=== PATIENT | female | born 1950 | race Hispanic/Latino ===

== ENCOUNTER 2017-02-12 18:33 | Inpatient (IN) | payer MEDICAID, OTHER ==
[2017-02-12] MEDS ORDERED: Sodium Chloride 0.9% 1,000 ML IV STA ×2 (19:14→20:36)
--- NOTE | 2017-02-12 19:22 | ED PDOC ---
Arrival/HPI - General Chief Complaint: Altered Mental Status Time Seen by Provider: 02/12/17 18:55 Historian: Patient - History of Present Illness Narrative History of Present Illness (Text): 02/12/17 19:23 A 66 year old female, whose past medical history includes CAD (with stents) and type 1 diabetes, brought in by EMS complaining of dizziness. Patient's son reports neighbor called ambulance. Patient reports she felt wobbly and almost as if she were to pass out. Patient denies any headache, vision changes, chest pain, shortness of breath, abdominal pain, nausea, vomiting, dysuria, fever or any other complaints at this time. PMD: Dr. Mackey Symptom Onset: Sudden Symptom Course: Unchanged Activities at Onset: Rest Context: Home Past Medical History - Provider Review Nursing Documentation Reviewed: Yes - Infectious Disease Hx of Infectious Diseases: None - Tetanus Immunization Tetanus Immunization: Unknown - Reproductive Menopause: Yes - Cardiac Hx Cardiac Disorders: Yes Hx Hypertension: Yes Hx Pacemaker: No - Pulmonary Hx Respiratory Disorders: No - Neurological Hx Neurological Disorder: No Hx Paralysis: No - HEENT Hx HEENT Disorder: No - Renal Hx Renal Disorder: No - Endocrine/Metabolic Hx Endocrine Disorders: Yes Hx Diabetes Mellitus Type 1: Yes - Hematological/Oncological Hx Blood Disorders: No Hx Blood Transfusions: No Hx Blood Transfusion Reaction: No - Integumentary Hx Dermatological Disorder: No - Musculoskeletal/Rheumatological Hx Musculoskeletal Disorders: No - Gastrointestinal Hx Gastrointestinal Disorders: No - Genitourinary/Gynecological Hx Genitourinary Disorders: No - Psychiatric Hx Psychophysiologic Disorder: No Hx Emotional Abuse: No Hx Physical Abuse: No Hx Substance Use: No - Past Surgical History Past Surgical History: Unable to Obtain - Surgical History Hx Cardiac Catheterization: Yes Hx Section: Yes Hx Coronary Stent: Yes - Anesthesia Hx Anesthesia: Yes Hx Anesthesia Reactions: No Hx Malignant Hyperthermia: No - Suicidal Assessment Feels Threatened In Home Enviroment: No Family/Social History - Physician Review Nursing Documentation Reviewed: Yes Family/Social History: No Known Family HX Smoking Status: Current Some Days Smoker Hx Alcohol Use: Yes (occassional glass of wine) Frequency of alcohol use: Socially Hx Substance Use: No Hx Substance Use Treatment: No Allergies/Home Meds Allergies/Adverse Reactions: Allergies No Known Allergies Allergy (Verified 02/12/17 18:41) Home Medications: Home Meds Medication Instructions Recorded Confirmed Atorvastatin [Lipitor] 80 mg PO DAILY 05/04/16 06/24/17 Clopidogrel [Plavix] 75 mg PO DAILY 12/24/15 02/12/17 Enalapril Maleate [Vasotec] 20 mg PO BID 12/24/15 02/12/17 Hydrochlorothiazide [HCTZ] 12.5 mg PO DAILY 12/24/15 02/12/17 Metoprolol Tartrate [Lopressor] 25 mg PO BID 12/24/15 02/12/17 Insulin Lispro [humALOG] 0 units SC DAILY 02/12/17 02/12/17 Review of Systems - Physician Review All systems were reviewed & negative as marked: Yes - Review of Systems Constitutional: absent: Fevers Eyes: absent: Vision Changes Respiratory: absent: SOB Cardiovascular: absent: Chest Pain Gastrointestinal: absent: Abdominal Pain, Nausea, Vomiting Genitourinary Female: absent: Dysuria Neurological: Dizziness. absent: Headache Physical Exam Vital Signs Reviewed: Yes Vital Signs Temp Pulse Resp BP Pulse Ox 02/12/17 20:42 70 20 142/39 L 100 02/12/17 18:53 97.7 F 70 18 105/44 L 99 Temperature: Afebrile Blood Pressure: Hypotensive Pulse: Regular Respiratory Rate: Normal Appearance: Positive for: Well-Appearing, Non-Toxic, Comfortable Pain Distress: None Mental Status: Positive for: Alert and Oriented X 3 Finger Stick Blood Glucose: 500 - Systems Exam Head: Present: Atraumatic, Normocephalic Pupils: Present: PERRL Extroacular Muscles: Present: EOMI Conjunctiva: Present: Normal Mouth: Present: Moist Mucous Membranes Neck: Present: Normal Range of Motion Respiratory/Chest: Present: Clear to Auscultation, Good Air Exchange. No: Respiratory Distress, Accessory Muscle Use Cardiovascular: Present: Regular Rate and Rhythm, Normal S1, S2. No: Murmurs Abdomen: Present: Normal Bowel Sounds. No: Tenderness, Distention, Peritoneal Signs Back: Present: Normal Inspection Upper Extremity: Present: Normal Inspection. No: Cyanosis, Edema Lower Extremity: Present: Normal Inspection. No: Edema Neurological: Present: GCS=15, CN II-XII Intact, Speech Normal Skin: Present: Warm, Dry, Normal Color. No: Rashes Psychiatric: Present: Alert, Oriented x 3, Normal Insight, Normal Concentration Medical Decision Making ED Course and Treatment: 02/12/17 19:20 Impression: A 66 year old female with dizziness. Differential Diagnosis included but are not limited to: near syncope vs. electrolyte abnormality Plan: -- EKG -- CT brain -- chest xray -- labs -- Urinalysis -- IV fluids -- Reassess and disposition Prior Visits: Notes and results from previous visits were reviewed. Patient was last seen in the emergency department on 08/10/16 for evaluation of AMS. Progress Notes: EKG: Ordered, reviewed, and independently interpreted the EKG. Rate : 75 BPM Rhythm : NSR Interpretation : 1st deg AV block with PVC, HI interval 264, QRS 110, T wave appear peaked, no other ST/T changes compared with EKG from 08/10/16 02/12/17 22:13 Patient with noted history with unremarkable vitals and other than being a poor historian, she is awak, alert, and oriented x 3. Her chemistry is showing labs consistent with marked DKA with HC03 of 5 and AG of 38 with VBG at pH of 7.00. BUN/Cr is revealing prerenal azotemia and potassium is very high at 8.2. EKG with peaked T waves. Patient given calcium, HC03 and insulin and will be placed on insulin drip for the DKA. The case was discussed with Dr. Mccauley, who accepted the patient to the ICU. 02/12/17 21:33 Patient's lactic acid is 6.0 - code sepsis called; patient hydrated appropriately per sepsis protocol and will start on iv antibiotics. - Critical Care Critical Care Minutes: 45 minutes - Lab Interpretations Lab Results: 02/12/17 18:50 02/12/17 18:50 Lab Results 02/12/17 18:50: PT 10.7, INR 0.99, APTT 25.8 02/12/17 18:50: Sodium 117 L*, Potassium 8.2 H* D, Chloride 78 L D, Carbon Dioxide 5 L D, Anion Gap 42 H, BUN 71 H, Creatinine 2.8 H, Est GFR ( Amer ) 21, Est GFR (Non-Af Amer) 17, Random Glucose 1507 H* D, Calcium 8.7, Magnesium 2.9 H, Total Bilirubin 0.6, AST 103 H, ALT 50, Alkaline Phosphatase 149 H, Lactate Dehydrogenase 593, Total Creatine Kinase 90, Troponin I 0.02 D, Total Protein 6.3, Albumin 4.2, Globulin 2.1, Albumin/Globulin Ratio 2.0 H, Lipase 134 02/12/17 18:50: WBC 10.8, RBC 3.85, Hgb 11.4 L, Hct 38.8, MCV 100.8, MCH 29.6, MCHC 29.4 L, RDW 13.8, Plt Count 326, MPV 11.0, Gran % 83.1 H, Lymph % (Auto) 7.5 L, Beckham % (Auto) 8.8 H, Eos % (Auto) 0.0 L, Baso % (Auto) 0.6, Gran # 8.98 H , Lymph # 0.8 L, Beckham # 1.0 H, Eos # 0.0, Baso # 0.07 I have reviewed the lab results: Yes - RAD Interpretation Radiology Orders: 02/12/17 19:11 CHEST PORTABLE [RAD] Stat 02/12/17 19:14 Brain [HEAD W/O CONTRAST] [CT] Stat - EKG Interpretation Interpreted by ED Physician: Yes Type: 12 lead EKG - Medication Orders Current Medication Orders: Acetaminophen (Tylenol 325mg Tab) 650 mg PO Q6H PRN PRN Reason: Pain, moderate (4-7) Heparin Sodium (Porcine) (Heparin) 5,000 units SC Q12 MOSES PRN Reason: Protocol Sodium Chloride (Sodium Chloride 0.9%) 1,000 mls @ 150 mls/hr IV .Q6H40M MOSES Insulin Human Regular 100 (units/ Sodium Chloride) 100 mls @ 7 mls/hr IV .[id number] PRN; Protocol; 7 UNITS/HR PRN Reason: TITRATE PER MD ORDER Vancomycin HCl 1 gm/ Sodium (Chloride) 250 mls @ 133.333 mls/hr IV STAT STA PRN Reason: Protocol Stop: 02/13/17 00:01 Piperacillin Sod/Tazobactam Sod (Zosyn 2.25 Gm In 0.9% 100 Ml) 2.25 gm in 100 mls @ 100 mls/hr IVPB STAT STA PRN Reason: Protocol Stop: 02/12/17 23:10 Metoclopramide HCl (Reglan) 5 mg IVP Q6H PRN PRN Reason: Nausea/Vomiting Last Admin: 02/12/17 21:59 Dose: 5 mg Pantoprazole Sodium (Protonix Inj) 40 mg IVP DAILY MOSES Discontinued Medications Calcium Gluconate (Calcium Gluconate Iv) 1,000 mg IVP ONCE ONE Stop: 02/12/17 20:45 Last Admin: 02/12/17 21:07 Dose: 1,000 mg Sodium Chloride (Sodium Chloride 0.9%) 1,000 mls @ 999 mls/hr IV .Q1H1M STA Stop: 02/12/17 20:14 Last Admin: 02/12/17 19:34 Dose: 999 mls/hr Insulin Human Regular 100 (units/ Sodium Chloride) 100 mls @ 6 mls/hr IV .[id number] PRN; Protocol; 6 UNITS/HR PRN Reason: TITRATE PER MD ORDER Last Admin: 02/12/17 21:40 Dose: 6 units/hr, 6 mls/hr Sodium Chloride (Sodium Chloride 0.9%) 1,000 mls @ 999 mls/hr IV .Q1H1M STA Stop: 02/12/17 21:36 Last Admin: 02/12/17 21:05 Dose: 999 mls/hr Insulin Human Regular (Humulin R) 6 units IVP ONCE STA Stop: 02/12/17 20:29 Last Admin: 02/12/17 21:06 Dose: 6 units Ondansetron HCl (Zofran Inj) 4 mg IVP STAT STA Stop: 02/12/17 19:27 Last Admin: 02/12/17 19:35 Dose: 4 mg Sodium Bicarbonate (Sodium Bicarbonate (8.4%) 50 Meq Syringe) 100 meq IVP ONCE STA Stop: 02/12/17 21:15 Last Admin: 02/12/17 21:32 Dose: 100 meq - Scribe Statement The provider has reviewed the documentation as recorded by the Malka Ortiz Provider Scribe Attestation: All medical record entries made by the Malka were at my direction and personally dictated by me. I have reviewed the chart and agree that the record accurately reflects my personal performance of the history, physical exam, medical decision making, and the department course for this patient. I have also personally directed, reviewed, and agree with the discharge instructions and disposition. Disposition/Present on Arrival - Present on Arrival Any Indicators Present on Arrival: Yes History of DVT/PE: No History of Uncontrolled Diabetes: Yes Urinary Catheter: No History of Decub. Ulcer: No History Surgical Site Infection Following: None - Disposition Have Diagnosis and Disposition been Completed?: Yes Diagnosis: Diabetic ketoacidosis, Prerenal azotemia, Hyperkalemia Disposition: HOSPITALIZED Disposition Time: 20:33 Patient Plan: Observation Condition: GUARDED
[2017-02-12 19:36] LABS: BASO # 0.07 K/mm3 (0.0-2.0); BASO % 0.6 % (0.0-3.0); GRAN # 8.98 (1.4-6.5); GRAN % 83.1 % (50.0-68.0); HEMATOCRIT 38.8 % (36.0-48.0); LYMPH # 0.8 (1.2-3.4); LYMPH % 7.5 % (22.0-35.0); MEAN CELL VOLUME 100.8 fL (80.0-105.0); MEAN CORPUSCULAR HEMOGLOBIN 29.6 pg (25.0-35.0); MEAN CORPUSCULAR HGB CONC 29.4 g/dl (31.0-37.0); MONO % 8.8 % (1.0-6.0); PLATELET COUNT 326 10^3/uL (120.0-450.0); RED CELL DISTRIBUTION WIDTH 13.8 % (11.5-14.5); WHITE BLOOD COUNT 10.8 10^3/ul (4.5-11.0)
[2017-02-12 19:39] LABS: ADD MANUAL DIFF? NO
[2017-02-12 19:44] LABS: BILIRUBIN,TOTAL 0.6 mg/dL (0.2-1.3); CALCIUM 8.7 mg/dL (8.4-10.5); INR 0.99 (0.93-1.08); MAGNESIUM 2.9 mg/dL (1.7-2.2); PARTIAL THROMBOPLASTIN TIME 25.8 Seconds (23.7-30.8); TOTAL PROTEIN 6.3 g/dL (5.8-8.3)
[2017-02-12 19:55] LABS: TROPONIN I 0.02 ng/mL
[2017-02-12] MEDS ORDERED: Insulin Regular 1 UNITS/0.01 ML ML IVP STA (20:28)
[2017-02-12 20:42] LABS: POTASSIUM 8.2 mmol/L (3.6-5.0)
[2017-02-12 21:05] LABS: VENOUS BLOOD GAS BASE EXCESS -22.6 mmol/L (0.0-2.0)
[2017-02-12] MEDS ORDERED: Sodium Bicarbonate (8.4%) 50 Meq Syringe IVP STA (21:14)
[2017-02-12] MEDS ORDERED: Insulin Regular 100 UNITS in Sodium Chloride 0.9% 99 ML IV PRN (21:16)
--- NOTE | 2017-02-12 21:20 | CP.PCM.HP ---
History of Present Illness - History of Present Illness History of Present Illness: The patient is a 66 year old woman with a history of CAD (s/p PCI's), DL and IDDM who presents with pre-syncope. Of note, due to the patient's intermittent confusion, detail of history are limited and were obtained from the ED notes. She denies CP, SOB, head trauma, F/C, dysuria or cough. In the ED, a code sepsis was called after her lactate was found to be elevated at 6.0. Also in the ED, her blood glucose was found to be greater than 1000 with evidence of severe DKA. As a result, she will be admitted to ICU for further monitoring and management. Present on Admission - Present on Admission Any Indicators Present on Admission: No Review of Systems - Review of Systems All systems: reviewed and no additional remarkable complaints except - Constitutional Constitutional: As Per HPI - EENT Eyes: As Per HPI Ears: As Per HPI - Cardiovascular Cardiovascular: As Per HPI - Respiratory Respiratory: As Per HPI - Gastrointestinal Gastrointestinal: As Per HPI - Musculoskeletal Musculoskeletal: As Per HPI - Integumentary Integumentary: As Per HPI - Neurological Neurological: As Per HPI Past Patient History - Infectious Disease Hx of Infectious Diseases: None - Tetanus Immunizations Tetanus Immunization: Unknown - Past Social History Smoking Status: Current Some Days Smoker - CARDIAC Hx Cardiac Disorders: Yes Hx Hypertension: Yes Hx Pacemaker: No - PULMONARY Hx Respiratory Disorders: No - NEUROLOGICAL Hx Neurological Disorder: No Hx Paralysis: No - HEENT Hx HEENT Problems: No - RENAL Hx Chronic Kidney Disease: No - ENDOCRINE/METABOLIC Hx Endocrine Disorders: Yes Hx Diabetes Mellitus Type 1: Yes - HEMATOLOGICAL/ONCOLOGICAL Hx Blood Disorders: No Hx Blood Transfusions: No Hx Blood Transfusion Reaction: No - INTEGUMENTARY Hx Dermatological Problems: No - MUSCULOSKELETAL/RHEUMATOLOGICAL Hx Musculoskeletal Disorders: No - GASTROINTESTINAL Hx Gastrointestinal Disorders: No - GENITOURINARY/GYNECOLOGICAL Hx Genitourinary Disorders: No - PSYCHIATRIC Hx Psychophysiologic Disorder: No Hx Emotional Abuse: No Hx Physical Abuse: No Hx Substance Use: No - SURGICAL HISTORY Hx Cardiac Catheterization: Yes Hx Section: Yes Hx Coronary Stent: Yes - ANESTHESIA Hx Anesthesia: Yes Hx Anesthesia Reactions: No Hx Malignant Hyperthermia: No Meds Allergies/Adverse Reactions: Allergies Allergy/AdvReac Type Severity Reaction Status Date / Time No Known Allergies Allergy Verified 02/12/17 18:41 Physical Exam - Constitutional Additional comments: A&Ox3; However, intermittently confused and asking to "go home" - Head Exam Head Exam: ATRAUMATIC, NORMAL INSPECTION, NORMOCEPHALIC - Eye Exam Eye Exam: EOMI, Normal appearance, PERRL - ENT Exam ENT Exam: Mucous Membranes Dry - Neck Exam Neck exam: Positive for: Full Rom, Normal Inspection - Respiratory Exam Respiratory Exam: Clear to Auscultation Bilateral, NORMAL BREATHING PATTERN - Cardiovascular Exam Cardiovascular Exam: REGULAR RHYTHM - GI/Abdominal Exam GI & Abdominal Exam: Normal Bowel Sounds, Soft. absent: Tenderness - Rectal Exam Rectal Exam: Deferred - Extremities Exam Extremities exam: Positive for: normal inspection - Neurological Exam Additional comments: Grossly normal neuro exam Results - Vital Signs Recent Vital Signs: Last Vital Signs Temp 97.7 F 02/12/17 18:53 Pulse 70 02/12/17 20:42 Resp 20 02/12/17 20:42 BP 142/39 L 02/12/17 20:42 Pulse Ox 100 02/12/17 20:42 - Labs Result Diagrams: 02/13/17 03:15 02/13/17 03:15 Labs: Laboratory Results - last 24 hr 02/12/17 20:45 pO2 105 H VBG pH 7.00 L* VBG pCO2 31.0 L VBG HCO3 7.6 L VBG Total CO2 8.6 L VBG O2 Sat (Calc) 98.6 H VBG Base Excess -22.6 L VBG Potassium 9.4 H* Sodium 120.0 L* Chloride 71.0 L Glucose > 750 H* Lactate 6.0 H* FiO2 21.0 Venous Blood Potassium 9.4 H* - Imaging and Cardiology CT scan - head Status: Report reviewed by me Assessment & Plan - Assessment and Plan (Free Text) Plan: A/P: The patient is a 66 year old woman with a history of CAD (s/p PCI's), DL and IDDM who is being admitted for SIRS, severe DKA, hyperkalemia and BENNIE. 1. Type 1 DKA (with intermittent confusion): -Insulin drip -aggressive IVF's -no additional potassium needed in IVF's as pt already hyperkalemic -check serial BMP's, VBG, mag and phos -NPO -neuro checks Q4hrs -check HgA1c 2. Altered Mentation (intermittent): -likely due to combination of DKA and SIRS -empiric IV antibiotics and Insulin drip -neuro checks Q4hrs -fall precautions -CT-head negative for acute disease 3. SIRS: -elevated lactic acid and leukocyotsis but afebrile -no obvious source of infection -will empirically start IV Vanco/Zosyn -check procalcitonin -check UA 4. Hyperkalemia: -IV calcium gluconate given in ED -Insulin drip should be adequate treatment for now 5. BENNIE: -last documented serum Cr was normal -nephrology consult placed -urine lytes ordered -renally dose all meds DVT PPx: SC Heparin and SCD's GI PPx: Protonix
[2017-02-12] MEDS: Insulin Regular 100 UNITS in Sodium Chloride 0.9% 99 ML IV PRN ×2 (21:40→23:07)
[2017-02-12 21:41] LABS: URINE BILIRUBIN NEGATIVE (NEGATIVE); URINE BLOOD NEGATIVE (NEGATIVE); URINE GLUCOSE (UA) NEGATIVE (NEGATIVE); URINE KETONE 15 mg/dL (NEGATIVE); URINE LEUKOCYTE ESTERASE NEGATIVE Leu/uL (NEGATIVE); URINE PROTEIN TRACE mg/dL (<30 mg/dL); URINE UROBILINOGEN 0.2 E.U./dL (<1 E.U./dL)
[2017-02-12 21:46] LABS: URINE APPEARANCE CLEAR (CLEAR); URINE COLOR YELLOW (YELLOW)
[2017-02-12 21:51] LABS: URINE RBC 0 - 2 /hpf (0-2)
[2017-02-12 21:52] LABS: URINE AMORPHOUS SEDIMENT FEW; URINE BACTERIA MOD (NEG)
[2017-02-12] MEDS ORDERED: Piperacillin/Tazobact 2.25gm 2.25 GM/100 ML BAG IVPB STA (22:11)
[2017-02-12] MEDS ORDERED: Vancomycin 1gm in NS 250ml 1 GM/250 ML BAG IVPB STA (22:17)
[2017-02-12] MEDS ORDERED: Sod Polystyrene Sulf 15 gm/60 ml Oral Susp PO ONE (22:52)
[2017-02-12] MEDS: Sodium Chloride 0.9% 1,000 ML IV SCH (22:58)
--- NOTE | 2017-02-12 23:06 | CT ---
EXAM: CT Head Without Intravenous Contrast CLINICAL HISTORY: 66 years old, female; Signs and symptoms; Syncope and collapse; Additional info: Unsteady, near syncope TECHNIQUE: Axial computed tomography images of the head/brain without intravenous contrast. This CT exam was performed using one or more of the following dose reduction techniques: automated exposure control, adjustment of the mA and/or kV according to patient size, and/or use of iterative reconstruction technique. EXAM DATE/TIME: 02/12/2017 7:14 PM COMPARISON: No relevant prior studies available. FINDINGS: BRAIN: Small foci of air are seen in the brain, just above the skull base. These are most likely intravenous in location, located in the cavernous sinuses, and related to a recent intravenous injection or peripheral IV placement. This finding is unlikely of clinical significance. Areas of low density in the periventricular white matter bilaterally, most likely representing mild chronic small vessel ischemic changes. Diffuse, age-related cortical atrophy and ventriculomegaly. No significant acute abnormality identified. No acute hemorrhage seen within the brain. No acute extra-axial fluid collections visualized. No evidence of significant mass effect within the brain. VENTRICLES: No evidence of significant hydrocephalus. BONES/JOINTS: See above. SOFT TISSUES: No acute abnormality of the visualized soft tissues is seen. VASCULATURE: Atherosclerotic calcification. SINUSES: Visualized paranasal sinuses appear clear. MASTOID AIR CELLS: Mastoid air cells appear clear. IMPRESSION: - No acute findings seen within the brain. - See above for remaining findings.
[2017-02-12 23:50] LABS: VENOUS BLOOD GAS BASE EXCESS -17.1 mmol/L (0.0-2.0)
[2017-02-13] LABS: CALCIUM 8.4 mg/dL (8.4-10.5); MAGNESIUM 2.7 mg/dL (1.7-2.2); PHOSPHOROUS 8.5 mg/dL (2.5-4.5)
[2017-02-13] MEDS ORDERED: Sodium Bicarbonate (8.4%) 50 Meq Syringe IVP ONE (00:01)
[2017-02-13 00:14] LABS: POTASSIUM 5.6 mmol/L (3.6-5.0)
[2017-02-13] MEDS: Insulin Regular 100 UNITS in Sodium Chloride 0.9% 99 ML IV PRN ×3 (01:48→10:20)
[2017-02-13 02:39] VITALS: BMI 16.7
[2017-02-13 03:40] LABS: CALCIUM 8.2 mg/dL (8.4-10.5); MAGNESIUM 2.5 mg/dL (1.7-2.2); PHOSPHOROUS 3.5 mg/dL (2.5-4.5); POTASSIUM 4.3 mmol/L (3.6-5.0)
[2017-02-13 03:47] LABS: MEAN CELL VOLUME 84.8 fL (80.0-105.0); MEAN CORPUSCULAR HEMOGLOBIN 29.4 pg (25.0-35.0); MEAN CORPUSCULAR HGB CONC 34.6 g/dl (31.0-37.0); MEAN PLATELET VOLUME 9.9 fl (7.0-11.0); PLATELET COUNT 257 10^3/uL (120.0-450.0); RED CELL DISTRIBUTION WIDTH 12.9 % (11.5-14.5); WHITE BLOOD COUNT 13.2 10^3/ul (4.5-11.0)
[2017-02-13 03:48] LABS: ADD MANUAL DIFF? YES
[2017-02-13] MEDS ORDERED: Sodium Chloride 0.9% 1,000 ML IV STA ×2 (07:07→08:42)
[2017-02-13 07:12] LABS: VENOUS BLOOD PH 7.41 (7.32-7.43)
[2017-02-13 07:15] LABS: NEUTROPHIL 87 % (50.0-70.0)
[2017-02-13] MEDS: Sodium Chloride 0.9% 1,000 ML IV SCH (07:15)
[2017-02-13 07:16] LABS: BAND 2 % (0-2); EOSINOPHIL 1 % (0.0-3.0)
[2017-02-13 07:33] LABS: CALCIUM 8.2 mg/dL (8.4-10.5); MAGNESIUM 2.3 mg/dL (1.7-2.2); PHOSPHOROUS 2.5 mg/dL (2.5-4.5); POTASSIUM 3.6 mmol/L (3.6-5.0)
--- NOTE | 2017-02-13 08:10 | RAD ---
HISTORY: dizzy COMPARISON: 08/10/2016 FINDINGS: LUNGS: No active pulmonary disease. PLEURA: No significant pleural effusion identified, no pneumothorax apparent. CARDIOVASCULAR: Normal. OSSEOUS STRUCTURES: No significant abnormalities. VISUALIZED UPPER ABDOMEN: Normal. OTHER FINDINGS: None. IMPRESSION: No active disease.
--- NOTE | 2017-02-13 09:46 | PN ---
DATE: 02/13/2017 SUBJECTIVE: The patient is resting in bed, very comfortable this morning. Continues to require insu fercho drip as well as IV fluids and electrolytes are being watched closely. The patient is hemodynamic ally stable. No complaints of pain. No fever, chills, nausea, vomiting. No abdominal pain. No bladimir rrhea. PHYSICAL EXAMINATION: VITAL SIGNS: Her temperature is 98.8, her pulse is 96, respirations are 19, and BP is 143/62, O2 sat uration is 96% on room air. HEAD: Atraumatic, normocephalic. EYES: Reactive to light. EARS, NOSE AND THROAT: Seemed to be within normal limits. NECK: Supple. No JVD, no thyroid enlargement, no lymph nodes. HEART: Has regular rate and rhythm, normal S1, S2. LUNGS: Reveal good breath sounds bilaterally. ABDOMEN: Soft, decreased bowel sounds. GENITALIA AND RECTAL: Deferred. MUSCULOSKELETAL: No joint deformities. EXTREMITIES: Reveal no significant lower extremity edema. NEUROLOGIC: She seems to be grossly intact at this time. LABORATORIES: Reveal a white count of 13.2, her hemoglobin is 9.7, hematocrit 28.0 and platelets of 257,000. The patient's venous blood gas reveals a pH of 7.41, pCO2 of 48 and pO2 of 60. Sodium is 1 41, potassium 3.6, chloride 102, CO2 of 27 with a BUN of 56, creatinine of 1.8 and glucose is 462. The patient's chest x-ray reveals no active disease. CT of the head reveals no acute findings seen w ithin the brain. IMPRESSION: This patient has diabetic ketoacidosis with severe metabolic acidosis and presented with altered mental status. She has acute renal failure and has a history of coronary artery disease wit h stents and anemia. PLAN: We will continue with the insulin drip and check her electrolytes closely and correct as needteresa d. The patient will continue with IV fluids and she is on heparin subQ as well as Protonix and Erica n. We will follow closely and treat aggressively along with the other consultants and the primary ca re doctor. Ronaldo Rae MD cc: [id number] TT: 02/13/2017 09:45:39 Confirmation # [id number] Dictation # [id number]
[2017-02-13 11:08] LABS: VENOUS BLOOD GAS BASE EXCESS 2.6 mmol/L (0.0-2.0); VENOUS BLOOD PH 7.36 (7.32-7.43)
[2017-02-13] MEDS: Dextrose 5%/0.45% NS 1,000 ML IV SCH ×2 (11:21→18:10)
[2017-02-13 11:28] LABS: CALCIUM 7.7 mg/dL (8.4-10.5); MAGNESIUM 2.1 mg/dL (1.7-2.2); PHOSPHOROUS 1.8 mg/dL (2.5-4.5); POTASSIUM 3.4 mmol/L (3.6-5.0)
[2017-02-13] MEDS ORDERED: Potassium Chloride 20 mEq ER Tab PO STA ×2 (11:32)
[2017-02-13] MEDS ORDERED: Insulin Regular 100 UNITS in Sodium Chloride 0.9% 99 ML IV PRN (11:51)
[2017-02-13] MEDS ORDERED: Albuterol-Ipratrop 3 mg / 0.5 (3 ml) UD IH PRN (11:57)
--- NOTE | 2017-02-13 12:15 | CP.PCM.PN ---
<Billy Mckeon - Last Filed: 02/13/17 12:15> Subjective - Date & Time of Evaluation Date of Evaluation: 02/13/17 Time of Evaluation: 08:00 - Subjective Subjective: Pt was seen and examined at bedside. Pt is somnolent however orientated. She is answering some questions at this time. No acute or adverse events overnight as per nursing staff. Pt remains on insulin drip. Objective - Vital Signs/Intake and Output Vital Signs (last 24 hours): Temp Pulse Resp BP Pulse Ox 98.8 F 80 21 140/51 L 98 02/13/17 08:00 02/13/17 10:10 02/13/17 10:10 02/13/17 10:00 02/13/17 10:10 Intake and Output: 02/13/17 02/13/17 06:59 18:59 Intake Total 2400 120 Output Total 625 Balance 1775 120 - Medications Medications: Current Medications Acetaminophen (Tylenol 325mg Tab) 650 mg PO Q6H PRN PRN Reason: Pain, moderate (4-7) Albuterol/Ipratropium (Duoneb 3 Mg/0.5 Mg (3 Ml) Ud) 3 ml IH Q2H PRN PRN Reason: Shortness of Breath Arformoterol Tartrate (Brovana) 15 mcg IH [id number] [facility] Budesonide (Pulmicort Respules) 0.5 mg IH [id number] [facility] Heparin Sodium (Porcine) (Heparin) 5,000 units SC Q12 [facility] PRN Reason: Protocol Last Admin: 02/13/17 09:54 Dose: 5,000 units Dextrose/Sodium Chloride (Dextrose 5%/0.45% Ns 1000 Ml) 1,000 mls @ 150 mls/hr IV .Q6H40M [facility] Last Admin: 02/13/17 11:21 Dose: 150 mls/hr Potassium Chloride (Potassium Chloride 20 Meq/100 Ml) 20 meq in 100 mls @ 50 mls/hr IVPB ONCE ONE Stop: 02/13/17 13:33 Last Admin: 02/13/17 11:55 Dose: 50 mls/hr Insulin Human Regular 100 (units/ Sodium Chloride) 100 mls @ 15 mls/hr IV .Q6H40M PRN; Protocol; 15 UNITS/HR PRN Reason: TITRATE PER MD ORDER Metoclopramide HCl (Reglan) 5 mg IVP Q6H PRN PRN Reason: Nausea/Vomiting Last Admin: 02/12/17 21:59 Dose: 5 mg Nicotine (Nicoderm Cq) 1 patch TD DAILY [facility] Last Admin: 02/13/17 11:24 Dose: 1 patch Pantoprazole Sodium (Protonix Inj) 40 mg IVP DAILY [facility] Last Admin: 02/13/17 09:54 Dose: 40 mg Potassium Phos/Sodium Phos (Neutra-Phos) 1 pkt PO BID [facility] - Labs Labs: 02/13/17 03:15 02/13/17 11:00 PT 10.7 Seconds (9.9-11.8) 02/12/17 18:50 INR 0.99 (0.93-1.08) 02/12/17 18:50 APTT 25.8 Seconds (23.7-30.8) 02/12/17 18:50 - Constitutional Appears: No Acute Distress - Head Exam Head Exam: ATRAUMATIC, NORMAL INSPECTION, NORMOCEPHALIC - Eye Exam Eye Exam: EOMI, Normal appearance, PERRL Pupil Exam: NORMAL ACCOMODATION, PERRL - ENT Exam ENT Exam: Mucous Membranes Moist, Normal Exam - Neck Exam Neck Exam: Full ROM, Normal Inspection. absent: Lymphadenopathy - Respiratory Exam Respiratory Exam: Clear to Ausculation Bilateral, NORMAL BREATHING PATTERN - Cardiovascular Exam Cardiovascular Exam: REGULAR RHYTHM, +S1, +S2. absent: Murmur - GI/Abdominal Exam GI & Abdominal Exam: Soft, Normal Bowel Sounds. absent: Tenderness - Extremities Exam Extremities Exam: Full ROM, Normal Capillary Refill, Normal Inspection. absent : Joint Swelling, Pedal Edema - Neurological Exam Neurological Exam: Alert, Awake, CN II-XII Intact, Normal Gait, Oriented x3 - Psychiatric Exam Psychiatric exam: Normal Affect, Normal Mood - Skin Skin Exam: Dry, Intact, Normal Color, Warm Assessment and Plan - Assessment and Plan (Free Text) Assessment: 66 F admitted to ICU for for severe DKA, AMS, and BENNIE. 1. Type 1 DKA (with intermittent confusion): -Insulin drip, aggressive IVF's, will switch once AG closes -check serial BMP's, VBG, mag and phos -restart Diabetic diet -neuro checks Q4hrs -check HgA1c 2. Altered Mentation (intermittent): -likely due to combination of DKA and SIRS, improving -empiric IV antibiotics and Insulin drip -neuro checks Q4hrs -fall precautions -CT-head negative for acute disease 3. SIRS: -elevated lactic acid and leukocyotsis but afebrile -no clear etiology of infection -will empirically start IV Vanco/Zosyn -check procalcitonin -check UA 4. Hyperkalemia: -resolved 5. BENNIE: -last documented serum Cr was normal -nephrology consult placed, renal US -urine lytes ordered -renally dose all meds DVT GI PPx: SC Heparin and SCD's Protonix Seen Reviewed and discussed with Dr. Parnell <Benito Parnell - Last Filed: 02/13/17 14:08> Objective - Vital Signs/Intake and Output Vital Signs (last 24 hours): Temp Pulse Resp BP Pulse Ox 98.8 F 84 24 135/49 L 99 02/13/17 08:00 02/13/17 13:00 02/13/17 13:00 02/13/17 13:00 02/13/17 13:00 Intake and Output: 02/13/17 02/13/17 06:59 18:59 Intake Total 2400 120 Output Total 625 Balance 1775 120 - Medications Medications: Current Medications Acetaminophen (Tylenol 325mg Tab) 650 mg PO Q6H PRN PRN Reason: Pain, moderate (4-7) Albuterol/Ipratropium (Duoneb 3 Mg/0.5 Mg (3 Ml) Ud) 3 ml IH Q2H PRN PRN Reason: Shortness of Breath Arformoterol Tartrate (Brovana) 15 mcg IH [id number] [facility] Budesonide (Pulmicort Respules) 0.5 mg IH [id number] [facility] Heparin Sodium (Porcine) (Heparin) 5,000 units SC Q12 [facility] PRN Reason: Protocol Last Admin: 02/13/17 09:54 Dose: 5,000 units Dextrose/Sodium Chloride (Dextrose 5%/0.45% Ns 1000 Ml) 1,000 mls @ 150 mls/hr IV .Q6H40M [facility] Last Admin: 02/13/17 11:21 Dose: 150 mls/hr Insulin Human Regular 100 (units/ Sodium Chloride) 100 mls @ 15 mls/hr IV .Q6H40M PRN; Protocol; 15 UNITS/HR PRN Reason: TITRATE PER MD ORDER Metoclopramide HCl (Reglan) 5 mg IVP Q6H PRN PRN Reason: Nausea/Vomiting Last Admin: 02/12/17 21:59 Dose: 5 mg Nicotine (Nicoderm Cq) 1 patch TD DAILY [facility] Last Admin: 02/13/17 11:24 Dose: 1 patch Pantoprazole Sodium (Protonix Inj) 40 mg IVP DAILY [facility] Last Admin: 02/13/17 09:54 Dose: 40 mg Potassium Phos/Sodium Phos (Neutra-Phos) 1 pkt PO BID [facility] - Labs Labs: 02/13/17 03:15 02/13/17 11:00 PT 10.7 Seconds (9.9-11.8) 02/12/17 18:50 INR 0.99 (0.93-1.08) 02/12/17 18:50 APTT 25.8 Seconds (23.7-30.8) 02/12/17 18:50 Attending/Attestation - Attestation I have personally seen and examined this patient.: Yes I have fully participated in the care of the patient.: Yes I have reviewed all pertinent clinical information, including history, physical exam and plan: Yes Notes (Text): 02/13/17 13:49 attending note; Patient seen and examined with resident in CCU. Patient is alert, awake. Answers a few [id number]. Mental status is improving. Patient is a 66-year-old female admitted with DKA and confusion. Improving slowly. CT head is negative. Continue IV insulin drip. Supplement potassium, phosphorus. Lactic acidosis; monitor closely. currently patient is afebrile and nontoxic. Got 1 dose of vancomycin and Zosyn. cultures pending. Chest x-rays negative. Acute renal failure; secondary to prerenal/DKA. Continue IV fluids. Creatinine is improving. history of coronary artery /stent placement; continue beta marie, Plavix. anemia; monitor hemoglobin closely. upon discharge the patient will follow up with PMD Dr. Dixon.
--- NOTE | 2017-02-13 15:43 | CON ---
DATE: 02/13/2017 ENDOCRINOLOGY CONSULTATION LOCATION: CCU 129, room 7. HISTORY OF PRESENT ILLNESS: This is a 66-year-old female with known history of type 2 insulin-requir ing diabetes, presenting here with altered mental status and marked hyperglycemic accelerations, and evaluated to be in diabetic ketoacidosis and dehydration, and is now being referred for diabetic eval uation and management. PAST MEDICAL HISTORY: The history is actually limited because the patient is confused and disoriente d at this time. As per the record, she has type 2 insulin-requiring diabetes on a combination of Hum alog and Lantus, given as noted, but the exact dosing is not known at this time, history of hypertens stone cardiovascular disease and dyslipidemia, history of coronary artery disease with previous coronar y stent placement. FAMILY HISTORY: Positive for diabetes and hypertension. SOCIAL HISTORY: The patient has supportive family and is a current active smoker. REVIEW OF SYSTEMS: Has been noted to have increasing generalized body weakness with hypersomnolence and lethargy and supervening agitation and confusion and disorientation on the day of admission. Als o admits to dizziness and lightheadedness, worse on the day of admission. No chest pains or palpitat ions or PNDs. Her oral intake has been variable and suboptimal with nausea, dyspepsia, with episodic vomiting, as noted. Also, has marked polyuria, nocturia, and polydipsia as noted. PHYSICAL EXAMINATION: GENERAL: Asthenic female in no apparent distress. VITAL SIGNS: Blood pressure of 140/80, pulse of 100 beats per minute, regular, temperature 98, respi rations 20. Height is 5 feet 2 inches, weight is 91 pounds. HEENT: Head normocephalic. Eyes anicteric with pink conjunctivae. Fundoscopy not possible at this time. Ears, nose, and throat otherwise normal. NECK: Supple. Thyroid gland is normal size. No carotid bruits. No cervical adenopathy. CARDIOPULMONARY: Some adynamic precordium. S1, S2 are rapid and regular. LUNGS: Show scattered rhonchi. ABDOMEN: Flat, soft, with positive bowel sounds. EXTREMITIES: No peripheral edema. Pulses are +2 bilaterally. LABORATORIES: Showed WBC is 13.2, hemoglobin of 9.7, hematocrit of 28, MCV 84, platelets 257. The c hemistries showed the lactic acid is 5.3. Chemistries: BUN of 65, sodium 128, potassium 5.6, chlori de 89, CO2 is , glucose is 1193, creatinine is 2.4. Glucose values have been over 500 mg/dL. T he latest CO2 now is 27. ASSESSMENT: This is a 66-year-old female with uncontrolled and decompensated type 2 insulin-requirin g diabetes, presenting here with diabetic ketoacidosis and dehydration with spurious hyponatremia and marked azotemia, as noted thereof. There is also the possibility of an intercurrent bacteremia and sepsis with markedly elevated lactate level with an underlying systemic infectious response syndrome. PLAN OF MANAGEMENT: I concur with the intensive insulin therapy with an ongoing insulin drip infusio n as given and ordered. More importantly, she needs vigorous IV hydration and with normal saline run shasha at 150 mL per hour to replenish her lost fluids and electrolytes from the increased osmotic diur esis thereof. Will obtain serial chemistries and supplement accordingly as needed. We will also con tinue the insulin drip infusion until the CO2 is at least above 20, and we will switch her over to a more physiologic basal and bolus insulin regimen as indicated. A hemoglobin A1c will be done to conf irm her prior glycemic control and baseline thyroid function studies will be ordered. Serial inorganic chemistry professor sharifa will be obtained and will supplement accordingly as needed. We will follow. Jessica Torres MD cc: [phone] TT: 02/13/2017 15:42:59 Confirmation # [id number] Dictation # [id number] nico
[2017-02-13 15:54] LABS: VENOUS BLOOD GAS BASE EXCESS 1.9 mmol/L (0.0-2.0); VENOUS BLOOD PH 7.36 (7.32-7.43)
[2017-02-13 16:00] LABS: CALCIUM 7.8 mg/dL (8.4-10.5); PHOSPHOROUS 1.6 mg/dL (2.5-4.5); POTASSIUM 3.5 mmol/L (3.6-5.0)
--- NOTE | 2017-02-13 16:07 | CON ---
DATE: 02/13/2017 ADDENDUM LABORATORY WORK: Shows a white blood cell count of 13.2 with a hemoglobin of 9.7, platelet count of 257,000. Chemistries show sodium of 144, potassium of 3.4, chloride 109 with a CO2 of 29, BUN is ezio n to 46 with a creatinine of 1.5. On admission, patient's BUN was 71 with a creatinine of 2.8. Her CO2 on admission was 5, it is now 24. Potassium level was 8.2 on admission. The last 2 were 3.6 and 3.4. Calcium 7.7, phosphorus 1.8 with a magnesium level of 2.1. TSH level was mildly elevated at 4 .76. Urine showed trace protein, 0-2 red blood cells, 1-3 white blood cells, moderate bacteria. MICROBIOLOGY: All cultures are pending. ASSESSMENT: 1. Acute renal failure superimposed on possible chronic kidney disease stage I/II. This is all in t he setting of volume depletion, nausea, vomiting, diabetic ketoacidosis. This will likely all resolv ed. The patient should return to baseline levels. Her metabolic acidosis has cleared. Her diabetic ketoacidosis has resolved. Right now, her hyperkalemia has resolved and she is borderline hypokalem ic. Potassium supplements can be started as necessary. Her phosphorus level is low and patient may receive phosphorus supplements. Will start patient on Neutra-Phos. 2. Diabetic ketoacidosis of uncertain etiology. Possible sepsis. The patient's lactic acid level w as 5.3 on admission. She is presently not receiving any antibiotic therapy. In the Emergency Room, she did receive 1 gram of vancomycin. 3. History of arteriosclerotic heart disease, status post percutaneous transluminal coronary angiopl asty and stents. The patient has no evidence for any acute coronary insufficiency. Her CPK levels a re normal. Troponin levels are low. 4. History of hyperlipidemia. The patient will likely continue on statin therapy and diet therapy. 5. History of anemia. This is in part secondary to significant volume repletion over the last 24 ho urs. 6. Status post hyperkalemia, secondary to diabetic ketoacidosis. 7. Status post severe metabolic acidosis, secondary to diabetic ketoacidosis. 8. History of cigarette smoking. PLAN: 1. Continue to follow cultures and resume antibiotics as necessary. 2. Will obtain a baseline renal ultrasound, but I do believe that patient probably has 2 normal size kidneys. 3. Once the patient gets baseline creatinine levels of 1.1-1.2, which will likely be by tomorrow, I will do a 24-hour urine collection for creatinine clearance and protein. 4. Encouraged patient to stop smoking and stop drinking. 5. Encouraged patient to seek the consultation and advice of an rope tier in the outpatient se tting. 6. Continue to monitor patient in the CCU likely through tomorrow morning. 7. Greater than 35 minutes spent in the care of this patient, discussing her case with patient and h er daughter. Thank you for letting me partake and share in the care of your patient. Todd Liriano MD cc: [phone] TT: 02/13/2017 16:06:58 Confirmation # [id number] Dictation # [id number] en
[2017-02-13] MEDS: Potassium & Sodium Phosphate PO SCH (17:08)
[2017-02-13] MEDS: cefTRIAXone 1 gm 1 GM/100 ML BAG IVPB SCH (18:09)
[2017-02-13 19:27] LABS: CALCIUM 7.3 mg/dL (8.4-10.5); MAGNESIUM 1.9 mg/dL (1.7-2.2); POTASSIUM 3.5 mmol/L (3.6-5.0)
[2017-02-13 19:31] LABS: PHOSPHOROUS 1.4 mg/dL (2.5-4.5)
[2017-02-13] MEDS: Arformoterol 15 mcg/2 ml Inh Sol IH SCH (19:55)
[2017-02-13] MEDS: Budesonide 0.5 mg/2 ml Inhal Susp UD IH SCH (19:55)
[2017-02-13 20:52] LABS: VENOUS BLOOD GAS BASE EXCESS 2.7 mmol/L (0.0-2.0); VENOUS BLOOD PH 7.38 (7.32-7.43)
[2017-02-13] MEDS: Insulin Lispro (humaLOG) LOW Coverage SC SCH (22:15)
[2017-02-13] MEDS: Insulin Detemir 100 units/ml Vial (Levemir) SC SCH (22:23)
[2017-02-14 00:15] LABS: VENOUS BLOOD GAS BASE EXCESS 2.1 mmol/L (0.0-2.0)
--- NOTE | 2017-02-14 01:18 | CARD ---
APPROVED REPORT EKG Measurement Heart [id number] <Conclusion> Sinus rhythm with 1st degree AV block with occasional premature ventricular complexes Incomplete right bundle branch block Left posterior fascicular block Cannot rule out Aquiles-lateral infarct, age undetermined Abnormal ECG
[2017-02-14] MEDS: Dextrose 5%/0.45% NS 1,000 ML IV SCH ×2 (01:38→09:00)
[2017-02-14 07:17] LABS: HEMATOCRIT 30.7 % (36.0-48.0); MEAN CELL VOLUME 83.9 fL (80.0-105.0); MEAN CORPUSCULAR HEMOGLOBIN 29.5 pg (25.0-35.0); MEAN CORPUSCULAR HGB CONC 35.2 g/dl (31.0-37.0); MEAN PLATELET VOLUME 9.7 fl (7.0-11.0); RED CELL DISTRIBUTION WIDTH 13.3 % (11.5-14.5); WHITE BLOOD COUNT 18.9 10^3/ul (4.5-11.0)
[2017-02-14 07:36] LABS: ALB/GLOB RATIO 1.1 (1.1-1.8); BILIRUBIN,TOTAL 0.4 mg/dL (0.2-1.3); CALCIUM 7.3 mg/dL (8.4-10.5); MAGNESIUM 1.9 mg/dL (1.7-2.2); PHOSPHOROUS 1.5 mg/dL (2.5-4.5); TOTAL PROTEIN 4.5 g/dL (5.8-8.3)
[2017-02-14 07:38] LABS: IRON 93 ug/dL (45-180)
[2017-02-14] MEDS: Arformoterol 15 mcg/2 ml Inh Sol IH SCH ×2 (07:40→20:19)
[2017-02-14] MEDS: Budesonide 0.5 mg/2 ml Inhal Susp UD IH SCH ×2 (07:40→20:19)
--- NOTE | 2017-02-14 07:51 | CP.PCM.PN ---
<SarbjitChyna - Last Filed: 02/14/17 10:07> Subjective - Date & Time of Evaluation Date of Evaluation: 02/14/17 Time of Evaluation: 07:47 - Subjective Subjective: ICU Progress Note Patient seen and examined at bedside. There were no acute overnight events. Patient reports having some nausea and epigastric pain, but denies vomiting, diarrhea, CP, SOB, fever or chills. She does have a dry cough. Objective - Vital Signs/Intake and Output Vital Signs (last 24 hours): Temp Pulse Resp BP Pulse Ox 98.7 F 64 20 132/58 L 95 02/14/17 04:00 02/14/17 06:30 02/14/17 06:30 02/14/17 06:00 02/14/17 06:30 Intake and Output: 02/14/17 02/14/17 06:59 18:59 Intake Total 1806.5 Balance 1806.5 - Medications Medications: Current Medications Acetaminophen (Tylenol 325mg Tab) 650 mg PO Q6H PRN PRN Reason: Pain, moderate (4-7) Albuterol/Ipratropium (Duoneb 3 Mg/0.5 Mg (3 Ml) Ud) 3 ml IH Q2H PRN PRN Reason: Shortness of Breath Arformoterol Tartrate (Brovana) 15 mcg IH [id number] [facility] Last Admin: 02/14/17 07:40 Dose: 15 mcg Aspirin (Ecotrin) 81 mg PO DAILY [facility] Atorvastatin Calcium (Lipitor) 80 mg PO DAILY [facility] Last Admin: 02/13/17 14:59 Dose: 80 mg Budesonide (Pulmicort Respules) 0.5 mg IH [id number] [facility] Last Admin: 02/14/17 07:40 Dose: 0.5 mg Clopidogrel Bisulfate (Plavix) 75 mg PO DAILY [facility] Last Admin: 02/13/17 14:59 Dose: 75 mg Heparin Sodium (Porcine) (Heparin) 5,000 units SC Q12 [facility] PRN Reason: Protocol Last Admin: 02/13/17 22:24 Dose: 5,000 units Dextrose/Sodium Chloride (Dextrose 5%/0.45% Ns 1000 Ml) 1,000 mls @ 150 mls/hr IV .Q6H40M [facility] Last Admin: 02/14/17 01:38 Dose: 150 mls/hr Ceftriaxone Sodium (Rocephin 1 Gram Ivpb) 1 gm in 100 mls @ 100 mls/hr IVPB DAILY [facility] PRN Reason: Protocol Last Admin: 02/13/17 18:09 Dose: 100 mls/hr Insulin Detemir (Levemir) 12 unit SC HS [facility] Last Admin: 02/13/17 22:23 Dose: 12 unit Insulin Human Lispro (Humalog Low) 0 units SC ACHS [facility] PRN Reason: Protocol Last Admin: 02/13/17 22:15 Dose: Not Given Insulin Human Lispro (Humalog) 6 units SC AC [facility] Metoclopramide HCl (Reglan) 5 mg IVP Q6H PRN PRN Reason: Nausea/Vomiting Last Admin: 02/12/17 21:59 Dose: 5 mg Metoprolol Tartrate (Lopressor) 25 mg PO BID [facility] Last Admin: 02/13/17 17:08 Dose: 25 mg Nicotine (Nicoderm Cq) 1 patch TD DAILY [facility] Last Admin: 02/13/17 11:24 Dose: 1 patch Pantoprazole Sodium (Protonix Ec Tab) 40 mg PO ACB [facility] Potassium Phos/Sodium Phos (Neutra-Phos) 1 pkt PO BID [facility] Last Admin: 02/13/17 17:08 Dose: 1 pkt - Labs Labs: 02/14/17 06:05 02/14/17 06:05 PT 10.7 Seconds (9.9-11.8) 02/12/17 18:50 INR 0.99 (0.93-1.08) 02/12/17 18:50 APTT 25.8 Seconds (23.7-30.8) 02/12/17 18:50 - Constitutional Appears: No Acute Distress - Head Exam Head Exam: ATRAUMATIC, NORMAL INSPECTION, NORMOCEPHALIC - Eye Exam Eye Exam: Normal appearance, PERRL Pupil Exam: NORMAL ACCOMODATION, PERRL - ENT Exam ENT Exam: Mucous Membranes Moist - Neck Exam Neck Exam: Normal Inspection - Respiratory Exam Respiratory Exam: Clear to Ausculation Bilateral, NORMAL BREATHING PATTERN. absent: Rales, Rhonchi, Wheezes - Cardiovascular Exam Cardiovascular Exam: REGULAR RHYTHM, +S1, +S2. absent: Gallop, Rubs, Murmur - GI/Abdominal Exam GI & Abdominal Exam: Soft, Tenderness, Normal Bowel Sounds. absent: Rigid, Mass , Rebound - Extremities Exam Extremities Exam: Normal Inspection. absent: Calf Tenderness, Pedal Edema - Neurological Exam Neurological Exam: Awake, CN II-XII Intact, Oriented x3 - Skin Skin Exam: Dry, Intact, Normal Color, Warm Assessment and Plan - Assessment and Plan (Free Text) Assessment: This is a 66Y F with PMH CAD, HTN, HLD and DM type I admitted for DKA, BENNIE and leukocytosis. Plan: Neuro: A&O x 3 Maintain normothermia CV: HD stable at this time Maintain MAP >65 Continue Plavix and Lopressor Pulm: Tobacco user- on Nicotine patch Brovana, Pulmicort, Duoneb prn Maintain SpO2>90% GI: Pt tolerating diet- but still poor intake Reglan prn nausea Neprho: BENNIE resolved with IV hydration Continue to monitor electrolytes and will replace as needed Nephro consulted- recs appreciated. Heme: Mild anemia, TIBC Low, Iron and TIBC normal. Ferritin pending Hgb stable- no overt signs of bleeding ID: Afebrile, leukocytosis On Rocephin PCT 3.18 Endo: Anion gap closed off insulin drip Now on Insulin SC D5/0.45 NS- will DC once eating more Endo consulted- recs appreciated GI ppx: PTX DVT ppx: SCDs Dispo: Patient stable at this time. Will be transferred. Case seen, discussed and reviewed with attending. Concha Schaffer PGY1 <Jose Juan Carranza - Last Filed: 02/14/17 20:41> Objective - Vital Signs/Intake and Output Vital Signs (last 24 hours): Temp Pulse Resp BP Pulse Ox 98.8 F 72 20 133/52 L 97 02/14/17 16:00 02/14/17 17:03 02/14/17 16:00 02/14/17 17:03 02/14/17 16:00 Intake and Output: 02/14/17 02/15/17 18:59 06:59 Intake Total 240 Output Total 150 Balance 90 - Medications Medications: Current Medications Acetaminophen (Tylenol 325mg Tab) 650 mg PO Q6H PRN PRN Reason: Pain, moderate (4-7) Albuterol/Ipratropium (Duoneb 3 Mg/0.5 Mg (3 Ml) Ud) 3 ml IH Q2H PRN PRN Reason: Shortness of Breath Arformoterol Tartrate (Brovana) 15 mcg IH [id number] [facility] Last Admin: 02/14/17 20:19 Dose: 15 mcg Aspirin (Ecotrin) 81 mg PO DAILY [facility] Last Admin: 02/14/17 09:18 Dose: 81 mg Atorvastatin Calcium (Lipitor) 80 mg PO DAILY [facility] Last Admin: 02/14/17 09:19 Dose: 80 mg Azithromycin (Zithromax) 500 mg PO DAILY [facility] PRN Reason: Protocol Last Admin: 02/14/17 12:49 Dose: 500 mg Budesonide (Pulmicort Respules) 0.5 mg IH [id number] [facility] Last Admin: 02/14/17 20:19 Dose: 0.5 mg Clopidogrel Bisulfate (Plavix) 75 mg PO DAILY [facility] Last Admin: 02/14/17 09:19 Dose: 75 mg Heparin Sodium (Porcine) (Heparin) 5,000 units SC Q12 [facility] PRN Reason: Protocol Last Admin: 02/14/17 09:23 Dose: 5,000 units Ceftriaxone Sodium (Rocephin 1 Gram Ivpb) 1 gm in 100 mls @ 100 mls/hr IVPB DAILY [facility] PRN Reason: Protocol Last Admin: 02/14/17 09:22 Dose: 100 mls/hr Sodium Phosphate 10 mmole/ (Dextrose/Sodium Chloride) 1,003.3333 mls @ 150 mls/ hr IV .Q6H42M [facility] Last Admin: 02/14/17 17:31 Dose: 150 mls/hr Insulin Detemir (Levemir) 12 unit SC HS [facility] Last Admin: 02/13/17 22:23 Dose: 12 unit Insulin Human Lispro (Humalog Low) 0 units SC ACHS [facility] PRN Reason: Protocol Last Admin: 02/14/17 17:01 Dose: 3 units Insulin Human Lispro (Humalog) 6 units SC AC [facility] Last Admin: 02/14/17 17:02 Dose: 6 units Metoclopramide HCl (Reglan) 5 mg IVP Q6H PRN PRN Reason: Nausea/Vomiting Last Admin: 02/12/17 21:59 Dose: 5 mg Metoprolol Tartrate (Lopressor) 25 mg PO BID [facility] Last Admin: 02/14/17 17:03 Dose: 25 mg Nicotine (Nicoderm Cq) 1 patch TD DAILY [facility] Last Admin: 02/14/17 09:19 Dose: 1 patch Pantoprazole Sodium (Protonix Ec Tab) 40 mg PO ACB [facility] Last Admin: 02/14/17 08:20 Dose: 40 mg Potassium Phos/Sodium Phos (Neutra-Phos) 1 pkt PO BID [facility] Last Admin: 02/14/17 17:03 Dose: 1 pkt - Labs Labs: 02/14/17 06:05 02/14/17 06:05 PT 10.7 Seconds (9.9-11.8) 02/12/17 18:50 INR 0.99 (0.93-1.08) 02/12/17 18:50 APTT 25.8 Seconds (23.7-30.8) 02/12/17 18:50 Attending/Attestation - Attestation I have personally seen and examined this patient.: Yes I have fully participated in the care of the patient.: Yes I have reviewed all pertinent clinical information, including history, physical exam and plan: Yes Notes (Text): 02/14/17 20:39 66 yo with DM1 type, came with DKA. IVF and insulin drip started. AG closed. insulin drip stopped and s/c longer formulation of insulin was given. patient tolerates oral nutrition well. Ok to downgrade to [facility] ccm time 40 min
[2017-02-14] MEDS: Insulin Lispro 1 UNITS/0.01 ML SC SCH ×3 (08:20→17:02)
[2017-02-14] MEDS: Pantoprazole 40 mg EC Tab PO SCH (08:20)
[2017-02-14] MEDS: Insulin Lispro (humaLOG) LOW Coverage SC SCH ×4 (08:21→21:35)
--- NOTE | 2017-02-14 08:21 | CON ---
DATE: 02/13/2017 The patient admitted for Dr. Lima. REFERRING PHYSICIAN: Dr. Lima REASON FOR CONSULTATION: Evaluation of a patient unknown to me, who presents with acute renal failur e in the setting of dehydration and severe diabetic ketoacidosis. HISTORY OF PRESENT ILLNESS: The patient is a 66-year-old white female with a history of juvenile ons et IDDM, no history of diabetic nephropathy according to patient, no retinopathy and no neuropathy. The patient states that she developed nausea and vomiting, became very dehydrated over the 24-48 hour period prior to coming into the hospital. According to her daughter, she has had an altered mental status. She was confused. The patient was brought into the hospital and found to be in severe DKA w ith a CO2 level of 5, a pH of 7.00 and a glucose level greater than 1000. The patient was hyperkalem ic. She was treated appropriately for her diabetic ketoacidosis, which has cleared. The patient, on admission, had a BUN of 71 with a creatinine of 2.8. Today, her BUN is 56 with a creatinine of 1.8. Of note, her baseline BUN is in the 20-30 range with a creatinine of 1.1. Review of her labs show only trace protein. The patient states she is in transition between doctors. She does not see an en docrine specialist. PAST MEDICAL HISTORY: Significant for that of atherosclerotic heart disease, status post PTCA and st ent, history of IDDM of greater than 50 years' duration, history of hyperlipidemia, history of anemia . The patient is an avid cigarette smoker, smoking greater than 1 pack per day of cigarettes. MEDICATIONS AT HOME: Include that of metoprolol, insulin, hydrochlorothiazide, Vasotec, Plavix, and Lipitor. ALLERGIES: No known allergies to medications. MEDICATIONS PRESENTLY IN HOSPITAL: Include that of D5 half normal saline, subQ heparin, insulin, ashwin otine patch, Protonix, Reglan, and Tylenol p.r.n. SOCIAL HISTORY: Positive history of cigarette smoking. Positive history of alcohol use. FAMILY HISTORY: Positive for diabetes with complications from diabetes. REVIEW OF SYSTEMS: GENERAL: The patient states appetite and weight have been stable up until the recent episode. ENT: Denies any hearing or visual problems. PULMONARY: No shortness of breath. No documented history of COPD or asthma. CARDIAC: History of ASHD, status post PTCA and stent as noted above. GASTROINTESTINAL: History of nausea and vomiting. No abdominal pain, no diarrhea, no constipation. GENITOURINARY: No history of chronic kidney disease known to patient. No history of proteinuria. GYNECOLOGIC: Postmenopausal. ENDOCRINE: History of diabetes mellitus of many years' duration. MUSCULOSKELETAL: No complaints. NEUROLOGIC: No history of CVA, TIA, seizures or syncope. Altered mental status as noted above. HEMATOLOGIC AND ONCOLOGIC: History of anemia as noted above. PSYCHIATRIC: History is negative. PHYSICAL EXAMINATION: GENERAL: The patient is currently seen in CCU bed 7. She is sitting up in a chair. Her daughter is at bedside. She appears to be answering questions, but according to her daughter, she is not comple tely back to her baseline. VITAL SIGNS: Blood pressure is 140/51 with a temperature of 98.8, respiratory rate is 21 with a puls e of 80. HEENT: Normocephalic, atraumatic. Conjunctivae are pale. Sclerae are nonicteric. Pupils equal, re active to light and accommodation. Extraocular muscles are intact. Posterior pharynx is normal. NECK: Supple, no neck vein distention, no thyromegaly, no lymphadenopathy, no bruits. CHEST: Scattered rhonchi bilaterally. No rales, no wheezing. CARDIOVASCULAR: Shows a regular rate and rhythm with a soft systolic murmur left lower sternal borde r. No S3, no S4, no rub. ABDOMEN: Soft. Bowel sounds are normal. No rebound, no guarding, no masses. BACK: No CVAT, no spinal tenderness. EXTREMITIES: Show no cyanosis, clubbing or edema. Distal lower extremity pulses are 1-2+ bilaterall y. NEUROLOGIC: Shows her to be alert and oriented. There are no gross focal, motor or sensory deficits noted. LABORATORY DATA AND IMAGING: Admitting chest x-ray showed no acute pulmonary disease. Admitting hea d CT scan showed no acute findings. Labs: CBC: White blood cell count 10.8 on admission, 13.2 toda y. Hemoglobin down from 11.4 to 9.7 with hydration. Todd Liriano MD cc: [id number] TT: 02/13/2017 16:01:02 Confirmation # [id number] Dictation # [id number] en 02/14/2017 07:19:40
[2017-02-14] MEDS: Potassium & Sodium Phosphate PO SCH ×2 (09:19→17:03)
[2017-02-14] MEDS: cefTRIAXone 1 gm 1 GM/100 ML BAG IVPB SCH (09:22)
[2017-02-14] MEDS ORDERED: SODIUM PHOSPHATE IV SCH (10:57)
[2017-02-14] MEDS ORDERED: DEXTROSE IV SCH (10:57)
[2017-02-14] MEDS ORDERED: [UNRECOGNIZED DRUG - OTHER] IV SCH (10:57)
[2017-02-14] MEDS ORDERED: Magnesium Sulfate 1 GM in Dextrose 5% In Water 100 ML IV ONE (11:46)
--- NOTE | 2017-02-14 11:57 | CP.PCM.PN ---
<Tucker Oconnor - Last Filed: 02/14/17 11:54> Subjective - Date & Time of Evaluation Date of Evaluation: 02/14/17 Time of Evaluation: 11:54 - Subjective Subjective: Patient seen and examined. She is oriented x3 however daughter, who is at bedside, states patient is not at her baseline mental status noting continued confusion. Patient is on basal bolus insulin, continued on IVF. Tolerating diabetic diet. Objective - Vital Signs/Intake and Output Vital Signs (last 24 hours): Temp Pulse Resp BP Pulse Ox 98.2 F 75 74 H 130/44 L 81 L 02/14/17 08:00 02/14/17 10:37 02/14/17 10:05 02/14/17 10:37 02/14/17 10:50 Intake and Output: 02/14/17 02/14/17 06:59 18:59 Intake Total 1806.5 Balance 1806.5 - Medications Medications: Current Medications Acetaminophen (Tylenol 325mg Tab) 650 mg PO Q6H PRN PRN Reason: Pain, moderate (4-7) Albuterol/Ipratropium (Duoneb 3 Mg/0.5 Mg (3 Ml) Ud) 3 ml IH Q2H PRN PRN Reason: Shortness of Breath Arformoterol Tartrate (Brovana) 15 mcg IH [id number] [facility] Last Admin: 02/14/17 07:40 Dose: 15 mcg Aspirin (Ecotrin) 81 mg PO DAILY [facility] Last Admin: 02/14/17 09:18 Dose: 81 mg Atorvastatin Calcium (Lipitor) 80 mg PO DAILY [facility] Last Admin: 02/14/17 09:19 Dose: 80 mg Azithromycin (Zithromax) 500 mg PO DAILY [facility] PRN Reason: Protocol Budesonide (Pulmicort Respules) 0.5 mg IH [id number] [facility] Last Admin: 02/14/17 07:40 Dose: 0.5 mg Clopidogrel Bisulfate (Plavix) 75 mg PO DAILY [facility] Last Admin: 02/14/17 09:19 Dose: 75 mg Heparin Sodium (Porcine) (Heparin) 5,000 units SC Q12 [facility] PRN Reason: Protocol Last Admin: 02/14/17 09:23 Dose: 5,000 units Ceftriaxone Sodium (Rocephin 1 Gram Ivpb) 1 gm in 100 mls @ 100 mls/hr IVPB DAILY [facility] PRN Reason: Protocol Last Admin: 02/14/17 09:22 Dose: 100 mls/hr Sodium Phosphate 10 mmole/ (Dextrose/Sodium Chloride) 1,003.3333 mls @ 150 mls/ hr IV .Q6H42M [facility] Magnesium Sulfate 1 gm/ Sodium (Chloride) 102 mls @ 102 mls/hr IV ONCE ONE Stop: 02/14/17 11:56 Insulin Detemir (Levemir) 12 unit SC HS [facility] Last Admin: 02/13/17 22:23 Dose: 12 unit Insulin Human Lispro (Humalog Low) 0 units SC ACHS [facility] PRN Reason: Protocol Last Admin: 02/14/17 08:21 Dose: Not Given Insulin Human Lispro (Humalog) 6 units SC AC [facility] Last Admin: 02/14/17 08:20 Dose: 6 units Metoclopramide HCl (Reglan) 5 mg IVP Q6H PRN PRN Reason: Nausea/Vomiting Last Admin: 02/12/17 21:59 Dose: 5 mg Metoprolol Tartrate (Lopressor) 25 mg PO BID [facility] Last Admin: 02/14/17 10:37 Dose: 25 mg Nicotine (Nicoderm Cq) 1 patch TD DAILY [facility] Last Admin: 02/14/17 09:19 Dose: 1 patch Pantoprazole Sodium (Protonix Ec Tab) 40 mg PO ACB [facility] Last Admin: 02/14/17 08:20 Dose: 40 mg Potassium Phos/Sodium Phos (Neutra-Phos) 1 pkt PO BID [facility] Last Admin: 02/14/17 09:19 Dose: 1 pkt - Labs Labs: 02/14/17 06:05 02/14/17 06:05 PT 10.7 Seconds (9.9-11.8) 02/12/17 18:50 INR 0.99 (0.93-1.08) 02/12/17 18:50 APTT 25.8 Seconds (23.7-30.8) 02/12/17 18:50 - Constitutional Appears: Non-toxic, No Acute Distress - Head Exam Head Exam: ATRAUMATIC, NORMOCEPHALIC - Eye Exam Eye Exam: EOMI, PERRL - ENT Exam ENT Exam: Mucous Membranes Moist - Neck Exam Neck Exam: Full ROM, Normal Inspection - Respiratory Exam Respiratory Exam: Clear to Ausculation Bilateral. absent: Rales, Rhonchi, Wheezes - Cardiovascular Exam Cardiovascular Exam: REGULAR RHYTHM, +S1, +S2 - GI/Abdominal Exam GI & Abdominal Exam: Soft, Normal Bowel Sounds. absent: Tenderness - Extremities Exam Extremities Exam: Full ROM, Normal Inspection. absent: Pedal Edema - Neurological Exam Neurological Exam: Alert, Awake, Oriented x3 - Psychiatric Exam Psychiatric exam: Normal Affect, Normal Mood - Skin Skin Exam: Dry, Warm Assessment and Plan - Assessment and Plan (Free Text) Assessment: 66 F admitted to ICU for for severe DKA, AMS, and BENNIE. 1. Type 1 DKA (with intermittent confusion): -transferred from ICU - now on basal/bolus insulin - anion gap closed -tolerating Diabetic diet -neuro checks Q4hrs -A1C c >12 -diabetic nurse education 2. Altered Mentation (intermittent): -likely due to combination of DKA and SIRS, improving -neurology consulted -neuro checks Q4hrs -fall precautions -CT-head negative for acute disease 3. SIRS: -elevated lactic acid and leukocyotsis but afebrile -no clear etiology of infection -continue Rocehin -check procalcitonin -check UA 4. Hyperkalemia: -resolved 5. BENNIE: -nephrology consult placed, renal US -urine lytes ordered -renally dose all meds DVT GI PPx: SC Heparin and SCD's Protonix Seen Reviewed and discussed with Dr. Parnell <Benito Parnell - Last Filed: 02/14/17 15:27> Objective - Vital Signs/Intake and Output Vital Signs (last 24 hours): Temp Pulse Resp BP Pulse Ox 98.2 F 75 74 H 130/44 L 81 L 02/14/17 08:00 02/14/17 10:37 02/14/17 10:05 02/14/17 10:37 02/14/17 10:50 Intake and Output: 02/14/17 02/14/17 06:59 18:59 Intake Total 1806.5 240 Output Total 150 Balance 1806.5 90 - Medications Medications: Current Medications Acetaminophen (Tylenol 325mg Tab) 650 mg PO Q6H PRN PRN Reason: Pain, moderate (4-7) Albuterol/Ipratropium (Duoneb 3 Mg/0.5 Mg (3 Ml) Ud) 3 ml IH Q2H PRN PRN Reason: Shortness of Breath Arformoterol Tartrate (Brovana) 15 mcg IH [id number] [facility] Last Admin: 02/14/17 07:40 Dose: 15 mcg Aspirin (Ecotrin) 81 mg PO DAILY [facility] Last Admin: 02/14/17 09:18 Dose: 81 mg Atorvastatin Calcium (Lipitor) 80 mg PO DAILY [facility] Last Admin: 02/14/17 09:19 Dose: 80 mg Azithromycin (Zithromax) 500 mg PO DAILY [facility] PRN Reason: Protocol Last Admin: 02/14/17 12:49 Dose: 500 mg Budesonide (Pulmicort Respules) 0.5 mg IH [id number] [facility] Last Admin: 02/14/17 07:40 Dose: 0.5 mg Clopidogrel Bisulfate (Plavix) 75 mg PO DAILY [facility] Last Admin: 02/14/17 09:19 Dose: 75 mg Heparin Sodium (Porcine) (Heparin) 5,000 units SC Q12 [facility] PRN Reason: Protocol Last Admin: 02/14/17 09:23 Dose: 5,000 units Ceftriaxone Sodium (Rocephin 1 Gram Ivpb) 1 gm in 100 mls @ 100 mls/hr IVPB DAILY [facility] PRN Reason: Protocol Last Admin: 02/14/17 09:22 Dose: 100 mls/hr Sodium Phosphate 10 mmole/ (Dextrose/Sodium Chloride) 1,003.3333 mls @ 150 mls/ hr IV .Q6H42M [facility] Insulin Detemir (Levemir) 12 unit SC HS [facility] Last Admin: 02/13/17 22:23 Dose: 12 unit Insulin Human Lispro (Humalog Low) 0 units SC ACHS [facility] PRN Reason: Protocol Last Admin: 02/14/17 12:49 Dose: Not Given Insulin Human Lispro (Humalog) 6 units SC AC [facility] Last Admin: 02/14/17 12:50 Dose: Not Given Metoclopramide HCl (Reglan) 5 mg IVP Q6H PRN PRN Reason: Nausea/Vomiting Last Admin: 02/12/17 21:59 Dose: 5 mg Metoprolol Tartrate (Lopressor) 25 mg PO BID [facility] Last Admin: 02/14/17 10:37 Dose: 25 mg Nicotine (Nicoderm Cq) 1 patch TD DAILY [facility] Last Admin: 02/14/17 09:19 Dose: 1 patch Pantoprazole Sodium (Protonix Ec Tab) 40 mg PO ACB [facility] Last Admin: 02/14/17 08:20 Dose: 40 mg Potassium Phos/Sodium Phos (Neutra-Phos) 1 pkt PO BID [facility] Last Admin: 02/14/17 09:19 Dose: 1 pkt - Labs Labs: 02/14/17 06:05 02/14/17 06:05 PT 10.7 Seconds (9.9-11.8) 02/12/17 18:50 INR 0.99 (0.93-1.08) 02/12/17 18:50 APTT 25.8 Seconds (23.7-30.8) 02/12/17 18:50 Attending/Attestation - Attestation I have personally seen and examined this patient.: Yes I have fully participated in the care of the patient.: Yes I have reviewed all pertinent clinical information, including history, physical exam and plan: Yes Notes (Text): 02/14/17 15:24 Attending note; Patient seen and examined with resident in CCU. Patient is alert, awake and oriented x3. had episodes of confusion last night Patient is a 66-year-old female admitted with DKA and confusion. Improving slowly. CT head is negative. currently off insulin drip. Anion gap closed. Continue Levemir. Endocrinology evaluation appreciated. Lactic acidosis; resolving. currently patient is afebrile and nontoxic.continue Rocephin and Zithromax. Chest x-rays negative. active smoking; Started on NicoDerm patch. Smoking cessation is strongly advised. Acute renal failure; resolved. secondary to prerenal/DKA. Continue IV fluids. Creatinine is improving. history of coronary artery /stent placement; continue beta marie, Plavix. anemia; monitor hemoglobin closely. upon discharge the patient will follow up with PMD Dr. Dixon.
--- NOTE | 2017-02-14 12:07 | CON ---
DATE: 02/14/2017 HISTORY OF PRESENTING ILLNESS: A 66-year-old lady previously unknown to me, admitted on 02/12. The patient presented with presyncope. She was also found to be altered. She had history of intermittent confusion. In the Emergency Room, a code sepsis was called because her lactate was found to 6. Her glucose was found to be greater than 1000. She was found to be profoundly acidotic. Initial VBG showed a pH of 7.1. Her sodium was 128, potassium of 5.6, CO2 of 9, BUN of 65, and creatinine of 2.4 at the time of admission. The patient admitted to the ICU, aggressively hydrated, treated with IV insulin. She also received IV calcium gluconate, IV bicarbonate, and empiric antibiotics. Currently, she is seen in the ICU. She is awake. She is alert. She is sitting in a chair. She denies any pain. She denies any shortness of breath. She denies any nausea, vomiting. She denies any urinary complaints. PAST MEDICAL AND SURGICAL HISTORY: NIDDM, DKA, CAD, PCI. FAMILY HISTORY: NIDDM. SOCIAL HISTORY: Active smoking. No active alcohol use. REVIEW OF SYSTEMS: All systems are reviewed and mentioned in history of presenting illness - the rest unremarkable. PHYSICAL EXAMINATION: GENERAL: Elderly lady sitting in bed. VITAL SIGNS: Blood pressure 130/44, heart rate 75, respiratory rate 20, temperature 98.7. HEENT: Normocephalic, atraumatic, positive pallor. NECK: Supple. No JVD. LUNGS: Bilateral equal air entry, bilateral rhonchi, distant breath sounds. CARDIAC: S1, S2, regular rate and rhythm. No murmur, no rub. ABDOMEN: Soft, nondistended, nontender. Bowel sounds present. EXTREMITIES: No lower extremity edema. INTAKE AND OUTPUT: 6207/500. LABORATORY DATA: Sodium 137, potassium 4.0, chloride 107, CO2 of 27, BUN 32, creatinine 1.2, glucose 129, calcium 7.3, phosphorus 1.5, magnesium 1.9, albumin 2.4. Corrected calcium is 8.4. WBC 18.9, hemoglobin 10.7, hematocrit 30.7, platelets 198. Urinalysis: Yellow , clear, pH 6.0, specific gravity 1.015, protein trace, ketones 15. Urine culture: No growth. Blood culture: No growth. Renal ultrasound pending. CURRENT MEDICATIONS: Brovana, D5 half normal saline at 150, DuoNeb, Ecotrin, heparin, insulin, Levemir, Lopressor, Neutra-Phos, Plavix, Protonix, Pulmicort, Reglan, Rocephin, Tylenol. ASSESSMENT AND PLAN: A 66-year-old lady with history of [id number] diabetes mellitus, hypertension, hyperlipidemia, coronary artery disease, percutaneous coronary intervention, admitted with diabetic ketoacidosis, severe acidosis, acute kidney injury, leukocytosis, multiple electrolyte abnormalities. Now currently with: 1. Resolving acute kidney injury. Creatinine has improved from 2.8-1.2. 2. Resolving anion gap metabolic acidosis. 3. Hypocalcemia. 4. Hypophosphatemia. 5. Anemia. 6. Worsening leukocytosis. 7. Bandemia. 8. Hypertension. 9. History of coronary artery disease. PLAN: 1. Replace potassium. 2. Replace phosphorus. 3. Replace magnesium. 4. Repeat cultures. 5. Continue empiric antibiotics. 6. Monitor fingersticks and continue insulin. 7. Counseling regarding smoking cessation. Case discussed with the ICU team. Case discussed with the patient at bedside. Case discussed with the ICU nurses. More than 35 minutes were spent in the care of this patient. Eli Lozada MD cc: [phone] TT: 02/14/2017 12:07:00 Confirmation # [id number] Dictation # [id number] jn PAT
--- NOTE | 2017-02-14 14:00 | CP.PCM.PCO ---
Physician Communication Note - Physician Communication Note Physician Communication Note: AMS sec to mild Toxic metabolic enceph. C/w mx for DKA
--- NOTE | 2017-02-14 15:19 | US ---
PROCEDURE: Ultrasound of the Kidneys HISTORY: ARF, IDDM COMPARISON: None available. TECHNIQUE: Sonogram of the kidneys. FINDINGS: RIGHT KIDNEY: Measures: 8.4 x 3.0 x 4.4 cm. 1.2 x 1.4 x 1.3 cm probable renal cyst. No obstructing calculus or hydronephrosis identified. LEFT KIDNEY: Measures: 7.9 x 4.0 x 5.2 cm. No obstructing calculus or hydronephrosis identified. OTHER FINDINGS: Incidental note is made of echogenic hepatic parenchyma. Small right perihepatic ascites. IMPRESSION: 1.4 cm probable right renal cyst. Incidental note is made of echogenic renal parenchyma. Echogenic liver may be seen in setting of hepatic parenchymal disease or fatty infiltration. Small right perihepatic ascites.
[2017-02-14] MEDS: SODIUM PHOSPHATE IV SCH (17:31)
[2017-02-14] MEDS: [UNRECOGNIZED DRUG - OTHER] IV SCH (17:31)
[2017-02-14] MEDS: DEXTROSE IV SCH (17:31)
--- NOTE | 2017-02-14 18:51 | CON ---
DATE: 02/14/2017 HISTORY OF PRESENT ILLNESS: This is a 66-year-old female with past medical history of diabetes and t he patient had marked hyperglycemia and called to evaluate for change in mental status. The patient was confused and disoriented at that time. PAST MEDICAL HISTORY: Diabetes. SOCIAL HISTORY: Lives with 2 sons. FAMILY HISTORY: Positive for diabetes and hypertension. REVIEW OF SYSTEMS: On 10-point review of systems, the patient was confused, disoriented. PHYSICAL EXAMINATION: VITAL SIGNS: Blood pressure 140/80. NECK: Supple. NEUROLOGIC: Awake, oriented to self and place, not time. Cranial nerves II-XII were tested. Pupils equal and reactive to light. EOM intact. Visual pollard full. No facial asymmetry. Tongue midline . MOTOR: Spontaneous movement of the extremities noted. Deep tendon reflexes 1+. Both plantars are downgoing. SENSORY: Appears intact. CEREBELLAR AND GAIT: Deferred. IMPRESSION: A 66-year-old white female with uncontrolled diabetes. The patient admitted with diabet ic ketoacidosis. Toxic metabolic encephalopathy workup is in progress. We will follow up. Stew Sagastume MD cc: [id number] TT: 02/14/2017 18:50:26 Confirmation # [id number] Dictation # [id number]
[2017-02-14] MEDS: Insulin Detemir 100 units/ml Vial (Levemir) SC SCH (21:41)
[2017-02-15] MEDS: [UNRECOGNIZED DRUG - OTHER] IV SCH (02:52)
[2017-02-15] MEDS: DEXTROSE IV SCH (02:52)
[2017-02-15] MEDS: SODIUM PHOSPHATE IV SCH (02:52)
[2017-02-15] MEDS: Arformoterol 15 mcg/2 ml Inh Sol IH SCH ×2 (07:49→19:34)
[2017-02-15] MEDS: Budesonide 0.5 mg/2 ml Inhal Susp UD IH SCH ×2 (07:50→19:34)
[2017-02-15 07:53] LABS: HEMATOCRIT 28.4 % (36.0-48.0); MEAN CELL VOLUME 83.8 fL (80.0-105.0); MEAN CORPUSCULAR HEMOGLOBIN 28.6 pg (25.0-35.0); MEAN CORPUSCULAR HGB CONC 34.2 g/dl (31.0-37.0); MEAN PLATELET VOLUME 9.9 fl (7.0-11.0); RED CELL DISTRIBUTION WIDTH 13.6 % (11.5-14.5); WHITE BLOOD COUNT 6.8 10^3/ul (4.5-11.0)
[2017-02-15 08:02] LABS: ALKALINE PHOSPHATASE 98 U/L (38-133); ALT/SGPT 273 U/L (7-56); BILIRUBIN,TOTAL 0.3 mg/dL (0.2-1.3); BLOOD UREA NITROGEN 18 mg/dL (7-21); CARBON DIOXIDE 22 mmol/L (21-33); CHLORIDE 105 mmol/L (95-110); GFR AFRICAN-AMERICAN > 60; GLUCOSE,RANDOM 216 mg/dL (70-110); POTASSIUM 3.6 mmol/L (3.6-5.0); SODIUM 131 mmol/L (132-148); TOTAL PROTEIN 4.2 g/dL (5.8-8.3)
[2017-02-15 08:12] LABS: AST/SGOT 873 U/L (15-39)
[2017-02-15 08:13] LABS: CALCIUM 6.7 mg/dL (8.4-10.5)
[2017-02-15] MEDS: Insulin Lispro (humaLOG) LOW Coverage SC SCH ×4 (08:26→21:12)
[2017-02-15] MEDS: Pantoprazole 40 mg EC Tab PO SCH (08:27)
[2017-02-15] MEDS: Insulin Lispro 1 UNITS/0.01 ML SC SCH ×3 (08:27→16:49)
[2017-02-15] MEDS: Potassium & Sodium Phosphate PO SCH ×2 (09:09→17:00)
[2017-02-15] MEDS: cefTRIAXone 1 gm 1 GM/100 ML BAG IVPB SCH (09:10)
[2017-02-15 12:12] LABS: BILIRUBIN,DIRECT 0.2 mg/dL (0.0-0.4)
--- NOTE | 2017-02-15 13:22 | CP.PCM.CON ---
<Vandana Gray - Last Filed: 02/15/17 14:32> History of Present Illness - History of Present Illness History of Present Illness: Gastroenterology Fellow/PGY4 Consult Note 66 year old female with history of poorly controlled T1DM, Hypertension, Hyperlipidemia, and NSTEMI confirming triple vessel CAD status post four CHYNA 2013-08/2014 on medical management presenting with intractable vomiting. Active treatment of resolving DKA and GI consultation for elevated LFTs. Patient notes discontinuation of long acting insulin outpatient due to insurance not covering the medication in November leading to ongoing hyperglycemia with previous longstanding hypoglycemia complication with insulin regimen. She notes compliance to insulin regimen and developing innumerable vomiting on Tuesday. She denies abdominal pain, chest pain, shortness of breath, lightheadedness, dizziness, diarrhea, constipation, hematemesis, melena, hematochezia, pruritis, jaundice, scleral icterus, acid reflux, heartburn, indigestion, bloating, or unintentional weight loss. Admits to drinking a bottle of wine every weekend since 19 years old. No prior EGD or colonoscopy. Family- denies colon cancer or stomach cancer Social- 47 pack year history, bottle of wine every weekend x 47 years, denies illicit drug use Surgery- , PCI- 4 CHYNA- 07/2014-08/2014 Review of Systems - Review of Systems Review of Systems: A 12-point review of systems negative except for as above Past Patient History - Infectious Disease Hx of Infectious Diseases: None - Tetanus Immunizations Tetanus Immunization: Unknown - Past Social History Smoking Status: Current Some Days Smoker - CARDIAC Hx Cardiac Disorders: Yes Hx Hypertension: Yes - PULMONARY Hx Respiratory Disorders: No - NEUROLOGICAL Hx Neurological Disorder: No Hx Paralysis: No - HEENT Hx HEENT Problems: No - RENAL Hx Chronic Kidney Disease: No - ENDOCRINE/METABOLIC Hx Diabetes Mellitus Type 1: Yes - HEMATOLOGICAL/ONCOLOGICAL Hx Blood Disorders: No Hx Blood Transfusions: No Hx Blood Transfusion Reaction: No - INTEGUMENTARY Hx Dermatological Problems: No - MUSCULOSKELETAL/RHEUMATOLOGICAL Hx Musculoskeletal Disorders: No - GASTROINTESTINAL Hx Gastrointestinal Disorders: No - GENITOURINARY/GYNECOLOGICAL Hx Genitourinary Disorders: No - PSYCHIATRIC Hx Psychophysiologic Disorder: No Hx Emotional Abuse: No Hx Physical Abuse: No Hx Substance Use: No - SURGICAL HISTORY Hx Cardiac Catheterization: Yes Hx Section: Yes Hx Coronary Stent: Yes - ANESTHESIA Hx Anesthesia: Yes Hx Anesthesia Reactions: No Hx Malignant Hyperthermia: No Meds Home Medications: Home Medication List Medication Instructions Recorded Confirmed Type Azithromycin [Zithromax] 250 mg PO DAILY #4 tab 02/15/17 Rx Allergies/Adverse Reactions: Allergies Allergy/AdvReac Type Severity Reaction Status Date / Time No Known Allergies Allergy Verified 02/12/17 18:41 - Medications Medications: Current Medications Acetaminophen (Tylenol 325mg Tab) 650 mg PO Q6H PRN PRN Reason: Pain, moderate (4-7) Albuterol/Ipratropium (Duoneb 3 Mg/0.5 Mg (3 Ml) Ud) 3 ml IH Q2H PRN PRN Reason: Shortness of Breath Arformoterol Tartrate (Brovana) 15 mcg IH [id number] [facility] Last Admin: 02/15/17 07:49 Dose: 15 mcg Aspirin (Ecotrin) 81 mg PO DAILY [facility] Last Admin: 02/15/17 09:09 Dose: 81 mg Azithromycin (Zithromax) 500 mg PO DAILY [facility] PRN Reason: Protocol Last Admin: 02/15/17 09:09 Dose: 500 mg Budesonide (Pulmicort Respules) 0.5 mg IH [id number] [facility] Last Admin: 02/15/17 07:50 Dose: 0.5 mg Calcium Carbonate (Oscal) 500 mg PO TID [facility] Last Admin: 02/15/17 09:10 Dose: 500 mg Clopidogrel Bisulfate (Plavix) 75 mg PO DAILY [facility] Last Admin: 02/15/17 09:09 Dose: 75 mg Heparin Sodium (Porcine) (Heparin) 5,000 units SC Q12 [facility] PRN Reason: Protocol Last Admin: 02/15/17 09:09 Dose: 5,000 units Ceftriaxone Sodium (Rocephin 1 Gram Ivpb) 1 gm in 100 mls @ 100 mls/hr IVPB DAILY [facility] PRN Reason: Protocol Last Admin: 02/15/17 09:10 Dose: 100 mls/hr Insulin Detemir (Levemir) 12 unit SC HS [facility] Last Admin: 02/14/17 21:41 Dose: 12 unit Insulin Human Lispro (Humalog Low) 0 units SC ACHS [facility] PRN Reason: Protocol Last Admin: 02/15/17 11:04 Dose: Not Given Insulin Human Lispro (Humalog) 6 units SC AC [facility] Last Admin: 02/15/17 11:25 Dose: Not Given Metoclopramide HCl (Reglan) 5 mg IVP Q6H PRN PRN Reason: Nausea/Vomiting Last Admin: 02/12/17 21:59 Dose: 5 mg Metoprolol Tartrate (Lopressor) 25 mg PO BID [facility] Last Admin: 02/15/17 09:14 Dose: 25 mg Nicotine (Nicoderm Cq) 1 patch TD DAILY [facility] Last Admin: 02/15/17 09:10 Dose: 1 patch Pantoprazole Sodium (Protonix Ec Tab) 40 mg PO ACB [facility] Last Admin: 02/15/17 08:27 Dose: 40 mg Potassium Phos/Sodium Phos (Neutra-Phos) 1 pkt PO BID [facility] Last Admin: 02/15/17 09:09 Dose: 1 pkt Physical Exam - Constitutional Appears: Non-toxic, No Acute Distress - Head Exam Head Exam: ATRAUMATIC, NORMOCEPHALIC - Eye Exam Eye Exam: EOMI, PERRL Pupil Exam: PERRL. absent: Miosis, Mydriatic - ENT Exam ENT Exam: Mucous Membranes Moist, Normal Oropharynx - Neck Exam Neck exam: Positive for: Full Rom, Normal Inspection - Respiratory Exam Respiratory Exam: Clear to Auscultation Bilateral. absent: Rales, Rhonchi, Wheezes - Cardiovascular Exam Cardiovascular Exam: RRR, +S1, +S2. absent: Gallop, Rubs - GI/Abdominal Exam GI & Abdominal Exam: Normal Bowel Sounds, Soft. absent: Distended, Firm, Guarding, Organomegaly, Rebound, Rigid, Tenderness - Extremities Exam Extremities exam: Positive for: normal inspection. Negative for: pedal edema - Neurological Exam Neurological exam: Alert, Oriented x3 - Psychiatric Exam Psychiatric exam: Normal Affect, Normal Mood - Skin Skin Exam: Dry, Intact, Normal Color, Warm Results - Vital Signs Recent Vital Signs: Last Vital Signs Temp 98.1 F 02/15/17 08:33 Pulse 75 02/15/17 09:14 Resp 18 02/15/17 08:33 BP 179/86 H 02/15/17 09:14 Pulse Ox 98 02/15/17 08:33 - Labs Result Diagrams: 02/15/17 05:00 02/15/17 07:00 Labs: Laboratory Results - last 24 hr 02/14/17 02/14/17 02/14/17 06:05 10:00 16:16 WBC RBC Hgb Hct MCV MCH MCHC RDW Plt Count MPV Sodium Potassium Chloride Carbon Dioxide Anion Gap BUN Creatinine Est GFR ( Amer) Est GFR (Non-Af Amer) POC Glucose (mg/dL) 265 H Random Glucose Calcium Ferritin 102.0 Total Bilirubin Direct Bilirubin AST ALT Alkaline Phosphatase Total Protein Albumin Globulin Albumin/Globulin Ratio LDL Cholesterol Direct 80 25-OH Vitamin D Total 17.7 L 02/14/17 02/15/17 02/15/17 21:09 05:00 07:00 WBC 6.8 D RBC 3.39 L Hgb 9.7 L Hct 28.4 L MCV 83.8 MCH 28.6 MCHC 34.2 RDW 13.6 Plt Count 155 MPV 9.9 Sodium 131 L Potassium 3.6 Chloride 105 Carbon Dioxide 22 Anion Gap 8 L BUN 18 Creatinine 1.0 Est GFR ( Amer) > 60 Est GFR (Non-Af Amer) 56 POC Glucose (mg/dL) 206 H Random Glucose 216 H Calcium 6.7 L* Ferritin Total Bilirubin 0.3 Direct Bilirubin 0.2 AST 873 H ALT 273 H Alkaline Phosphatase 98 Total Protein 4.2 L Albumin 2.1 L Globulin 2.1 Albumin/Globulin Ratio 1.0 L LDL Cholesterol Direct 25-OH Vitamin D Total 02/15/17 02/15/17 08:08 11:03 WBC RBC Hgb Hct MCV MCH MCHC RDW Plt Count MPV Sodium Potassium Chloride Carbon Dioxide Anion Gap BUN Creatinine Est GFR ( Amer) Est GFR (Non-Af Amer) POC Glucose (mg/dL) 260 H 144 H Random Glucose Calcium Ferritin Total Bilirubin Direct Bilirubin AST ALT Alkaline Phosphatase Total Protein Albumin Globulin Albumin/Globulin Ratio LDL Cholesterol Direct 25-OH Vitamin D Total Assessment & Plan - Assessment and Plan (Free Text) Assessment: 66 year old female with history of poorly controlled T1DM, Hypertension, Hyperlipidemia, and NSTEMI confirming triple vessel CAD status post four CHYNA 2013-08/2014 on medical management presenting with intractable vomiting. Active treatment of resolving DKA and GI consultation for elevated transminases. No prior EGD or colonoscopy. Plan: >DDx: transient ischemic hepatopathy in setting of known CAD with underlying chronic liver disease -chronic alcohol use, rule out autoimmune >chronic elevated LFTs since 2013 2:1 >chronic alcohol use >sudden increase in LFTs 02/15 >transient hypotension 02/14 SBP 90s >pending Hepatitis panel and Ultrasound >ordered Duplex U/S >autoimmune workup, urine drug screen >consider ECHO to re-evaluate CAD -ECHO 2013- EF57%, mild MR/TR -03/2015 normal stress test >recommend elective EGD (intermittent chronic difficulty swallowing pills) >recommend elective colonoscopy for CRC screening <Jerome Noyola - Last Filed: 02/15/17 15:01> Meds - Medications Medications: Current Medications Acetaminophen (Tylenol 325mg Tab) 650 mg PO Q6H PRN PRN Reason: Pain, moderate (4-7) Albuterol/Ipratropium (Duoneb 3 Mg/0.5 Mg (3 Ml) Ud) 3 ml IH Q2H PRN PRN Reason: Shortness of Breath Arformoterol Tartrate (Brovana) 15 mcg IH [id number] [facility] Last Admin: 02/15/17 07:49 Dose: 15 mcg Aspirin (Ecotrin) 81 mg PO DAILY [facility] Last Admin: 02/15/17 09:09 Dose: 81 mg Azithromycin (Zithromax) 500 mg PO DAILY [facility] PRN Reason: Protocol Last Admin: 02/15/17 09:09 Dose: 500 mg Budesonide (Pulmicort Respules) 0.5 mg IH [id number] [facility] Last Admin: 02/15/17 07:50 Dose: 0.5 mg Calcium Carbonate (Oscal) 500 mg PO TID [facility] Last Admin: 02/15/17 14:07 Dose: 500 mg Clopidogrel Bisulfate (Plavix) 75 mg PO DAILY [facility] Last Admin: 02/15/17 09:09 Dose: 75 mg Heparin Sodium (Porcine) (Heparin) 5,000 units SC Q12 [facility] PRN Reason: Protocol Last Admin: 02/15/17 09:09 Dose: 5,000 units Ceftriaxone Sodium (Rocephin 1 Gram Ivpb) 1 gm in 100 mls @ 100 mls/hr IVPB DAILY [facility] PRN Reason: Protocol Last Admin: 02/15/17 09:10 Dose: 100 mls/hr Insulin Detemir (Levemir) 12 unit SC HS [facility] Last Admin: 02/14/17 21:41 Dose: 12 unit Insulin Human Lispro (Humalog Low) 0 units SC ACHS [facility] PRN Reason: Protocol Last Admin: 02/15/17 11:04 Dose: Not Given Insulin Human Lispro (Humalog) 6 units SC AC [facility] Last Admin: 02/15/17 11:25 Dose: Not Given Metoclopramide HCl (Reglan) 5 mg IVP Q6H PRN PRN Reason: Nausea/Vomiting Last Admin: 02/12/17 21:59 Dose: 5 mg Metoprolol Tartrate (Lopressor) 25 mg PO BID [facility] Last Admin: 02/15/17 09:14 Dose: 25 mg Nicotine (Nicoderm Cq) 1 patch TD DAILY [facility] Last Admin: 02/15/17 09:10 Dose: 1 patch Pantoprazole Sodium (Protonix Ec Tab) 40 mg PO ACB [facility] Last Admin: 02/15/17 08:27 Dose: 40 mg Potassium Phos/Sodium Phos (Neutra-Phos) 1 pkt PO BID [facility] Last Admin: 02/15/17 09:09 Dose: 1 pkt Results - Vital Signs Recent Vital Signs: Last Vital Signs Temp 98.1 F 02/15/17 08:33 Pulse 75 02/15/17 09:14 Resp 18 02/15/17 08:33 BP 179/86 H 02/15/17 09:14 Pulse Ox 98 02/15/17 08:33 - Labs Result Diagrams: 02/15/17 05:00 02/15/17 07:00 Labs: Laboratory Results - last 24 hr 02/14/17 02/14/17 02/14/17 06:05 10:00 16:16 WBC RBC Hgb Hct MCV MCH MCHC RDW Plt Count MPV Sodium Potassium Chloride Carbon Dioxide Anion Gap BUN Creatinine Est GFR ( Amer) Est GFR (Non-Af Amer) POC Glucose (mg/dL) 265 H Random Glucose Calcium Ferritin 102.0 Total Bilirubin Direct Bilirubin AST ALT Alkaline Phosphatase Total Protein Albumin Globulin Albumin/Globulin Ratio LDL Cholesterol Direct 80 25-OH Vitamin D Total 17.7 L Alcohol, Quantitative 02/14/17 02/15/17 02/15/17 21:09 05:00 07:00 WBC 6.8 D RBC 3.39 L Hgb 9.7 L Hct 28.4 L MCV 83.8 MCH 28.6 MCHC 34.2 RDW 13.6 Plt Count 155 MPV 9.9 Sodium 131 L Potassium 3.6 Chloride 105 Carbon Dioxide 22 Anion Gap 8 L BUN 18 Creatinine 1.0 Est GFR ( Amer) > 60 Est GFR (Non-Af Amer) 56 POC Glucose (mg/dL) 206 H Random Glucose 216 H Calcium 6.7 L* Ferritin Total Bilirubin 0.3 Direct Bilirubin 0.2 AST 873 H ALT 273 H Alkaline Phosphatase 98 Total Protein 4.2 L Albumin 2.1 L Globulin 2.1 Albumin/Globulin Ratio 1.0 L LDL Cholesterol Direct 25-OH Vitamin D Total Alcohol, Quantitative 02/15/17 02/15/17 02/15/17 08:08 11:03 14:00 WBC RBC Hgb Hct MCV MCH MCHC RDW Plt Count MPV Sodium Potassium Chloride Carbon Dioxide Anion Gap BUN Creatinine Est GFR ( Amer) Est GFR (Non-Af Amer) POC Glucose (mg/dL) 260 H 144 H Random Glucose Calcium Ferritin Total Bilirubin Direct Bilirubin AST ALT Alkaline Phosphatase Total Protein Albumin Globulin Albumin/Globulin Ratio LDL Cholesterol Direct 25-OH Vitamin D Total Alcohol, Quantitative < 10 Attending/Attestation - Attestation I have personally seen and examined this patient.: Yes I have fully participated in the care of the patient.: Yes I have reviewed all pertinent clinical information: Yes Notes (Text): 02/15/17 14:58 66 year old female with h/o DM, HTN, HLD, and CAD s/p multiple CHYNA admitted with DKA, also with elevated LFTs. 1. Elevated LFTs Plan: -suspect transient hypotension (02/14 4 am) in the setting of chronic alcoholic liver disease may have precipitated increase -recommend US abdomen with doppler to assess liver parenchyma and vessels -recommend echo to assess for CHF considering extensie h/o ischemic cardiovascular disease -check serologies for AIH/PBC/Viral hepatitis as above
--- NOTE | 2017-02-15 13:52 | CP.PCM.PN ---
<Tucker Oconnor - Last Filed: 02/15/17 13:43> Subjective - Date & Time of Evaluation Date of Evaluation: 02/15/17 Time of Evaluation: 13:43 - Subjective Subjective: Patient seen and examined. No acute events overnight. Mental status is improved. Patient is not confused. She is fully oriented. Tolerating diabetic diet. She has no complaints at this time including chest pain, abdominal pain, shortness of breath, n/v/d. Importance of strict management of patient's diabetes was impressed upon the patient. Objective - Vital Signs/Intake and Output Vital Signs (last 24 hours): Temp Pulse Resp BP Pulse Ox 98.1 F 75 18 179/86 H 98 02/15/17 08:33 02/15/17 09:14 02/15/17 08:33 02/15/17 09:14 02/15/17 08:33 Intake and Output: 02/15/17 02/15/17 06:59 18:59 Intake Total 2700 Balance 2700 - Medications Medications: Current Medications Acetaminophen (Tylenol 325mg Tab) 650 mg PO Q6H PRN PRN Reason: Pain, moderate (4-7) Albuterol/Ipratropium (Duoneb 3 Mg/0.5 Mg (3 Ml) Ud) 3 ml IH Q2H PRN PRN Reason: Shortness of Breath Arformoterol Tartrate (Brovana) 15 mcg IH [id number] [facility] Last Admin: 02/15/17 07:49 Dose: 15 mcg Aspirin (Ecotrin) 81 mg PO DAILY [facility] Last Admin: 02/15/17 09:09 Dose: 81 mg Azithromycin (Zithromax) 500 mg PO DAILY [facility] PRN Reason: Protocol Last Admin: 02/15/17 09:09 Dose: 500 mg Budesonide (Pulmicort Respules) 0.5 mg IH [id number] [facility] Last Admin: 02/15/17 07:50 Dose: 0.5 mg Calcium Carbonate (Oscal) 500 mg PO TID [facility] Last Admin: 02/15/17 09:10 Dose: 500 mg Clopidogrel Bisulfate (Plavix) 75 mg PO DAILY [facility] Last Admin: 02/15/17 09:09 Dose: 75 mg Heparin Sodium (Porcine) (Heparin) 5,000 units SC Q12 [facility] PRN Reason: Protocol Last Admin: 02/15/17 09:09 Dose: 5,000 units Ceftriaxone Sodium (Rocephin 1 Gram Ivpb) 1 gm in 100 mls @ 100 mls/hr IVPB DAILY [facility] PRN Reason: Protocol Last Admin: 02/15/17 09:10 Dose: 100 mls/hr Insulin Detemir (Levemir) 12 unit SC HS [facility] Last Admin: 02/14/17 21:41 Dose: 12 unit Insulin Human Lispro (Humalog Low) 0 units SC ACHS [facility] PRN Reason: Protocol Last Admin: 02/15/17 11:04 Dose: Not Given Insulin Human Lispro (Humalog) 6 units SC AC [facility] Last Admin: 02/15/17 11:25 Dose: Not Given Metoclopramide HCl (Reglan) 5 mg IVP Q6H PRN PRN Reason: Nausea/Vomiting Last Admin: 02/12/17 21:59 Dose: 5 mg Metoprolol Tartrate (Lopressor) 25 mg PO BID [facility] Last Admin: 02/15/17 09:14 Dose: 25 mg Nicotine (Nicoderm Cq) 1 patch TD DAILY [facility] Last Admin: 02/15/17 09:10 Dose: 1 patch Pantoprazole Sodium (Protonix Ec Tab) 40 mg PO ACB [facility] Last Admin: 02/15/17 08:27 Dose: 40 mg Potassium Phos/Sodium Phos (Neutra-Phos) 1 pkt PO BID [facility] Last Admin: 02/15/17 09:09 Dose: 1 pkt - Labs Labs: 02/15/17 05:00 02/15/17 07:00 PT 10.7 Seconds (9.9-11.8) 02/12/17 18:50 INR 0.99 (0.93-1.08) 02/12/17 18:50 APTT 25.8 Seconds (23.7-30.8) 02/12/17 18:50 - Constitutional Appears: Non-toxic, No Acute Distress - Head Exam Head Exam: ATRAUMATIC, NORMOCEPHALIC - Eye Exam Eye Exam: EOMI, PERRL - ENT Exam ENT Exam: Mucous Membranes Moist - Neck Exam Neck Exam: Full ROM, Normal Inspection - Respiratory Exam Respiratory Exam: Clear to Ausculation Bilateral, NORMAL BREATHING PATTERN. absent: Rales, Rhonchi, Wheezes - Cardiovascular Exam Cardiovascular Exam: REGULAR RHYTHM, +S1, +S2 - GI/Abdominal Exam GI & Abdominal Exam: Soft, Normal Bowel Sounds. absent: Tenderness - Extremities Exam Extremities Exam: absent: Calf Tenderness, Pedal Edema - Neurological Exam Neurological Exam: Alert, Awake, Oriented x3 - Psychiatric Exam Psychiatric exam: Normal Affect, Normal Mood - Skin Skin Exam: Dry, Warm Assessment and Plan - Assessment and Plan (Free Text) Assessment: 66 F admitted to ICU for for severe DKA, AMS, and BENNIE. DKA is resolve. Mental status is now at baseline. Renal function is improving. Patient now with acute increase in transaminases. GI is consulted. The patient will remain in the hospital pending GI evaluation. Hepatotoxic medications are held. Type 1 DKA (with intermittent confusion): -transferred from ICU - now on basal/bolus insulin - regarding home insulin regimen. this was discussed with the [facility] pharmacy who will provide the patient with insulin prior to discharge. - anion gap closed -tolerating Diabetic diet -neuro checks Q4hrs -A1C c >12 -diabetic nurse education Transaminitis - hepatoxotoxic meds held - GI consulted - abdominal US ordered Altered Mentation - resolved -likely due to combination of DKA and SIRS, -neurology consulted - state AMS 2/2 metabolic encephalopathy -neuro checks Q4hrs -fall precautions -CT-head negative for acute disease SIRS: - resolved -elevated lactic acid and leukocyotsis but afebrile -no clear etiology of infection BENNIE: -nephrology consult placed, renal US -renally dose all meds PPX - protonix 40mg PO daily - scds <Benito Parnell - Last Filed: 02/15/17 13:58> Objective - Vital Signs/Intake and Output Vital Signs (last 24 hours): Temp Pulse Resp BP Pulse Ox 98.1 F 75 18 179/86 H 98 02/15/17 08:33 02/15/17 09:14 02/15/17 08:33 02/15/17 09:14 02/15/17 08:33 Intake and Output: 02/15/17 02/15/17 06:59 18:59 Intake Total 2700 Balance 2700 - Medications Medications: Current Medications Acetaminophen (Tylenol 325mg Tab) 650 mg PO Q6H PRN PRN Reason: Pain, moderate (4-7) Albuterol/Ipratropium (Duoneb 3 Mg/0.5 Mg (3 Ml) Ud) 3 ml IH Q2H PRN PRN Reason: Shortness of Breath Arformoterol Tartrate (Brovana) 15 mcg IH [id number] [facility] Last Admin: 02/15/17 07:49 Dose: 15 mcg Aspirin (Ecotrin) 81 mg PO DAILY [facility] Last Admin: 02/15/17 09:09 Dose: 81 mg Azithromycin (Zithromax) 500 mg PO DAILY [facility] PRN Reason: Protocol Last Admin: 02/15/17 09:09 Dose: 500 mg Budesonide (Pulmicort Respules) 0.5 mg IH [id number] [facility] Last Admin: 02/15/17 07:50 Dose: 0.5 mg Calcium Carbonate (Oscal) 500 mg PO TID [facility] Last Admin: 02/15/17 09:10 Dose: 500 mg Clopidogrel Bisulfate (Plavix) 75 mg PO DAILY [facility] Last Admin: 02/15/17 09:09 Dose: 75 mg Heparin Sodium (Porcine) (Heparin) 5,000 units SC Q12 [facility] PRN Reason: Protocol Last Admin: 02/15/17 09:09 Dose: 5,000 units Ceftriaxone Sodium (Rocephin 1 Gram Ivpb) 1 gm in 100 mls @ 100 mls/hr IVPB DAILY [facility] PRN Reason: Protocol Last Admin: 02/15/17 09:10 Dose: 100 mls/hr Insulin Detemir (Levemir) 12 unit SC HS [facility] Last Admin: 02/14/17 21:41 Dose: 12 unit Insulin Human Lispro (Humalog Low) 0 units SC ACHS [facility] PRN Reason: Protocol Last Admin: 02/15/17 11:04 Dose: Not Given Insulin Human Lispro (Humalog) 6 units SC AC [facility] Last Admin: 02/15/17 11:25 Dose: Not Given Metoclopramide HCl (Reglan) 5 mg IVP Q6H PRN PRN Reason: Nausea/Vomiting Last Admin: 02/12/17 21:59 Dose: 5 mg Metoprolol Tartrate (Lopressor) 25 mg PO BID [facility] Last Admin: 02/15/17 09:14 Dose: 25 mg Nicotine (Nicoderm Cq) 1 patch TD DAILY [facility] Last Admin: 02/15/17 09:10 Dose: 1 patch Pantoprazole Sodium (Protonix Ec Tab) 40 mg PO ACB [facility] Last Admin: 02/15/17 08:27 Dose: 40 mg Potassium Phos/Sodium Phos (Neutra-Phos) 1 pkt PO BID [facility] Last Admin: 02/15/17 09:09 Dose: 1 pkt - Labs Labs: 02/15/17 05:00 02/15/17 07:00 PT 10.7 Seconds (9.9-11.8) 02/12/17 18:50 INR 0.99 (0.93-1.08) 02/12/17 18:50 APTT 25.8 Seconds (23.7-30.8) 02/12/17 18:50 Attending/Attestation - Attestation I have personally seen and examined this patient.: Yes I have fully participated in the care of the patient.: Yes I have reviewed all pertinent clinical information, including history, physical exam and plan: Yes Notes (Text): 02/15/17 13:54 Attending note; Patient seen and examined with resident. Patient is alert, awake and oriented x3. patient's daughter by the bedside. Patient is a 66-year-old female admitted with DKA and confusion. CT head is negative. currently off insulin drip. Anion gap closed. Continue Levemir. Endocrinology evaluation appreciated. case discussed with pharmacy for the approval of insulin. Lactic acidosis;resolved. currently patient is afebrile and nontoxic.treated with Iv Rocephin and Zithromax. Chest x-rays negative. active smoking; Started on NicoDerm patch. Smoking cessation is strongly advised. Acute renal failure; resolved. secondary to prerenal/DKA. Continue IV fluids. history of coronary artery /stent placement; continue beta marie, Plavix. monitor for hypotension. anemia; monitor hemoglobin closely. acute elevation in LFTs; possibly secondary to ischemia/hypoperfusion. GI evaluation requested. history of alcohol abuse in the past. abdominal ultrasound/hepatitis profile ordered. upon discharge the patient will follow up with PMD at [facility]. the diagnosis and follow-up plan discussed with patient's daughter in detail. 02/15/17 13:57
[2017-02-15 14:29] LABS: ALCOHOL SERUM < 10 mg/dL (0-10)
[2017-02-15] MEDS: Enoxaparin 30 mg Syringe SC SCH (15:39)
--- NOTE | 2017-02-15 15:43 | US ---
HISTORY: elevated lft COMPARISON: Renal ultrasound from 02/14/2017 TECHNIQUE: Sonographic evaluation of the abdomen. FINDINGS: LIVER: Measures 15.8 cm. There is diffuse increased echogenicity of the liver parenchyma. No mass. No intrahepatic bile duct dilatation. GALLBLADDER: Unremarkable. No gallstones. COMMON BILE DUCT: Measures 4.2 mm. No stones. No dilatation. PANCREAS: Unremarkable as visualized. No mass. No ductal dilatation. RIGHT KIDNEY: Measures 7.9cm. Mild diffuse increased echogenicity. No calculus, mass, or hydronephrosis. There is a 1.5 cm simple cyst in the interpolar region laterally. LEFT KIDNEY: Measures 7.9cm. Mild diffuse increased echogenicity. No calculus, mass, or hydronephrosis. SPLEEN: Normal in size and contour. No mass. AORTA: No aneurysmal dilatation. IVC: Unremarkable. OTHER FINDINGS: There are moderate bilateral pleural effusions and small perihepatic ascites. IMPRESSION: Diffuse increased echogenicity in the liver may reflect hepatic steatosis however parenchymal infectious/ inflammatory etiologies cannot be entirely excluded. Clinical and laboratory correlation is advised. Moderate bilateral pleural effusions and small perihepatic ascites. Bilateral small kidneys and medical renal disease.
[2017-02-15 17:21] VITALS: RESP 20
[2017-02-15] MEDS ORDERED: Dextrose 5%/0.45% NS 1,000 ML IV SCH (17:30)
[2017-02-15] MEDS: Dextrose 5%/0.45% NS 1,000 ML IV SCH (18:19)
--- NOTE | 2017-02-15 18:41 | CP.PCM.PN ---
Subjective - Date & Time of Evaluation Date of Evaluation: 02/15/17 Time of Evaluation: 18:00 - Subjective Subjective: EEG REPORT: CONDITION OF THIS RECORDING: DROWSY DIAGNOSIS: AMS MEDICATIONS:l REVIEWED BY NURSE'S RECONCILIATION INTERPRETATION: THIS IS A 16 CHANNEL INTERNATIONAL RECORDING. THE BACKEND OF THIS TRACING WAS COMPOSED OF 6-7 CYCLES PER SECOND. THERE WAS SMALL AMOUNT OF BETA ACTIVITY OF 16-20 CPS IN THE RECORDING AND INCREASE AMOUNT OF THETA ACTIVITY OF 5-7 CPS SEEN IN THIS TRACING. DROWSINESS WAS CHARACTERIZED BY MIXED BETA AND THETA ACTIVITIES. SLEEP WAS CHARACTERIZED BY VERTEX TRANSIENT WAVE, SLEEP SPINDLES, AND B/L SLOWING. PHOTIC STIMULATION SHOWED NO CHANGE IN THE TRACING. NO PAROXYSMAL ACTIVITY NOTED IN THIS RECORDING. EMG ARTIFICAT WAS SEEN. CONCLUSION: THIS IS AN ABNORMAL EEG SHOWING MILD B/L SLOWING THROUGHOUT THE RECORDING CONSISTENT WITH MILD B/L CEREBRAL DYSFUNCTION. NO SEIZURE ACTIVITY. Eryn VELÁSQUEZ MD Objective - Vital Signs/Intake and Output Vital Signs (last 24 hours): Temp Pulse Resp BP Pulse Ox 99.1 F 78 20 140/70 97 02/15/17 16:00 02/15/17 17:00 02/15/17 16:00 02/15/17 17:00 02/15/17 16:00 Intake and Output: 02/15/17 02/15/17 06:59 18:59 Intake Total 2700 480 Balance 2700 480 - Medications Medications: Current Medications Acetaminophen (Tylenol 325mg Tab) 650 mg PO Q6H PRN PRN Reason: Pain, moderate (4-7) Albuterol/Ipratropium (Duoneb 3 Mg/0.5 Mg (3 Ml) Ud) 3 ml IH Q2H PRN PRN Reason: Shortness of Breath Arformoterol Tartrate (Brovana) 15 mcg IH [id number] [facility] Last Admin: 02/15/17 07:49 Dose: 15 mcg Aspirin (Ecotrin) 81 mg PO DAILY [facility] Last Admin: 02/15/17 09:09 Dose: 81 mg Azithromycin (Zithromax) 500 mg PO DAILY [facility] PRN Reason: Protocol Last Admin: 02/15/17 09:09 Dose: 500 mg Budesonide (Pulmicort Respules) 0.5 mg IH [id number] [facility] Last Admin: 02/15/17 07:50 Dose: 0.5 mg Calcium Carbonate (Oscal) 500 mg PO TID [facility] Last Admin: 02/15/17 17:00 Dose: 500 mg Clopidogrel Bisulfate (Plavix) 75 mg PO DAILY [facility] Last Admin: 02/15/17 09:09 Dose: 75 mg Enoxaparin Sodium (Lovenox) 30 mg SC DAILY [facility] PRN Reason: Protocol Last Admin: 02/15/17 15:39 Dose: Not Given Ceftriaxone Sodium (Rocephin 1 Gram Ivpb) 1 gm in 100 mls @ 100 mls/hr IVPB DAILY [facility] PRN Reason: Protocol Last Admin: 02/15/17 09:10 Dose: 100 mls/hr Calcium Gluconate 1,000 mg/ (Dextrose) 110 mls @ 110 mls/hr IVPB ONCE ONE Stop: 02/16/17 10:59 Dextrose/Sodium Chloride (Dextrose 5%/0.45% Ns 1000 Ml) 1,000 mls @ 75 mls/hr IV .[id number] [facility] Last Admin: 02/15/17 18:19 Dose: 75 mls/hr Insulin Detemir (Levemir) 12 unit SC HS [facility] Last Admin: 02/14/17 21:41 Dose: 12 unit Insulin Human Lispro (Humalog Low) 0 units SC ACHS [facility] PRN Reason: Protocol Last Admin: 02/15/17 16:50 Dose: Not Given Insulin Human Lispro (Humalog) 6 units SC AC [facility] Last Admin: 02/15/17 16:49 Dose: Not Given Metoclopramide HCl (Reglan) 5 mg IVP Q6H PRN PRN Reason: Nausea/Vomiting Last Admin: 02/12/17 21:59 Dose: 5 mg Metoprolol Tartrate (Lopressor) 25 mg PO BID [facility] Last Admin: 02/15/17 17:00 Dose: 25 mg Nicotine (Nicoderm Cq) 1 patch TD DAILY [facility] Last Admin: 02/15/17 09:10 Dose: 1 patch Pantoprazole Sodium (Protonix Ec Tab) 40 mg PO ACB [facility] Last Admin: 02/15/17 08:27 Dose: 40 mg Potassium Phos/Sodium Phos (Neutra-Phos) 1 pkt PO BID [facility] Last Admin: 02/15/17 17:00 Dose: 1 pkt - Labs Labs: 02/15/17 05:00 02/15/17 07:00 PT 10.7 Seconds (9.9-11.8) 02/12/17 18:50 INR 0.99 (0.93-1.08) 02/12/17 18:50 APTT 25.8 Seconds (23.7-30.8) 02/12/17 18:50
[2017-02-15 21:05] LABS: IMMUNOGLOBULIN G 484.5 mg/dL (700.0-1600.0)
[2017-02-15 21:06] LABS: IMMUNOGLOBULIN M 96.4 mg/dL (40.0-230.0)
[2017-02-15] MEDS: Insulin Detemir 100 units/ml Vial (Levemir) SC SCH (21:25)
--- NOTE | 2017-02-16 07:04 | CP.PCM.PN ---
<Vandana Gray - Last Filed: 02/16/17 07:42> Subjective - Date & Time of Evaluation Date of Evaluation: 02/16/17 Time of Evaluation: 07:00 - Subjective Subjective: Gastroenterology Fellow/PGY4 Progress Note Patient denies abdominal pain. States she is hungry. Bowel movement yesterday. A 12-point review of systems negative except for as above. Objective - Vital Signs/Intake and Output Vital Signs (last 24 hours): Temp Pulse Resp BP Pulse Ox 99.1 F 78 20 140/70 97 02/15/17 16:00 02/15/17 17:00 02/15/17 16:00 02/15/17 17:00 02/15/17 16:00 Intake and Output: 02/16/17 02/16/17 06:59 18:59 Intake Total 1435 Balance 1435 - Medications Medications: Current Medications Acetaminophen (Tylenol 325mg Tab) 650 mg PO Q6H PRN PRN Reason: Pain, moderate (4-7) Albuterol/Ipratropium (Duoneb 3 Mg/0.5 Mg (3 Ml) Ud) 3 ml IH Q2H PRN PRN Reason: Shortness of Breath Arformoterol Tartrate (Brovana) 15 mcg IH [id number] [facility] Last Admin: 02/15/17 19:34 Dose: 15 mcg Aspirin (Ecotrin) 81 mg PO DAILY [facility] Last Admin: 02/15/17 09:09 Dose: 81 mg Azithromycin (Zithromax) 500 mg PO DAILY [facility] PRN Reason: Protocol Last Admin: 02/15/17 09:09 Dose: 500 mg Budesonide (Pulmicort Respules) 0.5 mg IH [id number] [facility] Last Admin: 02/15/17 19:34 Dose: 0.5 mg Calcium Carbonate (Oscal) 500 mg PO TID [facility] Last Admin: 02/15/17 17:00 Dose: 500 mg Clopidogrel Bisulfate (Plavix) 75 mg PO DAILY [facility] Last Admin: 02/15/17 09:09 Dose: 75 mg Enoxaparin Sodium (Lovenox) 30 mg SC DAILY [facility] PRN Reason: Protocol Last Admin: 02/15/17 15:39 Dose: Not Given Ceftriaxone Sodium (Rocephin 1 Gram Ivpb) 1 gm in 100 mls @ 100 mls/hr IVPB DAILY [facility] PRN Reason: Protocol Last Admin: 02/15/17 09:10 Dose: 100 mls/hr Calcium Gluconate 1,000 mg/ (Dextrose) 110 mls @ 110 mls/hr IVPB ONCE ONE Stop: 02/16/17 10:59 Dextrose/Sodium Chloride (Dextrose 5%/0.45% Ns 1000 Ml) 1,000 mls @ 75 mls/hr IV .[id number] [facility] Last Admin: 02/15/17 18:19 Dose: 75 mls/hr Insulin Detemir (Levemir) 12 unit SC HS [facility] Last Admin: 02/15/17 21:25 Dose: 12 unit Insulin Human Lispro (Humalog Low) 0 units SC ACHS [facility] PRN Reason: Protocol Last Admin: 02/15/17 21:12 Dose: Not Given Insulin Human Lispro (Humalog) 6 units SC AC [facility] Last Admin: 02/15/17 16:49 Dose: Not Given Metoclopramide HCl (Reglan) 5 mg IVP Q6H PRN PRN Reason: Nausea/Vomiting Last Admin: 02/12/17 21:59 Dose: 5 mg Metoprolol Tartrate (Lopressor) 25 mg PO BID [facility] Last Admin: 02/15/17 17:00 Dose: 25 mg Nicotine (Nicoderm Cq) 1 patch TD DAILY [facility] Last Admin: 02/15/17 09:10 Dose: 1 patch Pantoprazole Sodium (Protonix Ec Tab) 40 mg PO ACB [facility] Last Admin: 02/15/17 08:27 Dose: 40 mg Potassium Phos/Sodium Phos (Neutra-Phos) 1 pkt PO BID [facility] Last Admin: 02/15/17 17:00 Dose: 1 pkt - Labs Labs: 02/15/17 05:00 02/15/17 07:00 PT 10.7 Seconds (9.9-11.8) 02/12/17 18:50 INR 0.99 (0.93-1.08) 02/12/17 18:50 APTT 25.8 Seconds (23.7-30.8) 02/12/17 18:50 - Constitutional Appears: Non-toxic, No Acute Distress - Head Exam Head Exam: ATRAUMATIC, NORMOCEPHALIC - Eye Exam Eye Exam: EOMI, PERRL Pupil Exam: PERRL. absent: Miosis, Mydriatic - ENT Exam ENT Exam: Mucous Membranes Moist, Normal Oropharynx - Neck Exam Neck Exam: Full ROM, Normal Inspection - Respiratory Exam Respiratory Exam: Clear to Ausculation Bilateral. absent: Rales, Rhonchi, Wheezes - Cardiovascular Exam Cardiovascular Exam: RRR, +S1, +S2. absent: Gallop, Rubs - GI/Abdominal Exam GI & Abdominal Exam: Soft, Normal Bowel Sounds. absent: Distended, Firm, Guarding, Rigid, Tenderness, Organomegaly, Rebound - Extremities Exam Extremities Exam: Full ROM. absent: Pedal Edema - Neurological Exam Neurological Exam: Alert, Awake - Psychiatric Exam Psychiatric exam: Normal Affect, Normal Mood - Skin Skin Exam: Dry, Intact, Normal Color, Warm Assessment and Plan - Assessment and Plan (Free Text) Assessment: 66 year old female with history of poorly controlled T1DM, Hypertension, Hyperlipidemia, and NSTEMI confirming triple vessel CAD status post four CHYNA 2013-08/2014 on medical management presenting with intractable vomiting. Active treatment of resolving DKA and GI consultation for elevated transminases likely secondary to transient ischemic hepatopathy with history of CAD and underlying chronic alcohol use and chronic elevated LFTs. No prior EGD or colonoscopy. Plan: >Hepatitis panel negative >Ultrasound- hepatic steatosis >pending Duplex U/S >pending autoimmune workup, urine drug screen >pending ECHO >recommend elective colonoscopy for CRC screening <Jerome Noyola - Last Filed: 02/16/17 07:46> Objective - Vital Signs/Intake and Output Vital Signs (last 24 hours): Temp Pulse Resp BP Pulse Ox 99.1 F 78 20 140/70 97 02/15/17 16:00 02/15/17 17:00 02/15/17 16:00 02/15/17 17:00 02/15/17 16:00 Intake and Output: 02/16/17 02/16/17 06:59 18:59 Intake Total 1435 0 Balance 1435 0 - Medications Medications: Current Medications Acetaminophen (Tylenol 325mg Tab) 650 mg PO Q6H PRN PRN Reason: Pain, moderate (4-7) Albuterol/Ipratropium (Duoneb 3 Mg/0.5 Mg (3 Ml) Ud) 3 ml IH Q2H PRN PRN Reason: Shortness of Breath Arformoterol Tartrate (Brovana) 15 mcg IH [id number] [facility] Last Admin: 02/16/17 07:41 Dose: 15 mcg Aspirin (Ecotrin) 81 mg PO DAILY [facility] Last Admin: 02/15/17 09:09 Dose: 81 mg Azithromycin (Zithromax) 500 mg PO DAILY [facility] PRN Reason: Protocol Last Admin: 02/15/17 09:09 Dose: 500 mg Budesonide (Pulmicort Respules) 0.5 mg IH [id number] [facility] Last Admin: 02/16/17 07:42 Dose: 0.5 mg Calcium Carbonate (Oscal) 500 mg PO TID [facility] Last Admin: 02/15/17 17:00 Dose: 500 mg Clopidogrel Bisulfate (Plavix) 75 mg PO DAILY [facility] Last Admin: 02/15/17 09:09 Dose: 75 mg Enoxaparin Sodium (Lovenox) 30 mg SC DAILY [facility] PRN Reason: Protocol Last Admin: 02/15/17 15:39 Dose: Not Given Ceftriaxone Sodium (Rocephin 1 Gram Ivpb) 1 gm in 100 mls @ 100 mls/hr IVPB DAILY [facility] PRN Reason: Protocol Last Admin: 02/15/17 09:10 Dose: 100 mls/hr Calcium Gluconate 1,000 mg/ (Dextrose) 110 mls @ 110 mls/hr IVPB ONCE ONE Stop: 02/16/17 10:59 Dextrose/Sodium Chloride (Dextrose 5%/0.45% Ns 1000 Ml) 1,000 mls @ 75 mls/hr IV .[id number] [facility] Last Admin: 02/15/17 18:19 Dose: 75 mls/hr Insulin Detemir (Levemir) 12 unit SC HS [facility] Last Admin: 02/15/17 21:25 Dose: 12 unit Insulin Human Lispro (Humalog Low) 0 units SC ACHS [facility] PRN Reason: Protocol Last Admin: 02/15/17 21:12 Dose: Not Given Insulin Human Lispro (Humalog) 6 units SC AC [facility] Last Admin: 02/15/17 16:49 Dose: Not Given Metoclopramide HCl (Reglan) 5 mg IVP Q6H PRN PRN Reason: Nausea/Vomiting Last Admin: 02/12/17 21:59 Dose: 5 mg Metoprolol Tartrate (Lopressor) 25 mg PO BID [facility] Last Admin: 02/15/17 17:00 Dose: 25 mg Nicotine (Nicoderm Cq) 1 patch TD DAILY [facility] Last Admin: 02/15/17 09:10 Dose: 1 patch Pantoprazole Sodium (Protonix Ec Tab) 40 mg PO ACB [facility] Last Admin: 02/15/17 08:27 Dose: 40 mg Potassium Phos/Sodium Phos (Neutra-Phos) 1 pkt PO BID [facility] Last Admin: 02/15/17 17:00 Dose: 1 pkt - Labs Labs: 02/15/17 05:00 02/15/17 07:00 PT 10.7 Seconds (9.9-11.8) 02/12/17 18:50 INR 0.99 (0.93-1.08) 02/12/17 18:50 APTT 25.8 Seconds (23.7-30.8) 02/12/17 18:50 Attending/Attestation - Attestation I have personally seen and examined this patient.: Yes I have fully participated in the care of the patient.: Yes I have reviewed all pertinent clinical information, including history, physical exam and plan: Yes Notes (Text): 02/16/17 07:44 66 year old female with h/o DM, HTN, HLD, and CAD s/p multiple CHYNA admitted with DKA, also with elevated LFTs. 1. Elevated LFTs Plan: -suspect transient hypotension (02/14 4 am) in the setting of chronic alcoholic liver disease may have precipitated increase in lfts -US abdomen reviewed, showing steatosis, likely from etoh -await US dopplers and echo -await autoimmune serologies -viral hepatitis serologies negative -ok to discharge later today if lfts are downtrending and workup is unrevealing
[2017-02-16] MEDS: Arformoterol 15 mcg/2 ml Inh Sol IH SCH ×2 (07:41→20:12)
[2017-02-16] MEDS: Budesonide 0.5 mg/2 ml Inhal Susp UD IH SCH ×2 (07:42→20:12)
[2017-02-16 07:45] LABS: HEMATOCRIT 32.3 % (36.0-48.0); MEAN CELL VOLUME 84.6 fL (80.0-105.0); MEAN CORPUSCULAR HEMOGLOBIN 28.8 pg (25.0-35.0); MEAN CORPUSCULAR HGB CONC 34.1 g/dl (31.0-37.0); MEAN PLATELET VOLUME 10.1 fl (7.0-11.0); RED CELL DISTRIBUTION WIDTH 13.6 % (11.5-14.5); WHITE BLOOD COUNT 7.6 10^3/ul (4.5-11.0)
[2017-02-16 07:53] LABS: ALB/GLOB RATIO 1.1 (1.1-1.8); ALKALINE PHOSPHATASE 172 U/L (38-133); ALT/SGPT 538 U/L (7-56); BILIRUBIN,TOTAL 0.4 mg/dL (0.2-1.3); BLOOD UREA NITROGEN 14 mg/dL (7-21); CALCIUM 7.8 mg/dL (8.4-10.5); CARBON DIOXIDE 26 mmol/L (21-33); CHLORIDE 103 mmol/L (98-107); GFR AFRICAN-AMERICAN > 60; GLUCOSE,RANDOM 93 mg/dL (70-110); POTASSIUM 3.9 mmol/L (3.6-5.0); SODIUM 134 mmol/L (132-148); TOTAL PROTEIN 5.1 g/dL (5.8-8.3)
[2017-02-16 08:04] LABS: AST/SGOT 1480 U/L (15-39)
[2017-02-16] MEDS: Insulin Lispro 1 UNITS/0.01 ML SC SCH ×3 (08:18→16:23)
[2017-02-16] MEDS: Insulin Lispro (humaLOG) LOW Coverage SC SCH ×4 (08:18→21:43)
[2017-02-16] MEDS: Pantoprazole 40 mg EC Tab PO SCH (10:18)
[2017-02-16] MEDS: Potassium & Sodium Phosphate PO SCH ×2 (10:19→18:08)
[2017-02-16] MEDS: Enoxaparin 30 mg Syringe SC SCH (10:19)
[2017-02-16] MEDS: Dextrose 5%/0.45% NS 1,000 ML IV SCH (10:21)
--- NOTE | 2017-02-16 10:57 | US ---
PROCEDURE: Portal vein duplex ultrasound. CLINICAL HISTORY: Abnormal liver function tests Deteriorating liver function. Evaluate for portal vein thrombosis. PHYSICIAN(S): Vamsi Escoto M.D. FINDINGS: The extrahepatic portal vein is patent with hepatopetal flow. No sonographic evidence for thrombus or obstruction is seen. The 3 hepatic veins are visualized centrally and patent. The hepatic artery is patent. There is a trace amount of ascites around the spleen. Spleen is normal in size. IMPRESSION: 1. Patent portal vein with hepatopetal flow.
--- NOTE | 2017-02-16 16:22 | CP.PCM.PN ---
<Tucker Oconnor - Last Filed: 02/16/17 16:11> Subjective - Date & Time of Evaluation Date of Evaluation: 02/16/17 Time of Evaluation: 10:40 - Subjective Subjective: Patient seen and examined. No acute events overnight. Patient has no complaints at this time. She is tolerating diabetic diet. Patient denies abdominal pain, n/ v/d, chest pain or shortness of breath Objective - Vital Signs/Intake and Output Vital Signs (last 24 hours): Temp Pulse Resp BP Pulse Ox 99.6 F 84 20 149/77 97 02/16/17 09:18 02/16/17 10:18 02/16/17 09:18 02/16/17 10:18 02/16/17 09:18 Intake and Output: 02/16/17 02/16/17 06:59 18:59 Intake Total 1435 240 Balance 1435 240 - Medications Medications: Current Medications Acetaminophen (Tylenol 325mg Tab) 650 mg PO Q6H PRN PRN Reason: Pain, moderate (4-7) Albuterol/Ipratropium (Duoneb 3 Mg/0.5 Mg (3 Ml) Ud) 3 ml IH Q2H PRN PRN Reason: Shortness of Breath Arformoterol Tartrate (Brovana) 15 mcg IH [id number] [facility] Last Admin: 02/16/17 07:41 Dose: 15 mcg Aspirin (Ecotrin) 81 mg PO DAILY [facility] Last Admin: 02/16/17 10:18 Dose: 81 mg Azithromycin (Zithromax) 500 mg PO DAILY [facility] PRN Reason: Protocol Last Admin: 02/16/17 10:18 Dose: 500 mg Budesonide (Pulmicort Respules) 0.5 mg IH [id number] [facility] Last Admin: 02/16/17 07:42 Dose: 0.5 mg Calcium Carbonate (Oscal) 500 mg PO TID [facility] Last Admin: 02/15/17 17:00 Dose: 500 mg Clopidogrel Bisulfate (Plavix) 75 mg PO DAILY [facility] Last Admin: 02/16/17 10:21 Dose: 75 mg Enoxaparin Sodium (Lovenox) 30 mg SC DAILY [facility] PRN Reason: Protocol Last Admin: 02/16/17 10:19 Dose: 30 mg Ceftriaxone Sodium (Rocephin 1 Gram Ivpb) 1 gm in 100 mls @ 100 mls/hr IVPB DAILY [facility] PRN Reason: Protocol Last Admin: 02/15/17 09:10 Dose: 100 mls/hr Dextrose/Sodium Chloride (Dextrose 5%/0.45% Ns 1000 Ml) 1,000 mls @ 75 mls/hr IV .[id number] [facility] Last Admin: 02/16/17 10:21 Dose: 75 mls/hr Insulin Detemir (Levemir) 12 unit SC HS [facility] Last Admin: 02/15/17 21:25 Dose: 12 unit Insulin Human Lispro (Humalog Low) 0 units SC ACHS [facility] PRN Reason: Protocol Last Admin: 02/16/17 11:45 Dose: Not Given Insulin Human Lispro (Humalog) 6 units SC AC [facility] Last Admin: 02/16/17 12:41 Dose: 6 units Metoclopramide HCl (Reglan) 5 mg IVP Q6H PRN PRN Reason: Nausea/Vomiting Last Admin: 02/12/17 21:59 Dose: 5 mg Metoprolol Tartrate (Lopressor) 25 mg PO BID [facility] Last Admin: 02/16/17 10:18 Dose: 25 mg Nicotine (Nicoderm Cq) 1 patch TD DAILY [facility] Last Admin: 02/16/17 10:18 Dose: 1 patch Pantoprazole Sodium (Protonix Ec Tab) 40 mg PO ACB [facility] Last Admin: 02/16/17 10:18 Dose: 40 mg Potassium Phos/Sodium Phos (Neutra-Phos) 1 pkt PO BID [facility] Last Admin: 02/16/17 10:19 Dose: 1 pkt - Labs Labs: 02/16/17 06:55 02/16/17 06:50 PT 10.7 Seconds (9.9-11.8) 02/12/17 18:50 INR 0.99 (0.93-1.08) 02/12/17 18:50 APTT 25.8 Seconds (23.7-30.8) 02/12/17 18:50 - Constitutional Appears: Non-toxic, No Acute Distress - Head Exam Head Exam: ATRAUMATIC, NORMOCEPHALIC - Eye Exam Eye Exam: EOMI, PERRL - ENT Exam ENT Exam: Mucous Membranes Moist - Neck Exam Neck Exam: Full ROM, Normal Inspection - Respiratory Exam Respiratory Exam: Clear to Ausculation Bilateral. absent: Rales, Rhonchi, Wheezes - Cardiovascular Exam Cardiovascular Exam: REGULAR RHYTHM, +S1, +S2 - GI/Abdominal Exam GI & Abdominal Exam: Soft, Normal Bowel Sounds. absent: Tenderness - Extremities Exam Extremities Exam: Calf Tenderness, Full ROM. absent: Pedal Edema - Back Exam Back Exam: NORMAL INSPECTION - Neurological Exam Neurological Exam: Alert, Awake, Oriented x3 - Psychiatric Exam Psychiatric exam: Normal Affect, Normal Mood - Skin Skin Exam: Dry, Warm Assessment and Plan - Assessment and Plan (Free Text) Assessment: 66 F admitted to ICU for for severe DKA, AMS, and BENNIE. DKA is resolve. Mental status is now at baseline. Renal function is improving. Patient now with acute increase in liver enzymes likely 2/2 transient episode of hypotension. GI is following. Transaminitis 2/2 transient hypotension - enzymes continue to trend up - hepatoxotoxic meds held - hepatitis panel is negative - auto-immune w/u pending - GI is following DKA - now on basal/bolus insulin - regarding home insulin regimen. [place] [facility] the patient with insulin prior to discharge. - anion gap closed -tolerating Diabetic diet -neuro checks Q4hrs -A1C c >12 -diabetic nurse education Altered Mentation - resolved -likely due to combination of DKA and SIRS, -neurology consulted - state AMS 2/2 metabolic encephalopathy. EEG shows cerebral slowing. -CT-head negative for acute disease SIRS: - resolved -no clear etiology of infection - antibiotics held due to elevated liver enzymes BENNIE: -nephrology consult placed, renal US -renally dose all meds PPX - protonix 40mg PO daily - scds <Sanjana Lima - Last Filed: 02/16/17 17:15> Objective - Vital Signs/Intake and Output Vital Signs (last 24 hours): Temp Pulse Resp BP Pulse Ox 99.6 F 84 20 149/77 97 02/16/17 09:18 02/16/17 10:18 02/16/17 09:18 02/16/17 10:18 02/16/17 09:18 Intake and Output: 02/16/17 02/16/17 06:59 18:59 Intake Total 1435 240 Balance 1435 240 - Medications Medications: Current Medications Acetaminophen (Tylenol 325mg Tab) 650 mg PO Q6H PRN PRN Reason: Pain, moderate (4-7) Albuterol/Ipratropium (Duoneb 3 Mg/0.5 Mg (3 Ml) Ud) 3 ml IH Q2H PRN PRN Reason: Shortness of Breath Arformoterol Tartrate (Brovana) 15 mcg IH [id number] [facility] Last Admin: 02/16/17 07:41 Dose: 15 mcg Aspirin (Ecotrin) 81 mg PO DAILY [facility] Last Admin: 02/16/17 10:18 Dose: 81 mg Azithromycin (Zithromax) 500 mg PO DAILY [facility] PRN Reason: Protocol Last Admin: 02/16/17 10:18 Dose: 500 mg Budesonide (Pulmicort Respules) 0.5 mg IH [id number] [facility] Last Admin: 02/16/17 07:42 Dose: 0.5 mg Calcium Carbonate (Oscal) 500 mg PO TID [facility] Last Admin: 02/15/17 17:00 Dose: 500 mg Clopidogrel Bisulfate (Plavix) 75 mg PO DAILY [facility] Last Admin: 02/16/17 10:21 Dose: 75 mg Enoxaparin Sodium (Lovenox) 30 mg SC DAILY [facility] PRN Reason: Protocol Last Admin: 02/16/17 10:19 Dose: 30 mg Ceftriaxone Sodium (Rocephin 1 Gram Ivpb) 1 gm in 100 mls @ 100 mls/hr IVPB DAILY [facility] PRN Reason: Protocol Last Admin: 02/15/17 09:10 Dose: 100 mls/hr Dextrose/Sodium Chloride (Dextrose 5%/0.45% Ns 1000 Ml) 1,000 mls @ 75 mls/hr IV .[id number] [facility] Last Admin: 02/16/17 10:21 Dose: 75 mls/hr Insulin Detemir (Levemir) 12 unit SC HS [facility] Last Admin: 02/15/17 21:25 Dose: 12 unit Insulin Human Lispro (Humalog Low) 0 units SC ACHS [facility] PRN Reason: Protocol Last Admin: 02/16/17 16:23 Dose: Not Given Insulin Human Lispro (Humalog) 6 units SC AC [facility] Last Admin: 02/16/17 16:23 Dose: Not Given Metoclopramide HCl (Reglan) 5 mg IVP Q6H PRN PRN Reason: Nausea/Vomiting Last Admin: 02/12/17 21:59 Dose: 5 mg Metoprolol Tartrate (Lopressor) 25 mg PO BID [facility] Last Admin: 02/16/17 10:18 Dose: 25 mg Nicotine (Nicoderm Cq) 1 patch TD DAILY [facility] Last Admin: 02/16/17 10:18 Dose: 1 patch Pantoprazole Sodium (Protonix Ec Tab) 40 mg PO ACB [facility] Last Admin: 02/16/17 10:18 Dose: 40 mg Potassium Phos/Sodium Phos (Neutra-Phos) 1 pkt PO BID [facility] Last Admin: 02/16/17 10:19 Dose: 1 pkt - Labs Labs: 02/16/17 06:55 02/16/17 06:50 PT 10.7 Seconds (9.9-11.8) 02/12/17 18:50 INR 0.99 (0.93-1.08) 02/12/17 18:50 APTT 25.8 Seconds (23.7-30.8) 02/12/17 18:50 Attending/Attestation - Attestation I have personally seen and examined this patient.: Yes I have fully participated in the care of the patient.: Yes I have reviewed all pertinent clinical information, including history, physical exam and plan: Yes Notes (Text): 02/16/17 17:08 66 year old female who was admitted with DKA and lethargy both which have resolved. She is on levemir and humalog. Her fingersticks this afternoon are actually low at 26-52-64. Will hold levemir and humalog for now. Will monitor her fingersticks and adjust her regimen accordingly. Endocrinology is following the patient as well. He does have acute elevation of LFTs, possibly seconadry to hypoperfusion per GI. Abdominal ultrasound was reviewed. Abdominal doppler ultrasound and echocardiogram were ordered for today. Will continue to monitor and avoid hepatotoxic agents. BENNIE has resolved after IVF. Continue with home medications for CAD. Sanjana Lima MD Hospitalist.
--- NOTE | 2017-02-16 23:10 | CP.PCM.CON ---
Past Patient History - Infectious Disease Hx of Infectious Diseases: None - Tetanus Immunizations Tetanus Immunization: Unknown - Past Social History Smoking Status: Current Some Days Smoker - CARDIAC Hx Cardiac Disorders: Yes Hx Hypertension: Yes - PULMONARY Hx Respiratory Disorders: No - NEUROLOGICAL Hx Neurological Disorder: No Hx Paralysis: No - HEENT Hx HEENT Problems: No - RENAL Hx Chronic Kidney Disease: No - ENDOCRINE/METABOLIC Hx Diabetes Mellitus Type 1: Yes - HEMATOLOGICAL/ONCOLOGICAL Hx Blood Disorders: No Hx Blood Transfusions: No Hx Blood Transfusion Reaction: No - INTEGUMENTARY Hx Dermatological Problems: No - MUSCULOSKELETAL/RHEUMATOLOGICAL Hx Musculoskeletal Disorders: No - GASTROINTESTINAL Hx Gastrointestinal Disorders: No - GENITOURINARY/GYNECOLOGICAL Hx Genitourinary Disorders: No - PSYCHIATRIC Hx Psychophysiologic Disorder: No Hx Emotional Abuse: No Hx Physical Abuse: No Hx Substance Use: No - SURGICAL HISTORY Hx Cardiac Catheterization: Yes Hx Section: Yes Hx Coronary Stent: Yes - ANESTHESIA Hx Anesthesia: Yes Hx Anesthesia Reactions: No Hx Malignant Hyperthermia: No Meds Home Medications: Home Medication List Medication Instructions Recorded Confirmed Type Azithromycin [Zithromax] 250 mg PO DAILY #4 tab 02/15/17 Rx Allergies/Adverse Reactions: Allergies Allergy/AdvReac Type Severity Reaction Status Date / Time No Known Allergies Allergy Verified 02/12/17 18:41 - Medications Medications: Current Medications Acetaminophen (Tylenol 325mg Tab) 650 mg PO Q6H PRN PRN Reason: Pain, moderate (4-7) Albuterol/Ipratropium (Duoneb 3 Mg/0.5 Mg (3 Ml) Ud) 3 ml IH Q2H PRN PRN Reason: Shortness of Breath Arformoterol Tartrate (Brovana) 15 mcg IH [id number] [facility] Last Admin: 02/16/17 20:12 Dose: 15 mcg Aspirin (Ecotrin) 81 mg PO DAILY [facility] Last Admin: 02/16/17 10:18 Dose: 81 mg Azithromycin (Zithromax) 500 mg PO DAILY [facility] PRN Reason: Protocol Last Admin: 02/16/17 10:18 Dose: 500 mg Budesonide (Pulmicort Respules) 0.5 mg IH [id number] [facility] Last Admin: 02/16/17 20:12 Dose: 0.5 mg Calcium Carbonate (Oscal) 500 mg PO TID [facility] Last Admin: 02/15/17 17:00 Dose: 500 mg Clopidogrel Bisulfate (Plavix) 75 mg PO DAILY [facility] Last Admin: 02/16/17 10:21 Dose: 75 mg Enoxaparin Sodium (Lovenox) 30 mg SC DAILY [facility] PRN Reason: Protocol Last Admin: 02/16/17 10:19 Dose: 30 mg Ceftriaxone Sodium (Rocephin 1 Gram Ivpb) 1 gm in 100 mls @ 100 mls/hr IVPB DAILY [facility] PRN Reason: Protocol Last Admin: 02/15/17 09:10 Dose: 100 mls/hr Dextrose/Sodium Chloride (Dextrose 5%/0.45% Ns 1000 Ml) 1,000 mls @ 75 mls/hr IV .[id number] [facility] Last Admin: 02/16/17 10:21 Dose: 75 mls/hr Insulin Detemir (Levemir) 12 unit SC HS [facility] Last Admin: 02/15/17 21:25 Dose: 12 unit Insulin Human Lispro (Humalog Low) 0 units SC ACHS [facility] PRN Reason: Protocol Last Admin: 02/16/17 21:43 Dose: Not Given Insulin Human Lispro (Humalog) 6 units SC AC [facility] Last Admin: 02/16/17 16:23 Dose: Not Given Metoclopramide HCl (Reglan) 5 mg IVP Q6H PRN PRN Reason: Nausea/Vomiting Last Admin: 02/12/17 21:59 Dose: 5 mg Metoprolol Tartrate (Lopressor) 25 mg PO BID [facility] Last Admin: 02/16/17 18:06 Dose: 25 mg Nicotine (Nicoderm Cq) 1 patch TD DAILY [facility] Last Admin: 02/16/17 10:18 Dose: 1 patch Pantoprazole Sodium (Protonix Ec Tab) 40 mg PO ACB [facility] Last Admin: 02/16/17 10:18 Dose: 40 mg Potassium Phos/Sodium Phos (Neutra-Phos) 1 pkt PO BID [facility] Last Admin: 02/16/17 18:08 Dose: 1 pkt Results - Vital Signs Recent Vital Signs: Last Vital Signs Temp 99.3 F 02/16/17 16:00 Pulse 79 02/16/17 16:00 Resp 20 02/16/17 16:00 BP 157/63 H 02/16/17 18:06 Pulse Ox 97 02/16/17 16:00 - Labs Result Diagrams: 02/16/17 06:55 02/16/17 06:50 Labs: Laboratory Results - last 24 hr 02/16/17 02/16/17 02/16/17 06:50 06:55 07:17 WBC 7.6 RBC 3.82 Hgb 11.0 L Hct 32.3 L MCV 84.6 MCH 28.8 MCHC 34.1 RDW 13.6 Plt Count 180 MPV 10.1 Sodium 134 Potassium 3.9 Chloride 103 Carbon Dioxide 26 Anion Gap 9 L BUN 14 Creatinine 1.1 Est GFR ( Amer) > 60 Est GFR (Non-Af Amer) 50 POC Glucose (mg/dL) 106 Random Glucose 93 Calcium 7.8 L Total Bilirubin 0.4 AST 1480 H ALT 538 H Alkaline Phosphatase 172 H Total Protein 5.1 L Albumin 2.7 L Globulin 2.5 Albumin/Globulin Ratio 1.1 Urine Opiates Screen Urine Methadone Screen Ur Barbiturates Screen Ur Phencyclidine Scrn Ur Amphetamines Screen U Benzodiazepines Scrn U Oth Cocaine Metabols U Cannabinoids Screen 02/16/17 02/16/17 02/16/17 11:12 13:50 15:28 WBC RBC Hgb Hct MCV MCH MCHC RDW Plt Count MPV Sodium Potassium Chloride Carbon Dioxide Anion Gap BUN Creatinine Est GFR ( Amer) Est GFR (Non-Af Amer) POC Glucose (mg/dL) 94 26 L* Random Glucose Calcium Total Bilirubin AST ALT Alkaline Phosphatase Total Protein Albumin Globulin Albumin/Globulin Ratio Urine Opiates Screen Negative Urine Methadone Screen Negative Ur Barbiturates Screen Negative Ur Phencyclidine Scrn Negative Ur Amphetamines Screen Negative U Benzodiazepines Scrn Negative U Oth Cocaine Metabols Negative U Cannabinoids Screen Negative 02/16/17 02/16/17 02/16/17 16:11 16:53 17:35 WBC RBC Hgb Hct MCV MCH MCHC RDW Plt Count MPV Sodium Potassium Chloride Carbon Dioxide Anion Gap BUN Creatinine Est GFR ( Amer) Est GFR (Non-Af Amer) POC Glucose (mg/dL) 52 L 64 L 106 Random Glucose Calcium Total Bilirubin AST ALT Alkaline Phosphatase Total Protein Albumin Globulin Albumin/Globulin Ratio Urine Opiates Screen Urine Methadone Screen Ur Barbiturates Screen Ur Phencyclidine Scrn Ur Amphetamines Screen U Benzodiazepines Scrn U Oth Cocaine Metabols U Cannabinoids Screen 02/16/17 21:42 WBC RBC Hgb Hct MCV MCH MCHC RDW Plt Count MPV Sodium Potassium Chloride Carbon Dioxide Anion Gap BUN Creatinine Est GFR ( Amer) Est GFR (Non-Af Amer) POC Glucose (mg/dL) 275 H Random Glucose Calcium Total Bilirubin AST ALT Alkaline Phosphatase Total Protein Albumin Globulin Albumin/Globulin Ratio Urine Opiates Screen Urine Methadone Screen Ur Barbiturates Screen Ur Phencyclidine Scrn Ur Amphetamines Screen U Benzodiazepines Scrn U Oth Cocaine Metabols U Cannabinoids Screen
--- NOTE | 2017-02-16 23:17 | CP.PCM.PN ---
Subjective - Date & Time of Evaluation Date of Evaluation: 02/16/17 Time of Evaluation: 10:00 - Subjective Subjective: This is a 66 y/o female with recent uncontrolled Type 2, Insulin - Requiring, Diabetes, presenting here with marked hyperglycemic accelerations and hyperosmolar hyperglycemic state, and dehydration, and now being followed closely for diabetic management. Objective - Vital Signs/Intake and Output Vital Signs (last 24 hours): Temp Pulse Resp BP Pulse Ox 99.3 F 79 20 157/63 H 97 02/16/17 16:00 02/16/17 16:00 02/16/17 16:00 02/16/17 18:06 02/16/17 16:00 Intake and Output: 02/16/17 02/17/17 18:59 06:59 Intake Total 240 480 Balance 240 480 - Medications Medications: Current Medications Acetaminophen (Tylenol 325mg Tab) 650 mg PO Q6H PRN PRN Reason: Pain, moderate (4-7) Albuterol/Ipratropium (Duoneb 3 Mg/0.5 Mg (3 Ml) Ud) 3 ml IH Q2H PRN PRN Reason: Shortness of Breath Arformoterol Tartrate (Brovana) 15 mcg IH [id number] [facility] Last Admin: 02/16/17 20:12 Dose: 15 mcg Aspirin (Ecotrin) 81 mg PO DAILY [facility] Last Admin: 02/16/17 10:18 Dose: 81 mg Azithromycin (Zithromax) 500 mg PO DAILY [facility] PRN Reason: Protocol Last Admin: 02/16/17 10:18 Dose: 500 mg Budesonide (Pulmicort Respules) 0.5 mg IH [id number] [facility] Last Admin: 02/16/17 20:12 Dose: 0.5 mg Calcium Carbonate (Oscal) 500 mg PO TID [facility] Last Admin: 02/15/17 17:00 Dose: 500 mg Clopidogrel Bisulfate (Plavix) 75 mg PO DAILY [facility] Last Admin: 02/16/17 10:21 Dose: 75 mg Enoxaparin Sodium (Lovenox) 30 mg SC DAILY [facility] PRN Reason: Protocol Last Admin: 02/16/17 10:19 Dose: 30 mg Ceftriaxone Sodium (Rocephin 1 Gram Ivpb) 1 gm in 100 mls @ 100 mls/hr IVPB DAILY [facility] PRN Reason: Protocol Last Admin: 02/15/17 09:10 Dose: 100 mls/hr Dextrose/Sodium Chloride (Dextrose 5%/0.45% Ns 1000 Ml) 1,000 mls @ 75 mls/hr IV .[id number] [facility] Last Admin: 02/16/17 10:21 Dose: 75 mls/hr Insulin Detemir (Levemir) 12 unit SC HS [facility] Last Admin: 02/15/17 21:25 Dose: 12 unit Insulin Human Lispro (Humalog Low) 0 units SC ACHS [facility] PRN Reason: Protocol Last Admin: 02/16/17 21:43 Dose: Not Given Insulin Human Lispro (Humalog) 6 units SC AC [facility] Last Admin: 02/16/17 16:23 Dose: Not Given Metoclopramide HCl (Reglan) 5 mg IVP Q6H PRN PRN Reason: Nausea/Vomiting Last Admin: 02/12/17 21:59 Dose: 5 mg Metoprolol Tartrate (Lopressor) 25 mg PO BID [facility] Last Admin: 02/16/17 18:06 Dose: 25 mg Nicotine (Nicoderm Cq) 1 patch TD DAILY [facility] Last Admin: 02/16/17 10:18 Dose: 1 patch Pantoprazole Sodium (Protonix Ec Tab) 40 mg PO ACB [facility] Last Admin: 02/16/17 10:18 Dose: 40 mg Potassium Phos/Sodium Phos (Neutra-Phos) 1 pkt PO BID [facility] Last Admin: 02/16/17 18:08 Dose: 1 pkt - Labs Labs: 02/16/17 06:55 02/16/17 06:50 PT 10.7 Seconds (9.9-11.8) 02/12/17 18:50 INR 0.99 (0.93-1.08) 02/12/17 18:50 APTT 25.8 Seconds (23.7-30.8) 02/12/17 18:50
--- NOTE | 2017-02-16 23:18 | CP.PCM.PN ---
Objective - Vital Signs/Intake and Output Vital Signs (last 24 hours): Temp Pulse Resp BP Pulse Ox 99.3 F 79 20 157/63 H 97 02/16/17 16:00 02/16/17 16:00 02/16/17 16:00 02/16/17 18:06 02/16/17 16:00 Intake and Output: 02/16/17 02/17/17 18:59 06:59 Intake Total 240 480 Balance 240 480 - Medications Medications: Current Medications Acetaminophen (Tylenol 325mg Tab) 650 mg PO Q6H PRN PRN Reason: Pain, moderate (4-7) Albuterol/Ipratropium (Duoneb 3 Mg/0.5 Mg (3 Ml) Ud) 3 ml IH Q2H PRN PRN Reason: Shortness of Breath Arformoterol Tartrate (Brovana) 15 mcg IH [id number] [facility] Last Admin: 02/16/17 20:12 Dose: 15 mcg Aspirin (Ecotrin) 81 mg PO DAILY [facility] Last Admin: 02/16/17 10:18 Dose: 81 mg Azithromycin (Zithromax) 500 mg PO DAILY [facility] PRN Reason: Protocol Last Admin: 02/16/17 10:18 Dose: 500 mg Budesonide (Pulmicort Respules) 0.5 mg IH [id number] [facility] Last Admin: 02/16/17 20:12 Dose: 0.5 mg Calcium Carbonate (Oscal) 500 mg PO TID [facility] Last Admin: 02/15/17 17:00 Dose: 500 mg Clopidogrel Bisulfate (Plavix) 75 mg PO DAILY [facility] Last Admin: 02/16/17 10:21 Dose: 75 mg Enoxaparin Sodium (Lovenox) 30 mg SC DAILY [facility] PRN Reason: Protocol Last Admin: 02/16/17 10:19 Dose: 30 mg Ceftriaxone Sodium (Rocephin 1 Gram Ivpb) 1 gm in 100 mls @ 100 mls/hr IVPB DAILY [facility] PRN Reason: Protocol Last Admin: 02/15/17 09:10 Dose: 100 mls/hr Dextrose/Sodium Chloride (Dextrose 5%/0.45% Ns 1000 Ml) 1,000 mls @ 75 mls/hr IV .[id number] [facility] Last Admin: 02/16/17 10:21 Dose: 75 mls/hr Insulin Detemir (Levemir) 12 unit SC HS [facility] Last Admin: 02/15/17 21:25 Dose: 12 unit Insulin Human Lispro (Humalog Low) 0 units SC ACHS [facility] PRN Reason: Protocol Last Admin: 02/16/17 21:43 Dose: Not Given Insulin Human Lispro (Humalog) 6 units SC AC [facility] Last Admin: 02/16/17 16:23 Dose: Not Given Metoclopramide HCl (Reglan) 5 mg IVP Q6H PRN PRN Reason: Nausea/Vomiting Last Admin: 02/12/17 21:59 Dose: 5 mg Metoprolol Tartrate (Lopressor) 25 mg PO BID [facility] Last Admin: 02/16/17 18:06 Dose: 25 mg Nicotine (Nicoderm Cq) 1 patch TD DAILY [facility] Last Admin: 02/16/17 10:18 Dose: 1 patch Pantoprazole Sodium (Protonix Ec Tab) 40 mg PO ACB [facility] Last Admin: 02/16/17 10:18 Dose: 40 mg Potassium Phos/Sodium Phos (Neutra-Phos) 1 pkt PO BID [facility] Last Admin: 02/16/17 18:08 Dose: 1 pkt - Labs Labs: 02/16/17 06:55 02/16/17 06:50 PT 10.7 Seconds (9.9-11.8) 02/12/17 18:50 INR 0.99 (0.93-1.08) 02/12/17 18:50 APTT 25.8 Seconds (23.7-30.8) 02/12/17 18:50
--- NOTE | 2017-02-16 23:22 | CP.PCM.PN ---
Objective - Vital Signs/Intake and Output Vital Signs (last 24 hours): Temp Pulse Resp BP Pulse Ox 99.3 F 79 20 157/63 H 97 02/16/17 16:00 02/16/17 16:00 02/16/17 16:00 02/16/17 18:06 02/16/17 16:00 Intake and Output: 02/16/17 02/17/17 18:59 06:59 Intake Total 240 480 Balance 240 480 - Medications Medications: Current Medications Acetaminophen (Tylenol 325mg Tab) 650 mg PO Q6H PRN PRN Reason: Pain, moderate (4-7) Albuterol/Ipratropium (Duoneb 3 Mg/0.5 Mg (3 Ml) Ud) 3 ml IH Q2H PRN PRN Reason: Shortness of Breath Arformoterol Tartrate (Brovana) 15 mcg IH [id number] [facility] Last Admin: 02/16/17 20:12 Dose: 15 mcg Aspirin (Ecotrin) 81 mg PO DAILY [facility] Last Admin: 02/16/17 10:18 Dose: 81 mg Azithromycin (Zithromax) 500 mg PO DAILY [facility] PRN Reason: Protocol Last Admin: 02/16/17 10:18 Dose: 500 mg Budesonide (Pulmicort Respules) 0.5 mg IH [id number] [facility] Last Admin: 02/16/17 20:12 Dose: 0.5 mg Calcium Carbonate (Oscal) 500 mg PO TID [facility] Last Admin: 02/15/17 17:00 Dose: 500 mg Clopidogrel Bisulfate (Plavix) 75 mg PO DAILY [facility] Last Admin: 02/16/17 10:21 Dose: 75 mg Enoxaparin Sodium (Lovenox) 30 mg SC DAILY [facility] PRN Reason: Protocol Last Admin: 02/16/17 10:19 Dose: 30 mg Ceftriaxone Sodium (Rocephin 1 Gram Ivpb) 1 gm in 100 mls @ 100 mls/hr IVPB DAILY [facility] PRN Reason: Protocol Last Admin: 02/15/17 09:10 Dose: 100 mls/hr Dextrose/Sodium Chloride (Dextrose 5%/0.45% Ns 1000 Ml) 1,000 mls @ 75 mls/hr IV .[id number] [facility] Last Admin: 02/16/17 10:21 Dose: 75 mls/hr Insulin Detemir (Levemir) 12 unit SC HS [facility] Last Admin: 02/15/17 21:25 Dose: 12 unit Insulin Human Lispro (Humalog Low) 0 units SC ACHS [facility] PRN Reason: Protocol Last Admin: 02/16/17 21:43 Dose: Not Given Insulin Human Lispro (Humalog) 6 units SC AC [facility] Last Admin: 02/16/17 16:23 Dose: Not Given Metoclopramide HCl (Reglan) 5 mg IVP Q6H PRN PRN Reason: Nausea/Vomiting Last Admin: 02/12/17 21:59 Dose: 5 mg Metoprolol Tartrate (Lopressor) 25 mg PO BID [facility] Last Admin: 02/16/17 18:06 Dose: 25 mg Nicotine (Nicoderm Cq) 1 patch TD DAILY [facility] Last Admin: 02/16/17 10:18 Dose: 1 patch Pantoprazole Sodium (Protonix Ec Tab) 40 mg PO ACB [facility] Last Admin: 02/16/17 10:18 Dose: 40 mg Potassium Phos/Sodium Phos (Neutra-Phos) 1 pkt PO BID [facility] Last Admin: 02/16/17 18:08 Dose: 1 pkt - Labs Labs: 02/16/17 06:55 02/16/17 06:50 PT 10.7 Seconds (9.9-11.8) 02/12/17 18:50 INR 0.99 (0.93-1.08) 02/12/17 18:50 APTT 25.8 Seconds (23.7-30.8) 02/12/17 18:50
[2017-02-17 07:38] LABS: ALB/GLOB RATIO 1.2 (1.1-1.8); ALKALINE PHOSPHATASE 262 U/L (38-133); ALT/SGPT 533 U/L (7-56); BILIRUBIN,TOTAL 0.7 mg/dL (0.2-1.3); BLOOD UREA NITROGEN 14 mg/dL (7-21); CALCIUM 7.8 mg/dL (8.4-10.5); CARBON DIOXIDE 20 mmol/L (21-33); CHLORIDE 102 mmol/L (95-110); GFR AFRICAN-AMERICAN > 60; POTASSIUM 4.7 mmol/L (3.6-5.0); SODIUM 128 mmol/L (132-148); TOTAL PROTEIN 4.8 g/dL (5.8-8.3)
[2017-02-17 08:02] LABS: AST/SGOT 1169 U/L (15-39)
[2017-02-17 08:04] LABS: GLUCOSE,RANDOM 465 mg/dL (70-110)
[2017-02-17] MEDS: Insulin Lispro (humaLOG) LOW Coverage SC SCH ×2 (08:04→12:34)
[2017-02-17] MEDS: Budesonide 0.5 mg/2 ml Inhal Susp UD IH SCH (08:05)
[2017-02-17] MEDS: Arformoterol 15 mcg/2 ml Inh Sol IH SCH (08:05)
[2017-02-17 09:04] VITALS: BP 164/68; PULSE 74; TEMP 97.6; O2SAT 99
[2017-02-17] MEDS: Potassium & Sodium Phosphate PO SCH (10:15)
[2017-02-17] MEDS: Enoxaparin 30 mg Syringe SC SCH (10:15)
[2017-02-17] MEDS: cefTRIAXone 1 gm 1 GM/100 ML BAG IVPB SCH (10:16)
--- NOTE | 2017-02-17 10:59 | CP.PCM.PN ---
<Vandana Gray - Last Filed: 02/17/17 11:06> Subjective - Date & Time of Evaluation Date of Evaluation: 02/17/17 Time of Evaluation: 10:58 - Subjective Subjective: Gastroenterology Fellow/PGY4 Progress Note Patient feels well today. Tolerating liquid diet. Notes diarrhea episode yesterday with small formed stool this morning. A 12-point review of systems negative except for as above. Objective - Vital Signs/Intake and Output Vital Signs (last 24 hours): Temp Pulse Resp BP Pulse Ox 97.6 F 74 20 164/68 H 99 02/17/17 09:03 02/17/17 09:03 02/17/17 09:03 02/17/17 10:14 02/17/17 09:03 Intake and Output: 02/17/17 02/17/17 06:59 18:59 Intake Total 480 Balance 480 - Medications Medications: Current Medications Acetaminophen (Tylenol 325mg Tab) 650 mg PO Q6H PRN PRN Reason: Pain, moderate (4-7) Albuterol/Ipratropium (Duoneb 3 Mg/0.5 Mg (3 Ml) Ud) 3 ml IH Q2H PRN PRN Reason: Shortness of Breath Arformoterol Tartrate (Brovana) 15 mcg IH [id number] [facility] Last Admin: 02/17/17 08:05 Dose: 15 mcg Aspirin (Ecotrin) 81 mg PO DAILY [facility] Last Admin: 02/17/17 10:14 Dose: 81 mg Azithromycin (Zithromax) 500 mg PO DAILY [facility] PRN Reason: Protocol Last Admin: 02/17/17 10:13 Dose: 500 mg Budesonide (Pulmicort Respules) 0.5 mg IH [id number] [facility] Last Admin: 02/17/17 08:05 Dose: 0.5 mg Calcium Carbonate (Oscal) 500 mg PO TID [facility] Last Admin: 02/15/17 17:00 Dose: 500 mg Clopidogrel Bisulfate (Plavix) 75 mg PO DAILY [facility] Last Admin: 02/17/17 10:14 Dose: 75 mg Enoxaparin Sodium (Lovenox) 30 mg SC DAILY [facility] PRN Reason: Protocol Last Admin: 02/17/17 10:15 Dose: 30 mg Ceftriaxone Sodium (Rocephin 1 Gram Ivpb) 1 gm in 100 mls @ 100 mls/hr IVPB DAILY [facility] PRN Reason: Protocol Last Admin: 02/17/17 10:16 Dose: 100 mls/hr Dextrose/Sodium Chloride (Dextrose 5%/0.45% Ns 1000 Ml) 1,000 mls @ 75 mls/hr IV .[id number] [facility] Last Admin: 02/16/17 10:21 Dose: 75 mls/hr Insulin Detemir (Levemir) 16 unit SC HS [facility] Insulin Human Lispro (Humalog Low) 0 units SC ACHS [facility] PRN Reason: Protocol Last Admin: 02/17/17 08:04 Dose: 5 units Insulin Human Lispro (Humalog) 10 units SC AC [facility] Metoclopramide HCl (Reglan) 5 mg IVP Q6H PRN PRN Reason: Nausea/Vomiting Last Admin: 02/12/17 21:59 Dose: 5 mg Metoprolol Tartrate (Lopressor) 25 mg PO BID [facility] Last Admin: 02/17/17 10:14 Dose: 25 mg Nicotine (Nicoderm Cq) 1 patch TD DAILY [facility] Last Admin: 02/17/17 10:16 Dose: 1 patch Pantoprazole Sodium (Protonix Ec Tab) 40 mg PO ACB [facility] Last Admin: 02/16/17 10:18 Dose: 40 mg Potassium Phos/Sodium Phos (Neutra-Phos) 1 pkt PO BID [facility] Last Admin: 02/17/17 10:15 Dose: 1 pkt - Labs Labs: 02/16/17 06:55 02/17/17 06:40 PT 10.7 Seconds (9.9-11.8) 02/12/17 18:50 INR 0.99 (0.93-1.08) 02/12/17 18:50 APTT 25.8 Seconds (23.7-30.8) 02/12/17 18:50 - Constitutional Appears: Non-toxic, No Acute Distress - Head Exam Head Exam: ATRAUMATIC, NORMOCEPHALIC - Eye Exam Eye Exam: EOMI, Normal appearance, PERRL Pupil Exam: PERRL. absent: Miosis, Mydriatic - ENT Exam ENT Exam: Mucous Membranes Moist, Normal Exam - Neck Exam Neck Exam: Full ROM, Normal Inspection - Respiratory Exam Respiratory Exam: Clear to Ausculation Bilateral. absent: Rales, Rhonchi, Wheezes - Cardiovascular Exam Cardiovascular Exam: RRR, +S1, +S2. absent: Murmur - GI/Abdominal Exam GI & Abdominal Exam: Soft, Normal Bowel Sounds. absent: Distended, Firm, Guarding, Rigid, Tenderness, Organomegaly - Extremities Exam Extremities Exam: Full ROM, Normal Inspection - Neurological Exam Neurological Exam: Alert, Awake - Psychiatric Exam Psychiatric exam: Normal Affect, Normal Mood - Skin Skin Exam: Dry, Intact, Normal Color, Warm Assessment and Plan - Assessment and Plan (Free Text) Assessment: 66 year old female with history of poorly controlled T1DM, Hypertension, Hyperlipidemia, and NSTEMI confirming triple vessel CAD status post four CHYNA 2013-08/2014 on medical management presenting with intractable vomiting. Active treatment of resolving DKA and elevated transaminases likely secondary to transient ischemic hepatopathy with history of CAD and underlying chronic alcohol use and chronic elevated LFTs. Ulttrasound showed hepatic steatosis likely secondary to chronic alcohol use. No prior EGD or colonoscopy. >Duplex U/S- normal vessels of portal system >slight improvement of AST/ALT >follow up autoimmune workup >Hepatitis panel negative >advance to cardiac diabetic diet >pending ECHO >recommend elective colonoscopy for CRC screening <Jerome Noyola - Last Filed: 02/17/17 17:04> Objective - Vital Signs/Intake and Output Vital Signs (last 24 hours): Temp Pulse Resp BP Pulse Ox 97.6 F 74 20 164/68 H 99 02/17/17 09:03 02/17/17 09:03 02/17/17 09:03 02/17/17 10:14 02/17/17 09:03 Intake and Output: 02/17/17 02/17/17 06:59 18:59 Intake Total 480 Balance 480 - Labs Labs: 02/16/17 06:55 02/17/17 06:40 PT 10.7 Seconds (9.9-11.8) 02/12/17 18:50 INR 0.99 (0.93-1.08) 02/12/17 18:50 APTT 25.8 Seconds (23.7-30.8) 02/12/17 18:50 Attending/Attestation - Attestation I have personally seen and examined this patient.: Yes I have fully participated in the care of the patient.: Yes I have reviewed all pertinent clinical information, including history, physical exam and plan: Yes Notes (Text): 02/17/17 17:04 66 year old female with h/o DM, HTN, HLD, and CAD s/p multiple CHYNA admitted with DKA, also with elevated LFTs. 1. Elevated LFTs Plan: -suspect transient hypotension (02/14 4 am) in the setting of chronic alcoholic liver disease may have precipitated increase in lfts -US abdomen reviewed, showing steatosis, likely from etoh -LFTs downtrending -repeat lfts in 1 week -strict etoh abstinence -echo pending -ok to discharge from GI standpoint with close outpatient follow up
[2017-02-17] MEDS ORDERED: Insulin Lispro 1 UNITS/0.01 ML SC SCH (11:30)
[2017-02-17] MEDS: Dextrose 5%/0.45% NS 1,000 ML IV SCH (13:14)
--- NOTE | 2017-02-17 13:26 | CP.PCM.PN ---
Subjective - Date & Time of Evaluation Date of Evaluation: 02/17/17 Time of Evaluation: 13:00 - Subjective Subjective: SITTING IN BED, C/O COUGH WANTS TO GO HOME Objective - Vital Signs/Intake and Output Vital Signs (last 24 hours): Temp Pulse Resp BP Pulse Ox 97.6 F 74 20 164/68 H 99 02/17/17 09:03 02/17/17 09:03 02/17/17 09:03 02/17/17 10:14 02/17/17 09:03 Intake and Output: 02/17/17 02/17/17 06:59 18:59 Intake Total 480 Balance 480 - Medications Medications: Current Medications Acetaminophen (Tylenol 325mg Tab) 650 mg PO Q6H PRN PRN Reason: Pain, moderate (4-7) Albuterol/Ipratropium (Duoneb 3 Mg/0.5 Mg (3 Ml) Ud) 3 ml IH Q2H PRN PRN Reason: Shortness of Breath Arformoterol Tartrate (Brovana) 15 mcg IH [id number] [facility] Last Admin: 02/17/17 08:05 Dose: 15 mcg Aspirin (Ecotrin) 81 mg PO DAILY [facility] Last Admin: 02/17/17 10:14 Dose: 81 mg Azithromycin (Zithromax) 500 mg PO DAILY [facility] PRN Reason: Protocol Last Admin: 02/17/17 10:13 Dose: 500 mg Budesonide (Pulmicort Respules) 0.5 mg IH [id number] [facility] Last Admin: 02/17/17 08:05 Dose: 0.5 mg Calcium Carbonate (Oscal) 500 mg PO TID [facility] Last Admin: 02/15/17 17:00 Dose: 500 mg Clopidogrel Bisulfate (Plavix) 75 mg PO DAILY [facility] Last Admin: 02/17/17 10:14 Dose: 75 mg Enoxaparin Sodium (Lovenox) 30 mg SC DAILY [facility] PRN Reason: Protocol Last Admin: 02/17/17 10:15 Dose: 30 mg Ceftriaxone Sodium (Rocephin 1 Gram Ivpb) 1 gm in 100 mls @ 100 mls/hr IVPB DAILY [facility] PRN Reason: Protocol Last Admin: 02/17/17 10:16 Dose: 100 mls/hr Dextrose/Sodium Chloride (Dextrose 5%/0.45% Ns 1000 Ml) 1,000 mls @ 75 mls/hr IV .[id number] [facility] Last Admin: 02/17/17 13:14 Dose: 75 mls/hr Insulin Detemir (Levemir) 16 unit SC HS [facility] Insulin Human Lispro (Humalog Low) 0 units SC ACHS [facility] PRN Reason: Protocol Last Admin: 02/17/17 12:34 Dose: 4 units Insulin Human Lispro (Humalog) 10 units SC AC [facility] Last Admin: 02/17/17 12:34 Dose: 10 units Metoclopramide HCl (Reglan) 5 mg IVP Q6H PRN PRN Reason: Nausea/Vomiting Last Admin: 02/12/17 21:59 Dose: 5 mg Metoprolol Tartrate (Lopressor) 25 mg PO BID [facility] Last Admin: 02/17/17 10:14 Dose: 25 mg Nicotine (Nicoderm Cq) 1 patch TD DAILY [facility] Last Admin: 02/17/17 10:16 Dose: 1 patch Pantoprazole Sodium (Protonix Ec Tab) 40 mg PO ACB [facility] Last Admin: 02/16/17 10:18 Dose: 40 mg Potassium Phos/Sodium Phos (Neutra-Phos) 1 pkt PO BID [facility] Last Admin: 02/17/17 10:15 Dose: 1 pkt - Labs Labs: 02/16/17 06:55 02/17/17 06:40 PT 10.7 Seconds (9.9-11.8) 02/12/17 18:50 INR 0.99 (0.93-1.08) 02/12/17 18:50 APTT 25.8 Seconds (23.7-30.8) 02/12/17 18:50 - Constitutional Appears: Non-toxic, Cachectic - Head Exam Head Exam: ATRAUMATIC, NORMAL INSPECTION, NORMOCEPHALIC - Eye Exam Eye Exam: Normal appearance, PERRL - ENT Exam ENT Exam: Mucous Membranes Moist, Normal Exam - Neck Exam Neck Exam: Normal Inspection - Respiratory Exam Respiratory Exam: Prolonged Expiratory Phase, Rhonchi - Cardiovascular Exam Cardiovascular Exam: REGULAR RHYTHM, +S1, +S2 - GI/Abdominal Exam GI & Abdominal Exam: Soft, Normal Bowel Sounds - Extremities Exam Extremities Exam: Full ROM, Normal Inspection - Neurological Exam Neurological Exam: Alert, Awake, Oriented x3 - Psychiatric Exam Psychiatric exam: Normal Affect, Normal Mood - Skin Skin Exam: Normal Color, Warm Assessment and Plan (1) Hyponatremia Assessment & Plan: PSUEDO HYPONATREMIA 2/2 TO HYPERGLYCEMIA NEEDS BETTER GLYCEMIC CONTROL Status: Acute (2) Hyperglycemia Assessment & Plan: POORLY CONTROLLED DM, NEEDS TIGHTER CONTROL Status: Acute (3) Diabetic ketoacidosis Assessment & Plan: RESOLVED Status: Acute (4) Prerenal azotemia Assessment & Plan: RESOLVED Status: Acute
--- NOTE | 2017-02-17 14:40 | CP.PCM.DIS ---
<AnastasiaTucker - Last Filed: 02/17/17 14:37> Provider - Provider Date of Admission: 02/12/17 20:33 Attending physician: Benito Parnell MD Primary care physician: MONIKA PRIMARY CARE PROVIDER Consults: Dr. Emi Lozada - Nephrology Dr. Stew Sagastume - Neurology Dr. Jessica Torres - endocrinology Time Spent in preparation of Discharge (in minutes): 35 Diagnosis - Discharge Diagnosis (1) Transaminitis Status: Acute (2) Diabetic ketoacidosis Status: Acute Hospital Course - Lab Results Lab Results: Micro Results 02/12/17 21:00 Blood-Venous Blood Culture - Preliminary NO GROWTH AFTER 4 DAYS 02/12/17 22:50 Nose MRSA Culture (Admit) - Final MRSA NOT DETECTED 02/12/17 21:30 Urine,Clean Catch Urine Culture - Final No Growth (<1,000 CFU/ML) Most Recent Lab Values WBC 7.6 10^3/ul (4.5-11.0) 02/16/17 06:55 RBC 3.82 10^6/uL (3.5-6.1) 02/16/17 06:55 Hgb 11.0 gm/dL (12.0-16.0) L 02/16/17 06:55 Hct 32.3 % (36.0-48.0) L 02/16/17 06:55 MCV 84.6 fL (80.0-105.0) 02/16/17 06:55 MCH 28.8 pg (25.0-35.0) 02/16/17 06:55 MCHC 34.1 g/dl (31.0-37.0) 02/16/17 06:55 RDW 13.6 % (11.5-14.5) 02/16/17 06:55 Plt Count 180 10^3/uL (120.0-450.0) 02/16/17 06:55 MPV 10.1 fl (7.0-11.0) 02/16/17 06:55 Gran % 83.1 % (50.0-68.0) H 02/12/17 18:50 Lymph % (Auto) 7.5 % (22.0-35.0) L 02/12/17 18:50 Prentiss % (Auto) 8.8 % (1.0-6.0) H 02/12/17 18:50 Eos % (Auto) 0.0 % (1.5-5.0) L 02/12/17 18:50 Baso % (Auto) 0.6 % (0.0-3.0) 02/12/17 18:50 Gran # 8.98 (1.4-6.5) H 02/12/17 18:50 Lymph # 0.8 (1.2-3.4) L 02/12/17 18:50 Prentiss # 1.0 (0.1-0.6) H 02/12/17 18:50 Eos # 0.0 (0.0-0.7) 02/12/17 18:50 Baso # 0.07 K/mm3 (0.0-2.0) 02/12/17 18:50 Neutrophils % (Manual) 87 % (50.0-70.0) H 02/13/17 03:15 Band Neutrophils % 2 % (0-2) 02/13/17 03:15 Lymphocytes % (Manual) 9 % (22.0-35.0) L 02/13/17 03:15 Monocytes % (Manual) 1 % (1.0-6.0) 02/13/17 03:15 Eosinophils % (Manual) 1 % (0.0-3.0) 02/13/17 03:15 PT 10.7 Seconds (9.9-11.8) 02/12/17 18:50 INR 0.99 (0.93-1.08) 02/12/17 18:50 APTT 25.8 Seconds (23.7-30.8) 02/12/17 18:50 pO2 39 mm/Hg (30-55) 02/13/17 23:55 VBG pH 7.40 (7.32-7.43) 02/13/17 23:55 VBG pCO2 44.0 (40-60) 02/13/17 23:55 VBG HCO3 27.3 mmol/l (21-28) 02/13/17 23:55 VBG Total CO2 28.7 mmol.L (22-28) H 02/13/17 23:55 VBG O2 Sat (Calc) 81.0 % (40-65) H 02/13/17 23:55 VBG Base Excess 2.1 mmol/L (0.0-2.0) H 02/13/17 23:55 VBG Potassium 3.9 mmol/L (3.6-5.2) 02/13/17 23:55 Sodium 140.0 mmol/L (132-148) 02/13/17 23:55 Chloride 108.0 mmol/L (98-107) H 02/13/17 23:55 Glucose 94 mg/dl (65-105) 02/13/17 23:55 Lactate 1.7 mmol/L (0.7-2.1) 02/13/17 23:55 FiO2 21.0 % 02/13/17 23:55 Sodium 128 mmol/L (132-148) L 02/17/17 06:40 Potassium 4.7 mmol/L (3.6-5.0) 02/17/17 06:40 Chloride 102 mmol/L (95-110) 02/17/17 06:40 Carbon Dioxide 20 mmol/L (21-33) L 02/17/17 06:40 Anion Gap 11 (10-20) 02/17/17 06:40 BUN 14 mg/dL (7-21) 02/17/17 06:40 Creatinine 1.0 mg/dL (0.5-1.4) 02/17/17 06:40 Est GFR ( Amer) > 60 02/17/17 06:40 Est GFR (Non-Af Amer) 56 02/17/17 06:40 POC Glucose (mg/dL) 400 mg/dL (65-110) H* 02/17/17 11:37 Random Glucose 465 mg/dL (70-110) H* D 02/17/17 06:40 Hemoglobin A1c 12.8 % (4.2-6.5) H 02/13/17 03:15 Lactic Acid 1.0 mmol/L (0.7-2.1) 02/14/17 06:15 Calcium 7.8 mg/dL (8.4-10.5) L 02/17/17 06:40 Phosphorus 1.5 mg/dL (2.5-4.5) L 02/14/17 06:05 Magnesium 1.9 mg/dL (1.7-2.2) 02/14/17 06:05 Iron 93 ug/dL (45-180) 02/14/17 06:05 TIBC 227 ug/dL (265-497) L 02/14/17 06:05 % Saturation 41 % (20-55) 02/14/17 06:05 Ferritin 102.0 ng/mL 02/14/17 06:05 Total Bilirubin 0.7 mg/dL (0.2-1.3) 02/17/17 06:40 Direct Bilirubin 0.2 mg/dL (0.0-0.4) 02/15/17 07:00 AST 1169 U/L (15-39) H 02/17/17 06:40 ALT 533 U/L (7-56) H 02/17/17 06:40 Alkaline Phosphatase 262 U/L (38-133) H 02/17/17 06:40 Lactate Dehydrogenase 593 U/L (333-699) 02/12/17 18:50 Total Creatine Kinase 90 U/L (35-230) 02/12/17 18:50 Troponin I 0.02 ng/mL D 02/12/17 18:50 Total Protein 4.8 g/dL (5.8-8.3) L 02/17/17 06:40 Albumin 2.6 g/dL (3.0-4.8) L 02/17/17 06:40 Globulin 2.2 gm/dL 02/17/17 06:40 Albumin/Globulin Ratio 1.2 (1.1-1.8) 02/17/17 06:40 Triglycerides 91 mg/dL (35-160) 02/14/17 06:05 Cholesterol 141 mg/dL (130-200) 02/14/17 06:05 LDL Cholesterol Direct 80 mg/dL (0-129) 02/14/17 06:05 HDL Cholesterol 37 mg/dL (29-60) 02/14/17 06:05 Lipase 134 U/L (23-300) 02/12/17 18:50 25-OH Vitamin D Total 17.7 NG/ML (30.0-100.0) L 02/14/17 10:00 Procalcitonin 3.18 NG/ML (0.19-0.49) H 02/13/17 00:05 TSH 3rd Generation 2.95 mIU/mL (0.46-4.68) 02/14/17 06:05 Venous Blood Potassium 3.9 mmol/L (3.6-5.2) 02/13/17 23:55 Urine Color Yellow (YELLOW) 02/12/17 21:30 Urine Appearance Clear (CLEAR) 02/12/17 21:30 Urine pH 6.0 (4.7-8.0) 02/12/17 21:30 Ur Specific [place] 1.015 (1.005-1.035) 02/12/17 21:30 Urine Protein Trace mg/dL (<30 mg/dL) H 02/12/17 21:30 Urine Glucose (UA) Negative mg/dL (NEGATIVE) 02/12/17 21:30 Urine Ketones 15 mg/dL (NEGATIVE) H 02/12/17 21:30 Urine Blood Negative (NEGATIVE) 02/12/17 21:30 Urine Nitrate Negative (NEGATIVE) 02/12/17 21:30 Urine Bilirubin Negative (NEGATIVE) 02/12/17 21:30 Urine Urobilinogen 0.2 E.U./dL (<1 E.U./dL) 02/12/17 21:30 Ur Leukocyte Esterase Negative Nishi/uL (NEGATIVE) 02/12/17 21:30 Urine RBC 0 - 2 /hpf (0-2) 02/12/17 21:30 Urine WBC 1 - 3 /hpf (0-6) 02/12/17 21:30 Ur Epithelial Cells 4 - 5 /hpf (0-5) 02/12/17 21:30 Amorphous Sediment Few 02/12/17 21:30 Urine Bacteria Mod (NEG) 02/12/17 21:30 Urine Other Uyeast 02/12/17 21:30 Urine Opiates Screen Negative (NEGATIVE) 02/16/17 13:50 Urine Methadone Screen Negative (NEGATIVE) 02/16/17 13:50 Ur Barbiturates Screen Negative (NEGATIVE) 02/16/17 13:50 Ur Phencyclidine Scrn Negative (NEGATIVE) 02/16/17 13:50 Ur Amphetamines Screen Negative (NEGATIVE) 02/16/17 13:50 U Benzodiazepines Scrn Negative (NEGATIVE) 02/16/17 13:50 U Oth Cocaine Metabols Negative (NEGATIVE) 02/16/17 13:50 U Cannabinoids Screen Negative (NEGATIVE) 02/16/17 13:50 Alcohol, Quantitative < 10 mg/dL (0-10) 02/15/17 14:00 IgG 484.5 mg/dL (700.0-1600.0) L 02/15/17 14:00 IgA 99.0 mg/dL (70.0-400.0) 02/15/17 14:00 IgM 96.4 mg/dL (40.0-230.0) 02/15/17 14:00 Anti-Mitochondrial Ab Negative (Negative) 02/16/17 06:50 Smooth Muscle Ab Titer TEST NOT PERFORMED 02/16/17 06:50 Anti-Smooth Muscle Ab Negative (Negative) 02/16/17 06:50 Hepatitis A IgM Ab Negative (NEGATIVE) 02/15/17 07:00 Hep Bs Antigen Negative (NEGATIVE) 02/15/17 07:00 Hep B Core IgM Ab Negative (NEGATIVE) 02/15/17 07:00 Hepatitis C Antibody Negative (NEGATIVE) 02/15/17 07:00 - Hospital Course Hospital Course: The patient is a 66 year old woman with a history of CAD (s/p PCI's), DL and IDDM who presents with pre-syncope and altered mental status. In the ED, a code sepsis was called after her lactate was found to be elevated at 6.0. Also in the ED, her blood glucose was found to be greater than 1000 with evidence of severe DKA. The patient was admitted to the ICU for management of DKA. DKA is complicated by hyponatremia and azotemia. The patient was started on IVF and Insulin drip per protocol. Subsequently patient's ion gap closed and blood sugars returned to normal. The patient was returned to basal/bolus sc insulin and transferred from the ICU. DKA was complicated by acute renal failure on chronic kidney disease. Nephrology was consulted. BENNIE was determined to be pre-renal. Patient's renal function improved with IVF to patient's baseline. Septic w/u including blood and urine cx were negative. On admission the patient was noted to be confused and alerted from baseline per her family. Neurology was consulted and determined the patient was suffering form metabolic encephalopathy. During admission the patient was found to have an acute rise in liver enzymes. At this time all hepatoxic medications were held. GI was consulted and determined the injury was due to a transient episode of hypotension. Hepatitis w /u was negative. Abdominal US revealed hepatic steatosis due to alcohol most likely. There was no evidence of portal venous thrombus. Prior to discharge LFTs peaked and showed a downward trend. requested the patient f/u with Dr. Noyola in his office within one week for further blood work to trend LFTs. The patient was advised to abstain from alcohol use. The patient was discharged with instructions to r/u with her PCP at [facility]. Patient was provided with insulin, lancets and strips by the [facility] pharmacy with meds to beds prior to discharge. Discharge Exam - Head Exam Head Exam: ATRAUMATIC, NORMAL INSPECTION, NORMOCEPHALIC - Eye Exam Eye Exam: EOMI, PERRL - ENT Exam ENT Exam: Mucous Membranes Moist - Respiratory Exam Respiratory Exam: Clear to PA & Lateral. absent: Rales, Rhonchi - Cardiovascular Exam Cardiovascular Exam: REGULAR RHYTHM, +S1, +S2 - GI/Abdominal Exam GI & Abdominal Exam: Normal Bowel Sounds, Soft. absent: Tenderness - Extremities Exam Extremities exam: full ROM, pedal pulses present - Neurological Exam Neurological exam: Alert, Oriented x3 - Psychiatric Exam Psychiatric exam: Normal Affect, Normal Mood - Skin Skin Exam: Dry, Warm Discharge Plan - Discharge Medications Prescriptions: Insulin Glargine, Recombina [Lantus] 16 unit SC ACB #30 unit Insulin Lispro [Humalog (Insulin Lispro)] 6 unit SQ AC #30 cartridge - Follow Up Plan Condition: GUARDED Disposition: HOME/ ROUTINE Instructions: Diabetic Ketoacidosis (GEN), Liver Profile (GEN) Additional Instructions: 1. Please see your doctors at [facility] by Tuesday. You will need further lab work to evaluate your liver function. 2. You will be prescribed an insulin regimen. Your insulin will be sent directly to your hospital bed. 5. Please see DR. Noyola within one week to monitor your liver function and to evaluate your labs which were done here at [facility]. His office number is attached to your discharge paperwork. [facility] [[facility]] Jerome Noyola MD [Staff Provider] - <Benito Parnell - Last Filed: 02/17/17 16:09> Provider - Provider Date of Admission: 02/12/17 20:33 Attending physician: Benito Parnell MD Primary care physician: NO PRIMARY CARE PROVIDER Hospital Course - Lab Results Lab Results: Micro Results 02/12/17 21:00 Blood-Venous Blood Culture - Preliminary NO GROWTH AFTER 4 DAYS 02/12/17 22:50 Nose MRSA Culture (Admit) - Final MRSA NOT DETECTED 02/12/17 21:30 Urine,Clean Catch Urine Culture - Final No Growth (<1,000 CFU/ML) Most Recent Lab Values WBC 7.6 10^3/ul (4.5-11.0) 02/16/17 06:55 RBC 3.82 10^6/uL (3.5-6.1) 02/16/17 06:55 Hgb 11.0 gm/dL (12.0-16.0) L 02/16/17 06:55 Hct 32.3 % (36.0-48.0) L 02/16/17 06:55 MCV 84.6 fL (80.0-105.0) 02/16/17 06:55 MCH 28.8 pg (25.0-35.0) 02/16/17 06:55 MCHC 34.1 g/dl (31.0-37.0) 02/16/17 06:55 RDW 13.6 % (11.5-14.5) 02/16/17 06:55 Plt Count 180 10^3/uL (120.0-450.0) 02/16/17 06:55 MPV 10.1 fl (7.0-11.0) 02/16/17 06:55 Gran % 83.1 % (50.0-68.0) H 02/12/17 18:50 Lymph % (Auto) 7.5 % (22.0-35.0) L 02/12/17 18:50 Prentiss % (Auto) 8.8 % (1.0-6.0) H 02/12/17 18:50 Eos % (Auto) 0.0 % (1.5-5.0) L 02/12/17 18:50 Baso % (Auto) 0.6 % (0.0-3.0) 02/12/17 18:50 Gran # 8.98 (1.4-6.5) H 02/12/17 18:50 Lymph # 0.8 (1.2-3.4) L 02/12/17 18:50 Prentiss # 1.0 (0.1-0.6) H 02/12/17 18:50 Eos # 0.0 (0.0-0.7) 02/12/17 18:50 Baso # 0.07 K/mm3 (0.0-2.0) 02/12/17 18:50 Neutrophils % (Manual) 87 % (50.0-70.0) H 02/13/17 03:15 Band Neutrophils % 2 % (0-2) 02/13/17 03:15 Lymphocytes % (Manual) 9 % (22.0-35.0) L 02/13/17 03:15 Monocytes % (Manual) 1 % (1.0-6.0) 02/13/17 03:15 Eosinophils % (Manual) 1 % (0.0-3.0) 02/13/17 03:15 PT 10.7 Seconds (9.9-11.8) 02/12/17 18:50 INR 0.99 (0.93-1.08) 02/12/17 18:50 APTT 25.8 Seconds (23.7-30.8) 02/12/17 18:50 pO2 39 mm/Hg (30-55) 02/13/17 23:55 VBG pH 7.40 (7.32-7.43) 02/13/17 23:55 VBG pCO2 44.0 (40-60) 02/13/17 23:55 VBG HCO3 27.3 mmol/l (21-28) 02/13/17 23:55 VBG Total CO2 28.7 mmol.L (22-28) H 02/13/17 23:55 VBG O2 Sat (Calc) 81.0 % (40-65) H 02/13/17 23:55 VBG Base Excess 2.1 mmol/L (0.0-2.0) H 02/13/17 23:55 VBG Potassium 3.9 mmol/L (3.6-5.2) 02/13/17 23:55 Sodium 140.0 mmol/L (132-148) 02/13/17 23:55 Chloride 108.0 mmol/L (98-107) H 02/13/17 23:55 Glucose 94 mg/dl (65-105) 02/13/17 23:55 Lactate 1.7 mmol/L (0.7-2.1) 02/13/17 23:55 FiO2 21.0 % 02/13/17 23:55 Sodium 128 mmol/L (132-148) L 02/17/17 06:40 Potassium 4.7 mmol/L (3.6-5.0) 02/17/17 06:40 Chloride 102 mmol/L (95-110) 02/17/17 06:40 Carbon Dioxide 20 mmol/L (21-33) L 02/17/17 06:40 Anion Gap 11 (10-20) 02/17/17 06:40 BUN 14 mg/dL (7-21) 02/17/17 06:40 Creatinine 1.0 mg/dL (0.5-1.4) 02/17/17 06:40 Est GFR ( Amer) > 60 02/17/17 06:40 Est GFR (Non-Af Amer) 56 02/17/17 06:40 POC Glucose (mg/dL) 400 mg/dL (65-110) H* 02/17/17 11:37 Random Glucose 465 mg/dL (70-110) H* D 02/17/17 06:40 Hemoglobin A1c 12.8 % (4.2-6.5) H 02/13/17 03:15 Lactic Acid 1.0 mmol/L (0.7-2.1) 02/14/17 06:15 Calcium 7.8 mg/dL (8.4-10.5) L 02/17/17 06:40 Phosphorus 1.5 mg/dL (2.5-4.5) L 02/14/17 06:05 Magnesium 1.9 mg/dL (1.7-2.2) 02/14/17 06:05 Iron 93 ug/dL (45-180) 02/14/17 06:05 TIBC 227 ug/dL (265-497) L 02/14/17 06:05 % Saturation 41 % (20-55) 02/14/17 06:05 Ferritin 102.0 ng/mL 02/14/17 06:05 Total Bilirubin 0.7 mg/dL (0.2-1.3) 02/17/17 06:40 Direct Bilirubin 0.2 mg/dL (0.0-0.4) 02/15/17 07:00 AST 1169 U/L (15-39) H 02/17/17 06:40 ALT 533 U/L (7-56) H 02/17/17 06:40 Alkaline Phosphatase 262 U/L (38-133) H 02/17/17 06:40 Lactate Dehydrogenase 593 U/L (333-699) 02/12/17 18:50 Total Creatine Kinase 90 U/L (35-230) 02/12/17 18:50 Troponin I 0.02 ng/mL D 02/12/17 18:50 Total Protein 4.8 g/dL (5.8-8.3) L 02/17/17 06:40 Albumin 2.6 g/dL (3.0-4.8) L 02/17/17 06:40 Globulin 2.2 gm/dL 02/17/17 06:40 Albumin/Globulin Ratio 1.2 (1.1-1.8) 02/17/17 06:40 Triglycerides 91 mg/dL (35-160) 02/14/17 06:05 Cholesterol 141 mg/dL (130-200) 02/14/17 06:05 LDL Cholesterol Direct 80 mg/dL (0-129) 02/14/17 06:05 HDL Cholesterol 37 mg/dL (29-60) 02/14/17 06:05 Lipase 134 U/L (23-300) 02/12/17 18:50 25-OH Vitamin D Total 17.7 NG/ML (30.0-100.0) L 02/14/17 10:00 Procalcitonin 3.18 NG/ML (0.19-0.49) H 02/13/17 00:05 TSH 3rd Generation 2.95 mIU/mL (0.46-4.68) 02/14/17 06:05 Venous Blood Potassium 3.9 mmol/L (3.6-5.2) 02/13/17 23:55 Urine Color Yellow (YELLOW) 02/12/17 21:30 Urine Appearance Clear (CLEAR) 02/12/17 21:30 Urine pH 6.0 (4.7-8.0) 02/12/17 21:30 Ur Specific [place] 1.015 (1.005-1.035) 02/12/17 21:30 Urine Protein Trace mg/dL (<30 mg/dL) H 02/12/17 21:30 Urine Glucose (UA) Negative mg/dL (NEGATIVE) 02/12/17 21:30 Urine Ketones 15 mg/dL (NEGATIVE) H 02/12/17 21:30 Urine Blood Negative (NEGATIVE) 02/12/17 21:30 Urine Nitrate Negative (NEGATIVE) 02/12/17 21:30 Urine Bilirubin Negative (NEGATIVE) 02/12/17 21:30 Urine Urobilinogen 0.2 E.U./dL (<1 E.U./dL) 02/12/17 21:30 Ur Leukocyte Esterase Negative Nishi/uL (NEGATIVE) 02/12/17 21:30 Urine RBC 0 - 2 /hpf (0-2) 02/12/17 21:30 Urine WBC 1 - 3 /hpf (0-6) 02/12/17 21:30 Ur Epithelial Cells 4 - 5 /hpf (0-5) 02/12/17 21:30 Amorphous Sediment Few 02/12/17 21:30 Urine Bacteria Mod (NEG) 02/12/17 21:30 Urine Other Uyeast 02/12/17 21:30 Urine Opiates Screen Negative (NEGATIVE) 02/16/17 13:50 Urine Methadone Screen Negative (NEGATIVE) 02/16/17 13:50 Ur Barbiturates Screen Negative (NEGATIVE) 02/16/17 13:50 Ur Phencyclidine Scrn Negative (NEGATIVE) 02/16/17 13:50 Ur Amphetamines Screen Negative (NEGATIVE) 02/16/17 13:50 U Benzodiazepines Scrn Negative (NEGATIVE) 02/16/17 13:50 U Oth Cocaine Metabols Negative (NEGATIVE) 02/16/17 13:50 U Cannabinoids Screen Negative (NEGATIVE) 02/16/17 13:50 Alcohol, Quantitative < 10 mg/dL (0-10) 02/15/17 14:00 IgG 484.5 mg/dL (700.0-1600.0) L 02/15/17 14:00 IgA 99.0 mg/dL (70.0-400.0) 02/15/17 14:00 IgM 96.4 mg/dL (40.0-230.0) 02/15/17 14:00 Anti-Mitochondrial Ab Negative (Negative) 02/16/17 06:50 Smooth Muscle Ab Titer TEST NOT PERFORMED 02/16/17 06:50 Anti-Smooth Muscle Ab Negative (Negative) 02/16/17 06:50 Hepatitis A IgM Ab Negative (NEGATIVE) 02/15/17 07:00 Hep Bs Antigen Negative (NEGATIVE) 02/15/17 07:00 Hep B Core IgM Ab Negative (NEGATIVE) 02/15/17 07:00 Hepatitis C Antibody Negative (NEGATIVE) 02/15/17 07:00 Attending/Attestation - Attestation I have personally seen and examined this patient.: Yes I have fully participated in the care of the patient.: Yes I have reviewed all pertinent clinical information, including history, physical exam and plan: Yes Notes (Text): 02/17/17 16:05 Attending note; Patient seen and examined with resident. Patient is alert, awake and oriented x3. Patient is a 66-year-old female admitted with DKA and confusion. CT head is negative. currently off insulin drip. Anion gap closed. Treated with Levemir. Endocrinology evaluation appreciated. case discussed with pharmacy for the approval of insulin. patient will get basaglar/glargine insulin. active smoking; Started on NicoDerm patch. Smoking cessation is strongly advised. Acute renal failure; resolved. secondary to prerenal/DKA. Continue IV fluids. history of coronary artery /stent placement; continue beta marie, Plavix. monitor for hypotension. anemia; monitor hemoglobin closely. acute elevation in LFTs; possibly secondary to ischemia/hypoperfusion. GI evaluation requested. history of alcohol abuse in the past. abdominal ultrasound is normal.hepatitis profile is negative. Follow up with DR. Noyola next week. Needs repeat LFT next week by PMD/GI. advised to follow-up with diabetic nurse educator Mirella Nicole. Pharmacist also eduated the patient and family. Diabetic supplies given by [facility] pharmacy to check fingerstick frequently and adjust insulin. upon discharge the patient will follow up with PMD at [facility]. the diagnosis and follow-up plan discussed with patient's daughter in detail. diagnosis; DKA elevated LFTs active smoking Acute renal failure Anemia History of coronary artery disease
[2017-02-17] MEDS ORDERED: Insulin Detemir 100 units/ml Vial (Levemir) SC SCH (22:00)
--- NOTE | 2017-02-18 19:57 | CARD ---
APPROVED REPORT EXAM: Two-dimensional and M-mode echocardiogram with Doppler and color Doppler. INDICATION LV Function:SystolicDiastolic 2D DIMENSIONS Left Atrium (2D)3.9 (1.6-4.0cm)IVSd0.8 (0.7-1.1cm) LVDd3.6 (3.9-5.9cm)PWd0.8 (0.7-1.1cm) LVDs2.5 (2.5-4.0cm)FS (%) 32.0 % LVEF (%)60.9 (>50%) M-Mode DIMENSIONS Aortic Root2.80 (2.2-3.7cm)Aortic Cusp Exc.1.40 (1.5-2.0cm) Aortic Valve AoV Peak Swyhgpnn821.0cm/Indira Peak GR.6mmHg Mitral Valve MV E Dpyfhfnz96.6cm/sMV A Otizuobf52.3cm/sE/A ratio0.7 TDI Lateral E' Peak V6.63cm/sMedial E' Peak V4.68cm/sE/Lateral E'10.3 E/Medial E'14.7 Pulmonary Valve PV Peak Pbyjmzrp02.3cm/sPV Peak Grad.3mmHg Tricuspid Valve TR Peak Znrapypy259wm/sRAP WGECZVOV45kjGhRE Peak Gr.16mmHg [id number] LEFT VENTRICLE The left ventricle is normal size. There is normal left ventricular wall thickness. The left ventricular function is normal.EF-55-60% There is normal LV segmental wall motion. Transmitral Doppler flow pattern is Grade III-reversible restrictive diastolic dysfunction. No left ventricle thrombus noted on this study. There is no ventricular septal defect visualized. There is no left ventricular aneurysm. There is no mass noted in the left ventricle. RIGHT VENTRICLE The right ventricle is normal size. There is normal right ventricular wall thickness. The right ventricular systolic function is normal. ATRIA The left atrium size is normal. The right atrium size is normal. The interatrial septum is intact with no evidence for an atrial septal defect. AORTIC VALVE The aortic valve is calcified but opens well. No aortic regurgitation is present. There is no aortic valvular stenosis. There is no aortic valvular vegetation. MITRAL VALVE The mitral valve is thickened but opens well. Mitral annular calcification is mild. Mitral regurgitation is moderate. There is no mitral valve stenosis. There is no evidence of mitral valve prolapse. TRICUSPID VALVE The tricuspid valve leaflets are thickened , but open well. There is trace to mild tricuspid regurgitation.RVSp-26 mmof Hg. There is no tricuspid valve stenosis. There is no tricuspid valve prolapse or vegetation. PULMONIC VALVE The pulmonary valve is normal in structure. There is no pulmonic valvular regurgitation. There is no pulmonic valvular stenosis. GREAT VESSELS The aortic root is normal in size. The ascending aorta is normal in size. The pulmonary artery is normal. The IVC is normal in size and collapses >50% with inspiration. PERICARDIAL EFFUSION There is small to moderate left pleural effusion. There is a trace pericardial effusion. <Conclusion> The left ventricle is normal size. There is normal left ventricular wall thickness. The left ventricular function is normal.EF-55-60% Mitral regurgitation is moderate. There is trace to mild tricuspid regurgitation.RVSp-26 mmof Hg. There is no pulmonic valvular regurgitation. There is small to moderate left pleural effusion. There is a trace pericardial effusion. No Veggetation or thrombus noted.
[2017-02-19 01:01] LABS: LKM-1 Ab (IgG) <=20.0 U (<=20.0)
== END 2017-02-17 16:29 | disposition home or self-care (01) | DRG 566 ==
LOC: ED 18:33 → ERH 20:33 → CCU 22:39 → 3RSO 02-14 11:40 → ERH 02-14 11:42 → 3RSO 02-14 11:44
PROVIDERS: ADMIT Internal Medicine; ATTEND Internal Medicine
PROC: 3E0F7GC Introduction of Other Therapeutic Substance into Respiratory Tract, Via Natural or Artificial Opening (ICD-10-PCS; principal; 2017-02-13)
DX: E13.10 Other specified diabetes mellitus with ketoacidosis without coma (principal); N17.9 Acute kidney failure, unspecified; G93.41 Metabolic encephalopathy; K76.0 Fatty (change of) liver, not elsewhere classified; E87.5 Hyperkalemia; E87.1 Hypo-osmolality and hyponatremia; E86.0 Dehydration; N18.2 Chronic kidney disease, stage 2 (mild); I12.9 Hypertensive chronic kidney disease with stage 1 through stage 4 chronic kidney disease, or unspecified chronic kidney disease; E11.22 Type 2 diabetes mellitus with diabetic chronic kidney disease; I25.10 Atherosclerotic heart disease of native coronary artery without angina pectoris; D64.9 Anemia, unspecified; E78.5 Hyperlipidemia, unspecified; E83.51 Hypocalcemia; E83.39 Other disorders of phosphorus metabolism; F17.210 Nicotine dependence, cigarettes, uncomplicated; Z79.4 Long term (current) use of insulin; Z79.84 Long term (current) use of oral hypoglycemic drugs; Z79.02 Long term (current) use of antithrombotics/antiplatelets; Z95.5 Presence of coronary angioplasty implant and graft; I25.2 Old myocardial infarction; Z83.3 Family history of diabetes mellitus; Z82.49 Family history of ischemic heart disease and other diseases of the circulatory system

== ENCOUNTER 2017-02-22 13:03 | Emergency (ER) | payer OTHER ==
[2017-02-22 13:03] VITALS: BMI 16.7
[2017-02-22 13:26] VITALS: TEMP 96.6; O2SAT 97
[2017-02-22] MEDS ORDERED: Dextrose 50% SYRINGE Inj (50 ml) IVP STA ×2 (13:28→13:29)
[2017-02-22 13:50] LABS: ALB/GLOB RATIO 1.1 (1.1-1.8); ALBUMIN 3.3 g/dL (3.0-4.8); ALT/SGPT 228 U/L (7-56); AST/SGOT 215 U/L (15-39); BLOOD UREA NITROGEN 13 mg/dL (7-21); CALCIUM 8.7 mg/dL (8.4-10.5); GFR AFRICAN-AMERICAN > 60; GFR NON-AFRICAN AMERICAN 56
[2017-02-22 13:59] LABS: BASO # 0.09 K/mm3 (0.0-2.0); BASO % 0.6 % (0.0-3.0); EOS # 0.4 (0.0-0.7); EOS % 2.8 % (1.5-5.0); GRAN # 8.03 (1.4-6.5); GRAN % 52.9 % (50.0-68.0); HEMOGLOBIN 10.2 gm/dL (12.0-16.0); LYMPH # 4.4 (1.2-3.4); LYMPH % 28.9 % (22.0-35.0); MEAN CELL VOLUME 86.7 fL (80.0-105.0); MEAN CORPUSCULAR HEMOGLOBIN 29.5 pg (25.0-35.0); MEAN PLATELET VOLUME 9.4 fl (7.0-11.0); MONO # 2.3 (0.1-0.6); MONO % 14.8 % (1.0-6.0); PLATELET COUNT 499 10^3/uL (120.0-450.0); RBC 3.46 10^6/uL (3.5-6.1); WHITE BLOOD COUNT 15.2 10^3/ul (4.5-11.0)
[2017-02-22 14:07] LABS: TROPONIN I < 0.01 ng/mL
--- NOTE | 2017-02-22 14:34 | ED PDOC ---
Arrival/HPI - General Chief Complaint: Altered Mental Status Time Seen by Provider: 02/22/17 13:09 Historian: Patient - History of Present Illness Narrative History of Present Illness (Text): 02/22/17 14:31 Charlette Ramirez is a 66 year old female, whose past medical history includes CAD (with stents) and type 1 diabetes, who presents to the emergency department complaining of hypoglycemia today. In emergency department, patient's sugar is under 20. Patient states that she started a new insulin regiment last week and had no issues until this morning. Patient reports that she was eating breakfast this morning which was a small amount of orange juice and cereal. Patient denies any coughs, fever, abdominal pain, nausea, vomiting, diarrhea, or any other complaint at this time. PMD: None Time/Duration: 24 hours Symptom Onset: Gradual Symptom Course: Unchanged Severity Level: Moderate Activities at Onset: Rest Context: Home Past Medical History - Provider Review Nursing Documentation Reviewed: Yes - Infectious Disease Hx of Infectious Diseases: None - Tetanus Immunization Tetanus Immunization: Unknown - Reproductive Menopause: No - Cardiac Hx Cardiac Disorders: Yes Hx Hypertension: Yes - Pulmonary Hx Respiratory Disorders: No - Neurological Hx Neurological Disorder: No Hx Paralysis: No - HEENT Hx HEENT Disorder: No - Renal Hx Renal Disorder: No - Endocrine/Metabolic Hx Diabetes Mellitus Type 1: Yes - Hematological/Oncological Hx Blood Disorders: No Hx Blood Transfusions: No Hx Blood Transfusion Reaction: No - Integumentary Hx Dermatological Disorder: No - Musculoskeletal/Rheumatological Hx Musculoskeletal Disorders: No - Gastrointestinal Hx Gastrointestinal Disorders: No - Genitourinary/Gynecological Hx Genitourinary Disorders: No - Psychiatric Hx Psychophysiologic Disorder: No Hx Emotional Abuse: No Hx Physical Abuse: No Hx Substance Use: No - Past Surgical History Past Surgical History: Unable to Obtain - Surgical History Hx Cardiac Catheterization: Yes Hx Section: Yes Hx Coronary Stent: Yes - Anesthesia Hx Anesthesia: Yes Hx Anesthesia Reactions: No Hx Malignant Hyperthermia: No - Suicidal Assessment Feels Threatened In Home Enviroment: No Family/Social History - Physician Review Nursing Documentation Reviewed: Yes Family/Social History: No Known Family HX Smoking Status: Current Some Days Smoker Hx Alcohol Use: Yes (occassional glass of wine) Hx Substance Use: No Hx Substance Use Treatment: No Allergies/Home Meds Allergies/Adverse Reactions: Allergies No Known Allergies Allergy (Verified 02/12/17 18:41) Home Medications: Home Meds Medication Instructions Recorded Confirmed Atorvastatin [Lipitor] 80 mg PO DAILY 12/24/15 02/22/17 Clopidogrel [Plavix] 75 mg PO DAILY 12/24/15 02/22/17 Enalapril Maleate [Vasotec] 20 mg PO BID 12/24/15 02/22/17 Hydrochlorothiazide [HCTZ] 12.5 mg PO DAILY 12/24/15 02/22/17 Metoprolol Tartrate [Lopressor] 25 mg PO BID 12/24/15 02/22/17 Review of Systems - Physician Review All systems were reviewed & negative as marked: Yes - Review of Systems Constitutional: Other (hypoglycemia). absent: Fevers, Night Sweats Eyes: absent: Vision Changes ENT: absent: Hearing Changes Respiratory: absent: SOB, Cough Cardiovascular: absent: Chest Pain Gastrointestinal: absent: Abdominal Pain Genitourinary Female: absent: Dysuria, Urine Output Changes Musculoskeletal: absent: Arthralgias, Back Pain, Neck Pain Skin: absent: Rash, Pruritis Neurological: absent: Headache, Dizziness Endocrine: absent: Diaphoresis Hemo/Lymphatic: absent: Adenopathy Psychiatric: absent: Anxiety Physical Exam Vital Signs Reviewed: Yes Vital Signs Temp Pulse Resp BP Pulse Ox 02/22/17 15:03 85 16 147/87 97 02/22/17 13:12 96.6 F L 92 H 20 168/66 H 97 Temperature: Hypothermic Blood Pressure: Hypertensive Pulse: Tachycardic Respiratory Rate: Normal Appearance: Positive for: Well-Appearing, Non-Toxic, Comfortable Pain Distress: None Mental Status: Positive for: Alert and Oriented X 3 - Systems Exam Head: Present: Atraumatic, Normocephalic Pupils: Present: PERRL Extroacular Muscles: Present: EOMI Conjunctiva: Present: Normal Mouth: Present: Moist Mucous Membranes Neck: Present: Normal Range of Motion Respiratory/Chest: Present: Clear to Auscultation, Good Air Exchange. No: Respiratory Distress, Accessory Muscle Use Cardiovascular: Present: Regular Rate and Rhythm, Normal S1, S2. No: Murmurs Abdomen: Present: Normal Bowel Sounds. No: Tenderness, Distention, Peritoneal Signs Back: Present: Normal Inspection Upper Extremity: Present: Normal Inspection. No: Cyanosis, Edema Lower Extremity: Present: Normal Inspection. No: Edema Neurological: Present: GCS=15, CN II-XII Intact, Speech Normal Skin: Present: Warm, Dry, Normal Color. No: Rashes Psychiatric: Present: Alert, Oriented x 3, Normal Insight, Normal Concentration Medical Decision Making ED Course and Treatment: 02/22/17 13:09 Impression: 66 year old female complaining of hypoglycemia today. Differential Diagnosis included but are not limited to: Hypoglycemia Plan: -- EKG -- Chest X-ray -- Urinalysis, Urine Culture -- Labs -- Dextrose -- Reassess and disposition Prior Visits: Notes and results from previous visits were reviewed. Patient last seen in the ED on 02/12/17 for dizziness that day. Patient was admitted to hospitalist care for further evaluation. Progress Notes: - Lab Interpretations Lab Results: 02/22/17 13:36 02/22/17 13:36 Lab Results 02/22/17 15:51: POC Glucose (mg/dL) 157 H 02/22/17 13:36: Sodium 135, Potassium 3.4 L, Chloride 103, Carbon Dioxide 26, Anion Gap 9 L, BUN 13, Creatinine 1.0, Est GFR ( Amer) > 60, Est GFR (Non -Af Amer) 56, Random Glucose 23 L* D, Calcium 8.7, Total Bilirubin 0.4, AST 215 H, ALT 228 H, Alkaline Phosphatase 229 H, Troponin I < 0.01 D, Total Protein 6.2, Albumin 3.3, Globulin 2.9, Albumin/Globulin Ratio 1.1 02/22/17 13:36: WBC 15.2 H D, RBC 3.46 L, Hgb 10.2 L, Hct 30.0 L, MCV 86.7, MCH 29.5, MCHC 34.0, RDW 15.0 H, Plt Count 499 H, MPV 9.4, Gran % 52.9, Lymph % ( Auto) 28.9, Whiteside % (Auto) 14.8 H, Eos % (Auto) 2.8, Baso % (Auto) 0.6, Gran # 8.03 H, Lymph # 4.4 H, Whiteside # 2.3 H, Eos # 0.4, Baso # 0.09 I have reviewed the lab results: Yes - RAD Interpretation Radiology Orders: 02/22/17 13:27 CHEST PORTABLE [RAD] Stat - Medication Orders Current Medication Orders: Discontinued Medications Dextrose (Dextrose 50% Inj) 50 ml IVP STAT STA Stop: 02/22/17 13:29 Last Admin: 02/22/17 13:03 Dose: 50 ml Dextrose (Dextrose 50% Inj) 50 ml IVP STAT STA Stop: 02/22/17 13:30 Last Admin: 02/22/17 13:03 Dose: 50 ml - Scribe Statement The provider has reviewed the documentation as recorded by the Malka Potts Provider Scribe Attestation: All medical record entries made by the Scribe were at my direction and personally dictated by me. I have reviewed the chart and agree that the record accurately reflects my personal performance of the history, physical exam, medical decision making, and the department course for this patient. I have also personally directed, reviewed, and agree with the discharge instructions and disposition. Disposition/Present on Arrival - Present on Arrival Any Indicators Present on Arrival: Yes History of DVT/PE: No History of Uncontrolled Diabetes: Yes Urinary Catheter: No History of Decub. Ulcer: No History Surgical Site Infection Following: None - Disposition Have Diagnosis and Disposition been Completed?: Yes Diagnosis: Hypoglycemia Disposition: HOME/ ROUTINE Disposition Time: 15:50 Patient Problems: Current Active Problems Problem Status Onset Hypoglycemia Acute Condition: IMPROVED Discharge Instructions (ExitCare): Diabetic Hypoglycemia (ED) Additional Instructions: Thank you for letting us take care of you today. Your provider was Dr. Tejada. You were treated for low blood sugar. The emergency medical care you received today was directed at your acute symptoms. If you were prescribed any medication, please fill it and take as directed. It may take several days for your symptoms to resolve. Return to the Emergency Department if your symptoms worsen, do not improve, or if you have any other problems. Please contact your doctor or call one of the physicians/clinics you have been referred to that are listed on the Patient Visit Information form that is included in your discharge packet. Bring any paperwork you were given at discharge with you along with any medications you are taking to your follow up visit. Our treatment cannot replace ongoing medical care by a primary care provider (PCP) outside of the emergency department. Thank you for allowing the [facility] team to be part of your care today. You must eat more balanced meals to avoid your blood sugar from going too high or too low. Follow up with your doctor in 2-3 days for re-evaluation. Referrals: PCP,NO [Primary Care Provider] - Follow up with primary Critical Care Time - Critical Care Note Total Time (in mins): 30 Documented critical care: time excludes all time spent performing seperately billable procedures.
[2017-02-22 15:18] VITALS: BP 147/87; PULSE 85; RESP 16
--- NOTE | 2017-02-22 17:40 | RAD ---
HISTORY: r/o infiltrate COMPARISON: 02/12/2017 FINDINGS: LUNGS: No active pulmonary disease. PLEURA: There is a small left pleural effusion. This represents interval change since the prior examination. There is no evidence of right pleural effusion. CARDIOVASCULAR: Normal. OSSEOUS STRUCTURES: No significant abnormalities. VISUALIZED UPPER ABDOMEN: Normal. OTHER FINDINGS: None. IMPRESSION: Small left pleural effusion. No pulmonary infiltrate.
[2017-02-23 03:42] LABS: URINE BILIRUBIN NEGATIVE (NEGATIVE); URINE BLOOD TRACE-LYSED (NEGATIVE); URINE GLUCOSE (UA) >=1000 mg/dL (NEGATIVE); URINE LEUKOCYTE ESTERASE NEGATIVE Leu/uL (NEGATIVE); URINE NITRATE NEGATIVE (NEGATIVE); URINE PROTEIN 30 mg/dL (<30 mg/dL); URINE UROBILINOGEN 0.2 E.U./dL (<1 E.U./dL)
[2017-02-23 03:53] LABS: URINE APPEARANCE CLEAR (CLEAR); URINE COLOR YELLOW (YELLOW)
[2017-02-23 03:59] LABS: URINE EPITHELIAL CELLS 0 - 2 /hpf (0-5); URINE RBC 0 - 2 /hpf (0-2); URINE WBC 0 - 2 /hpf (0-6)
[2017-02-23 04:00] LABS: URINE BACTERIA RARE (NEG)
--- NOTE | 2017-02-23 10:37 | CARD ---
APPROVED REPORT EKG Measurement Heart [id number] CT [id number] <Conclusion> Normal sinus rhythm NSSTW changes
== END 2017-02-22 16:10 | disposition home or self-care (01) ==
LOC: ED 13:03
DX: E11.649 Type 2 diabetes mellitus with hypoglycemia without coma (principal); Z79.4 Long term (current) use of insulin; I10 Essential (primary) hypertension; Z95.5 Presence of coronary angioplasty implant and graft; Z72.0 Tobacco use

== ENCOUNTER 2017-03-08 07:57 | Emergency (ER) | payer OTHER ==
[2017-03-08 08:13] VITALS: BMI 19.5
[2017-03-08] MEDS ORDERED: Dextrose 50% SYRINGE Inj (50 ml) IVP STA (08:13)
--- NOTE | 2017-03-08 08:23 | ED PDOC ---
Arrival/HPI - General Time Seen by Provider: 03/08/17 08:09 Historian: Family - History of Present Illness Narrative History of Present Illness (Text): 03/08/17 08:16 A 66 year old female, whose past medical history includes diabetes, was brought into the emergency department by EMS after being found unresponsive. Family found patient unconscious at home and called 911. Patient arrived to emergency room unresponsive with blood sugar less than 20. Patient became alert and oriented after Dextrose 50 was administered. Patient is known to not have been eating recently and it is uncertain whether or not she had taken her insulin medication. ROS limited due to patients state. Time/Duration: Prior to Arrival Symptom Course: Resolved (After D50 administered) Quality: Other Context: Home Past Medical History - Provider Review Nursing Documentation Reviewed: Yes - Infectious Disease Hx of Infectious Diseases: None - Tetanus Immunization Tetanus Immunization: Unknown - Cardiac Hx Cardiac Disorders: Yes Hx Hypertension: Yes - Pulmonary Hx Respiratory Disorders: No - Neurological Hx Neurological Disorder: No Hx Paralysis: No - HEENT Hx HEENT Disorder: No - Renal Hx Renal Disorder: No - Endocrine/Metabolic Hx Diabetes Mellitus Type 1: Yes - Hematological/Oncological Hx Blood Disorders: No Hx Blood Transfusions: No Hx Blood Transfusion Reaction: No - Integumentary Hx Dermatological Disorder: No - Musculoskeletal/Rheumatological Hx Musculoskeletal Disorders: No - Gastrointestinal Hx Gastrointestinal Disorders: No - Genitourinary/Gynecological Hx Genitourinary Disorders: No - Psychiatric Hx Psychophysiologic Disorder: No Hx Emotional Abuse: No Hx Physical Abuse: No Hx Substance Use: No - Past Surgical History Past Surgical History: Unable to Obtain - Surgical History Hx Cardiac Catheterization: Yes Hx Section: Yes Hx Coronary Stent: Yes - Anesthesia Hx Anesthesia: Yes Hx Anesthesia Reactions: No Hx Malignant Hyperthermia: No - Suicidal Assessment Feels Threatened In Home Enviroment: No Family/Social History - Physician Review Nursing Documentation Reviewed: Yes Family/Social History: No Known Family HX Smoking Status: Current Some Days Smoker Hx Alcohol Use: Yes (occassional glass of wine) Hx Substance Use: No Hx Substance Use Treatment: No Allergies/Home Meds Allergies/Adverse Reactions: Allergies No Known Allergies Allergy (Verified 03/08/17 08:17) Home Medications: Home Meds Medication Instructions Recorded Confirmed Atorvastatin [Lipitor] 80 mg PO DAILY 12/24/15 03/08/17 Enalapril Maleate [Vasotec] 20 mg PO BID 12/24/15 03/08/17 Hydrochlorothiazide [HCTZ] 12.5 mg PO DAILY 12/24/15 03/08/17 Metoprolol Tartrate [Lopressor] 25 mg PO BID 12/24/15 03/08/17 Aspirin [Aspirin EC] 81 mg PO DAILY 03/08/17 03/08/17 Lisinopril [Zestril] 2.5 mg PO DAILY 03/08/17 03/08/17 Review of Systems - Review of Systems Systems not reviewed;Unavailable: Acuity of Condition Physical Exam Vital Signs Reviewed: Yes Vital Signs Temp Pulse Resp BP Pulse Ox 03/08/17 09:00 96.1 F L 03/08/17 08:24 60 18 121/56 L 100 Blood Pressure: Hypotensive Pulse: Regular Respiratory Rate: Normal Appearance: Positive for: Other (Pale, Diaphoretic ) Mental Status: Positive for: Alert and Oriented X 3 (after D50 administered), other (Responds to painful stimuli, prior to medication) - Systems Exam Head: Present: Atraumatic, Normocephalic Pupils: Present: PERRL Extroacular Muscles: Present: EOMI Conjunctiva: Present: Normal Mouth: Present: Moist Mucous Membranes Respiratory/Chest: Present: Clear to Auscultation, Good Air Exchange. No: Respiratory Distress, Accessory Muscle Use Cardiovascular: Present: Regular Rate and Rhythm, Normal S1, S2. No: Murmurs Abdomen: Present: Normal Bowel Sounds. No: Tenderness, Distention, Peritoneal Signs Upper Extremity: Present: Normal Inspection. No: Cyanosis, Edema Lower Extremity: Present: Normal Inspection. No: Edema Neurological: Present: GCS=15, CN II-XII Intact, Speech Normal Skin: Present: Warm, Dry, Normal Color. No: Rashes Psychiatric: Present: Alert, Oriented x 3 (after medication administered), Normal Insight, Normal Concentration Medical Decision Making ED Course and Treatment: 03/08/17 08:16 Impression: A 66 year old female brought in after being found unresponsive. Patient became alert after Dextrose 50 was administered. Plan: -- EKG -- Labs -- Dextrose 50 -- Reassess and disposition Progress Notes: 03/08/17 08:50 Patient reports a recent change in her insulin regimen. She is unclear if she took her insulin this morning or not. She did not eat this morning. She is currently awake alert oriented 3 and wants to go home and is not willing to wait for her blood work. She will sign out AMA. She is oriented and able to make such a decision. She will be discharged home accompanied by her son. 03/08/17 08:51 Patient reports she does not take any oral hypoglycemics 03/08/17 09:02 EKG shows normal sinus rhythm rate approximately 60 with a primary AV block and PACs and no acute ST or T-wave changes - Lab Interpretations Lab Results: 03/08/17 08:15 03/08/17 08:15 Lab Results 03/08/17 08:15: Sodium 137, Potassium 4.2, Chloride 102, Carbon Dioxide 25, Anion Gap 14, BUN 31 H, Creatinine 1.6 H, Est GFR ( Amer) 39, Est GFR ( Non-Af Amer) 32, Random Glucose 21 L*, Calcium 9.1, Total Bilirubin 0.5, AST 52 H, ALT 52, Alkaline Phosphatase 167 H, Lactate Dehydrogenase 800 H, Total Creatine Kinase 68, Troponin I < 0.01, Total Protein 7.4, Albumin 4.2, Globulin 3.2, Albumin/Globulin Ratio 1.3 03/08/17 08:15: WBC 10.9 D, RBC 3.70, Hgb 10.9 L, Hct 32.5 L, MCV 87.8, MCH 29.5, MCHC 33.5, RDW 14.3, Plt Count 476 H, MPV 8.7, Neutrophils % (Manual) 42 L , Band Neutrophils % 1, Lymphocytes % (Manual) 37 H, Monocytes % (Manual) 14 H, Eosinophils % (Manual) 6 H, Platelet Evaluation Normal I have reviewed the lab results: Yes - Medication Orders Current Medication Orders: Discontinued Medications Dextrose (Dextrose 50% Inj) 50 ml IVP STAT STA Stop: 03/08/17 08:14 - Scribe Statement The provider has reviewed the documentation as recorded by the Malka Pulido training under Tiffani Flaherty Provider Scribe Attestation: All medical record entries made by the Scribe were at my direction and personally dictated by me. I have reviewed the chart and agree that the record accurately reflects my personal performance of the history, physical exam, medical decision making, and the department course for this patient. I have also personally directed, reviewed, and agree with the discharge instructions and disposition. Disposition/Present on Arrival - Present on Arrival Any Indicators Present on Arrival: No History of DVT/PE: No History of Uncontrolled Diabetes: Yes Urinary Catheter: No History of Decub. Ulcer: No History Surgical Site Infection Following: None - Disposition Have Diagnosis and Disposition been Completed?: Yes Diagnosis: Hypoglycemia Disposition: AGAINST MEDICAL ADVICE Disposition Time: 08:51 Patient Plan: Discharge Patient Problems: Current Active Problems Problem Status Onset Hypoglycemia Acute Condition: IMPROVED Discharge Instructions (ExitCare): Diabetic Hypoglycemia (ED) Referrals: Jamie Stephens, [Primary Care Provider] - Follow up with primary
[2017-03-08 08:28] LABS: HEMOGLOBIN 10.9 gm/dL (12.0-16.0); MEAN CELL VOLUME 87.8 fL (80.0-105.0); MEAN CORPUSCULAR HEMOGLOBIN 29.5 pg (25.0-35.0); MEAN CORPUSCULAR HGB CONC 33.5 g/dl (31.0-37.0); MEAN PLATELET VOLUME 8.7 fl (7.0-11.0); PLATELET COUNT 476 10^3/uL (120.0-450.0); RED CELL DISTRIBUTION WIDTH 14.3 % (11.5-14.5); WHITE BLOOD COUNT 10.9 10^3/ul (4.5-11.0)
[2017-03-08 08:29] VITALS: BP 121/56; PULSE 60; RESP 18; O2SAT 100
[2017-03-08 08:44] LABS: ALB/GLOB RATIO 1.3 (1.1-1.8); ALBUMIN 4.2 g/dL (3.0-4.8); ALT/SGPT 52 U/L (7-56); AST/SGOT 52 U/L (15-39); BLOOD UREA NITROGEN 31 mg/dL (7-21); CALCIUM 9.1 mg/dL (8.4-10.5); GFR AFRICAN-AMERICAN 39; GFR NON-AFRICAN AMERICAN 32
[2017-03-08 08:59] LABS: TROPONIN I < 0.01 ng/mL
[2017-03-08 09:00] VITALS: TEMP 96.1
[2017-03-08 09:15] LABS: BAND 1 % (0-2); EOSINOPHIL 6 % (0.0-3.0); LYMPHOCYTE 37 % (22.0-35.0); MONOCYTE 14 % (1.0-6.0); NEUTROPHIL 42 % (50.0-70.0); PLATELET ESTIMATE NORMAL (NORMAL)
--- NOTE | 2017-03-08 19:24 | CARD ---
APPROVED REPORT EKG Measurement Heart [id number] [id number] <Conclusion> Sinus rhythm with 1st degree AV block with premature atrial complexes Low voltage QRS Borderline ECG
== END 2017-03-08 09:50 | disposition left against medical advice (07) ==
LOC: ED 07:57
DX: E10.649 Type 1 diabetes mellitus with hypoglycemia without coma (principal); I10 Essential (primary) hypertension; Z72.0 Tobacco use

== ENCOUNTER 2017-03-11 07:41 | Emergency (ER) | payer OTHER ==
[2017-03-11 07:42] VITALS: BMI 19.5
[2017-03-11] MEDS ORDERED: Dextrose 50% SYRINGE Inj (50 ml) ONE (07:49)
[2017-03-11 07:55] VITALS: PULSE 68; TEMP 96.7; O2SAT 100
[2017-03-11] MEDS ORDERED: Dextrose 50% SYRINGE Inj (50 ml) IVP STA (07:56)
[2017-03-11 08:05] LABS: BASO # 0.11 K/mm3 (0.0-2.0); BASO % 0.8 % (0.0-3.0); EOS % 7.7 % (1.5-5.0); GRAN # 5.46 (1.4-6.5); GRAN % 40.4 % (50.0-68.0); HEMOGLOBIN 10.7 gm/dL (12.0-16.0); LYMPH # 5.7 (1.2-3.4); LYMPH % 42.4 % (22.0-35.0); MEAN CELL VOLUME 86.8 fL (80.0-105.0); MEAN CORPUSCULAR HEMOGLOBIN 29.3 pg (25.0-35.0); MEAN CORPUSCULAR HGB CONC 33.8 g/dl (31.0-37.0); MEAN PLATELET VOLUME 8.8 fl (7.0-11.0); MONO # 1.2 (0.1-0.6); MONO % 8.7 % (1.0-6.0); PLATELET COUNT 485 10^3/uL (120.0-450.0); RBC 3.65 10^6/uL (3.5-6.1); RED CELL DISTRIBUTION WIDTH 14.1 % (11.5-14.5); WHITE BLOOD COUNT 13.5 10^3/ul (4.5-11.0)
[2017-03-11 08:14] LABS: ALB/GLOB RATIO 1.3 (1.1-1.8); ALBUMIN 4.2 g/dL (3.0-4.8); CALCIUM 9.1 mg/dL (8.4-10.5)
--- NOTE | 2017-03-11 08:14 | ED PDOC ---
Arrival/HPI - General Chief Complaint: Altered Mental Status Time Seen by Provider: 03/11/17 07:51 Historian: Patient, EMS - History of Present Illness Narrative History of Present Illness (Text): 03/11/17 08:15 Charlette Ramirez is a 66 year old female, with a history of hypertension, CAD, and type 1 diabetes, presents to the emergency department via EMS for altered mental status. According to EMS, patient's blood sugar was less than 20. Patient became alert after administration of D50 in the emergency department. States that she has difficulty controlling her blood sugar after recent change in insulin regiment. Patient is on Lantus and Lispro. Patient is unsure if she ate today morning. States she has an appointment with picture booker next week. Denies any headache, dizziness, chest pain, shortness of breath, nausea, vomiting, diarrhea, or any other complaints at this time. Time/Duration: Prior to Arrival Severity Level: Mild Activities at Onset: Light Context: Home Past Medical History - Provider Review Nursing Documentation Reviewed: Yes - Infectious Disease Hx of Infectious Diseases: None - Tetanus Immunization Tetanus Immunization: Unknown - Cardiac Hx Cardiac Disorders: Yes Hx Hypertension: Yes - Pulmonary Hx Respiratory Disorders: No - Neurological Hx Neurological Disorder: No Hx Paralysis: No - HEENT Hx HEENT Disorder: No - Renal Hx Renal Disorder: No - Endocrine/Metabolic Hx Endocrine Disorders: Yes Hx Diabetes Mellitus Type 1: Yes - Hematological/Oncological Hx Blood Disorders: No Hx Blood Transfusions: No Hx Blood Transfusion Reaction: No - Integumentary Hx Dermatological Disorder: No - Musculoskeletal/Rheumatological Hx Musculoskeletal Disorders: No - Gastrointestinal Hx Gastrointestinal Disorders: No - Genitourinary/Gynecological Hx Genitourinary Disorders: No - Psychiatric Hx Psychophysiologic Disorder: No Hx Emotional Abuse: No Hx Physical Abuse: No Hx Substance Use: No - Past Surgical History Past Surgical History: Unable to Obtain - Surgical History Hx Cardiac Catheterization: Yes Hx Section: Yes Hx Coronary Stent: Yes - Anesthesia Hx Anesthesia: Yes Hx Anesthesia Reactions: No Hx Malignant Hyperthermia: No - Suicidal Assessment Feels Threatened In Home Enviroment: No Family/Social History - Physician Review Nursing Documentation Reviewed: Yes Family/Social History: No Known Family HX Smoking Status: Current Some Days Smoker Hx Alcohol Use: Yes (occassional glass of wine) Hx Substance Use: No Hx Substance Use Treatment: No Allergies/Home Meds Allergies/Adverse Reactions: Allergies No Known Allergies Allergy (Verified 03/11/17 07:49) Home Medications: Home Meds Medication Instructions Recorded Confirmed Atorvastatin [Lipitor] 80 mg PO DAILY 12/24/15 03/08/17 Enalapril Maleate [Vasotec] 20 mg PO BID 12/24/15 03/08/17 Hydrochlorothiazide [HCTZ] 12.5 mg PO DAILY 12/24/15 03/08/17 Metoprolol Tartrate [Lopressor] 25 mg PO BID 12/24/15 03/08/17 Aspirin [Aspirin EC] 81 mg PO DAILY 03/08/17 03/08/17 Lisinopril [Zestril] 2.5 mg PO DAILY 03/08/17 03/08/17 Review of Systems - Physician Review All systems were reviewed & negative as marked: Yes - Review of Systems Constitutional: Normal. absent: Fatigue, Fevers Respiratory: Normal. absent: SOB, Cough Cardiovascular: Normal. absent: Chest Pain, Palpitations Neurological: Normal. absent: Headache, Dizziness Psychiatric: Normal Physical Exam Vital Signs Reviewed: Yes Vital Signs Temp Pulse Resp BP Pulse Ox 03/11/17 09:30 68 16 156/78 H 100 03/11/17 07:48 96.7 F L 68 15 134/42 L 100 03/11/17 07:42 96.7 F L 67 15 134/42 L 100 Temperature: Afebrile Blood Pressure: Hypotensive Pulse: Regular Respiratory Rate: Normal Appearance: Positive for: Well-Appearing, Non-Toxic, Comfortable Pain Distress: None Mental Status: Positive for: Alert and Oriented X 3 - Systems Exam Head: Present: Atraumatic, Normocephalic Pupils: Present: PERRL Extroacular Muscles: Present: EOMI Conjunctiva: Present: Normal Mouth: Present: Moist Mucous Membranes Respiratory/Chest: Present: Clear to Auscultation, Good Air Exchange. No: Respiratory Distress, Accessory Muscle Use Cardiovascular: Present: Regular Rate and Rhythm, Normal S1, S2. No: Murmurs Abdomen: Present: Normal Bowel Sounds. No: Tenderness, Distention, Peritoneal Signs Upper Extremity: Present: Normal Inspection. No: Cyanosis, Edema Lower Extremity: Present: Normal Inspection. No: Edema Neurological: Present: GCS=15, CN II-XII Intact, Speech Normal, Motor Func Grossly Intact, Normal Sensory Function Skin: Present: Warm, Dry, Normal Color. No: Rashes Psychiatric: Present: Alert, Oriented x 3, Normal Insight, Normal Concentration Medical Decision Making ED Course and Treatment: 03/11/17 08:20 Impression: A 66 year old female who presents to the emergency department for altered mental status secondary to hypoglycemia Differential Diagnosis included but are not limited to: hypoglycemia Plan: -- EKG -- Labs, cardiac enzymes -- Dextrose 50 -- Reassess and disposition Progress Notes: 03/11/17 08:21 EKG interpreted by me: NSR @ 64 bpm. 1st degree AV block. Normal [place]. Normal interval. 03/11/17 10:00 On reevaluation, patient states that she feels better after eating breakfast. States she feels comfortable to be discharged home. Patient is stable for discharge. Advised to present to emergency department for new or worsening symptoms and follow up with PMD within few days . - Lab Interpretations Lab Results: 03/11/17 07:55 03/11/17 07:55 Lab Results 03/11/17 07:55: Sodium 138, Potassium 3.7, Chloride 103, Carbon Dioxide 24, Anion Gap 15, BUN 36 H, Creatinine 1.6 H, Est GFR ( Amer) 39, Est GFR ( Non-Af Amer) 32, Random Glucose 20 L*, Calcium 9.1, Total Bilirubin 0.5, AST 44 H, ALT 40, Alkaline Phosphatase 151 H, Lactate Dehydrogenase 721 H, Total Creatine Kinase 53, Troponin I 0.03 D, Total Protein 7.5, Albumin 4.2, Globulin 3.2, Albumin/Globulin Ratio 1.3 03/11/17 07:55: WBC 13.5 H D, RBC 3.65, Hgb 10.7 L, Hct 31.7 L, MCV 86.8, MCH 29.3, MCHC 33.8, RDW 14.1, Plt Count 485 H, MPV 8.8, Gran % 40.4 L, Lymph % ( Auto) 42.4 H, [place] % (Auto) 8.7 H, Eos % (Auto) 7.7 H, Baso % (Auto) 0.8, Gran # 5.46, Lymph # 5.7 H, [place] # 1.2 H, Eos # 1.0 H, Baso # 0.11 - Medication Orders Current Medication Orders: Discontinued Medications Dextrose (Dextrose 50% Inj) Confirm Administered Dose 50 ml .ROUTE .STK-MED ONE Stop: 03/11/17 07:50 Last Admin: 03/11/17 07:58 Dose: Dextrose (Dextrose 50% Inj) 50 ml IVP STAT STA Stop: 03/11/17 07:57 Last Admin: 03/11/17 07:59 Dose: 50 ml - Scribe Statement The provider has reviewed the documentation as recorded by the Malka Pratt Provider Attestation: Provider Scribe Attestation: All medical record entries made by the Alineibe were at my direction and personally dictated by me. I have reviewed the chart and agree that the record accurately reflects my personal performance of the history, physical exam, medical decision making, and the department course for this patient. I have also personally directed, reviewed, and agree with the discharge instructions and disposition. Disposition/Present on Arrival - Present on Arrival Any Indicators Present on Arrival: Yes History of DVT/PE: No History of Uncontrolled Diabetes: Yes Urinary Catheter: No History of Decub. Ulcer: No History Surgical Site Infection Following: None - Disposition Have Diagnosis and Disposition been Completed?: Yes Diagnosis: Hypoglycemia associated with diabetes Disposition: HOME/ ROUTINE Disposition Time: 08:50 Condition: IMPROVED Discharge Instructions (ExitCare): How to Check Your Blood Sugar (ED), Diabetic Hypoglycemia (ED) Additional Instructions: Thank you for letting us take care of you today. Your provider was Dr. Tejada. You were treated for low blood sugar. The emergency medical care you received today was directed at your acute symptoms. If you were prescribed any medication, please fill it and take as directed. It may take several days for your symptoms to resolve. Return to the Emergency Department if your symptoms worsen, do not improve, or if you have any other problems. Please contact your doctor or call one of the physicians/clinics you have been referred to that are listed on the Patient Visit Information form that is included in your discharge packet. Bring any paperwork you were given at discharge with you along with any medications you are taking to your follow up visit. Our treatment cannot replace ongoing medical care by a primary care provider (PCP) outside of the emergency department. Thank you for allowing the [facility] team to be part of your care today. Follow up with your picture booker today. Carry glucose tablets (can get them in a pharmacy) for when you feel your blood sugar is getting low. Referrals: [facility], [Primary Care Provider] - Follow up with primary
[2017-03-11 08:25] LABS: TROPONIN I 0.03 ng/mL
[2017-03-11 09:40] VITALS: BP 156/78; RESP 16
--- NOTE | 2017-03-11 15:58 | CARD ---
APPROVED REPORT EKG Measurement Heart [id number] <Conclusion> Sinus rhythm with 1st degree AV block Low voltage QRS Borderline ECG
== END 2017-03-11 10:00 | disposition home or self-care (01) ==
LOC: ED 07:41
DX: E11.649 Type 2 diabetes mellitus with hypoglycemia without coma (principal)

== ENCOUNTER 2017-04-17 13:38 | Emergency (ER) | payer OTHER ==
[2017-04-17 13:39] VITALS: BMI 19.5
[2017-04-17 13:48] VITALS: O2SAT 100
[2017-04-17 13:58] LABS: BASO # 0.07 K/mm3 (0.0-2.0); BASO % 0.6 % (0.0-3.0); EOS # 0.8 (0.0-0.7); EOS % 6.7 % (1.5-5.0); GRAN # 4.53 (1.4-6.5); GRAN % 40.1 % (50.0-68.0); HEMATOCRIT 41.6 % (36.0-48.0); LYMPH # 5.1 (1.2-3.4); LYMPH % 45.2 % (22.0-35.0); MEAN CELL VOLUME 89.3 fl (80.0-105.0); MEAN CORPUSCULAR HEMOGLOBIN 30.3 pg (25.0-35.0); MEAN CORPUSCULAR HGB CONC 33.9 g/dl (31.0-37.0); MEAN PLATELET VOLUME 9.2 fl (7.0-11.0); MONO # 0.8 (0.1-0.6); MONO % 7.4 % (1.0-6.0); RED CELL DISTRIBUTION WIDTH 13.9 % (11.5-14.5); WHITE BLOOD COUNT 11.3 10^3/ul (4.5-11.0)
--- NOTE | 2017-04-17 13:58 | ED PDOC ---
Arrival/HPI - General Chief Complaint: Altered Mental Status Time Seen by Provider: 04/17/17 13:41 Historian: Patient, Family - History of Present Illness Narrative History of Present Illness (Text): 04/17/17 13:57 A 66 year old female, whose past medical history includes diabetes, reports to the emergency department for reported hypoglycemia. As per family, patient was found lethargic at home with blood sugar of 29. Glucagon was given IM. Patient' s blood sugar in emergency department is 130. Patient feels cold but denies any other complaints at this time. Symptom Onset: Sudden Symptom Course: Unchanged Activities at Onset: Rest Context: Home Past Medical History - Provider Review Nursing Documentation Reviewed: Yes - Infectious Disease Hx of Infectious Diseases: None - Tetanus Immunization Tetanus Immunization: Unknown - Reproductive Menopause: Yes - Cardiac Hx Cardiac Disorders: Yes Hx Hypertension: Yes - Pulmonary Hx Respiratory Disorders: No - Neurological Hx Neurological Disorder: No Hx Paralysis: No - HEENT Hx HEENT Disorder: No - Renal Hx Renal Disorder: No - Endocrine/Metabolic Hx Endocrine Disorders: Yes Hx Diabetes Mellitus Type 1: Yes - Hematological/Oncological Hx Blood Disorders: No Hx Blood Transfusions: No Hx Blood Transfusion Reaction: No - Integumentary Hx Dermatological Disorder: No - Musculoskeletal/Rheumatological Hx Musculoskeletal Disorders: No - Gastrointestinal Hx Gastrointestinal Disorders: No - Genitourinary/Gynecological Hx Genitourinary Disorders: No - Psychiatric Hx Psychophysiologic Disorder: No Hx Emotional Abuse: No Hx Physical Abuse: No Hx Substance Use: No - Past Surgical History Past Surgical History: Unable to Obtain - Surgical History Hx Cardiac Catheterization: Yes Hx Section: Yes Hx Coronary Stent: Yes - Anesthesia Hx Anesthesia: Yes Hx Anesthesia Reactions: No Hx Malignant Hyperthermia: No - Suicidal Assessment Feels Threatened In Home Enviroment: No Family/Social History - Physician Review Nursing Documentation Reviewed: Yes Family/Social History: No Known Family HX Smoking Status: Current Some Days Smoker Hx Alcohol Use: Yes (occassional glass of wine) Hx Substance Use: No Hx Substance Use Treatment: No Allergies/Home Meds Allergies/Adverse Reactions: Allergies No Known Allergies Allergy (Verified 04/17/17 13:51) Home Medications: Home Meds Medication Instructions Recorded Confirmed Atorvastatin [Lipitor] 80 mg PO DAILY 12/24/15 04/17/17 Enalapril Maleate [Vasotec] 20 mg PO BID 12/24/15 04/17/17 Hydrochlorothiazide [HCTZ] 12.5 mg PO DAILY 12/24/15 04/17/17 Metoprolol Tartrate [Lopressor] 25 mg PO BID 12/24/15 04/17/17 Aspirin [Aspirin EC] 81 mg PO DAILY 03/08/17 04/17/17 Review of Systems - Physician Review All systems were reviewed & negative as marked: Yes - Review of Systems Constitutional: absent: Fevers Respiratory: absent: SOB Cardiovascular: absent: Chest Pain Neurological: absent: Headache Physical Exam Vital Signs Reviewed: Yes Vital Signs Temp Pulse Resp BP Pulse Ox 04/17/17 15:44 58 L 18 134/61 100 04/17/17 13:53 93.4 F L 04/17/17 13:48 65 20 175/93 H 100 Temperature: Afebrile Blood Pressure: Normal Pulse: Regular Respiratory Rate: Normal Appearance: Positive for: Well-Appearing, Non-Toxic, Comfortable Pain Distress: None Mental Status: Positive for: Alert and Oriented X 3 Finger Stick Blood Glucose: 139 - Systems Exam Head: Present: Atraumatic, Normocephalic Pupils: Present: PERRL Extroacular Muscles: Present: EOMI Conjunctiva: Present: Normal Mouth: Present: Moist Mucous Membranes Neck: Present: Normal Range of Motion Respiratory/Chest: Present: Clear to Auscultation, Good Air Exchange. No: Respiratory Distress, Accessory Muscle Use Cardiovascular: Present: Regular Rate and Rhythm, Normal S1, S2. No: Murmurs Abdomen: Present: Normal Bowel Sounds. No: Tenderness, Distention, Peritoneal Signs Back: Present: Normal Inspection Upper Extremity: Present: Normal Inspection. No: Cyanosis, Edema Lower Extremity: Present: Normal Inspection. No: Edema Neurological: Present: GCS=15, CN II-XII Intact, Speech Normal Skin: Present: Warm, Dry, Normal Color. No: Rashes Psychiatric: Present: Alert, Oriented x 3, Normal Insight, Normal Concentration Medical Decision Making ED Course and Treatment: 04/17/17 13:55 Impression: A 66 year old female with hypoglycemia. Plan: -- EKG -- chest xray -- labs -- Urinalysis -- Reassess and disposition Prior Visits: Notes and results from previous visits were reviewed. Patient last reported to the emergency department on 03/11/17 for evaluation of altered mental status. Progress Notes: 04/17/17 14:09 EKG: Ordered, reviewed, and independently interpreted the EKG. Rate : 61 BPM Rhythm : NSR Interpretation : No ST/T wave changes 04/17/17 15:49 pt hypothermic on arrival, "state she is always cold" - consider sepsis. cxr neg , ua neg, neg sirs no source of infection identified. pt with mild hyperkalemia , kayelalate given. requested pt to be observed for repeat labs, and dextrose as pt on long acting insulin. pt refuses. pt persistently hypothermic. refuses admission. oriented x 3. Leaving Against Medical Advice (AMA): The patient is choosing to leave against medical advice. I have personally explained to the patient that choosing to do so may result in permanent bodily harm or . I have discussed at great length that without further evaluation and monitoring there may be unforeseen circumstances and/or deterioration causing permanent bodily harm or as a result of their choice. The patient is alert, oriented, and shows the mental capacity to make clear decisions regarding the patients health care at this time. The patient continues to wish to leave against medical advice. The patient has been advised that they should return to the emergency room immediately if they change their mind at any time, or if their condition begins to change or worsen in any way. - Lab Interpretations Lab Results: 04/17/17 13:50 04/17/17 13:50 Lab Results 04/17/17 15:20: Urine Color Light yellow, Urine Appearance Clear, Urine pH 7.0, Ur Specific [place] 1.015, Urine Protein Trace H, Urine Glucose (UA) 100 H, Urine Ketones Negative, Urine Blood Negative, Urine Nitrate Negative, Urine Bilirubin Negative, Urine Urobilinogen 0.2, Ur Leukocyte Esterase Negative, Urine RBC Pending, Urine WBC Pending 04/17/17 14:44: POC Glucose (mg/dL) 357 H 04/17/17 14:00: pO2 24 L, VBG pH 7.19 L*, VBG pCO2 71.0 H*, VBG HCO3 27.1, VBG Total CO2 29.3 H, VBG O2 Sat (Calc) 44.1, VBG Base Excess -2.8 L, VBG Potassium 4.7, Glucose 118 H, Lactate 2.1, FiO2 21.0, Sodium 138.0, Chloride 104.0, Venous Blood Potassium 4.7 04/17/17 13:50: PT 10.0, INR 0.93, APTT 27.3 04/17/17 13:50: Sodium 140, Potassium 5.6 H* D, Chloride 103, Carbon Dioxide 26 , Anion Gap 17, BUN 34 H, Creatinine 1.4, Est GFR ( Amer) 46, Est GFR ( Non-Af Amer) 38, Random Glucose 75, Calcium 9.8, Magnesium 2.7 H, Total Bilirubin 0.5, AST 78 H, ALT 50, Alkaline Phosphatase 115, Lactate Dehydrogenase 791 H, Total Creatine Kinase 79, Troponin I < 0.01 D, Total Protein 8.1, Albumin 5.0 H, Globulin 3.1, Albumin/Globulin Ratio 1.6 04/17/17 13:50: WBC 11.3 H, RBC 4.66, Hgb 14.1, Hct 41.6, MCV 89.3, MCH 30.3, MCHC 33.9, RDW 13.9, Plt Count 427, MPV 9.2, Gran % 40.1 L, Lymph % (Auto) 45.2 H, [place] % (Auto) 7.4 H, Eos % (Auto) 6.7 H, Baso % (Auto) 0.6, Gran # 4.53, Lymph # 5.1 H, [place] # 0.8 H, Eos # 0.8 H, Baso # 0.07 I have reviewed the lab results: Yes - RAD Interpretation Radiology Orders: 04/17/17 13:53 CXR [CHEST PORTABLE] [RAD] Stat - EKG Interpretation Interpreted by ED Physician: Yes Type: 12 lead EKG - Medication Orders Current Medication Orders: Discontinued Medications Sodium Polystyrene Sulfonate (Kayexalate Oral Susp) 15 gm PO STAT STA Stop: 04/17/17 15:17 Last Admin: 04/17/17 15:28 Dose: 15 gm - Scribe Statement The provider has reviewed the documentation as recorded by the Malka Ortiz Provider Alineibe Attestation: All medical record entries made by the Alineibteresa were at my direction and personally dictated by me. I have reviewed the chart and agree that the record accurately reflects my personal performance of the history, physical exam, medical decision making, and the department course for this patient. I have also personally directed, reviewed, and agree with the discharge instructions and disposition. Disposition/Present on Arrival - Present on Arrival Any Indicators Present on Arrival: No History of DVT/PE: No History of Uncontrolled Diabetes: Yes Urinary Catheter: No History of Decub. Ulcer: No History Surgical Site Infection Following: None - Disposition Have Diagnosis and Disposition been Completed?: Yes Diagnosis: Hypoglycemia, Hypothermia, Hyperkalemia, Left against medical advice Disposition: AGAINST MEDICAL ADVICE Disposition Time: 15:52 Patient Problems: Current Active Problems Problem Status Onset Hypoglycemia Acute Hypothermia Acute Hyperkalemia Acute Left against medical advice Acute Condition: UNKNOWN Discharge Instructions (ExitCare): Diabetic Hypoglycemia (GEN), Hyperkalemia ( ED), Acute Hypothermia (ED), Against Medical Advice (ED) Additional Instructions: follow up in clinic or with your doctor. return to emergency room with worsening symptoms or concerns. Referrals: PCP,NO [Primary Care Provider] - Follow up with primary [facility] [Outside] - Follow up with primary [facility] [Outside] - Follow up with primary [facility] [employer] [facility] [Outside] - Follow up with primary Forms: [employer] (Mongolian)
[2017-04-17 14:08] LABS: INR 0.93 (0.93-1.08); PARTIAL THROMBOPLASTIN TIME 27.3 Seconds (23.7-30.8)
[2017-04-17 14:09] LABS: ALB/GLOB RATIO 1.6 (1.1-1.8); ALKALINE PHOSPHATASE 115 U/L (38-133); ALT/SGPT 50 U/L (7-56); AST/SGOT 78 U/L (15-39); BILIRUBIN,TOTAL 0.5 mg/dL (0.2-1.3); BLOOD UREA NITROGEN 34 mg/dL (7-21); CALCIUM 9.8 mg/dL (8.4-10.5); CARBON DIOXIDE 26 mmol/L (21-33); CHLORIDE 103 mmol/L (98-107); GFR AFRICAN-AMERICAN 46; GLUCOSE,RANDOM 75 mg/dL (70-110); MAGNESIUM 2.7 mg/dL (1.7-2.2); SODIUM 140 mmol/L (132-148); TOTAL PROTEIN 8.1 g/dL (5.8-8.3)
[2017-04-17 14:14] LABS: VENOUS BLOOD GAS BASE EXCESS -2.8 mmol/L (0.0-2.0)
[2017-04-17 14:17] LABS: VENOUS BLOOD PH 7.19 (7.32-7.43)
[2017-04-17 14:19] VITALS: TEMP 93.4
[2017-04-17 14:21] LABS: POTASSIUM 5.6 mmol/L (3.6-5.0)
[2017-04-17 14:22] LABS: TROPONIN I < 0.01 ng/mL
[2017-04-17] MEDS ORDERED: Sod Polystyrene Sulf 15 gm/60 ml Oral Susp PO STA (15:16)
[2017-04-17 15:40] LABS: URINE BILIRUBIN NEGATIVE (NEGATIVE); URINE BLOOD NEGATIVE (NEGATIVE); URINE GLUCOSE (UA) 100 mg/dL (NEGATIVE); URINE KETONE NEGATIVE (NEGATIVE); URINE LEUKOCYTE ESTERASE NEGATIVE Leu/uL (NEGATIVE); URINE PROTEIN TRACE mg/dL (<30 mg/dL); URINE UROBILINOGEN 0.2 E.U./dL (<1 E.U./dL)
[2017-04-17 15:45] VITALS: BP 134/61; PULSE 58; RESP 18
[2017-04-17 15:47] LABS: URINE APPEARANCE CLEAR (CLEAR); URINE COLOR LIGHT YELLOW (YELLOW)
[2017-04-17 16:23] LABS: URINE BACTERIA MOD (NEG); URINE WBC 0 - 2 /hpf (0-6)
--- NOTE | 2017-04-17 18:08 | RAD ---
HISTORY: weakness COMPARISON: Comparison chest 02/22/2017 and CTA chest 08/17/2014. FINDINGS: LUNGS: Hyperinflation; rule out chronic changes of COPD. With. Nodular densities both CP angle regions consistent with bilateral nipple shadows. Mild biapical pleural thickening. . Previously noted masslike density right lung apex/ upper lobe is not well delineated on this study compared to high-resolution CT chest. Repeat CT chest could be performed for further evaluation. No acute infiltrates. PLEURA: No significant pleural effusion identified, no pneumothorax apparent. CARDIOVASCULAR: Normal. OSSEOUS STRUCTURES: Deformity of the left humeral neck unchanged VISUALIZED UPPER ABDOMEN: Normal. OTHER FINDINGS: None. IMPRESSION: Hyperinflation; rule out chronic changes of COPD. . Nodular densities both CP angle regions consistent with bilateral nipple shadows. Mild biapical pleural thickening. . Previously noted masslike density right lung apex/ upper lobe is not well delineated on this study compared to high-resolution CT chest. Repeat CT chest could be performed for further evaluation. No acute infiltrates.
--- NOTE | 2017-04-18 21:54 | CARD ---
APPROVED REPORT EKG Measurement Heart [id number] <Conclusion> Normal sinus rhythm Low voltage QRS Borderline ECG
== END 2017-04-17 16:11 | disposition left against medical advice (07) ==
LOC: ED 13:38
DX: T68.XXXA Hypothermia, initial encounter (principal); E11.649 Type 2 diabetes mellitus with hypoglycemia without coma; E87.5 Hyperkalemia; I10 Essential (primary) hypertension; Z95.5 Presence of coronary angioplasty implant and graft; F17.210 Nicotine dependence, cigarettes, uncomplicated

== ENCOUNTER 2017-04-19 07:37 | Emergency (ER) | payer OTHER ==
[2017-04-19 07:38] VITALS: BMI 19.5
[2017-04-19 07:49] VITALS: TEMP 98.1
[2017-04-19 08:24] LABS: URINE BILIRUBIN NEGATIVE (NEGATIVE); URINE BLOOD TRACE-INTACT (NEGATIVE); URINE GLUCOSE (UA) 250 mg/dL (NEGATIVE); URINE KETONE NEGATIVE (NEGATIVE); URINE LEUKOCYTE ESTERASE TRACE Leu/uL (NEGATIVE); URINE PROTEIN 30 mg/dL (<30 mg/dL); URINE UROBILINOGEN 0.2 E.U./dL (<1 E.U./dL)
[2017-04-19 08:26] LABS: URINE APPEARANCE CLEAR (CLEAR); URINE COLOR YELLOW (YELLOW)
[2017-04-19 08:28] LABS: URINE BACTERIA FEW (NEG); URINE RBC 0 - 2 /hpf (0-2)
--- NOTE | 2017-04-19 08:31 | RAD ---
HISTORY: Sepsis Patient COMPARISON: 04/17/2017 FINDINGS: LUNGS: The lungs are hyperinflated and there is peribronchial thickening with chronic changes in both lungs. There is no focal consolidation. PLEURA: No significant pleural effusion identified, no pneumothorax apparent. CARDIOVASCULAR: The heart is normal in size. Atherosclerotic aortic arch calcifications are present. OSSEOUS STRUCTURES: No significant abnormalities. VISUALIZED UPPER ABDOMEN: Normal. OTHER FINDINGS: None. IMPRESSION: No active pulmonary disease. COPD.
[2017-04-19 08:37] LABS: VENOUS BLOOD GAS BASE EXCESS -0.3 mmol/L (0.0-2.0); VENOUS BLOOD PH 7.28 (7.32-7.43)
--- NOTE | 2017-04-19 08:40 | ED PDOC ---
Arrival/HPI - General Chief Complaint: Medical Clearance Time Seen by Provider: 04/19/17 07:53 Historian: Patient, Spouse - History of Present Illness Narrative History of Present Illness (Text): 04/19/17 07:55 A 66 year old female, whose past medical history includes diabetes, hypertension , DC, and cardiac stents x 4, was brought in by EMS and presents to the emergency department complaining of hypoglycemia prior to arrival. Patient was found unresponsive. At the time, patient had hypoglycemia blood sugar of 28 AMP and is now currently 233. Patient was given d50 given by EMT. According to EMT, patient had seizure episode during transportation lasting approximately 15 seconds. Patient denies of any fever, abdominal pain, nausea, vomiting, diarrhea , urination output changes, rashes, or any other complaints. Patient mentions not having taken insulin for diabetes today. PMD: Dr. Robledo Time/Duration: Prior to Arrival Symptom Onset: Sudden Symptom Course: Unchanged Context: Home Past Medical History - Provider Review Nursing Documentation Reviewed: Yes - Infectious Disease Hx of Infectious Diseases: None - Tetanus Immunization Tetanus Immunization: Unknown - Reproductive Menopause: Yes - Cardiac Hx Cardiac Disorders: Yes Hx Hypertension: Yes - Pulmonary Hx Respiratory Disorders: No - Neurological Hx Neurological Disorder: No Hx Paralysis: No - HEENT Hx HEENT Disorder: No - Renal Hx Renal Disorder: No - Endocrine/Metabolic Hx Endocrine Disorders: Yes Hx Diabetes Mellitus Type 1: Yes - Hematological/Oncological Hx Blood Disorders: No Hx Blood Transfusions: No Hx Blood Transfusion Reaction: No - Integumentary Hx Dermatological Disorder: No - Musculoskeletal/Rheumatological Hx Musculoskeletal Disorders: No - Gastrointestinal Hx Gastrointestinal Disorders: No - Genitourinary/Gynecological Hx Genitourinary Disorders: No - Psychiatric Hx Psychophysiologic Disorder: No Hx Emotional Abuse: No Hx Physical Abuse: No Hx Substance Use: No - Past Surgical History Past Surgical History: Unable to Obtain - Surgical History Hx Cardiac Catheterization: Yes Hx Section: Yes Hx Coronary Stent: Yes - Anesthesia Hx Anesthesia: Yes Hx Anesthesia Reactions: No Hx Malignant Hyperthermia: No - Suicidal Assessment Feels Threatened In Home Enviroment: No Family/Social History - Physician Review Nursing Documentation Reviewed: Yes Family/Social History: No Known Family HX Smoking Status: Current Some Days Smoker Hx Alcohol Use: Yes (occassional glass of wine) Hx Substance Use: No Hx Substance Use Treatment: No Allergies/Home Meds Allergies/Adverse Reactions: Allergies No Known Allergies Allergy (Verified 04/17/17 13:51) Home Medications: Home Meds Medication Instructions Recorded Confirmed Atorvastatin [Lipitor] 40 mg PO DAILY 12/24/15 04/19/17 Enalapril Maleate [Vasotec] 10 mg PO BID 12/24/15 04/19/17 Hydrochlorothiazide [HCTZ] 12.5 mg PO DAILY 12/24/15 04/19/17 Metoprolol Tartrate [Lopressor] 25 mg PO BID 12/24/15 04/19/17 Aspirin [Aspirin EC] 81 mg PO DAILY 03/08/17 04/19/17 Review of Systems - Physician Review All systems were reviewed & negative as marked: Yes - Review of Systems Constitutional: absent: Fevers Gastrointestinal: absent: Abdominal Pain, Diarrhea, Nausea, Vomiting Genitourinary Female: absent: Urine Output Changes Skin: absent: Rash Endocrine: Other (hypoglycemia, prior 28 amp, now 233 ) Physical Exam Vital Signs Reviewed: Yes Vital Signs Temp Pulse Resp BP Pulse Ox 04/19/17 10:48 72 19 128/79 97 04/19/17 07:49 98.1 F 81 16 167/100 H 95 Temperature: Afebrile Blood Pressure: Hypertensive Pulse: Regular Respiratory Rate: Normal Appearance: Positive for: Well-Appearing Pain Distress: None Mental Status: Positive for: Alert and Oriented X 3 Finger Stick Blood Glucose: 233 - Systems Exam Head: Present: Atraumatic, Normocephalic Pupils: Present: PERRL Extroacular Muscles: Present: EOMI Conjunctiva: Present: Normal Mouth: Present: Moist Mucous Membranes Neck: Present: Normal Range of Motion Respiratory/Chest: Present: Clear to Auscultation, Good Air Exchange. No: Respiratory Distress, Accessory Muscle Use Cardiovascular: Present: Regular Rate and Rhythm, Normal S1, S2. No: Murmurs Abdomen: Present: Normal Bowel Sounds. No: Tenderness, Distention, Peritoneal Signs Back: Present: Normal Inspection Upper Extremity: Present: Normal Inspection. No: Cyanosis, Edema Lower Extremity: Present: Normal Inspection. No: Edema Neurological: Present: GCS=15, CN II-XII Intact, Speech Normal Skin: Present: Diaphoretic Psychiatric: Present: Alert, Oriented x 3, Normal Insight, Normal Concentration Medical Decision Making ED Course and Treatment: 04/19/17 08:08 Impression: 66 year old female with hypoglycemia. Physical exam shows diaphoretic, rest is normal. Differential Diagnosis included but are not limited to: Hypoglycemia secondary to infection vs. secondary to medication Plan: -- EKG -- Chest X-ray -- Blood Gas -- Reassess and disposition Prior Visits: Notes and results from previous visits were reviewed. Patient was last seen in the emergency department on 04/17/2017 for hypoglycemia. Patient left AMA. Progress Notes: 04/19/2017 08:14 EKG: Ordered, reviewed, and independently interpreted the EKG. Rate : 72 BPM Rhythm : NSR Interpretation : No ST-segment elevations or depressions, no T-wave inversions, normal intervals. Comparison : No previous EKG for comparison. 04/19/2017 08:29 Chest X-ray IMPRESSION: No active pulmonary disease. COPD. Dictator : Deana Aleman MD 04/19/17 09:53 Patient's labs reviewed. UA negative. CXR neg. Patient has recent visits with similar presentations and patients states maybe it's her medication. She agrees to stay in the hospital for further evalutaion. Case discussed with Dr. Yanique Davis , patient to be admitted under her service. Now, patient is refusing to stay under telemetry. Leaving Against Medical Advice (AMA): The patient is choosing to leave against medical advice. She says she just wants to go and f/u with her doctor. I have personally explained to the patient that choosing to do so may result in permanent bodily harm or . I have discussed at great length that without further evaluation and monitoring there may be unforeseen circumstances and/or deterioration causing permanent bodily harm or as a result of their choice. The patient is alert, oriented, and shows the mental capacity to make clear decisions regarding the patients health care at this time. The patient continues to wish to leave against medical advice. In light of the patients decision to leave against medical advice, follow-up has been arranged and the patient is aware of the importance to following up as instructed. The patient has been advised that they should return to the emergency room immediately if they change their mind at any time, or if their condition begins to change or worsen in any way. - Lab Interpretations Lab Results: 04/19/17 08:30 04/19/17 08:20 Lab Results 04/19/17 09:24: POC Glucose (mg/dL) 161 H 04/19/17 08:30: pO2 36, VBG pH 7.28 L, VBG pCO2 58.0, VBG HCO3 27.3, VBG Total CO2 29.1 H, VBG O2 Sat (Calc) 72.0 H, VBG Base Excess -0.3 L, VBG Potassium 5.5 H, Glucose 220 H, Lactate 1.1, FiO2 21.0, Sodium 135.0, Chloride 103.0, Venous Blood Potassium 5.5 H 04/19/17 08:30: PT 10.8, INR 1.00, APTT 25.6 04/19/17 08:30: WBC 11.1 H, RBC 3.78, Hgb 11.2 L D, Hct 33.3 L, MCV 88.1, MCH 29.6, MCHC 33.6, RDW 13.9, Plt Count 397, MPV 9.5, Gran % 77.6 H, Lymph % (Auto ) 14.8 L, [place] % (Auto) 5.6, Eos % (Auto) 1.6, Baso % (Auto) 0.4, Gran # 8.62 H , Lymph # 1.6, [place] # 0.6, Eos # 0.2, Baso # 0.04 04/19/17 08:20: Sodium 139, Potassium 4.9, Chloride 103, Carbon Dioxide 27, Anion Gap 14, BUN 39 H, Creatinine 1.5 H, Est GFR ( Amer) 42, Est GFR ( Non-Af Amer) 35, Random Glucose 187 H, Calcium 8.5, Phosphorus 5.3 H, Magnesium 2.4 H, Total Bilirubin 0.4, AST 53 H, ALT 39, Alkaline Phosphatase 80, Total Protein 6.3, Albumin 3.9, Globulin 2.4, Albumin/Globulin Ratio 1.6 04/19/17 08:00: Urine Color Yellow, Urine Appearance Clear, Urine pH 7.0, Ur Specific [place] 1.015, Urine Protein 30 H, Urine Glucose (UA) 250 H, Urine Ketones Negative, Urine Blood Trace-intact H, Urine Nitrate Negative, Urine Bilirubin Negative, Urine Urobilinogen 0.2, Ur Leukocyte Esterase Trace H, Urine RBC 0 - 2, Urine WBC 1 - 3, Urine Bacteria Few, Hyaline Casts 0 - 2 I have reviewed the lab results: Yes - RAD Interpretation Radiology Orders: 04/19/17 08:01 CHEST PORTABLE [RAD] Stat - Scribe Statement The provider has reviewed the documentation as recorded by the Malka Pulido Provider Scribe Attestation: All medical record entries made by the Scribe were at my direction and personally dictated by me. I have reviewed the chart and agree that the record accurately reflects my personal performance of the history, physical exam, medical decision making, and the department course for this patient. I have also personally directed, reviewed, and agree with the discharge instructions and disposition. Disposition/Present on Arrival - Present on Arrival Any Indicators Present on Arrival: Yes History of DVT/PE: No History of Uncontrolled Diabetes: Yes Urinary Catheter: No History of Decub. Ulcer: No History Surgical Site Infection Following: None - Disposition Have Diagnosis and Disposition been Completed?: Yes Diagnosis: Hypoglycemia Disposition: AGAINST MEDICAL ADVICE Disposition Time: 09:53 Condition: GOOD Discharge Instructions (ExitCare): Diabetic Hypoglycemia (ED) Additional Instructions: Ms Ramirez, thank you for letting us take care of you today. Your provider was Dr. Vela. You were treated for Hypoglycemia. The emergency medical care you received today was directed at your acute symptoms. If you were prescribed any medication, please fill it and take as directed. It may take several days for your symptoms to resolve. Return to the Emergency Department if your symptoms worsen, do not improve, or if you have any other problems. Please contact your doctor or call one of the physicians/clinics you have been referred to that are listed on the Patient Visit Information form that is included in your discharge packet. Bring any paperwork you were given at discharge with you along with any medications you are taking to your follow up visit. Our treatment cannot replace ongoing medical care by a primary care provider (PCP) outside of the emergency department. Thank you for allowing the [facility] [employer] team to be part of your care today. If you had an X-Ray or CT scan: A Radiologist will review the ED reading if any change in treatment is needed we will contact you. If you had a blood, urine, or wound culture: It will take several days for the results, if any change in treatment is needed we will contact you. If you had an STI test: It will take 48 hours for the results. Please call after 1 week if you have not heard back. Referrals: Ashtyn Robledo, NEURORADIOLOGIST [Primary Care Provider] - Follow up with primary Forms: [employer] (Danish)
[2017-04-19 08:41] LABS: BASO # 0.04 K/mm3 (0.0-2.0); BASO % 0.4 % (0.0-3.0); EOS # 0.2 (0.0-0.7); EOS % 1.6 % (1.5-5.0); GRAN # 8.62 (1.4-6.5); GRAN % 77.6 % (50.0-68.0); HEMATOCRIT 33.3 % (36.0-48.0); LYMPH # 1.6 (1.2-3.4); LYMPH % 14.8 % (22.0-35.0); MEAN CELL VOLUME 88.1 fl (80.0-105.0); MEAN CORPUSCULAR HEMOGLOBIN 29.6 pg (25.0-35.0); MEAN CORPUSCULAR HGB CONC 33.6 g/dl (31.0-37.0); MEAN PLATELET VOLUME 9.5 fl (7.0-11.0); MONO # 0.6 (0.1-0.6); MONO % 5.6 % (1.0-6.0); RED CELL DISTRIBUTION WIDTH 13.9 % (11.5-14.5); WHITE BLOOD COUNT 11.1 10^3/ul (4.5-11.0)
[2017-04-19 08:47] LABS: PARTIAL THROMBOPLASTIN TIME 25.6 Seconds (23.7-30.8)
[2017-04-19 09:09] LABS: ALB/GLOB RATIO 1.6 (1.1-1.8); BILIRUBIN,TOTAL 0.4 mg/dL (0.2-1.3); CALCIUM 8.5 mg/dL (8.4-10.5); MAGNESIUM 2.4 mg/dL (1.7-2.2); PHOSPHOROUS 5.3 mg/dL (2.5-4.5); POTASSIUM 4.9 mmol/L (3.6-5.0); TOTAL PROTEIN 6.3 g/dL (5.8-8.3)
[2017-04-19 10:49] VITALS: BP 128/79; PULSE 72; RESP 19; O2SAT 97
--- NOTE | 2017-04-19 11:41 | CARD ---
APPROVED REPORT EKG Measurement Heart [id number] <Conclusion> Normal sinus rhythm Rightward axis Borderline ECG
== END 2017-04-19 10:52 | disposition left against medical advice (07) ==
LOC: ED 07:37 → ERH 09:53 → UNDOADMOB 09:53
DX: E11.649 Type 2 diabetes mellitus with hypoglycemia without coma (principal); I25.2 Old myocardial infarction; I10 Essential (primary) hypertension; Z98.61 Coronary angioplasty status; F17.210 Nicotine dependence, cigarettes, uncomplicated

== ENCOUNTER 2017-05-04 11:04 | Emergency (ER) | payer OTHER ==
[2017-05-04 11:12] VITALS: BMI 17.4
[2017-05-04 11:15] VITALS: BP 124/74; PULSE 50; RESP 16; O2SAT 100
[2017-05-04] MEDS ORDERED: Dextrose 50% SYRINGE Inj (50 ml) IVP STA (11:20)
[2017-05-04 11:28] VITALS: TEMP 96.5
[2017-05-04 11:34] LABS: BASO # 0.09 K/mm3 (0.0-2.0); BASO % 0.9 % (0.0-3.0); EOS # 0.8 (0.0-0.7); EOS % 7.3 % (1.5-5.0); GRAN # 4.34 (1.4-6.5); GRAN % 41.2 % (50.0-68.0); HEMATOCRIT 31.6 % (36.0-48.0); LYMPH # 4.4 (1.2-3.4); LYMPH % 41.8 % (22.0-35.0); MEAN CELL VOLUME 89.3 fl (80.0-105.0); MEAN CORPUSCULAR HEMOGLOBIN 29.7 pg (25.0-35.0); MEAN CORPUSCULAR HGB CONC 33.2 g/dl (31.0-37.0); MONO # 0.9 (0.1-0.6); MONO % 8.8 % (1.0-6.0); RED CELL DISTRIBUTION WIDTH 13.7 % (11.5-14.5); WHITE BLOOD COUNT 10.5 10^3/ul (4.5-11.0)
--- NOTE | 2017-05-04 11:40 | ED PDOC ---
Arrival/HPI - General Chief Complaint: Altered Mental Status Time Seen by Provider: 05/04/17 11:17 Historian: Patient, Family (son), EMS - Critical Care Critical Care Minutes: 30 minutes - History of Present Illness Narrative History of Present Illness (Text): 05/04/17 Charlette Ramirez is a 66 year old female, whose past medical history is diabetes , is brought into the emergency department via EMS after losing consciousness prior to arrival. Patient's son reports she was last seen in stable condition in the morning, when he got back home the patient was sweating and slouched on the couch. EMS reports finding her on the couch unresponsive and they did not administer anything. Patient currently denies any head trauma. She denies headache, chest pain, abdominal pain, shortness of breath, or other complaints. Time/Duration: Prior to Arrival Symptom Onset: Sudden Symptom Course: Improving Context: Home Associated Symptoms (Text): diaphoresis Past Medical History - Provider Review Nursing Documentation Reviewed: Yes - Infectious Disease Hx of Infectious Diseases: None - Tetanus Immunization Tetanus Immunization: Unknown - Reproductive Menopause: Yes - Cardiac Hx Cardiac Disorders: Yes Hx Hypertension: Yes - Pulmonary Hx Respiratory Disorders: No - Neurological Hx Neurological Disorder: No - HEENT Hx HEENT Disorder: No - Renal Hx Renal Disorder: No - Endocrine/Metabolic Hx Endocrine Disorders: Yes Hx Diabetes Mellitus Type 1: Yes - Hematological/Oncological Hx Blood Disorders: No - Integumentary Hx Dermatological Disorder: No - Musculoskeletal/Rheumatological Hx Musculoskeletal Disorders: No - Gastrointestinal Hx Gastrointestinal Disorders: No - Genitourinary/Gynecological Hx Genitourinary Disorders: No - Psychiatric Hx Psychophysiologic Disorder: No Hx Substance Use: No - Past Surgical History Past Surgical History: Unable to Obtain - Surgical History Hx Cardiac Catheterization: Yes Hx Section: Yes Hx Coronary Stent: Yes - Anesthesia Hx Anesthesia: Yes Hx Anesthesia Reactions: No Hx Malignant Hyperthermia: No - Suicidal Assessment Feels Threatened In Home Enviroment: No Family/Social History - Physician Review Nursing Documentation Reviewed: Yes Family/Social History: Unknown Family HX Smoking Status: Current Some Days Smoker Hx Alcohol Use: Yes (occassional glass of wine) Hx Substance Use: No Hx Substance Use Treatment: No Allergies/Home Meds Allergies/Adverse Reactions: Allergies No Known Allergies Allergy (Verified 04/17/17 13:51) Home Medications: Home Meds Medication Instructions Recorded Confirmed Atorvastatin [Lipitor] 40 mg PO DAILY 12/24/15 04/19/17 Enalapril Maleate [Vasotec] 10 mg PO BID 12/24/15 04/19/17 Hydrochlorothiazide [HCTZ] 12.5 mg PO DAILY 12/24/15 04/19/17 Metoprolol Tartrate [Lopressor] 25 mg PO BID 12/24/15 04/19/17 Aspirin [Aspirin EC] 81 mg PO DAILY 03/08/17 04/19/17 Review of Systems - Review of Systems Systems not reviewed;Unavailable: Altered Mental Status Constitutional: absent: Fevers Respiratory: absent: SOB Cardiovascular: absent: Chest Pain Gastrointestinal: absent: Abdominal Pain Neurological: absent: Headache Endocrine: Diaphoresis Physical Exam Vital Signs Reviewed: Yes Vital Signs Temp Pulse Resp BP Pulse Ox 05/04/17 11:05 96.5 F L 50 L 16 124/74 100 Temperature: Afebrile Blood Pressure: Normal Pulse: Bradycardic Respiratory Rate: Normal Appearance: Positive for: Well-Appearing, Non-Toxic, Comfortable Pain Distress: None Mental Status: Positive for: Alert and Oriented X 3 Finger Stick Blood Glucose: 11 - Systems Exam Head: Present: Atraumatic, Normocephalic Pupils: Present: PERRL Extroacular Muscles: Present: EOMI Conjunctiva: Present: Normal Mouth: Present: Moist Mucous Membranes Neck: Present: Normal Range of Motion Respiratory/Chest: Present: Clear to Auscultation, Good Air Exchange. No: Respiratory Distress, Accessory Muscle Use Cardiovascular: Present: Regular Rate and Rhythm, Normal S1, S2. No: Murmurs Abdomen: Present: Normal Bowel Sounds. No: Tenderness, Distention, Peritoneal Signs Upper Extremity: No: Cyanosis, Edema Lower Extremity: No: Edema Neurological: Present: GCS=15, CN II-XII Intact, Speech Normal Skin: Present: Warm, Dry, Normal Color. No: Rashes Psychiatric: Present: Alert, Oriented x 3, Normal Insight, Normal Concentration Medical Decision Making ED Course and Treatment: 05/04/17 Impression: 66 year old female with loss of consciousness and diaphoresis. Differential Diagnosis included but are not limited to: Unresponsive secondary to hypoglycemia r/o infectious etiology vs diet/medication Plan: -- EKG -- Chest X-ray -- Labs -- Urinalysis -- Dextrose IV stat given on arrival. Patient awoke right away and is AAOx3. She was unable to remember what happened exactly or why her sugar dropped Progress Notes: EKG: Ordered, reviewed, and independently interpreted the EKG. Rate : 61 BPM Rhythm : NSR Interpretation : No ST-segment elevations or depressions, no T-wave inversions, normal intervals. 05/04/17 12:04 Patient on reevaluation was AAOx3. She does not remember what happened exactly and still does not know why glucose went down. She's been here multiple times for the same symptoms. She wants to sign out AMA. She states she fine. AMA : The patient declines to have further medical evaluation and treatment and wishes to leave the Emergency Department. This action is against my medical advice to the patient, and with informed refusal. The patient was told that evaluation and treatment are necessary and a full explanation of the rationale was given. The risks of leaving were explained to the patient and include, but are not limited to, worsening of known or currently unknown conditions, permanent disability and from undiagnosed or untreated conditions The patient has the capacity to make this informed decision and understands the clinical situation and my explanation of the risks of leaving. The patient voluntarily accepts these risks, and a signed AMA form documenting our conversation was obtained. The patient was given the opportunity to ask questions and reconsider. The patient was encouraged to return to the Emergency Department at any time for further care. 05/05/17 13:04 - Lab Interpretations Microbiology Results: Microbiology Results 05/04/17 11:59 Blood Blood Culture - Preliminary NO GROWTH AFTER 24 HOURS 05/04/17 11:30 Blood Blood Culture - Preliminary NO GROWTH AFTER 24 HOURS Lab Results: 05/04/17 11:28 05/04/17 11:28 Lab Results 05/04/17 11:38: POC Glucose (mg/dL) 200 H 05/04/17 11:30: pO2 49, VBG pH 7.21 L, VBG pCO2 60.0, VBG HCO3 24.0, VBG Total CO2 25.8, VBG O2 Sat (Calc) 85.3 H, VBG Base Excess -4.8 L, VBG Potassium 5.1, Glucose 246 H, Lactate 1.5, FiO2 21.0, Sodium 136.0, Chloride 106.0, Venous Blood Potassium 5.1 09/13/17 11:28: Sodium 139, Potassium 4.8, Chloride 107, Carbon Dioxide 23, Anion Gap 14, BUN 36 H, Creatinine 1.4, Est GFR ( Amer) 46, Est GFR (Non- Af Amer) 38, Random Glucose < 20 L* D, Calcium 9.0, Phosphorus 5.1 H, Magnesium 2.7 H, Total Bilirubin 0.3, AST 53 H, ALT 42, Alkaline Phosphatase 85, Total Protein 6.9, Albumin 4.3, Globulin 2.7, Albumin/Globulin Ratio 1.6 05/04/17 11:28: WBC 10.5, RBC 3.54, Hgb 10.5 L, Hct 31.6 L, MCV 89.3, MCH 29.7, MCHC 33.2, RDW 13.7, Plt Count 365, MPV 9.0, Gran % 41.2 L, Lymph % (Auto) 41.8 H, [place] % (Auto) 8.8 H, Eos % (Auto) 7.3 H, Baso % (Auto) 0.9, Gran # 4.34, Lymph # 4.4 H, [place] # 0.9 H, Eos # 0.8 H, Baso # 0.09 - RAD Interpretation Radiology Orders: 05/04/17 11:17 CHEST PORTABLE [RAD] Stat - Medication Orders Current Medication Orders: Discontinued Medications Dextrose (Dextrose 50% Inj) 50 ml IVP STAT STA Stop: 05/04/17 11:21 Last Admin: 05/04/17 11:05 Dose: 50 ml - Scribe Statement The provider has reviewed the documentation as recorded by the Malka Carter Provider Scribe Attestation: All medical record entries made by the Malka were at my direction and personally dictated by me. I have reviewed the chart and agree that the record accurately reflects my personal performance of the history, physical exam, medical decision making, and the department course for this patient. I have also personally directed, reviewed, and agree with the discharge instructions and disposition. Disposition/Present on Arrival - Present on Arrival Any Indicators Present on Arrival: Yes History of DVT/PE: No History of Uncontrolled Diabetes: Yes Urinary Catheter: No History of Decub. Ulcer: No History Surgical Site Infection Following: None - Disposition Have Diagnosis and Disposition been Completed?: Yes Diagnosis: Hypoglycemia Disposition: AGAINST MEDICAL ADVICE Disposition Time: 12:00 Patient Plan: Discharge Condition: GOOD Discharge Instructions (ExitCare): Diabetic Hypoglycemia (ED) Additional Instructions: Ms Ramirez, thank you for letting us take care of you today. Your provider was Dr. Vela. You were treated for Diabetic Hypoglycemia. The emergency medical care you received today was directed at your acute symptoms. If you were prescribed any medication, please fill it and take as directed. It may take several days for your symptoms to resolve. Return to the Emergency Department if your symptoms worsen, do not improve, or if you have any other problems. You have decided to leave Against medical advice so please return to the ED if you change your mind. Please contact your doctor or call one of the physicians/clinics you have been referred to that are listed on the Patient Visit Information form that is included in your discharge packet. Bring any paperwork you were given at discharge with you along with any medications you are taking to your follow up visit. Our treatment cannot replace ongoing medical care by a primary care provider (PCP) outside of the emergency department. Thank you for allowing the [facility] team to be part of your care today. If you had an X-Ray or CT scan: A Radiologist will review the ED reading if any change in treatment is needed we will contact you. If you had a blood, urine, or wound culture: It will take several days for the results, if any change in treatment is needed we will contact you. If you had an STI test: It will take 48 hours for the results. Please call after 1 week if you have not heard back. Referrals: [facility] Aanly Req, [Non-Staff] - Follow up with primary Forms: [employer] (Pashto)
[2017-05-04 11:46] LABS: ALB/GLOB RATIO 1.6 (1.1-1.8); ALKALINE PHOSPHATASE 85 U/L (38-126); ALT/SGPT 42 U/L (7-56); AST/SGOT 53 U/L (14-36); BILIRUBIN,TOTAL 0.3 mg/dL (0.2-1.3); BLOOD UREA NITROGEN 36 mg/dL (7-21); CARBON DIOXIDE 23 mmol/L (21-33); CHLORIDE 107 mmol/L (98-107); GFR AFRICAN-AMERICAN 46; MAGNESIUM 2.7 mg/dL (1.7-2.2); PHOSPHOROUS 5.1 mg/dL (2.5-4.5); POTASSIUM 4.8 mmol/L (3.6-5.0); SODIUM 139 mmol/L (132-148); TOTAL PROTEIN 6.9 g/dL (5.8-8.3)
[2017-05-04 11:48] LABS: GLUCOSE,RANDOM < 20 mg/dL (70-110)
[2017-05-04 12:01] LABS: VENOUS BLOOD GAS BASE EXCESS -4.8 mmol/L (0.0-2.0); VENOUS BLOOD PH 7.21 (7.32-7.43)
--- NOTE | 2017-05-04 12:44 | RAD ---
HISTORY: Sepsis Patient COMPARISON: 04/19/2017 FINDINGS: LUNGS: No active pulmonary disease. PLEURA: No significant pleural effusion identified, no pneumothorax apparent. CARDIOVASCULAR: Normal. OSSEOUS STRUCTURES: No significant abnormalities. VISUALIZED UPPER ABDOMEN: Normal. OTHER FINDINGS: None. IMPRESSION: No active disease.
--- NOTE | 2017-05-04 17:04 | CARD ---
APPROVED REPORT EKG Measurement Heart [id number] <Conclusion> Normal sinus rhythm Low voltage QRS Borderline ECG
== END 2017-05-04 12:06 | disposition left against medical advice (07) ==
LOC: ED 11:04
DX: E11.649 Type 2 diabetes mellitus with hypoglycemia without coma (principal); I10 Essential (primary) hypertension; F17.210 Nicotine dependence, cigarettes, uncomplicated

== ENCOUNTER 2017-05-20 11:41 | Observation (INO) | payer OTHER ==
[2017-05-20] MEDS ORDERED: Dextrose 50% SYRINGE Inj (50 ml) IVP STA ×2 (11:49→14:07)
--- NOTE | 2017-05-20 12:07 | ED PDOC ---
Arrival/HPI - General Chief Complaint: Altered Mental Status Time Seen by Provider: 05/20/17 11:44 Historian: EMS EM Caveat: Altered Mental Status - Critical Care Critical Care Minutes: 30 minutes - History of Present Illness Narrative History of Present Illness (Text): 05/20/17 12:07 A 66 year old female whose past medical history includes diabetes, presents to the emergency department via EMS after losing consciousness prior to arrival. HPI/ROS limited due to patients condition. 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 Past Medical History - Provider Review Nursing Documentation Reviewed: Yes - Infectious Disease Hx of Infectious Diseases: None - Tetanus Immunization Tetanus Immunization: Unknown - Cardiac Hx Cardiac Disorders: Yes Hx Hypertension: Yes - Pulmonary Hx Respiratory Disorders: No - Neurological Hx Neurological Disorder: No - HEENT Hx HEENT Disorder: No - Renal Hx Renal Disorder: No - Endocrine/Metabolic Hx Endocrine Disorders: Yes Hx Diabetes Mellitus Type 1: Yes - Hematological/Oncological Hx Blood Disorders: No - Integumentary Hx Dermatological Disorder: No - Musculoskeletal/Rheumatological Hx Musculoskeletal Disorders: No - Gastrointestinal Hx Gastrointestinal Disorders: No - Genitourinary/Gynecological Hx Genitourinary Disorders: No - Psychiatric Hx Psychophysiologic Disorder: No Hx Substance Use: No - Past Surgical History Past Surgical History: Unable to Obtain - Surgical History Hx Cardiac Catheterization: Yes Hx Section: Yes Hx Coronary Stent: Yes - Anesthesia Hx Anesthesia: Yes Hx Anesthesia Reactions: No Hx Malignant Hyperthermia: No - Suicidal Assessment Feels Threatened In Home Enviroment: No Family/Social History - Physician Review Nursing Documentation Reviewed: Yes Family/Social History: No Known Family HX Smoking Status: Current Some Days Smoker Hx Alcohol Use: Yes (occassional glass of wine) Hx Substance Use: No Hx Substance Use Treatment: No Allergies/Home Meds Allergies/Adverse Reactions: Allergies No Known Allergies Allergy (Verified 04/17/17 13:51) Home Medications: Home Meds Medication Instructions Recorded Confirmed Unobtainable 05/20/17 05/20/17 Review of Systems - Physician Review All systems were reviewed & negative as marked: Yes - Review of Systems Systems not reviewed;Unavailable: Altered Mental Status Physical Exam - Physical Exam Physical Exam Limitations: Altered Mental Status Vital Signs Reviewed: Yes Vital Signs Pulse Resp BP Pulse Ox 05/20/17 14:32 50 L 18 162/80 H 100 05/20/17 13:25 54 L 18 148/59 L 100 05/20/17 13:10 53 L 18 165/61 H 100 05/20/17 12:50 55 L 18 167/68 H 100 05/20/17 11:48 65 16 122/62 100 Blood Pressure: Normal Pulse: Regular Respiratory Rate: Normal Finger Stick Blood Glucose: 20 Medical Decision Making ED Course and Treatment: 05/20/17 12:05 Impression: A 66 year old female presents to the emergency department via EMS for further evaluation after loosing consciousness. Differential Diagnosis included but are not limited to: Hypoglycemia secondary to infection vs. Non-compliant with medication. Plan: -- EKG -- Chest X-ray -- Blood/Urine Culture -- IV Fluids -- Dextrose -- Reassess and disposition Prior Visits: Notes and results from previous visits were reviewed. Patient was last seen in the emergency department on 05/04/2017. Patient was brought in for evaluation for loss of consciousness. She was treated for hypoglycemia. The patient signed out AMA. Progress Notes: EKG: Ordered, reviewed, and independently interpreted the EKG. Rate : 64 BPM Rhythm : NSR Interpretation : 1st degree AV block. T-wave inversion in lead I and II. aVL. CHEST X-RAY Dictator : Deana Aleman MD Report Date : 05/20/2017 12:26:02 IMPRESSION: No active pulmonary disease. 05/20/17 15:03: Finger stick improved to 160. Patient is AAOx3. No slurred speech. She is with her daughter at bedside. Patient reports that she may have taken her IV insulin without eating. Daughter is not confident that her mother has the right dosages of insulin because this keeps happening to her. She is not on oral hypoglycemics. CXR negative. UA pending. I discussed with patient that I think she needs to stay in the hospital for further evaluation and treatment and she agreed. She signed out against medical advice x 2 the last times she was in the ED and this time she and her daughter state that she will stay. Discussed case with Dr. Zapata. Will admit to his service. Requests consult from Dr. Jessica Torres (Ep Specialist). - Critical Care Critical Care Minutes: 30 minutes - Lab Interpretations Lab Results: 05/20/17 11:50 05/20/17 11:50 Lab Results 05/20/17 13:53: POC Glucose (mg/dL) 26 L* 05/20/17 12:05: POC Glucose (mg/dL) 118 H 05/20/17 11:50: Sodium 141, Chloride 107, Potassium 4.3, Carbon Dioxide 24, Anion Gap 14, BUN 33 H, Creatinine 1.3, Est GFR ( Amer) 50, Est GFR (Non- Af Amer) 41, Random Glucose 20 L*, Calcium 8.9, Phosphorus 4.4, Magnesium 2.5 H , Total Bilirubin 0.6, AST 48 H, ALT 29, Alkaline Phosphatase 71, Total Protein 7.3, Albumin 4.5, Globulin 2.8, Albumin/Globulin Ratio 1.6 05/20/17 11:50: pO2 38, VBG pH 7.23 L, VBG pCO2 60.0, VBG HCO3 25.1, VBG Total CO2 26.9, VBG O2 Sat (Calc) 67.6 H, VBG Base Excess -3.5 L, VBG Potassium 4.7, Sodium 137.0, Chloride 108.0 H, Glucose 217 H, Lactate 1.6, FiO2 21.0, Venous Blood Potassium 4.7 05/20/17 11:50: PT 11.4, INR 1.06, APTT 28.7 05/20/17 11:50: WBC 9.2, RBC 2.97 L, Hgb 8.8 L, Hct 26.9 L, MCV 90.6, MCH 29.6, MCHC 32.7, RDW 13.9, Plt Count 291, MPV 9.5, Gran % 38.6 L, Lymph % (Auto) 43.7 H, Gibson % (Auto) 7.8 H, Eos % (Auto) 9.0 H, Baso % (Auto) 0.9, Gran # 3.54, Lymph # 4.0 H, Gibson # 0.7 H, Eos # 0.8 H, Baso # 0.08 I have reviewed the lab results: Yes - RAD Interpretation Radiology Orders: 05/20/17 11:48 CHEST PORTABLE [RAD] Stat - EKG Interpretation Interpreted by ED Physician: Yes Type: 12 lead EKG - Medication Orders Current Medication Orders: Dextrose/Sodium Chloride (Dextrose 5%/0.45% Ns 1000 Ml) 500 mls @ 100 mls/hr IV .Q5H [facility] Last Admin: 05/20/17 12:18 Dose: 100 mls/hr eMAR Start Stop Document 05/20/17 12:18 [facility] (Rec: 05/20/17 12:18 [id number] Intravenous Solution Start Date 05/20/17 Start Time 12:18 Discontinued Medications Dextrose (Dextrose 50% Inj) 50 ml IVP STAT STA Stop: 05/20/17 11:50 Last Admin: 05/20/17 11:58 Dose: 50 ml IVP Administration Document 05/20/17 11:58 [facility] (Rec: 05/20/17 11:58 [id number] Charges for Administration # of IVP Administrations 1 Dextrose (Dextrose 50% Inj) 50 ml IVP STAT STA Stop: 05/20/17 14:08 Last Admin: 05/20/17 13:58 Dose: 50 ml IVP Administration Document 05/20/17 13:58 [facility] (Rec: 05/20/17 14:09 [id number] Charges for Administration # of IVP Administrations 1 - Scribe Statement The provider has reviewed the documentation as recorded by the Scribe Shantell Chau Provider Scribe Attestation: All medical record entries made by the Scribe were at my direction and personally dictated by me. I have reviewed the chart and agree that the record accurately reflects my personal performance of the history, physical exam, medical decision making, and the department course for this patient. I have also personally directed, reviewed, and agree with the discharge instructions and disposition. Disposition/Present on Arrival - Present on Arrival Any Indicators Present on Arrival: Yes History of DVT/PE: No History of Uncontrolled Diabetes: Yes Urinary Catheter: No History of Decub. Ulcer: No History Surgical Site Infection Following: None - Disposition Have Diagnosis and Disposition been Completed?: Yes Diagnosis: Hypoglycemia Disposition: HOSPITALIZED Disposition Time: 14:35 Patient Plan: Observation Condition: GUARDED
[2017-05-20] MEDS: Dextrose 5%/0.45% NS 500 ML IV SCH (12:18)
[2017-05-20 12:21] LABS: BASO # 0.08 K/mm3 (0.0-2.0); BASO % 0.9 % (0.0-3.0); EOS # 0.8 (0.0-0.7); GRAN # 3.54 (1.4-6.5); GRAN % 38.6 % (50.0-68.0); HEMATOCRIT 26.9 % (36.0-48.0); LYMPH % 43.7 % (22.0-35.0); MEAN CELL VOLUME 90.6 fl (80.0-105.0); MEAN CORPUSCULAR HEMOGLOBIN 29.6 pg (25.0-35.0); MEAN CORPUSCULAR HGB CONC 32.7 g/dl (31.0-37.0); MEAN PLATELET VOLUME 9.5 fl (7.0-11.0); MONO # 0.7 (0.1-0.6); MONO % 7.8 % (1.0-6.0); RED CELL DISTRIBUTION WIDTH 13.9 % (11.5-14.5); WHITE BLOOD COUNT 9.2 10^3/ul (4.5-11.0)
[2017-05-20 12:27] LABS: VENOUS BLOOD GAS BASE EXCESS -3.5 mmol/L (0.0-2.0); VENOUS BLOOD PH 7.23 (7.32-7.43)
--- NOTE | 2017-05-20 12:27 | RAD ---
HISTORY: Sepsis Patient COMPARISON: 05/04/2017. FINDINGS: LUNGS: The lungs are well inflated and clear. PLEURA: No significant pleural effusion identified, no pneumothorax apparent. CARDIOVASCULAR: Normal. OSSEOUS STRUCTURES: No significant abnormalities. VISUALIZED UPPER ABDOMEN: Normal. OTHER FINDINGS: None. IMPRESSION: No active pulmonary disease.
[2017-05-20 12:31] LABS: INR 1.06 (0.93-1.08); PARTIAL THROMBOPLASTIN TIME 28.7 Seconds (23.7-30.8)
[2017-05-20 12:32] LABS: ALB/GLOB RATIO 1.6 (1.1-1.8); BILIRUBIN,TOTAL 0.6 mg/dL (0.2-1.3); CALCIUM 8.9 mg/dL (8.4-10.5); MAGNESIUM 2.5 mg/dL (1.7-2.2); PHOSPHOROUS 4.4 mg/dL (2.5-4.5); POTASSIUM 4.3 mmol/L (3.6-5.0); TOTAL PROTEIN 7.3 g/dL (5.8-8.3)
[2017-05-20 16:20] LABS: PH,URINE 6.5 (4.7-8.0); URINE BILIRUBIN NEGATIVE (NEGATIVE); URINE BLOOD NEGATIVE (NEGATIVE); URINE GLUCOSE (UA) 250 mg/dL (NEGATIVE); URINE KETONE NEGATIVE (NEGATIVE); URINE LEUKOCYTE ESTERASE TRACE Leu/uL (NEGATIVE); URINE PROTEIN TRACE mg/dL (<30 mg/dL); URINE UROBILINOGEN 0.2 E.U./dL (<1 E.U./dL)
[2017-05-20 16:35] LABS: URINE APPEARANCE CLEAR (CLEAR); URINE COLOR YELLOW (YELLOW)
[2017-05-20 16:38] VITALS: RESP 18
[2017-05-20 16:40] LABS: URINE BACTERIA TRACE (NEG); URINE EPITHELIAL CELLS 0 - 2 /hpf (0-5); URINE RBC 0 - 2 /hpf (0-2); URINE WBC 0 - 2 /hpf (0-6)
[2017-05-20 16:52] VITALS: O2SAT 98
[2017-05-20 22:54] VITALS: BMI 20.5
[2017-05-20] MEDS ORDERED: Pneumococcal 23-Valent Vaccine IM ONE (22:54)
[2017-05-21] MEDS: Dextrose 5%/0.45% NS 500 ML IV SCH ×2 (00:27→06:24)
[2017-05-21 07:45] VITALS: BP 154/67; PULSE 65; TEMP 98.5
[2017-05-21 08:23] LABS: CALCIUM 8.5 mg/dL (8.4-10.5); POTASSIUM 4.9 mmol/L (3.6-5.0)
--- NOTE | 2017-05-21 08:31 | CARD ---
APPROVED REPORT EKG Measurement Heart [id number] <Conclusion> Sinus rhythm with 1st degree AV block Low voltage QRS ST changes c/w ischemia
--- NOTE | 2017-05-21 09:06 | CP.PCM.CON ---
<Isaura Zamorano - Last Filed: 05/21/17 09:06> History of Present Illness - History of Present Illness History of Present Illness: PGY4 Initial GI Consult Note Charlette Ramirez is a 66 year old female with history of poorly controlled T1DM, Hypertension, Hyperlipidemia, and NSTEMI confirming triple vessel CAD status post four CHYNA 07/2014-08/2014 on medical management presenting with syncopal episode 2/2 hypoglycemia. GI was consulted for anemia. She was found to have a glucose level of 20. She notes compliance to insulin regimen. She denies abdominal pain, chest pain, shortness of breath, lightheadedness, dizziness, diarrhea, constipation, hematemesis, melena, hematochezia, pruritis, jaundice, scleral icterus, acid reflux, heartburn, indigestion, bloating, or unintentional weight loss. Admits to drinking a bottle of wine every weekend since 19 years old. No prior EGD or colonoscopy. Her baseline hgb is ~10 and this admission she presents with hgb~8.8. Family- denies colon cancer or stomach cancer Social- 47 pack year history, bottle of wine every weekend x 47 years, denies illicit drug use Surgery- , PCI- 4 CHYNA- 07/2014-08/2014 Endoscopy hx: denies any previous EGD and colonoscopy ROS:12-point ROS conducted, neg other than above Past Patient History - Infectious Disease Hx of Infectious Diseases: None - Tetanus Immunizations Tetanus Immunization: Unknown - Past Social History Smoking Status: Current Some Days Smoker - CARDIAC Hx Cardiac Disorders: Yes (CAD) Hx Hypertension: Yes Hx Peripheral Vascular Disease: Yes (DVT) - PULMONARY Hx Respiratory Disorders: Yes (SMOKES CIGARETTES. PK LASTS A WEEK.) - NEUROLOGICAL Hx Neurological Disorder: No - HEENT Hx HEENT Problems: No - RENAL Hx Chronic Kidney Disease: No - ENDOCRINE/METABOLIC Hx Endocrine Disorders: Yes Hx Diabetes Mellitus Type 1: Yes - HEMATOLOGICAL/ONCOLOGICAL Hx Blood Disorders: No - INTEGUMENTARY Hx Dermatological Problems: No - MUSCULOSKELETAL/RHEUMATOLOGICAL Hx Musculoskeletal Disorders: No Hx Falls: Yes - GASTROINTESTINAL Hx Gastrointestinal Disorders: No - GENITOURINARY/GYNECOLOGICAL Hx Genitourinary Disorders: Yes (C/S X 3) - PSYCHIATRIC Hx Psychophysiologic Disorder: No Hx Substance Use: No - SURGICAL HISTORY Hx Surgeries: Yes (C/S X 3,CARD CATH WITH 1 HEART STENT.) Hx Cardiac Catheterization: Yes Hx Coronary Stent: Yes - ANESTHESIA Hx Anesthesia: Yes Hx Anesthesia Reactions: No Hx Malignant Hyperthermia: No Meds Allergies/Adverse Reactions: Allergies Allergy/AdvReac Type Severity Reaction Status Date / Time No Known Allergies Allergy Verified 05/20/17 21:35 - Medications Medications: Current Medications Acetaminophen (Tylenol 325mg Tab) 650 mg PO Q4H PRN PRN Reason: Fever >100.5 F Atorvastatin Calcium (Lipitor) 40 mg PO DIN [facility] Dextrose/Sodium Chloride (Dextrose 5%/0.45% Ns 1000 Ml) 500 mls @ 100 mls/hr IV .Q5H [facility] Last Admin: 05/21/17 06:24 Dose: 100 mls/hr Insulin Detemir (Levemir) 10 unit SC DAILY [facility] Insulin Human Regular (Humulin R Low) 1 units SC ACHS [facility] PRN Reason: Protocol Lisinopril (Zestril) 20 mg PO DAILY [facility] Metoprolol Tartrate (Lopressor) 25 mg PO BRKDIN [facility] Ondansetron HCl (Zofran Inj) 4 mg IVP Q4H PRN PRN Reason: Nausea/Vomiting Pantoprazole Sodium (Protonix Inj) 40 mg IVP DAILY [facility] Physical Exam - Constitutional Appears: Well, Non-toxic, No Acute Distress - Head Exam Head Exam: ATRAUMATIC, NORMOCEPHALIC - Eye Exam Eye Exam: Normal appearance - ENT Exam ENT Exam: Mucous Membranes Moist, Normal Exam - Respiratory Exam Respiratory Exam: Clear to Auscultation Bilateral, NORMAL BREATHING PATTERN. absent: Prolonged Expiratory Phase, Rales, Rhonchi, Wheezes, Respiratory Distress - Cardiovascular Exam Cardiovascular Exam: REGULAR RHYTHM, +S1, +S2 - GI/Abdominal Exam GI & Abdominal Exam: Normal Bowel Sounds, Soft. absent: Distended, Firm, Guarding, Hernia, Organomegaly - Rectal Exam Rectal Exam: Deferred - Extremities Exam Extremities exam: Negative for: joint swelling, pedal edema - Neurological Exam Neurological exam: Alert, Oriented x3 - Psychiatric Exam Psychiatric exam: Normal Affect, Normal Mood - Skin Skin Exam: Dry, Intact, Normal Color, Warm Results - Vital Signs Recent Vital Signs: Last Vital Signs Temp 98.5 F 05/21/17 07:30 Pulse 65 05/21/17 07:30 Resp 18 05/21/17 07:30 BP 154/67 H 05/21/17 07:30 Pulse Ox 98 05/21/17 07:30 - Labs Result Diagrams: 05/20/17 11:50 05/21/17 07:00 Labs: Laboratory Results - last 24 hr 05/20/17 05/20/17 05/20/17 14:49 15:19 16:00 Sodium Potassium Chloride Carbon Dioxide Anion Gap BUN Creatinine Est GFR ( Amer) Est GFR (Non-Af Amer) POC Glucose (mg/dL) 160 H 108 Calcium Urine Color Yellow Urine Appearance Clear Urine pH 6.5 Ur Specific [place] 1.015 Urine Protein Trace H Urine Glucose (UA) 250 H Urine Ketones Negative Urine Blood Negative Urine Nitrate Negative Urine Bilirubin Negative Urine Urobilinogen 0.2 Ur Leukocyte Esterase Trace H Urine RBC 0 - 2 Urine WBC 0 - 2 Ur Epithelial Cells 0 - 2 Urine Bacteria Trace Blood Type Antibody Screen Crossmatch BBK History Checked 05/20/17 05/20/17 05/20/17 19:10 20:28 21:17 Sodium Potassium Chloride Carbon Dioxide Anion Gap BUN Creatinine Est GFR ( Amer) Est GFR (Non-Af Amer) POC Glucose (mg/dL) 110 317 H Calcium Urine Color Urine Appearance Urine pH Ur Specific [place] Urine Protein Urine Glucose (UA) Urine Ketones Urine Blood Urine Nitrate Urine Bilirubin Urine Urobilinogen Ur Leukocyte Esterase Urine RBC Urine WBC Ur Epithelial Cells Urine Bacteria Blood Type O POSITIVE Antibody Screen Negative Crossmatch See Detail BBK History Checked Patient has bt 05/21/17 05/21/17 07:00 07:16 Sodium 131 L Potassium 4.9 Chloride 100 Carbon Dioxide 23 Anion Gap 13 BUN 27 H Creatinine 1.3 Est GFR ( Amer) 50 Est GFR (Non-Af Amer) 41 POC Glucose (mg/dL) 343 H Calcium 8.5 Urine Color Urine Appearance Urine pH Ur Specific [place] Urine Protein Urine Glucose (UA) Urine Ketones Urine Blood Urine Nitrate Urine Bilirubin Urine Urobilinogen Ur Leukocyte Esterase Urine RBC Urine WBC Ur Epithelial Cells Urine Bacteria Blood Type Antibody Screen Crossmatch BBK History Checked Assessment & Plan - Assessment and Plan (Free Text) Assessment: Charlette Ramirez is a 66F w/ hx of CAD s/p CHYNA stents, IDM, etoh abuse who presented after a syncopal episode likely 2/2 hypoglycemia. Pt was found to be anemic, but denies any clinic presentation of GI bleed. 1. Normocytic Anemia 2. Hx of elevated LFTs 3. Chronic Etoh use 4. DM, insulin dependent Plan: -pt refused any EGD or colonoscopy as an inpt -pt denies any sig symptoms of overt GI bleed -recommend outpt colonoscopy and EGD -will not proceed with any active GI proceed -contact information given -can follow-up with us or GI of her choosing for routine screening colonscopy -will get Liver profile Will D/W Dr. Beltran <Dee Beltran MD - Last Filed: 05/21/17 18:59> Results - Vital Signs Recent Vital Signs: Last Vital Signs Temp 98.5 F 05/21/17 07:30 Pulse 65 05/21/17 09:09 Resp 18 05/21/17 07:30 BP 154/67 H 05/21/17 09:09 Pulse Ox 98 05/21/17 07:30 - Labs Result Diagrams: 05/20/17 11:50 05/21/17 07:00 Labs: Laboratory Results - last 24 hr 05/20/17 05/20/17 05/20/17 19:10 20:28 21:17 Sodium Potassium Chloride Carbon Dioxide Anion Gap BUN Creatinine Est GFR ( Amer) Est GFR (Non-Af Amer) POC Glucose (mg/dL) 110 317 H Random Glucose Calcium Total Bilirubin Direct Bilirubin AST ALT Alkaline Phosphatase Total Protein Albumin Globulin Albumin/Globulin Ratio Blood Type O POSITIVE Antibody Screen Negative Crossmatch See Detail BBK History Checked Patient has bt 05/21/17 05/21/17 05/21/17 07:00 07:16 08:40 Sodium 131 L Potassium 4.9 Chloride 100 Carbon Dioxide 23 Anion Gap 13 BUN 27 H Creatinine 1.3 Est GFR ( Amer) 50 Est GFR (Non-Af Amer) 41 POC Glucose (mg/dL) 343 H Random Glucose 370 H* D Calcium 8.5 Total Bilirubin 0.4 Direct Bilirubin 0.3 AST 38 H D ALT 18 Alkaline Phosphatase 79 Total Protein 6.3 Albumin 3.9 Globulin 2.4 Albumin/Globulin Ratio 1.6 Blood Type Antibody Screen Crossmatch BBK History Checked Attending/Attestation - Attestation I have personally seen and examined this patient.: Yes I have fully participated in the care of the patient.: Yes I have reviewed all pertinent clinical information: Yes Notes (Text): 05/21/17 18:58 This is a 66F w/ hx of CAD s/p CHYNA stents, IDM, etoh abuse who presented after a syncopal episode likely 2/2 hypoglycemia. Pt was found to be anemic, but denies any clinic presentation of GI bleed. No s/s of overt GI bleeding. -pt refused any EGD or colonoscopy as an inpt -recommend outpt colonoscopy and EGD
[2017-05-21 09:37] LABS: ALB/GLOB RATIO 1.6 (1.1-1.8); BILIRUBIN,DIRECT 0.3 mg/dL (0.0-0.4); BILIRUBIN,TOTAL 0.4 mg/dL (0.2-1.3); TOTAL PROTEIN 6.3 g/dL (5.8-8.3)
--- NOTE | 2017-05-21 09:55 | CP.PCM.PCO ---
Additional Comments - Additional Comments Additional Comments: House Doctor Note, Concha Schaffer PGY2 Reason for note: AMA Patient was admitted for hypoglycemia. This morning sugar was in 300s. Patient wants to leave AMA. Dr. Zapata was notified. Discussed with patient the benefits of staying versus the risks of leaving AMA. Patient verbalized that she understands the risks and benefits and still would like to leave AMA.
[2017-05-21] MEDS ORDERED: Insulin Detemir 100 units/ml Vial (Levemir) SC SCH (10:00)
[2017-05-21] MEDS ORDERED: Insulin Reg-LOW-Coverage SC SCH (11:30)
--- NOTE | 2017-05-23 09:02 | CON ---
ENDOCRINOLOGY CONSULT DATE: 05/20/2017 LOCATION: ER holding and will be going to 564 eventually. HISTORY OF PRESENT ILLNESS: This is a 66-year-old female with known history of type 2 insulin-requiring diabetes, who presented here with loss of consciousness and unresponsiveness, has supervening hypoglycemic episodes as noted and is being referred for endocrine evaluation and management. We have no details as to the exact nature of her diabetic condition and also the insulin dose regimen as given at home. PAST MEDICAL HISTORY: As mentioned above, history of type 2 insulin-requiring diabetes, history of hypertension, and dyslipidemia. FAMILY HISTORY: Positive for hypertension and heart disease. SOCIAL HISTORY: The patient has supportive family. No known substance use. REVIEW OF SYSTEMS: Not possible at this time because of having increasing bouts of generalized body weakness with progressively worsening dizziness and lightheadedness, particularly near syncopal and syncopal episodes leading to the present event. PHYSICAL EXAMINATION: GENERAL: This is an average-built female, in no apparent distress. VITAL SIGNS: Blood pressure of 140/80, pulse of 70 beats per minute and regular, temperature 98, and respirations 20. Height is 5 feet and weight is 105 pounds. HEENT: Head is normocephalic. Eyes are anicteric with pink conjunctivae. Funduscopy not possible at this time. Ears, nose and throat are otherwise normal. NECK: Supple. Thyroid gland is normal in size. No carotid bruits or any cervical adenopathy. CARDIOPULMONARY: Adynamic precordium. S1 and S2 is rapid and regular. LUNGS: Clear to auscultation. ABDOMEN: Soft with positive bowel sounds. EXTREMITIES: No peripheral edema. Pulses are +2 bilaterally. LABORATORY DATA: Her initial chemistry showed a BUN of 33, sodium 141, potassium 4.3, chloride 107, CO2 of 24, glucose 20 and creatinine 1.3. Her glucose levels have ranged from 26 to 118 and 108 mg/dL. ASSESSMENT: This is a 66-year-old female with uncontrolled and decompensated type 2 insulin-requiring diabetes, who presented here with symptomatic hypoglycemia and some associated loss of consciousness and hyperadrenergic manifestation at this time and the possibility of her oral intake being suboptimal and variable with ongoing insulin administration possible factor of supervening hypoglycemia and again details at this time. Plan of management has been discussed with the staff. We will continue the dextrose infusion as given and also the D50 bolus injections as ordered. We will obtain serial chemistries and supplement accordingly as needed. We will also obtain hemoglobin A1c so that we can start her on a tight glycemic control and also the thyroid function studies and serum cortisol will be ordered. We will observe the glycemic fluctuations and also we will continue with low dose basal and bolus insulin regimen with a good combination of oral hypoglycemic drugs. We will follow with you. Jessica Torres MD
--- NOTE | 2017-05-23 10:05 | HP ---
MAIN COMPLAINT: Hypoglycemia. HISTORY OF PRESENT ILLNESS: This is a well-known patient to the emergency department for recurrent hypoglycemia with either not eating enough or taking more insulin. The patient came into the hospital with low sugar, change in mental status, was given IV dextrose with improvement in her sugar numbers and she was evaluated and admitted for observation for 24 hours. The patient denied any chest pain, abdominal pain, any nausea or vomiting. she use insulin. She does have sometimes poor appetite. As I spoke with her; however, she does take the insulin same regimen. I explained to the patient in detail how the insulin and how the diet go together and it should be adjusted. She denied any suicidal ideations, any fever, or any intentional overdose. The patient does have lost two years ago. She is a kind of down, but she is mentally stable otherwise and denied any other complaints. Also the patient never had any colonoscopy or any GI workup and she does not use any psych medications. She denied any alcohol or any drug abuse. She does have grandchildren. She loves to sit with them and she takes care of them and she sees them everyday and takes care of them. PAST MEDICAL HISTORY: As I mentioned insulin-dependent diabetes. SOCIAL HISTORY: She lives by herself; however, she has grandchildren, she stay with them everyday, and she takes care of them. ALLERGIES: NO KNOWN ALLERGY. REVIEW OF SYSTEMS: The patient denied any abdominal pain. She does have poor appetite. Denied any bleeding GI john. No nausea. No vomiting. No bleeding problem. No black stool. FAMILY HISTORY: Noncontributory. She lost her two years ago, but otherwise negative. PHYSICAL EXAMINATION: GENERAL: This patient was admitted. VITAL SIGNS: Temperature is 97, heart rate 54, blood pressure 122/64, respirations 16, and saturation 100%. HEAD AND NECK: Normal. No JVD. No thyromegaly. CHEST: Clear. Good air entry. CARDIAC: First sound and second sound normal. ABDOMEN: Soft and nontender. EXTREMITIES: No edema. NEUROLOGIC: The patient is awake, alert, and oriented x3. LABORATORY DATA: White count 9.2, hemoglobin 8.8, hematocrit 26.9, and platelets 291. Chemistry sodium 141, potassium 4.3, chloride 107, bicarbonate 24, BUN 33, creatinine 1.3, blood sugar was 20, magnesium 2.5, AST 48, ALT normal, and alkaline phosphatase is normal. The patient also had a chest x-ray, which shows no active lung disease, no pleural effusion, and no pneumothorax. She also had an electrocardiogram, which showed sinus rhythm, low voltage, ST-T wave changes, and possible ischemia. No comparison to the old EKG. IMPRESSION AND PLAN: 1. This is a 66-year-old female came in with severe hypoglycemia, was treated in the emergency room, blood sugar started going up 118, 160. The patient was discontinued of insulin completely and was given D5 and was monitored overnight. We will get Dr. Jessica Torres, the endocrine consult to talk to the patient about the recurrent hypoglycemia and did explain to the patient the amount of the insulin and the amount of food has been fixed to avoid recurrent hypoglycemia and to discuss with her about the appetite loss and she should decrease the insulin intake. 2. Anemia, which is new. The patient always run high hemoglobin 15, 12, but this time it is 8.8. Hematology consult, gastrointestinal consult have been obtained, and I explained to the patient she needs to be seen by the gastroenterology. She may need a transfusion and she understands and we will continue to follow up on that. Also she does have poor appetite which is going to raise the issue by endoscopic evaluations and may be psychiatric evaluation for mild depression; however, she seems like she is confident. She makes decisions. She is alert, awake, and oriented x3. She knows what to do. There is no suicidal thoughts. No suicidal ideation at all and we discussed with her in detail about her medical conditions and we should proceed with the current plan. Gabriel Zapata MD
--- NOTE | 2017-05-23 10:51 | PN ---
DATE: 05/21/2017 LOCATION: Room 56. A 66-year-old female with recent uncontrolled with marked hypoglycemia and brief loss of consciousness and unresponsiveness. Has since then improved clinically today. 343 mg creatinine 1.3. However, the patient insisted on signing out against medical advise today as noted. She promised to follow up with her medical doctor as an outpatient for medical and diabetic management. She was advised to resume her home insulin regimen follow up with her medical doctor. Jessica Torres MD
--- NOTE | 2017-05-23 14:59 | DS ---
HISTORY OF PRESENT ILLNESS: A 66-year-old female. The patient was called from the hospital about the patient needs to sign against medical advice. They spoke to her about the importance to stay, to complete the plan of care. She refused blood work in the morning. She is insisting she is busy with her grandchildren, she has to go. Her blood sugar was good, it was higher than 250; however, the patient decided to leave against medical advice. There was no physical exam done on that day. Her vital signs were stable. Temperature 98, heart rate 65, blood pressure 154/67, respirations 18 and she was saturating 98%. No labs were done. DISCHARGE DIAGNOSES: 1. Recurrent hypoglycemia, severe. 2. Anemia, needs workup, probably iron-deficiency anemia. 3. Loss of appetite. We will need to rule out malignancy. Gabriel Zapata MD
== END 2017-05-21 09:56 | disposition left against medical advice (07) ==
LOC: ED 11:41 → ERH 14:35 → 5RNO 17:17
PROVIDERS: ADMIT Internal Medicine; ATTEND Internal Medicine
DX: E11.649 Type 2 diabetes mellitus with hypoglycemia without coma (principal); D64.9 Anemia, unspecified; I25.10 Atherosclerotic heart disease of native coronary artery without angina pectoris; I10 Essential (primary) hypertension; E78.5 Hyperlipidemia, unspecified; I25.2 Old myocardial infarction; Z95.5 Presence of coronary angioplasty implant and graft; Z79.4 Long term (current) use of insulin; Z87.891 Personal history of nicotine dependence
CPT/HCPCS: 36415; 71010; 80048; 80053; 80076; 81001; 82803; 82948; 83735; 84100; 85025; 85610; 85730; 86850; 86900; 86920; 87040; 87086; 93005; 96374; 99285; C9113; G0378; J7042

== ENCOUNTER 2017-05-22 07:09 | Emergency (ER) | payer OTHER ==
[2017-05-22] MEDS ORDERED: Dextrose 50% SYRINGE Inj (50 ml) ONE (07:16)
[2017-05-22] MEDS ORDERED: Dextrose 50% SYRINGE Inj (50 ml) IVP STA (07:23)
--- NOTE | 2017-05-22 07:25 | ED PDOC ---
Arrival/HPI - General Time Seen by Provider: 05/22/17 07:22 - History of Present Illness Narrative History of Present Illness (Text): 05/22/17 07:15 A 66 year old female is brought into the emergency department via EMS after son found her unresponsive at 06:00 this morning. The patient is unsure whether or not she took her insulin last night. The patient denies any fever, chest pain, abdominal pain, or any other complaints at this time. Time/Duration: 1-3 hours (x 06) Symptom Onset: Sudden Activities at Onset: Light Context: Home Past Medical History - Provider Review Nursing Documentation Reviewed: Yes - Infectious Disease Hx of Infectious Diseases: None - Tetanus Immunization Tetanus Immunization: Unknown - Cardiac Hx Cardiac Disorders: Yes (CAD) Hx Hypertension: Yes Hx Peripheral Vascular Disease: Yes (DVT) - Pulmonary Hx Respiratory Disorders: Yes (SMOKES CIGARETTES. PK LASTS A WEEK.) - Neurological Hx Neurological Disorder: No - HEENT Hx HEENT Disorder: No - Renal Hx Renal Disorder: No - Endocrine/Metabolic Hx Endocrine Disorders: Yes Hx Diabetes Mellitus Type 1: Yes - Hematological/Oncological Hx Blood Disorders: No - Integumentary Hx Dermatological Disorder: No - Musculoskeletal/Rheumatological Hx Musculoskeletal Disorders: No Hx Falls: Yes - Gastrointestinal Hx Gastrointestinal Disorders: No - Genitourinary/Gynecological Hx Genitourinary Disorders: Yes (C/S X 3) - Psychiatric Hx Psychophysiologic Disorder: No Hx Substance Use: No - Past Surgical History Past Surgical History: Unable to Obtain - Surgical History Hx Cardiac Catheterization: Yes Hx Coronary Stent: Yes - Anesthesia Hx Anesthesia: Yes Hx Anesthesia Reactions: No Hx Malignant Hyperthermia: No - Suicidal Assessment Feels Threatened In Home Enviroment: No Family/Social History - Physician Review Nursing Documentation Reviewed: Yes Family/Social History: Unknown Family HX Smoking Status: Current Some Days Smoker Hx Alcohol Use: No Hx Substance Use: No Hx Substance Use Treatment: No Allergies/Home Meds Allergies/Adverse Reactions: Allergies No Known Allergies Allergy (Verified 05/22/17 07:41) Home Medications: Home Meds Medication Instructions Recorded Confirmed Unobtainable 05/20/17 05/20/17 Review of Systems - Review of Systems Constitutional: absent: Fevers Cardiovascular: absent: Chest Pain Gastrointestinal: absent: Abdominal Pain Physical Exam Vital Signs Reviewed: Yes Vital Signs Temp Pulse Resp BP Pulse Ox 05/22/17 10:12 98 F 74 20 128/72 100 05/22/17 09:57 92 H 18 130/82 98 05/22/17 07:40 97.8 F 114 H 16 134/79 98 Appearance: Positive for: Well-Appearing, Non-Toxic, Comfortable Pain Distress: None Mental Status: Positive for: Alert and Oriented X 3 - Systems Exam Head: Present: Atraumatic Pupils: Present: PERRL Mouth: Present: Moist Mucous Membranes Neck: Present: Normal Range of Motion Respiratory/Chest: Present: Clear to Auscultation. No: Respiratory Distress, Accessory Muscle Use Cardiovascular: Present: Regular Rate and Rhythm Abdomen: No: Tenderness, Distention Neurological: Present: GCS=15, Motor Func Grossly Intact, Normal Sensory Function, Other (no focal deficits) Skin: Present: Warm, Dry Psychiatric: Present: Alert, Oriented x 3 Medical Decision Making ED Course and Treatment: Progress Notes: 05/22/17 07:15 Dextrose 50% given 05/22/17 07:29 Full physical was conducted after dextrose was administered. Prior to dextrose patient was alert but not following commands. 05/22/17 07:37 Patient is completely awake and oriented. Patient and son admit that they don't believe the patient ate dinner last night. The patient reports she takes insulin at home for her Type I diabetes and states she doesn't think her dosage has recently changed. 05/22/17 09:55 I rec admission for recurrent hypoglycemia. the pt is requesting to leave. I expressed concern that if this happens again it may lead to coma, permanent disability, or even . she v/u and agrees to sign out against medical advice. she understands she is welcome to return should she change her mind. - Lab Interpretations Lab Results: 05/22/17 07:27 05/22/17 07:27 Lab Results 05/22/17 09:03: Urine Color Yellow, Urine Appearance Clear, Urine pH 6.5, Ur Specific [place] 1.020, Urine Protein 100 H, Urine Glucose (UA) 250 H, Urine Ketones Negative, Urine Blood Trace-intact H, Urine Nitrate Negative, Urine Bilirubin Negative, Urine Urobilinogen 0.2, Ur Leukocyte Esterase Negative, Urine RBC 1 - 3, Urine WBC Negative, Ur Epithelial Cells 1 - 3, Urine Bacteria Trace 05/22/17 07:50: POC Glucose (mg/dL) 187 H 05/22/17 07:27: Sodium 131 L, Potassium 5.0, Chloride 100, Carbon Dioxide 23, Anion Gap 13, BUN 22 H, Creatinine 1.0, Est GFR ( Amer) > 60, Est GFR ( Non-Af Amer) 56, Random Glucose 173 H, Calcium 8.2 L, Total Bilirubin 0.3, AST 34, ALT 23, Alkaline Phosphatase 53, Total Protein 5.7 L, Albumin 3.5, Globulin 2.2, Albumin/Globulin Ratio 1.6 05/22/17 07:27: WBC 12.7 H D, RBC 2.91 L, Hgb 8.7 L, Hct 25.6 L, MCV 88.0, MCH 29.9, MCHC 34.0, RDW 13.3, Plt Count 287, MPV 9.2, Gran % 77.2 H, Lymph % (Auto ) 14.7 L, Lee % (Auto) 6.4 H, Eos % (Auto) 1.4 L, Baso % (Auto) 0.3, Gran # 9.83 H, Lymph # 1.9, Lee # 0.8 H, Eos # 0.2, Baso # 0.04 - Medication Orders Current Medication Orders: Discontinued Medications Dextrose (Dextrose 50% Inj) 50 ml IVP STAT STA Stop: 05/22/17 07:24 Last Admin: 05/22/17 07:46 Dose: 50 ml IVP Administration Document 05/22/17 07:46 IT (Rec: 05/22/17 07:46 IT [id number]) Charges for Administration # of IVP Administrations 1 Dextrose 50 ml/ Sodium (Chloride) 1,050 mls @ 999 mls/hr IV .Q1H4M STA Stop: 05/22/17 08:36 Last Admin: 05/22/17 08:02 Dose: 999 mls/hr eMAR Start Stop Document 05/22/17 08:02 IT (Rec: 05/22/17 08:02 IT [id number]) Intravenous Solution Start Date 05/22/17 Start Time 08:02 End Date 05/22/17 End time 09:02 Total Infusion Time 60 - Scribe Statement The provider has reviewed the documentation as recorded by the Malka Malhotra Provider Scribe Attestation: All medical record entries made by the Scribe were at my direction and personally dictated by me. I have reviewed the chart and agree that the record accurately reflects my personal performance of the history, physical exam, medical decision making, and the department course for this patient. I have also personally directed, reviewed, and agree with the discharge instructions and disposition. Disposition/Present on Arrival - Present on Arrival Any Indicators Present on Arrival: Yes History of DVT/PE: No History of Uncontrolled Diabetes: Yes Urinary Catheter: No History Surgical Site Infection Following: None - Disposition Have Diagnosis and Disposition been Completed?: Yes Diagnosis: Hypoglycemia Disposition: AGAINST MEDICAL ADVICE Disposition Time: 09:55 Condition: STABLE Discharge Instructions (ExitCare): Diabetic Hypoglycemia (ED) Additional Instructions: Please follow up with your doctor tomorrow regarding your insulin dosing. You may return to the ED at any time should you change your mind. Referrals: [facility] [place] - Follow up with primary Forms: [employer] ([place])
[2017-05-22] MEDS ORDERED: SODIUM CHLORIDE 0.9% IV STA (07:33)
[2017-05-22] MEDS ORDERED: DEXTROSE 50% IV STA (07:33)
[2017-05-22 07:40] VITALS: BMI 17.5
[2017-05-22 07:50] LABS: BASO # 0.04 K/mm3 (0.0-2.0); BASO % 0.3 % (0.0-3.0); EOS # 0.2 (0.0-0.7); EOS % 1.4 % (1.5-5.0); GRAN # 9.83 (1.4-6.5); GRAN % 77.2 % (50.0-68.0); HEMATOCRIT 25.6 % (36.0-48.0); LYMPH # 1.9 (1.2-3.4); LYMPH % 14.7 % (22.0-35.0); MEAN CORPUSCULAR HEMOGLOBIN 29.9 pg (25.0-35.0); MEAN PLATELET VOLUME 9.2 fl (7.0-11.0); MONO # 0.8 (0.1-0.6); MONO % 6.4 % (1.0-6.0); RED CELL DISTRIBUTION WIDTH 13.3 % (11.5-14.5); WHITE BLOOD COUNT 12.7 10^3/ul (4.5-11.0)
[2017-05-22 07:54] LABS: ALB/GLOB RATIO 1.6 (1.1-1.8); ALKALINE PHOSPHATASE 53 U/L (38-126); ALT/SGPT 23 U/L (7-56); AST/SGOT 34 U/L (14-36); BILIRUBIN,TOTAL 0.3 mg/dL (0.2-1.3); BLOOD UREA NITROGEN 22 mg/dL (7-21); CALCIUM 8.2 mg/dL (8.4-10.5); CARBON DIOXIDE 23 mmol/L (21-33); CHLORIDE 100 mmol/L (98-107); GFR AFRICAN-AMERICAN > 60; GLUCOSE,RANDOM 173 mg/dL (70-110); SODIUM 131 mmol/L (132-148); TOTAL PROTEIN 5.7 g/dL (5.8-8.3)
[2017-05-22 09:22] LABS: PH,URINE 6.5 (4.7-8.0); URINE BILIRUBIN NEGATIVE (NEGATIVE); URINE BLOOD TRACE-INTACT (NEGATIVE); URINE GLUCOSE (UA) 250 mg/dL (NEGATIVE); URINE KETONE NEGATIVE (NEGATIVE); URINE LEUKOCYTE ESTERASE NEGATIVE Leu/uL (NEGATIVE); URINE PROTEIN 100 mg/dL (<30 mg/dL); URINE UROBILINOGEN 0.2 E.U./dL (<1 E.U./dL)
[2017-05-22 09:24] LABS: URINE APPEARANCE CLEAR (CLEAR); URINE COLOR YELLOW (YELLOW)
[2017-05-22 09:40] LABS: URINE BACTERIA TRACE (NEG); URINE WBC NEGATIVE /hpf (0-6)
[2017-05-22 10:14] VITALS: BP 128/72; PULSE 74; RESP 20; TEMP 98; O2SAT 100
== END 2017-05-22 10:14 | disposition left against medical advice (07) ==
LOC: ED 07:09
DX: E10.649 Type 1 diabetes mellitus with hypoglycemia without coma (principal)
CPT/HCPCS: 80053; 81001; 82948; 85025; 96361; 96374; 99285; J7040

== ENCOUNTER 2017-05-26 07:32 | Emergency (ER) | payer OTHER ==
[2017-05-26 07:32] VITALS: BMI 17.5
[2017-05-26] MEDS ORDERED: Dextrose 50% SYRINGE Inj (50 ml) IVP STA (07:51)
--- NOTE | 2017-05-26 07:53 | ED PDOC ---
Arrival/HPI - General Time Seen by Provider: 05/26/17 07:44 Historian: EMS EM Caveat: Altered Mental Status - History of Present Illness Narrative History of Present Illness (Text): 05/26/17 07:53 A 66 year old female, whose past medical history includes hypoglycemia, diabetic ketoacidosis, hyperkalemia, hyperglycemia, and hyponatremia, is brought into the emergency department via EMS for hypoglycemia and altered mental status, which began prior to arrival. Patient's glucose is less than 20. 1 amp of D50 was administered in the emergency department and the patient was monitored bedside by me for response. On reevaluation, the patient is awake, alert, and in no distress. The patient admits to taking her usual insulin dosage , but denies eating. The patient currently is asymptomatic and denies any complaints at this time. Time/Duration: Prior to Arrival Symptom Onset: Sudden Symptom Course: Unchanged Activities at Onset: Rest Context: Home Past Medical History - Provider Review Nursing Documentation Reviewed: Yes - Infectious Disease Hx of Infectious Diseases: None - Tetanus Immunization Tetanus Immunization: Unknown - Cardiac Hx Cardiac Disorders: Yes (CAD) Hx Hypertension: Yes Hx Peripheral Vascular Disease: Yes (DVT) - Pulmonary Hx Respiratory Disorders: Yes (SMOKES CIGARETTES. PK LASTS A WEEK.) - Neurological Hx Neurological Disorder: No - HEENT Hx HEENT Disorder: No - Renal Hx Renal Disorder: No - Endocrine/Metabolic Hx Endocrine Disorders: Yes Hx Diabetes Mellitus Type 1: Yes - Hematological/Oncological Hx Blood Disorders: No - Integumentary Hx Dermatological Disorder: No - Musculoskeletal/Rheumatological Hx Musculoskeletal Disorders: No Hx Falls: Yes - Gastrointestinal Hx Gastrointestinal Disorders: No - Genitourinary/Gynecological Hx Genitourinary Disorders: Yes (C/S X 3) - Psychiatric Hx Psychophysiologic Disorder: No Hx Substance Use: No - Past Surgical History Past Surgical History: Unable to Obtain - Surgical History Hx Cardiac Catheterization: Yes Hx Coronary Stent: Yes - Anesthesia Hx Anesthesia: Yes Hx Anesthesia Reactions: No Hx Malignant Hyperthermia: No - Suicidal Assessment Feels Threatened In Home Enviroment: No Family/Social History - Physician Review Nursing Documentation Reviewed: Yes Family/Social History: Unknown Family HX Smoking Status: Current Some Days Smoker Hx Alcohol Use: No Hx Substance Use: No Hx Substance Use Treatment: No Allergies/Home Meds Allergies/Adverse Reactions: Allergies No Known Allergies Allergy (Verified 05/26/17 08:00) Home Medications: Home Meds Medication Instructions Recorded Confirmed Unobtainable 05/20/17 05/26/17 Physical Exam - Physical Exam Narrative Physical Exam (Text): 05/26/17 07:54 - Review of Systems Constitutional: Normal. absent: Fatigue, Weight Change, Fevers Eyes: Normal ENT: denies sore throat, denies tristhmus Respiratory: Normal. absent: SOB, Cough, Sputum Cardiovascular: absent: Chest Pain, Palpitations, Syncope Gastrointestinal: Normal. absent: Abdominal Pain, Diarrhea, Nausea, Vomiting Genitourinary: Normal. absent: Dysuria, Frequency, Hematuria Musculoskeletal: Normal. absent: Arthralgias, Back Pain, Neck Pain Skin: no rashes, no erythema Neurological: absent: Focal Weakness Endocrine: Normal Hemo/Lymphatic: Normal Psychiatric: No suicidal or homicidal ideations Physical exam Patient appears age appropriate in no distress, speaking full sentences without difficulty - Systems Exam Head: Present: Atraumatic, Normocephalic Pupils: Present: PERRL Extroacular Muscles: Present: EOMI Conjunctiva: Present: Normal Mouth: Present: Moist Mucous Membranes Neck: Present: Normal Range of Motion. No: MIDLINE TENDERNESS, Paraspinal Tenderness Respiratory/Chest: Present: Clear to Auscultation, Good Air Exchange. No: Respiratory Distress, Accessory Muscle Use, Tachypneic Cardiovascular: Present: Regular Rate and Rhythm, Normal S1, S2, Peripheal Pulses Present. No: Murmurs Abdomen: Present: Normal Bowel Sounds. No: Tenderness, Distention, Peritoneal Signs, Rebound, Guarding Back: Present: Normal Inspection. No: Midline Tenderness, Paraspinal Tenderness Upper Extremity: Present: Normal Inspection. No: Cyanosis, Edema Lower Extremity: Present: Normal Inspection. No: Edema Neurological: Present: GCS=15, Speech Normal, cranial nerves II through XII fully intact with no cerebellar abnormality, neurosensory fully intact. No focal neurological deficits. No focal deficits. Skin: Present: Warm, Dry, Normal Color. No: Rashes Lymphatic: Present: OX3, NI, NC Psychiatric: Present: Alert, Oriented x 3, Normal Insight, Normal Concentration 05/26/17 08:21 Vital Signs Temp Pulse Resp BP Pulse Ox 05/26/17 07:55 98.5 F 88 18 159/77 H 100 Medical Decision Making ED Course and Treatment: 05/26/17 07:50 Impression: A patient is brought in for AMS by EMS for hypoglycemia. Plan: -- EKG -- Chest X-ray -- Dextrose 50% -- Labs -- Urinalysis -- Reassess and disposition Prior Visits: Notes and results from previous visits were reviewed. The patient was last seen in the emergency department on 05/21/17 for reoccurring hypoglycemic episode. The patient was discharged home. Progress Notes: 05/26/17 07:57 Patient's glucose is less than 20 and 1 amp of D50 was administered in the emergency department. Patient was monitored bedside for response. On reevaluation, the patient is awake, alert, and in no distress. 05/26/17 08:00 Patient is anemic at baseline. 05/26/17 08:02 EKG: Ordered, reviewed, and independently interpreted the EKG. Rate : 91 BPM Rhythm : NSR Interpretation : No ST-segment elevations, normal intervals. Interpreted by me. Patient has very small inferior/lateral ST depressions, which were present on . 05/26/17 08:39 Pt in no distress and denies complaints eating without difficulty has no focal neurological deficits on reevaluation The patient refuses admission and wishes to leave the Emergency Department against my medical advice. Patient was told that admission to the hospital is necessary and a full explanation of the reasons why was given, and understood by patient. The risks of leaving were explained and include worsening of condition, and permanent disability and from an undiagnosed or untreated condition. The patient accepts these risks, and is in my judgment is competent and capable of understanding the clinical situation and my explanation of the risks of leaving. Patient was given the opportunity to ask questions and change mind. The patient was instructed regarding the best care for the present symptoms, and to follow up with Dr. Zapata as soon as possible, or return to the Emergency Department at any time for continuing care. - Lab Interpretations Lab Results: 05/26/17 07:42 05/26/17 07:42 Lab Results 05/26/17 08:12: Urine Color Yellow, Urine Appearance Sl cloudy, Urine pH 6.0, Ur Specific [place] 1.020, Urine Protein Trace H, Urine Glucose (UA) 250 H, Urine Ketones Negative, Urine Blood Negative, Urine Nitrate Negative, Urine Bilirubin Negative, Urine Urobilinogen 0.2, Ur Leukocyte Esterase Small H, Urine RBC Negative, Urine WBC 10 - 15 05/26/17 07:42: Sodium 139, Potassium 4.9, Chloride 106, Carbon Dioxide 23, Anion Gap 15, BUN 33 H, Creatinine 1.2, Est GFR ( Amer) 55, Est GFR (Non- Af Amer) 45, Random Glucose 80, Calcium 9.0, Magnesium 2.5 H, Total Bilirubin 0.4, AST 41 H D, ALT 16, Alkaline Phosphatase 64, Total Protein 6.4, Albumin 4.1 , Globulin 2.3, Albumin/Globulin Ratio 1.8 05/26/17 07:42: PT 11.1, INR 1.03, APTT 30.3 05/26/17 07:42: WBC 9.5 D, RBC 2.92 L, Hgb 8.8 L, Hct 26.1 L, MCV 89.4, MCH 30.1, MCHC 33.7, RDW 13.6, Plt Count 322, MPV 9.1, Gran % 61.7, Lymph % (Auto) 26.2, [place] % (Auto) 9.3 H, Eos % (Auto) 2.3, Baso % (Auto) 0.5, Gran # 5.84, Lymph # 2.5, [place]well # 0.9 H, Eos # 0.2, Baso # 0.05 - RAD Interpretation Radiology Orders: 05/26/17 07:50 CHEST PORTABLE [RAD] Stat - Medication Orders Current Medication Orders: Discontinued Medications Dextrose (Dextrose 50% Inj) 50 ml IVP STAT STA Stop: 05/26/17 07:52 Last Admin: 05/26/17 07:45 Dose: 50 ml IVP Administration Document 05/26/17 07:45 [facility] [place] (Rec: 05/26/17 08:07 [facility] [place] [facility] [id number]) Charges for Administration # of IVP Administrations 1 - Scribe Statement The provider has reviewed the documentation as recorded by the Malka Malhotra Provider Scribe Attestation: All medical record entries made by the Scribe were at my direction and personally dictated by me. I have reviewed the chart and agree that the record accurately reflects my personal performance of the history, physical exam, medical decision making, and the department course for this patient. I have also personally directed, reviewed, and agree with the discharge instructions and disposition. Disposition/Present on Arrival - Present on Arrival Any Indicators Present on Arrival: Yes History of DVT/PE: No History of Uncontrolled Diabetes: Yes Urinary Catheter: No History Surgical Site Infection Following: None - Disposition Have Diagnosis and Disposition been Completed?: Yes Diagnosis: Hyperglycemia Disposition: AGAINST MEDICAL ADVICE Disposition Time: 08:41 Patient Plan: Discharge Condition: GUARDED Discharge Instructions (ExitCare): Diabetic Hyperglycemia (ED), Against Medical Advice (ED) Additional Instructions: PLEASE RETURN TO THE EMERGENCY DEPARTMENT FOR NEW OR WORSENING SYMPTOMS. RETURN RIGHT AWAY IF YOU CANNOT FOLLOW UP WITH YOUR PRIMARY CARE DOCTOR, CLINIC, OR SPECIALIST IN 1-2 DAYS. Referrals: Jamie Stephens, [Primary Care Provider] - Follow up with primary Gabriel Zapata MD [Staff Provider] - Follow up with primary [facility] [place] - Follow up with primary
[2017-05-26 07:56] VITALS: BP 159/77; PULSE 88; RESP 18; TEMP 98.5; O2SAT 100
[2017-05-26 08:04] LABS: BASO # 0.05 K/mm3 (0.0-2.0); BASO % 0.5 % (0.0-3.0); EOS # 0.2 (0.0-0.7); EOS % 2.3 % (1.5-5.0); GRAN # 5.84 (1.4-6.5); GRAN % 61.7 % (50.0-68.0); HEMATOCRIT 26.1 % (36.0-48.0); LYMPH # 2.5 (1.2-3.4); LYMPH % 26.2 % (22.0-35.0); MEAN CELL VOLUME 89.4 fl (80.0-105.0); MEAN CORPUSCULAR HEMOGLOBIN 30.1 pg (25.0-35.0); MEAN CORPUSCULAR HGB CONC 33.7 g/dl (31.0-37.0); MEAN PLATELET VOLUME 9.1 fl (7.0-11.0); MONO # 0.9 (0.1-0.6); MONO % 9.3 % (1.0-6.0); RED CELL DISTRIBUTION WIDTH 13.6 % (11.5-14.5); WHITE BLOOD COUNT 9.5 10^3/ul (4.5-11.0)
[2017-05-26 08:10] LABS: INR 1.03 (0.93-1.08); PARTIAL THROMBOPLASTIN TIME 30.3 Seconds (23.7-30.8)
[2017-05-26 08:13] LABS: ALB/GLOB RATIO 1.8 (1.1-1.8); BILIRUBIN,TOTAL 0.4 mg/dL (0.2-1.3); MAGNESIUM 2.5 mg/dL (1.7-2.2); POTASSIUM 4.9 mmol/L (3.6-5.0); TOTAL PROTEIN 6.4 g/dL (5.8-8.3)
[2017-05-26 08:23] LABS: URINE BILIRUBIN NEGATIVE (NEGATIVE); URINE BLOOD NEGATIVE (NEGATIVE); URINE GLUCOSE (UA) 250 mg/dL (NEGATIVE); URINE KETONE NEGATIVE (NEGATIVE); URINE LEUKOCYTE ESTERASE SMALL Leu/uL (NEGATIVE); URINE PROTEIN TRACE mg/dL (<30 mg/dL); URINE UROBILINOGEN 0.2 E.U./dL (<1 E.U./dL)
[2017-05-26 08:24] LABS: URINE APPEARANCE SL CLOUDY (CLEAR); URINE COLOR YELLOW (YELLOW)
[2017-05-26 08:27] LABS: URINE RBC NEGATIVE /hpf (0-2)
--- NOTE | 2017-05-26 08:27 | RAD ---
HISTORY: cough COMPARISON: 05/20/2017. FINDINGS: LUNGS: The lungs are hyperinflated and there is peribronchial thickening with chronic changes in both lungs. PLEURA: No significant pleural effusion identified, no pneumothorax apparent. CARDIOVASCULAR: The heart is normal in size. Atherosclerotic aortic arch calcifications are present. OSSEOUS STRUCTURES: No significant abnormalities. VISUALIZED UPPER ABDOMEN: Normal. OTHER FINDINGS: None. IMPRESSION: No active pulmonary disease. COPD.
--- NOTE | 2017-05-26 21:28 | CARD ---
APPROVED REPORT EKG Measurement Heart [id number] MI [id number] <Conclusion> Normal sinus rhythm Rightward axis Nonspecific ST and T wave abnormality Abnormal ECG
== END 2017-05-26 08:53 | disposition left against medical advice (07) ==
LOC: ED 07:32
DX: E11.65 Type 2 diabetes mellitus with hyperglycemia (principal); I25.10 Atherosclerotic heart disease of native coronary artery without angina pectoris; I10 Essential (primary) hypertension; Z86.718 Personal history of other venous thrombosis and embolism; F17.210 Nicotine dependence, cigarettes, uncomplicated

== ENCOUNTER 2017-06-01 11:41 | Emergency (ER) | payer OTHER ==
[2017-06-01 11:41] VITALS: BMI 17.5
--- NOTE | 2017-06-01 11:54 | ED PDOC ---
Arrival/HPI - General Time Seen by Provider: 06/01/17 11:43 Historian: Patient - History of Present Illness Narrative History of Present Illness (Text): 06/01/17 11:54 A 66 year old female, whose past medical history includes diabetes on insulin, recurrent hypoglycemia, hypertension and hyperlipidemia, brought into the emergency department by EMS for altered mental status. As per EMS, family placed call after finding patient staring. They report patient was alert but not talking. Family believes patient took her insulin today but did not eat anything this morning. EMS report finding the patient in the same state. Patients initial finger stick was 61. On evaluation, patient is awake following commands but not speaking. ROS limited due to patients state. Time/Duration: Prior to Arrival Symptom Course: Unchanged Quality: Other Context: Home Past Medical History - Provider Review Nursing Documentation Reviewed: Yes - Infectious Disease Hx of Infectious Diseases: None - Tetanus Immunization Tetanus Immunization: Unknown - Cardiac Hx Cardiac Disorders: Yes (CAD) Hx Hypertension: Yes Hx Peripheral Vascular Disease: Yes (DVT) - Pulmonary Hx Respiratory Disorders: Yes (SMOKES CIGARETTES. PK LASTS A WEEK.) - Neurological Hx Neurological Disorder: No - HEENT Hx HEENT Disorder: No - Renal Hx Renal Disorder: No - Endocrine/Metabolic Hx Endocrine Disorders: Yes Hx Diabetes Mellitus Type 1: Yes - Hematological/Oncological Hx Blood Disorders: No - Integumentary Hx Dermatological Disorder: No - Musculoskeletal/Rheumatological Hx Musculoskeletal Disorders: No Hx Falls: Yes - Gastrointestinal Hx Gastrointestinal Disorders: No - Genitourinary/Gynecological Hx Genitourinary Disorders: Yes (C/S X 3) - Psychiatric Hx Psychophysiologic Disorder: No Hx Substance Use: No - Past Surgical History Past Surgical History: Unable to Obtain - Surgical History Hx Cardiac Catheterization: Yes Hx Coronary Stent: Yes - Anesthesia Hx Anesthesia: Yes Hx Anesthesia Reactions: No Hx Malignant Hyperthermia: No - Suicidal Assessment Feels Threatened In Home Enviroment: No Family/Social History - Physician Review Nursing Documentation Reviewed: Yes Family/Social History: No Known Family HX Smoking Status: Current Some Days Smoker Hx Alcohol Use: No Hx Substance Use: No Hx Substance Use Treatment: No Allergies/Home Meds Allergies/Adverse Reactions: Allergies No Known Allergies Allergy (Verified 06/01/17 11:50) Home Medications: Home Meds Medication Instructions Recorded Confirmed Unobtainable 05/20/17 06/01/17 Review of Systems - Review of Systems Systems not reviewed;Unavailable: Altered Mental Status Physical Exam Vital Signs Reviewed: Yes Vital Signs Temp Pulse Resp BP Pulse Ox 06/01/17 13:26 65 18 168/74 H 98 06/01/17 11:51 97.6 F 67 16 181/78 H 96 Temperature: Afebrile Blood Pressure: Hypertensive Pulse: Regular Respiratory Rate: Normal Appearance: Positive for: Well-Appearing, Non-Toxic, Comfortable Pain Distress: None Mental Status: No: Alert and Oriented X 3 (Alert and oriented x 1), Agitated, Lethargic - Systems Exam Head: Present: Atraumatic, Normocephalic Pupils: Present: PERRL Conjunctiva: Present: Normal Mouth: Present: Moist Mucous Membranes Pharnyx: No: ERYTHEMA, EXUDATE, TONSILS ENLARGED Neck: Present: Normal Range of Motion Respiratory/Chest: Present: Clear to Auscultation, Good Air Exchange. No: Respiratory Distress, Accessory Muscle Use Cardiovascular: Present: Regular Rate and Rhythm, Normal S1, S2. No: Murmurs Abdomen: Present: Normal Bowel Sounds. No: Tenderness, Distention, Peritoneal Signs Back: Present: Normal Inspection Upper Extremity: Present: Normal Inspection, Normal ROM, NORMAL PULSES. No: Cyanosis, Edema Lower Extremity: Present: Normal Inspection, NORMAL PULSES, Normal ROM. No: Edema, CALF TENDERNESS Neurological: Present: GCS=15, CN II-XII Intact. No: Speech Normal (not speaking) Skin: Present: Warm, Dry, Normal Color. No: Rashes Psychiatric: Present: Alert, Other (not speaking). No: Oriented x 3 (Oriented x 1) Medical Decision Making ED Course and Treatment: 06/01/17 11:54 Impression: A 66 year old female brought in for altered mental status. Differential Diagnosis included but are not limited to: Hypoglycemia vs. TIA vs. Metabolic abnormality vs. Intracranial hemorrhage Plan: -- Head CT -- Chest xray -- EKG -- Urinalysis -- Reassess and disposition Progress Notes: Report Date : 06/01/2017 12:43:27 Procedure: Chest xray Dictator : Tien Zamarripa MD IMPRESSION: No active disease. 06/01/17 13:34 Patient became fully awake, alert, and oriented x 3 with normal speech and gait after eating here in the ED. Patient does in fact admit that she did not eat despite taking her insulin and is without complaints now. She is however refussing any further workup in the ED and is insisting on leaving [facility], understanding all risks, including stroke, , permanent disability, or other undiagnosed pathology. She has signed the ama sheet. - Lab Interpretations Lab Results: Lab Results 06/01/17 12:51: POC Glucose (mg/dL) 64 L - RAD Interpretation Radiology Orders: 06/01/17 11:49 CHEST PORTABLE [RAD] Stat - Scribe Statement The provider has reviewed the documentation as recorded by the Scribe Tiffani Flaherty Provider Scribe Attestation: All medical record entries made by the Scribe were at my direction and personally dictated by me. I have reviewed the chart and agree that the record accurately reflects my personal performance of the history, physical exam, medical decision making, and the department course for this patient. I have also personally directed, reviewed, and agree with the discharge instructions and disposition. Disposition/Present on Arrival - Present on Arrival Any Indicators Present on Arrival: Yes History of DVT/PE: No History of Uncontrolled Diabetes: Yes Urinary Catheter: No History Surgical Site Infection Following: None - Disposition Have Diagnosis and Disposition been Completed?: Yes Diagnosis: Hypoglycemia, Altered mental status Disposition: AGAINST MEDICAL ADVICE Disposition Time: 13:35 Patient Plan: Other (AMA) Condition: UNKNOWN Discharge Instructions (ExitCare): Diabetic Hypoglycemia (ED) Additional Instructions: You are leaving against medical advice and may return to the emergency department at any time. If you choose not to do so, then follow up with primary care phillip. Make sure you eat when you take your insulin in the future.
[2017-06-01 11:57] VITALS: TEMP 97.6
--- NOTE | 2017-06-01 12:46 | RAD ---
HISTORY: alt ms COMPARISON: 05/26/2017 FINDINGS: LUNGS: No active pulmonary disease. PLEURA: No significant pleural effusion identified, no pneumothorax apparent. CARDIOVASCULAR: Normal. OSSEOUS STRUCTURES: No significant abnormalities. VISUALIZED UPPER ABDOMEN: Normal. OTHER FINDINGS: None. IMPRESSION: No active disease.
[2017-06-01 13:27] VITALS: BP 168/74; PULSE 65; RESP 18; O2SAT 98
--- NOTE | 2017-06-01 19:11 | CARD ---
APPROVED REPORT EKG Measurement Heart [id number] DC [id number] <Conclusion> Sinus rhythm with 1st degree AV block Rightward axis Low voltage QRS Borderline ECG
== END 2017-06-01 13:30 | disposition left against medical advice (07) ==
LOC: ED 11:41
DX: E11.649 Type 2 diabetes mellitus with hypoglycemia without coma (principal); R41.82 Altered mental status, unspecified; I10 Essential (primary) hypertension; Z79.4 Long term (current) use of insulin; F17.210 Nicotine dependence, cigarettes, uncomplicated

== ENCOUNTER 2017-06-04 17:23 | Emergency (ER) | payer OTHER ==
[2017-06-04] MEDS ORDERED: Dextrose 50% SYRINGE Inj (50 ml) ONE (17:26)
[2017-06-04 17:28] VITALS: BMI 24.5
--- NOTE | 2017-06-04 17:43 | ED PDOC ---
Arrival/HPI - General Chief Complaint: Altered Mental Status Time Seen by Provider: 06/04/17 17:28 Historian: Patient, Family (Son) - History of Present Illness Narrative History of Present Illness (Text): 06/04/17 17:36 A 66 year old male, whose past medical history includes diabetes, hypertension, hyperlipidemia, and recurrent episodes of hypoglycemia, presents to the emergency department via EMS. The patient's son states that he left the house to get food and when he came back, the patient was unresponsive with her eyes open. FS at home was <20. EMS was called, and BLS gave the patien glucose gel with no response. The patient arrived to the emergency department unresponsive and when a fingerstick was taken it was still less that 20. After the administration of a D50, the patient became more awake. The patient claims that she ate and took her insulin today. The patient currently denies any focal weaknesses fevers, chills, headache, dizziness, cough, sore throat, chest pain, shortness of breath, dyspnea on exertion, abdominal pain, nausea, vomiting, diarrhea, neck pain, back pain, urinary/bowel changes, trauma/injury, suicidal/ homicidal ideation, or any other complaints. Time/Duration: Prior to Arrival Symptom Onset: Sudden Symptom Course: Unchanged Activities at Onset: Rest, Light Context: Home Past Medical History - Provider Review Nursing Documentation Reviewed: Yes - Infectious Disease Hx of Infectious Diseases: None - Tetanus Immunization Tetanus Immunization: Unknown - Cardiac Hx Cardiac Disorders: Yes (CAD) Hx Hypertension: Yes Hx Peripheral Vascular Disease: Yes (DVT) - Pulmonary Hx Respiratory Disorders: Yes (SMOKES CIGARETTES. PK LASTS A WEEK.) - Neurological Hx Neurological Disorder: No - HEENT Hx HEENT Disorder: No - Renal Hx Renal Disorder: No - Endocrine/Metabolic Hx Endocrine Disorders: Yes Hx Diabetes Mellitus Type 1: Yes - Hematological/Oncological Hx Blood Disorders: No - Integumentary Hx Dermatological Disorder: No - Musculoskeletal/Rheumatological Hx Musculoskeletal Disorders: No Hx Falls: Yes - Gastrointestinal Hx Gastrointestinal Disorders: No - Genitourinary/Gynecological Hx Genitourinary Disorders: Yes (C/S X 3) - Psychiatric Hx Psychophysiologic Disorder: No Hx Substance Use: No - Past Surgical History Past Surgical History: Unable to Obtain - Surgical History Hx Cardiac Catheterization: Yes Hx Coronary Stent: Yes - Anesthesia Hx Anesthesia: Yes Hx Anesthesia Reactions: No Hx Malignant Hyperthermia: No - Suicidal Assessment Feels Threatened In Home Enviroment: No Family/Social History - Physician Review Nursing Documentation Reviewed: Yes Family/Social History: No Known Family HX Smoking Status: Current Some Days Smoker Hx Alcohol Use: No Hx Substance Use: No Hx Substance Use Treatment: No Allergies/Home Meds Allergies/Adverse Reactions: Allergies No Known Allergies Allergy (Verified 06/01/17 11:50) Home Medications: Home Meds Medication Instructions Recorded Confirmed Aspirin [Ecotrin] 81 mg PO DAILY 06/04/17 06/04/17 Atorvastatin [Lipitor] 40 mg PO DAILY 06/04/17 06/04/17 Enalapril Maleate [Vasotec] 10 mg PO DAILY 06/04/17 06/04/17 Glucagon [Glucagen Diagnostic Kit] 1 mg IM PRN PRN 06/04/17 06/04/17 Hydrochlorothiazide [Microzide] 12.5 mg PO DAILY 06/04/17 06/04/17 Insulin Aspart, Recombinant 4 unit SQ TID 06/04/17 06/04/17 [Novolog] Insulin Glargine,Hum.rec.anlog 8 unit SQ DAILY 06/04/17 06/04/17 [Basaglar Kwikpen U-100] Metoprolol Tartrate [Lopressor] 25 mg PO BID 06/04/17 06/04/17 Review of Systems - Physician Review All systems were reviewed & negative as marked: Yes - Review of Systems Systems not reviewed;Unavailable: Other (initially unobtainable but after waking - ROS done) Constitutional: absent: Fevers, Night Sweats ENT: absent: Sore Throat Respiratory: absent: SOB, Cough Cardiovascular: absent: Chest Pain, KRUEGER Gastrointestinal: absent: Abdominal Pain, Stool Changes, Diarrhea, Nausea, Vomiting Genitourinary Female: absent: Urine Output Changes Musculoskeletal: absent: Back Pain, Neck Pain Neurological: absent: Headache, Dizziness, Focal Weakness Psychiatric: absent: Suicidal Ideation Physical Exam Vital Signs Reviewed: Yes Vital Signs Temp Pulse Resp BP Pulse Ox 06/04/17 17:43 75 19 116/52 L 98 06/04/17 17:26 98.2 F 89 18 116/32 L 100 Temperature: Afebrile Blood Pressure: Normal Pulse: Regular Respiratory Rate: Normal Appearance: Positive for: Other (Unresponsive with eyes open initially then fully responsive and well-appearing after D50 administration) Pain Distress: None Mental Status: Positive for: other (Unresponisve initially then AA&O x 3 after D50) Finger Stick Blood Glucose: 20 - Systems Exam Head: Present: Atraumatic, Normocephalic Pupils: Present: PERRL Conjunctiva: Present: Normal Mouth: Present: Moist Mucous Membranes Pharnyx: Present: Normal. No: ERYTHEMA, EXUDATE Neck: Present: Normal Range of Motion Respiratory/Chest: Present: Clear to Auscultation, Good Air Exchange. No: Respiratory Distress, Accessory Muscle Use Cardiovascular: Present: Regular Rate and Rhythm, Normal S1, S2. No: Murmurs Abdomen: Present: Normal Bowel Sounds. No: Tenderness, Distention, Peritoneal Signs Back: Present: Normal Inspection Upper Extremity: Present: Normal Inspection. No: Cyanosis, Edema Lower Extremity: Present: Normal Inspection. No: Edema Neurological: Present: GCS=15, CN II-XII Intact, Speech Normal Skin: Present: Warm, Dry, Normal Color. No: Rashes Psychiatric: Present: Alert, Oriented x 3 (after D50 administration), Normal Insight, Normal Concentration, Other (Patient came in unresponsive with eyes open.) Medical Decision Making ED Course and Treatment: 06/04/17 17:44 Impression: A 66 year old female presents to the emergency department for hypoglycemia, unresponsive, with eyes open; given D50 with full response Plan: -- Head CT -- EKG -- Chest X-ray -- Labs -- Urinalysis -- Reassess and disposition Prior Visits: Notes and results from previous visits were reviewed. On 06/01/17 the patient was brought in for altered mental status. The patient left against medical advice. Progress Notes: 06/04/17 18:44 Patient with recurrent hyoglycemic episode. Patient became fully awake and alert and responsive with normal mental status with repeat FS of 254. The patient then decided that she wanted to leave against medical advice before any additional workup. Given the recurrent hypoglycemic, the patient does need to be admitted but is adamantly refusing, despite understanding the risks, including , disability, and other undiagnosed pathology. She has instead insisted to leave despite prolonged discussion with her. She has signed the ama sheet. - Lab Interpretations Lab Results: 06/04/17 17:30 06/04/17 17:30 Lab Results 06/04/17 18:00: Urine Color Yellow, Urine Appearance Sl cloudy, Urine pH 7.0, Ur Specific Silas 1.015, Urine Protein Trace H, Urine Glucose (UA) 500 H, Urine Ketones Negative, Urine Blood Negative, Urine Nitrate Negative, Urine Bilirubin Negative, Urine Urobilinogen 0.2, Ur Leukocyte Esterase Negative, Urine RBC Pending, Urine WBC Pending 06/04/17 17:30: Sodium 142, Potassium 4.6, Chloride 108 H, Carbon Dioxide 21, Anion Gap 18, BUN 33 H, Creatinine 1.3 H, Est GFR ( Amer) 50, Est GFR ( Non-Af Amer) 41, Random Glucose < 20 L* D, Calcium 9.0, Magnesium 2.4 H, Total Bilirubin 0.3, AST 46 H, ALT 32, Alkaline Phosphatase 76, Lactate Dehydrogenase 779 H, Total Creatine Kinase 98, Troponin I 0.01, Total Protein 7.0, Albumin 4.3 , Globulin 2.6, Albumin/Globulin Ratio 1.7 06/04/17 17:30: WBC 12.2 H D, RBC 3.54, Hgb 10.8 L D, Hct 31.7 L, MCV 89.5, MCH 30.5, MCHC 34.1, RDW 13.6, Plt Count 370, MPV 9.1, Gran % 54.5, Lymph % (Auto) 30.5, [place] % (Auto) 8.1 H, Eos % (Auto) 6.2 H, Baso % (Auto) 0.7, Gran # 6.65 H , Lymph # 3.7 H, [place] # 1.0 H, Eos # 0.8 H, Baso # 0.08 I have reviewed the lab results: Yes - EKG Interpretation Interpreted by ED Physician: Yes Type: 12 lead EKG - Scribe Statement The provider has reviewed the documentation as recorded by the Alineibteresa Chau Provider Scribe Attestation: All medical record entries made by the Scribe were at my direction and personally dictated by me. I have reviewed the chart and agree that the record accurately reflects my personal performance of the history, physical exam, medical decision making, and the department course for this patient. I have also personally directed, reviewed, and agree with the discharge instructions and disposition. Disposition/Present on Arrival - Present on Arrival Any Indicators Present on Arrival: Yes History of DVT/PE: No History of Uncontrolled Diabetes: Yes Urinary Catheter: No History of Decub. Ulcer: No History Surgical Site Infection Following: None - Disposition Have Diagnosis and Disposition been Completed?: Yes Diagnosis: Hypoglycemia Disposition: AGAINST MEDICAL ADVICE Disposition Time: 18:10 Patient Plan: Other (AMA) Condition: STABLE Additional Instructions: You are leaving against medical advice and may return to the emergency department at any time. Make sure you always eat before taking insulin. If you choose not to return to the emergency department, then follow up as soon as possible with your collection agent and primary care doctor. Referrals: Ashtyn Robledo NP [Primary Care Provider] - Follow up with primary Gabriel Zapata MD [Staff Provider] - Follow up with primary Forms: [employer] (Korean)
[2017-06-04 17:44] VITALS: BP 116/52; PULSE 75; RESP 19; O2SAT 98
[2017-06-04 17:46] VITALS: TEMP 98.2
[2017-06-04 17:59] LABS: BASO # 0.08 K/mm3 (0.0-2.0); BASO % 0.7 % (0.0-3.0); EOS # 0.8 (0.0-0.7); EOS % 6.2 % (1.5-5.0); GRAN # 6.65 (1.4-6.5); GRAN % 54.5 % (50.0-68.0); HEMATOCRIT 31.7 % (36.0-48.0); LYMPH # 3.7 (1.2-3.4); LYMPH % 30.5 % (22.0-35.0); MEAN CELL VOLUME 89.5 fl (80.0-105.0); MEAN CORPUSCULAR HEMOGLOBIN 30.5 pg (25.0-35.0); MEAN CORPUSCULAR HGB CONC 34.1 g/dl (31.0-37.0); MEAN PLATELET VOLUME 9.1 fl (7.0-11.0); MONO % 8.1 % (1.0-6.0); RED CELL DISTRIBUTION WIDTH 13.6 % (11.5-14.5); WHITE BLOOD COUNT 12.2 10^3/ul (4.5-11.0)
[2017-06-04 18:09] LABS: ALB/GLOB RATIO 1.7 (1.1-1.8); ALKALINE PHOSPHATASE 76 U/L (38-126); ALT/SGPT 32 U/L (7-56); AST/SGOT 46 U/L (14-36); BILIRUBIN,TOTAL 0.3 mg/dL (0.2-1.3); BLOOD UREA NITROGEN 33 mg/dL (7-21); CARBON DIOXIDE 21 mmol/L (21-33); CHLORIDE 108 mmol/L (98-107); GFR AFRICAN-AMERICAN 50; MAGNESIUM 2.4 mg/dL (1.7-2.2); POTASSIUM 4.6 mmol/L (3.6-5.0); SODIUM 142 mmol/L (132-148)
[2017-06-04 18:22] LABS: GLUCOSE,RANDOM < 20 mg/dL (70-110); TROPONIN I 0.01 ng/mL
[2017-06-04 18:26] LABS: URINE BILIRUBIN NEGATIVE (NEGATIVE); URINE BLOOD NEGATIVE (NEGATIVE); URINE GLUCOSE (UA) 500 mg/dL (NEGATIVE); URINE KETONE NEGATIVE (NEGATIVE); URINE LEUKOCYTE ESTERASE NEGATIVE Leu/uL (NEGATIVE); URINE PROTEIN TRACE mg/dL (<30 mg/dL); URINE UROBILINOGEN 0.2 E.U./dL (<1 E.U./dL)
[2017-06-04 18:31] LABS: URINE APPEARANCE SL CLOUDY (CLEAR); URINE COLOR YELLOW (YELLOW)
[2017-06-04 19:04] LABS: URINE RBC 0 - 2 /hpf (0-2)
[2017-06-04 19:05] LABS: URINE EPITHELIAL CELLS 0 - 2 /hpf (0-5); URINE WBC 0 - 2 /hpf (0-6)
--- NOTE | 2017-06-06 12:28 | CARD ---
APPROVED REPORT EKG Measurement Heart [id number] <Conclusion> Sinus rhythm with 1st degree AV block Rightward axis Borderline ECG
== END 2017-06-04 18:19 | disposition left against medical advice (07) ==
LOC: ED 17:23
DX: E10.649 Type 1 diabetes mellitus with hypoglycemia without coma (principal); Z79.4 Long term (current) use of insulin; E78.5 Hyperlipidemia, unspecified; F17.210 Nicotine dependence, cigarettes, uncomplicated; I10 Essential (primary) hypertension; I25.10 Atherosclerotic heart disease of native coronary artery without angina pectoris

== ENCOUNTER 2017-06-11 12:16 | Emergency (ER) | payer OTHER ==
[2017-06-11] MEDS ORDERED: Dextrose 50% SYRINGE Inj (50 ml) ONE ×2 (12:20→12:23)
[2017-06-11 12:23] VITALS: BMI 23.8
[2017-06-11] MEDS ORDERED: Dextrose 50% SYRINGE Inj (50 ml) IVP STA ×2 (12:29)
[2017-06-11] MEDS ORDERED: Sodium Chloride 0.9% 1,000 ML IV STA (12:33)
[2017-06-11 12:37] LABS: BASO # 0.07 K/mm3 (0.0-2.0); BASO % 0.6 % (0.0-3.0); EOS # 0.6 (0.0-0.7); EOS % 4.8 % (1.5-5.0); GRAN # 6.63 (1.4-6.5); GRAN % 54.7 % (50.0-68.0); HEMATOCRIT 30.4 % (36.0-48.0); LYMPH % 32.6 % (22.0-35.0); MEAN CELL VOLUME 89.4 fl (80.0-105.0); MEAN CORPUSCULAR HEMOGLOBIN 29.7 pg (25.0-35.0); MEAN CORPUSCULAR HGB CONC 33.2 g/dl (31.0-37.0); MEAN PLATELET VOLUME 9.4 fl (7.0-11.0); MONO # 0.9 (0.1-0.6); MONO % 7.3 % (1.0-6.0); RED CELL DISTRIBUTION WIDTH 13.6 % (11.5-14.5); WHITE BLOOD COUNT 12.1 10^3/ul (4.5-11.0)
--- NOTE | 2017-06-11 12:44 | ED PDOC ---
Arrival/HPI - General Chief Complaint: Altered Mental Status Time Seen by Provider: 06/11/17 12:18 Historian: Patient - Critical Care Critical Care Minutes: 30 minutes - History of Present Illness Narrative History of Present Illness (Text): 06/11/17 12:51 66 year old female presents diabetes, hypertension, hyperlipidemia, and recurrent episodes of hypoglycemia, presents to the emergency department by EMS. EMS arrived when patient was unresponsive. Patient arrives to the emergency department unresponsive and was seen and evaluated. After the administration of two D50 and the patient was awake and oriented. Patient was able to proved a full history. She was not able to recall what happened during her episode of hypoglycemia. Patient claims that she's been eating fine and has been taking her insulin. Patient denies any fever, chills, chest pain, shortness of breath, nausea, vomiting, diarrhea, urinary symptoms, back pain, neck pain, headache, dizziness, or any other complaints. PMD: None Time/Duration: Prior to Arrival Symptom Onset: Sudden Symptom Course: Unchanged Activities at Onset: Light Context: Home Past Medical History - Provider Review Nursing Documentation Reviewed: Yes - Infectious Disease Hx of Infectious Diseases: None - Tetanus Immunization Tetanus Immunization: Unknown - Reproductive Menopause: Yes - Cardiac Hx Cardiac Disorders: Yes (CAD) Hx Hypertension: Yes Hx Peripheral Vascular Disease: Yes (DVT) - Pulmonary Hx Respiratory Disorders: Yes (SMOKES CIGARETTES. PK LASTS A WEEK.) - Neurological Hx Neurological Disorder: No - HEENT Hx HEENT Disorder: No - Renal Hx Renal Disorder: No - Endocrine/Metabolic Hx Endocrine Disorders: Yes Hx Diabetes Mellitus Type 1: Yes - Hematological/Oncological Hx Blood Disorders: No - Integumentary Hx Dermatological Disorder: No - Musculoskeletal/Rheumatological Hx Musculoskeletal Disorders: No Hx Falls: Yes - Gastrointestinal Hx Gastrointestinal Disorders: No - Genitourinary/Gynecological Hx Genitourinary Disorders: Yes (C/S X 3) - Psychiatric Hx Psychophysiologic Disorder: No Hx Substance Use: No - Past Surgical History Past Surgical History: Unable to Obtain - Surgical History Hx Cardiac Catheterization: Yes Hx Coronary Stent: Yes - Anesthesia Hx Anesthesia: Yes Hx Anesthesia Reactions: No Hx Malignant Hyperthermia: No - Suicidal Assessment Feels Threatened In Home Enviroment: No Family/Social History - Physician Review Nursing Documentation Reviewed: Yes Family/Social History: No Known Family HX Smoking Status: Current Some Days Smoker Hx Alcohol Use: No Hx Substance Use: No Hx Substance Use Treatment: No Allergies/Home Meds Allergies/Adverse Reactions: Allergies No Known Allergies Allergy (Verified 06/11/17 12:27) Home Medications: Home Meds Medication Instructions Recorded Confirmed Aspirin [Ecotrin] 81 mg PO DAILY 06/04/17 06/11/17 Atorvastatin [Lipitor] 40 mg PO DAILY 06/04/17 06/11/17 Enalapril Maleate [Vasotec] 10 mg PO DAILY 06/04/17 06/11/17 Glucagon [Glucagen Diagnostic Kit] 1 mg IM PRN PRN 06/04/17 06/11/17 Hydrochlorothiazide [Microzide] 12.5 mg PO DAILY 06/04/17 06/11/17 Insulin Aspart, Recombinant 4 unit SQ TID 06/04/17 06/11/17 [Novolog] Insulin Glargine,Hum.rec.anlog 8 unit SQ DAILY 06/04/17 06/11/17 [Basaglar Kwikpen U-100] Metoprolol Tartrate [Lopressor] 25 mg PO BID 06/04/17 06/11/17 Review of Systems - Physician Review All systems were reviewed & negative as marked: Yes - Review of Systems Constitutional: absent: Fevers, Other (Chills) Respiratory: absent: SOB Cardiovascular: absent: Chest Pain Gastrointestinal: absent: Diarrhea, Nausea, Vomiting Genitourinary Female: absent: Dysuria, Frequency, Hematuria Musculoskeletal: absent: Neck Pain Neurological: absent: Headache, Dizziness Physical Exam Vital Signs Reviewed: Yes Vital Signs Temp Pulse Resp BP Pulse Ox 06/11/17 13:45 78 18 161/87 H 99 06/11/17 13:22 55 L 18 167/86 H 100 06/11/17 12:42 97.8 F 62 17 97/68 L 100 06/11/17 12:28 98.6 F 61 16 90/67 L 99 06/11/17 12:27 98.7 F 62 17 144/80 99 Temperature: Afebrile Blood Pressure: Normal Pulse: Regular Respiratory Rate: Normal Appearance: Positive for: Well-Appearing, Non-Toxic Pain Distress: None Mental Status: Positive for: Alert and Oriented X 3, Confused Finger Stick Blood Glucose: 20 - Systems Exam Head: Present: Atraumatic, Normocephalic Pupils: Present: PERRL Extroacular Muscles: Present: EOMI Conjunctiva: Present: Normal Mouth: Present: Moist Mucous Membranes Neck: Present: Normal Range of Motion Respiratory/Chest: Present: Clear to Auscultation, Good Air Exchange. No: Respiratory Distress, Accessory Muscle Use Cardiovascular: Present: Regular Rate and Rhythm, Normal S1, S2. No: Murmurs Abdomen: Present: Normal Bowel Sounds. No: Tenderness, Distention, Peritoneal Signs Back: Present: Normal Inspection Upper Extremity: Present: Normal Inspection. No: Cyanosis, Edema Lower Extremity: Present: Normal Inspection. No: Edema Neurological: Present: GCS=15, CN II-XII Intact, Speech Normal Skin: Present: Dry, Normal Color, Diaphoretic, Cold. No: Rashes Psychiatric: Present: Alert, Oriented x 3, Normal Insight, Normal Concentration Medical Decision Making ED Course and Treatment: 06/11/17 12:51 Impression: 66 year old female presents to the emergency department unresponsive during her hypoglycemic episode. Patient awake after 2 abs of D50. Differential Diagnosis included but are not limited to: Hypoglycemic secondary to diet and misuse of medication Plan: -- EKG -- Labs -- Chest X-ray -- Dextrose 50% Inj -- IV Fluid -- Urine Culture -- Reassess and disposition Prior Visits: Notes and results from previous visits were reviewed. On 06/04/17 patient came in unresponsive during her recurrent hypoglycemic episodes. Patient left against medical advice. Progress Notes: EKG shows Sinus Bradycardic at 59 BPM with first degree AV Block. Interpreted by me. 06/11/17 13:57 Leaving Against Medical Advice (AMA): This patient is choosing to leave against medical advice. I have personally explained to the patient that choosing to do so may result in permanent bodily harm or due to her frequent hypoglycemic episodes. I have discussed at great length that without further evaluation and monitoring there may be unforeseen circumstances and/or deterioration causing permanent bodily harm or as a result of their choice. The patient is alert, oriented, and shows the mental capacity to make clear decisions regarding the patients health care at this time. The patient continues to wish to leave against medical advice. In light of the patients decision to leave AMA, patient is aware of the importance of following up as instructed. The patient has been advised that they should return to the ED immediately if they change their mind at any time, or if their condition begins to change or worsen in any way. - Lab Interpretations Lab Results: 06/11/17 12:20 06/11/17 12:20 Lab Results 06/11/17 13:20: POC Glucose (mg/dL) 271 H 06/11/17 12:39: POC Glucose (mg/dL) 495 H* 06/11/17 12:21: POC Glucose (mg/dL) < 20 L* 06/11/17 12:20: Sodium 140, Potassium 4.3, Chloride 110 H, Carbon Dioxide 21, Anion Gap 13, BUN 40 H, Creatinine 1.3 H, Est GFR ( Amer) 50, Est GFR ( Non-Af Amer) 41, Random Glucose 22 L*, Calcium 9.0, Magnesium 2.6 H, Total Bilirubin 0.3, AST 45 H, ALT 33, Alkaline Phosphatase 64, Total Protein 7.0, Albumin 4.4, Globulin 2.5, Albumin/Globulin Ratio 1.8 06/11/17 12:20: WBC 12.1 H, RBC 3.40 L, Hgb 10.1 L, Hct 30.4 L, MCV 89.4, MCH 29.7, MCHC 33.2, RDW 13.6, Plt Count 366, MPV 9.4, Gran % 54.7, Lymph % (Auto) 32.6, [place] % (Auto) 7.3 H, Eos % (Auto) 4.8, Baso % (Auto) 0.6, Gran # 6.63 H, Lymph # 4.0 H, [place] # 0.9 H, Eos # 0.6, Baso # 0.07 I have reviewed the lab results: Yes - RAD Interpretation Radiology Orders: 06/11/17 12:27 CHEST PORTABLE [RAD] Stat - EKG Interpretation Interpreted by ED Physician: Yes Type: 12 lead EKG - Medication Orders Current Medication Orders: Discontinued Medications Dextrose (Dextrose 50% Inj) 50 ml IVP STAT STA Stop: 06/11/17 12:30 Last Admin: 06/11/17 13:10 Dose: Dextrose (Dextrose 50% Inj) 50 ml IVP STAT STA Stop: 06/11/17 12:30 Last Admin: 06/11/17 13:10 Dose: Sodium Chloride (Sodium Chloride 0.9%) 1,000 mls @ 999 mls/hr IV .Q1H1M STA Stop: 06/11/17 13:33 Last Admin: 06/11/17 13:13 Dose: 999 mls/hr eMAR Start Stop Document 06/11/17 13:13 AB (Rec: 06/11/17 13:13 AB [id number]) Intravenous Solution Start Date 06/11/17 Start Time 13:13 End Date 06/11/17 End time 14:13 Total Infusion Time 60 - Scribe Statement The provider has reviewed the documentation as recorded by the Scribe Lexi Frazier All medical record entries made by the Scribe were at my direction and personally dictated by me. I have reviewed the chart and agree that the record accurately reflects my personal performance of the history, physical exam, medical decision making, and the department course for this patient. I have also personally directed, reviewed, and agree with the discharge instructions and disposition. Disposition/Present on Arrival - Present on Arrival Any Indicators Present on Arrival: Yes History of DVT/PE: No History of Uncontrolled Diabetes: Yes Urinary Catheter: No History of Decub. Ulcer: No History Surgical Site Infection Following: None - Disposition Have Diagnosis and Disposition been Completed?: No Diagnosis: Hypoglycemia Disposition: AGAINST MEDICAL ADVICE Disposition Time: 13:58 Condition: IMPROVED Discharge Instructions (ExitCare): Diabetic Hypoglycemia (ED) Additional Instructions: Ms Ramirez , thank you for letting us take care of you today. Your provider was Dr. Vela. You were treated for Hypoglycemia. The emergency medical care you received today was directed at your acute symptoms. If you were prescribed any medication, please fill it and take as directed. It may take several days for your symptoms to resolve. Return to the Emergency Department if your symptoms worsen, do not improve, or if you have any other problems. Please contact your doctor or call one of the physicians/clinics you have been referred to that are listed on the Patient Visit Information form that is included in your discharge packet. Bring any paperwork you were given at discharge with you along with any medications you are taking to your follow up visit. Our treatment cannot replace ongoing medical care by a primary care provider (PCP) outside of the emergency department. Thank you for allowing the [facility] team to be part of your care today. If you had an X-Ray or CT scan: A Radiologist will review the ED reading if any change in treatment is needed we will contact you. If you had a blood, urine, or wound culture: It will take several days for the results, if any change in treatment is needed we will contact you. If you had an STI test: It will take 48 hours for the results. Please call after 1 week if you have not heard back. Referrals: PCP,NO [Primary Care Provider] - Follow up with primary Forms: [employer] (Greenlandic)
[2017-06-11 12:48] LABS: ALB/GLOB RATIO 1.8 (1.1-1.8); BILIRUBIN,TOTAL 0.3 mg/dL (0.2-1.3); MAGNESIUM 2.6 mg/dL (1.7-2.2); POTASSIUM 4.3 mmol/L (3.6-5.0)
[2017-06-11 13:12] VITALS: TEMP 97.8
[2017-06-11 13:23] VITALS: RESP 18
[2017-06-11 13:58] VITALS: BP 161/87; PULSE 78; O2SAT 99
--- NOTE | 2017-06-11 13:59 | RAD ---
HISTORY: Sepsis Patient COMPARISON: 06/01/2017 FINDINGS: LUNGS: No active pulmonary disease. PLEURA: No significant pleural effusion identified, no pneumothorax apparent. CARDIOVASCULAR: Normal. OSSEOUS STRUCTURES: No significant abnormalities. VISUALIZED UPPER ABDOMEN: Normal. OTHER FINDINGS: None. IMPRESSION: No active disease.
--- NOTE | 2017-06-11 22:15 | CARD ---
APPROVED REPORT EKG Measurement Heart [id number] <Conclusion> Sinus bradycardia with 1st degree AV block Rightward axis Low voltage QRS Nonspecific T wave abnormality Abnormal ECG
== END 2017-06-11 14:00 | disposition left against medical advice (07) ==
LOC: ED 12:16
DX: E11.649 Type 2 diabetes mellitus with hypoglycemia without coma (principal); I10 Essential (primary) hypertension; F17.210 Nicotine dependence, cigarettes, uncomplicated
CPT/HCPCS: 71010; 80053; 82948; 83735; 85025; 93005; 96360; 99285; J7040

== ENCOUNTER 2017-06-18 09:06 | Emergency (ER) | payer OTHER ==
[2017-06-18] MEDS ORDERED: Dextrose 50% SYRINGE Inj (50 ml) ONE (09:12)
[2017-06-18 09:17] VITALS: BMI 18.3
[2017-06-18] MEDS ORDERED: Dextrose 50% SYRINGE Inj (50 ml) IVP STA ×2 (09:22)
--- NOTE | 2017-06-18 09:31 | ED PDOC ---
Arrival/HPI - General Chief Complaint: Altered Mental Status Time Seen by Provider: 06/18/17 09:10 Historian: Patient - History of Present Illness Narrative History of Present Illness (Text): 06/18/17 09:28 A 66 year old female whose past medical history includes diabetes, hypertension , hyperlipidemia, and recurrent episodes of hypoglycemia, presents to the emergency department after a hypoglycemic episode. The patient is well know to the emergency department. Today, the patient was found on the floor by her son. In the emergency department, the patient's blood sugar was 20. The patient denies any complaint. In prior visits the patient always requests to leave and is already stating that she wants to leave the emergency room. The patient denies fevers, chills, headache, dizziness, chest pain, shortness of breath, dyspnea on exertion, cough, abdominal pain, nausea, vomiting, diarrhea, back pain, neck pain, urinary/bowel changes, or any other complaint. Time/Duration: Prior to Arrival Symptom Onset: Sudden Symptom Course: Unchanged Activities at Onset: Rest, Light Context: Home Past Medical History - Provider Review Nursing Documentation Reviewed: Yes - Infectious Disease Hx of Infectious Diseases: None - Tetanus Immunization Tetanus Immunization: Unknown - Cardiac Hx Cardiac Disorders: Yes (CAD) Hx Hypertension: Yes Hx Peripheral Vascular Disease: Yes (DVT) - Pulmonary Hx Respiratory Disorders: Yes (SMOKES CIGARETTES. PK LASTS A WEEK.) - Neurological Hx Neurological Disorder: No - HEENT Hx HEENT Disorder: No - Renal Hx Renal Disorder: No - Endocrine/Metabolic Hx Endocrine Disorders: Yes Hx Diabetes Mellitus Type 1: Yes - Hematological/Oncological Hx Blood Disorders: No - Integumentary Hx Dermatological Disorder: No - Musculoskeletal/Rheumatological Hx Musculoskeletal Disorders: No Hx Falls: Yes - Gastrointestinal Hx Gastrointestinal Disorders: No - Genitourinary/Gynecological Hx Genitourinary Disorders: Yes (C/S X 3) - Psychiatric Hx Psychophysiologic Disorder: No Hx Substance Use: No - Past Surgical History Past Surgical History: Unable to Obtain - Surgical History Hx Cardiac Catheterization: Yes Hx Coronary Stent: Yes - Anesthesia Hx Anesthesia: Yes Hx Anesthesia Reactions: No Hx Malignant Hyperthermia: No - Suicidal Assessment Feels Threatened In Home Enviroment: No Family/Social History - Physician Review Nursing Documentation Reviewed: Yes Family/Social History: No Known Family HX Smoking Status: Current Some Days Smoker Hx Alcohol Use: No Hx Substance Use: No Hx Substance Use Treatment: No Allergies/Home Meds Allergies/Adverse Reactions: Allergies No Known Allergies Allergy (Verified 06/11/17 12:27) Home Medications: Home Meds Medication Instructions Recorded Confirmed Aspirin [Ecotrin] 81 mg PO DAILY 06/04/17 06/18/17 Atorvastatin [Lipitor] 40 mg PO DAILY 06/04/17 06/18/17 Enalapril Maleate [Vasotec] 10 mg PO DAILY 06/04/17 06/18/17 Glucagon [Glucagen Diagnostic Kit] 1 mg IM PRN PRN 06/04/17 06/18/17 Hydrochlorothiazide [Microzide] 12.5 mg PO DAILY 06/04/17 06/18/17 Insulin Aspart, Recombinant 4 unit SQ TID 06/04/17 06/18/17 [Novolog] Insulin Glargine,Hum.rec.anlog 8 unit SQ DAILY 06/04/17 06/18/17 [Basaglar Kwikpen U-100] Metoprolol Tartrate [Lopressor] 25 mg PO BID 06/04/17 06/18/17 Review of Systems - Physician Review All systems were reviewed & negative as marked: Yes - Review of Systems Constitutional: Other (Hypoglycemia). absent: Fevers, Night Sweats ENT: absent: Sore Throat Respiratory: absent: SOB, Cough Cardiovascular: absent: Chest Pain, KRUEGER Gastrointestinal: absent: Abdominal Pain, Stool Changes, Diarrhea, Nausea, Vomiting Genitourinary Female: absent: Urine Output Changes Musculoskeletal: absent: Back Pain, Neck Pain Neurological: absent: Headache, Dizziness Physical Exam Vital Signs Reviewed: Yes Vital Signs Temp Pulse Resp BP Pulse Ox 06/18/17 10:06 98.2 F 80 18 144/76 98 06/18/17 09:24 97.8 F 79 16 127/60 100 Temperature: Afebrile Blood Pressure: Normal Pulse: Regular Respiratory Rate: Normal Appearance: Positive for: Well-Appearing, Non-Toxic, Comfortable Pain Distress: None Mental Status: Positive for: Alert and Oriented X 3 Finger Stick Blood Glucose: 20 - Systems Exam Head: Present: Atraumatic, Normocephalic Pupils: Present: PERRL Extroacular Muscles: Present: EOMI Conjunctiva: Present: Normal Mouth: Present: Moist Mucous Membranes Neck: Present: Normal Range of Motion Respiratory/Chest: Present: Clear to Auscultation, Good Air Exchange. No: Respiratory Distress, Accessory Muscle Use Cardiovascular: Present: Regular Rate and Rhythm, Normal S1, S2. No: Murmurs Abdomen: Present: Normal Bowel Sounds. No: Tenderness, Distention, Peritoneal Signs Back: Present: Normal Inspection Upper Extremity: Present: Normal Inspection. No: Cyanosis, Edema Lower Extremity: Present: Normal Inspection. No: Edema Neurological: Present: GCS=15, CN II-XII Intact, Speech Normal Skin: Present: Warm, Dry, Normal Color. No: Rashes Psychiatric: Present: Alert, Oriented x 3, Normal Insight, Normal Concentration Medical Decision Making ED Course and Treatment: 06/18/17 09:36 Impression: A 66 year old female presents to the emergency department with an episode of hypoglycemia. Plan: -- EKG -- Labs -- Dextrose -- Urinalysis -- Reassess and disposition Prior Visits: Notes and results from previous visits were reviewed. Patient was last seen in the emergency department on 06/11/2017. The pateint was seen in the emergency department for an episode of hypoglycemia. The patient signed out AMA. Progress Notes: EKG: Ordered, reviewed, and independently interpreted the EKG. Rate : 77 BPM Rhythm : NSR Interpretation : No ST-T wave changes. 06/18/17 10:18 Leaving Against Medical Advice (AMA): The patient is choosing to leave against medical advice. I have personally explained to the patient that choosing to do so may result in permanent bodily harm or . I have discussed at great length that without further evaluation and monitoring there may be unforeseen circumstances and/or deterioration causing permanent bodily harm or as a result of their choice. The patient is alert, oriented, and shows the mental capacity to make clear decisions regarding the patients health care at this time. The patient continues to wish to leave against medical advice. The patient has been advised that they should return to the emergency room immediately if they change their mind at any time, or if their condition begins to change or worsen in any way. - Lab Interpretations Lab Results: 06/18/17 09:20 06/18/17 09:20 Lab Results 06/18/17 10:00: Urine Color Straw, Urine Appearance Clear, Urine pH 6.5, Ur Specific [place] 1.010, Urine Protein Trace H, Urine Glucose (UA) >=1000, Urine Ketones Negative, Urine Blood Negative, Urine Nitrate Negative, Urine Bilirubin Negative, Urine Urobilinogen 0.2, Ur Leukocyte Esterase Negative, Urine RBC 0 - 2, Urine WBC 0 - 2, Ur Epithelial Cells 0 - 2, Urine Bacteria Trace 06/18/17 09:20: Sodium 138, Potassium 5.2 H, Chloride 106, Carbon Dioxide 21, Anion Gap 16, BUN 29 H, Creatinine 1.2, Est GFR ( Amer) 55, Est GFR (Non- Af Amer) 45, Random Glucose < 20 L*, Calcium 9.9, Magnesium 2.4 H, Total Bilirubin 0.6, AST 51 H, ALT 40, Alkaline Phosphatase 79, Lactate Dehydrogenase 900 H, Total Creatine Kinase 85, Troponin I < 0.01, Total Protein 7.3, Albumin 4.7, Globulin 2.6, Albumin/Globulin Ratio 1.8 06/18/17 09:20: WBC 12.1 H, RBC 3.71, Hgb 11.2 L, Hct 33.0 L, MCV 88.9, MCH 30.2 , MCHC 33.9, RDW 13.3, Plt Count 366, MPV 9.4, Gran % 47.4 L, Lymph % (Auto) 34.6, [place] % (Auto) 8.4 H, Eos % (Auto) 8.7 H, Baso % (Auto) 0.9, Gran # 5.75, Lymph # 4.2 H, [place] # 1.0 H, Eos # 1.1 H, Baso # 0.11 I have reviewed the lab results: Yes - EKG Interpretation Interpreted by ED Physician: Yes Type: 12 lead EKG - Medication Orders Current Medication Orders: Discontinued Medications Dextrose (Dextrose 50% Inj) 50 ml IVP STAT STA Stop: 06/18/17 09:23 Last Admin: 06/18/17 09:12 Dose: 50 ml IVP Administration Document 06/18/17 09:12 TAHIRA (Rec: 06/18/17 09:33 [id number]) Charges for Administration # of IVP Administrations 1 Dextrose (Dextrose 50% Inj) 50 ml IVP STAT STA Stop: 06/18/17 09:23 Last Admin: 06/18/17 09:28 Dose: 50 ml IVP Administration Document 06/18/17 09:28 TAHIRA (Rec: 06/18/17 09:34 [id number]) Charges for Administration # of IVP Administrations 1 - Scribe Statement The provider has reviewed the documentation as recorded by the Scribe Shantell Chau Provider Scribe Attestation: All medical record entries made by the Scribe were at my direction and personally dictated by me. I have reviewed the chart and agree that the record accurately reflects my personal performance of the history, physical exam, medical decision making, and the department course for this patient. I have also personally directed, reviewed, and agree with the discharge instructions and disposition. Disposition/Present on Arrival - Present on Arrival Any Indicators Present on Arrival: No History of DVT/PE: No History of Uncontrolled Diabetes: Yes Urinary Catheter: No History of Decub. Ulcer: No History Surgical Site Infection Following: None - Disposition Have Diagnosis and Disposition been Completed?: Yes Diagnosis: Hypoglycemia Disposition: AGAINST MEDICAL ADVICE Disposition Time: 10:00 Condition: UNKNOWN Discharge Instructions (ExitCare): Diabetic Hypoglycemia (DC), Against Medical Advice (ED) Additional Instructions: please follow up with your doctor. discuss your diabetic medication regimen. return to er with worsening symptoms or concerns. Referrals: Jessica Torres MD [Medical Doctor] - Follow up with primary Forms: RABT ([place]i)
[2017-06-18 09:49] LABS: BASO # 0.11 K/mm3 (0.0-2.0); BASO % 0.9 % (0.0-3.0); EOS # 1.1 (0.0-0.7); EOS % 8.7 % (1.5-5.0); GRAN # 5.75 (1.4-6.5); GRAN % 47.4 % (50.0-68.0); LYMPH # 4.2 (1.2-3.4); LYMPH % 34.6 % (22.0-35.0); MEAN CELL VOLUME 88.9 fl (80.0-105.0); MEAN CORPUSCULAR HEMOGLOBIN 30.2 pg (25.0-35.0); MEAN CORPUSCULAR HGB CONC 33.9 g/dl (31.0-37.0); MEAN PLATELET VOLUME 9.4 fl (7.0-11.0); MONO % 8.4 % (1.0-6.0); RED CELL DISTRIBUTION WIDTH 13.3 % (11.5-14.5); WHITE BLOOD COUNT 12.1 10^3/ul (4.5-11.0)
[2017-06-18 09:59] LABS: ALB/GLOB RATIO 1.8 (1.1-1.8); ALKALINE PHOSPHATASE 79 U/L (38-126); ALT/SGPT 40 U/L (7-56); AST/SGOT 51 U/L (14-36); BILIRUBIN,TOTAL 0.6 mg/dL (0.2-1.3); BLOOD UREA NITROGEN 29 mg/dL (7-21); CALCIUM 9.9 mg/dL (8.4-10.5); CARBON DIOXIDE 21 mmol/L (21-33); CHLORIDE 106 mmol/L (98-107); GFR AFRICAN-AMERICAN 55; MAGNESIUM 2.4 mg/dL (1.7-2.2); SODIUM 138 mmol/L (132-148); TOTAL PROTEIN 7.3 g/dL (5.8-8.3)
[2017-06-18 10:06] LABS: GLUCOSE,RANDOM < 20 mg/dL (70-110)
[2017-06-18 10:07] LABS: POTASSIUM 5.2 mmol/L (3.6-5.0)
[2017-06-18 10:10] LABS: TROPONIN I < 0.01 ng/mL
[2017-06-18 10:11] LABS: PH,URINE 6.5 (4.7-8.0); URINE BILIRUBIN NEGATIVE (NEGATIVE); URINE BLOOD NEGATIVE (NEGATIVE); URINE GLUCOSE (UA) >=1000 mg/dL (NEGATIVE); URINE KETONE NEGATIVE (NEGATIVE); URINE LEUKOCYTE ESTERASE NEGATIVE Leu/uL (NEGATIVE); URINE PROTEIN TRACE mg/dL (<30 mg/dL); URINE UROBILINOGEN 0.2 E.U./dL (<1 E.U./dL)
[2017-06-18 10:18] LABS: URINE APPEARANCE CLEAR (CLEAR); URINE COLOR STRAW (YELLOW)
[2017-06-18 10:36] LABS: URINE RBC 0 - 2 /hpf (0-2)
[2017-06-18 10:37] VITALS: BP 144/76; PULSE 80; RESP 18; TEMP 98.2; O2SAT 98
[2017-06-18 10:37] LABS: URINE EPITHELIAL CELLS 0 - 2 /hpf (0-5); URINE WBC 0 - 2 /hpf (0-6)
[2017-06-18 10:38] LABS: URINE BACTERIA TRACE (NEG)
--- NOTE | 2017-06-19 09:47 | CARD ---
APPROVED REPORT EKG Measurement Heart [id number] <Conclusion> Sinus rhythm with 1st degree AV block Rightward axis STTW changes No change
== END 2017-06-18 10:15 | disposition left against medical advice (07) ==
LOC: ED 09:06
DX: E10.649 Type 1 diabetes mellitus with hypoglycemia without coma (principal); E78.5 Hyperlipidemia, unspecified; F17.200 Nicotine dependence, unspecified, uncomplicated; I10 Essential (primary) hypertension; Z79.4 Long term (current) use of insulin; I25.10 Atherosclerotic heart disease of native coronary artery without angina pectoris; I73.9 Peripheral vascular disease, unspecified

== ENCOUNTER 2017-07-02 13:10 | Emergency (ER) | payer MEDICARE, OTHER ==
[2017-07-02 13:11] VITALS: BMI 17.9
[2017-07-02] MEDS ORDERED: Dextrose 50% SYRINGE Inj (50 ml) IVP STA (13:19)
--- NOTE | 2017-07-02 13:25 | ED PDOC ---
Arrival/HPI - General Time Seen by Provider: 07/02/17 13:11 Historian: Patient, EMS - History of Present Illness Narrative History of Present Illness (Text): 07/02/17 13:15 A 67 year old female, whose past medical history includes diabetes, hypertension , hyperlipidemia, and hypoglycemia, presents to the emergency department complaining of AMS. Patient's son left house at around 09:00 and says patient was normal at that time. Upon returning home in the afternoon, patient's son found her slumped over on the couch and not responding. Her fingerstick glucose was 35 at home. Patient was then brought in by EMS. Patient's fingerstick here in the ER shows to be less than 20. After administering D50, patient is now alert and oriented x 3. Patient has no complaints at this time. She says she did not eat and is unsure if she did or did not take her insulin. No PMD Past Medical History - Provider Review Nursing Documentation Reviewed: Yes - Infectious Disease Hx of Infectious Diseases: None - Tetanus Immunization Tetanus Immunization: Unknown - Cardiac Hx Cardiac Disorders: Yes (CAD) Hx Hypertension: Yes Hx Peripheral Vascular Disease: Yes (DVT) - Pulmonary Hx Respiratory Disorders: Yes (SMOKES CIGARETTES. PK LASTS A WEEK.) - Neurological Hx Neurological Disorder: No - HEENT Hx HEENT Disorder: No - Renal Hx Renal Disorder: No - Endocrine/Metabolic Hx Endocrine Disorders: Yes Hx Diabetes Mellitus Type 1: Yes - Hematological/Oncological Hx Blood Disorders: No - Integumentary Hx Dermatological Disorder: No - Musculoskeletal/Rheumatological Hx Musculoskeletal Disorders: No Hx Falls: Yes - Gastrointestinal Hx Gastrointestinal Disorders: No - Genitourinary/Gynecological Hx Genitourinary Disorders: Yes (C/S X 3) - Psychiatric Hx Psychophysiologic Disorder: No Hx Substance Use: No - Past Surgical History Past Surgical History: Unable to Obtain - Surgical History Hx Cardiac Catheterization: Yes Hx Coronary Stent: Yes - Anesthesia Hx Anesthesia: Yes Hx Anesthesia Reactions: No Hx Malignant Hyperthermia: No - Suicidal Assessment Feels Threatened In Home Enviroment: No Family/Social History - Physician Review Nursing Documentation Reviewed: Yes Family/Social History: No Known Family HX Smoking Status: Current Some Days Smoker Hx Alcohol Use: No Hx Substance Use: No Hx Substance Use Treatment: No Allergies/Home Meds Allergies/Adverse Reactions: Allergies No Known Allergies Allergy (Verified 07/02/17 13:24) Home Medications: Home Meds Medication Instructions Recorded Confirmed Aspirin [Ecotrin] 81 mg PO DAILY 06/04/17 07/02/17 Atorvastatin [Lipitor] 40 mg PO DAILY 06/04/17 07/02/17 Enalapril Maleate [Vasotec] 10 mg PO DAILY 06/04/17 07/02/17 Glucagon [Glucagen Diagnostic Kit] 1 mg IM PRN PRN 06/04/17 07/02/17 Hydrochlorothiazide [Microzide] 12.5 mg PO DAILY 06/04/17 07/02/17 Insulin Aspart, Recombinant 4 unit SQ TID 06/04/17 07/02/17 [Novolog] Insulin Glargine,Hum.rec.anlog 8 unit SQ DAILY 06/04/17 07/02/17 [Basaglar Kwikpen U-100] Metoprolol Tartrate [Lopressor] 25 mg PO BID 06/04/17 07/02/17 Review of Systems - Physician Review All systems were reviewed & negative as marked: Yes - Review of Systems Constitutional: absent: Fevers, Night Sweats, Other (no head trauma) Respiratory: absent: SOB Cardiovascular: absent: Chest Pain Gastrointestinal: absent: Abdominal Pain, Diarrhea, Nausea, Vomiting Neurological: absent: Headache, Dizziness Endocrine: Other (hypoglycemia) Physical Exam Vital Signs Temp Pulse Resp BP Pulse Ox 07/02/17 13:36 97.6 F 80 18 150/88 100 Temperature: Afebrile Blood Pressure: Normal Pulse: Regular Respiratory Rate: Normal Appearance: Positive for: Well-Appearing, Non-Toxic, Comfortable, Other (after D50; initially eyes open and not responsive) Pain Distress: None Mental Status: Positive for: Alert and Oriented X 3 - Systems Exam Head: Present: Atraumatic, Normocephalic, Other (small scratch mery from cat on R side of R parietal scalp (no head trauma, per patient and son)) Pupils: Present: PERRL Extroacular Muscles: Present: EOMI Conjunctiva: Present: Normal Mouth: Present: Moist Mucous Membranes Pharnyx: Present: Normal. No: ERYTHEMA, EXUDATE Neck: Present: Normal Range of Motion Respiratory/Chest: Present: Clear to Auscultation, Good Air Exchange. No: Respiratory Distress, Accessory Muscle Use Cardiovascular: Present: Regular Rate and Rhythm, Normal S1, S2. No: Murmurs Abdomen: Present: Normal Bowel Sounds. No: Tenderness, Distention, Peritoneal Signs Back: Present: Normal Inspection Upper Extremity: Present: Normal Inspection. No: Cyanosis, Edema Lower Extremity: Present: Normal Inspection. No: Edema Neurological: Present: GCS=15, CN II-XII Intact, Speech Normal Skin: Present: Warm, Dry, Normal Color. No: Rashes Psychiatric: Present: Alert, Oriented x 3 (after D50), Normal Insight, Normal Concentration Medical Decision Making ED Course and Treatment: 07/02/17 13:25 Impression: 67 year old female found unconscious at home with FS < 20 here; after D50 here, patient is AA&O x 3 with no complaints. Physical exam is unremarkable. Plan: -- Dextrose 50% -- Reassess and disposition Prior Visits: Notes and results from previous visits were reviewed. Patient was last seen in the emergency department on 07/01/2017 for hypoglycemic episode. Patient left AMA. Progress Notes: 07/02/17 13:55 Repeat FSG after D50 is 311. Patient fully AA&O x 3. Patient with hypoglycemia, which is a significant recurrent problem with the patient and has had multiple emergency department visits for the same. After waking after D50 administration, the patient has no complaints and is insistent upon leaving and refusing any further workup. She is awake and alert and understands the risks of no workup and refusing admission. These risks have been discussed with her, including recurrence of hypoglycemia, stroke, , permanent disability, or other undiagnosed pathology. She is still insistent upon leaving against advice and is signing the ama sheet. - Medication Orders Current Medication Orders: Discontinued Medications Dextrose (Dextrose 50% Inj) 100 ml IVP STAT STA Stop: 07/02/17 13:20 - Scribe Statement The provider has reviewed the documentation as recorded by the Malka Pulido Provider Scribe Attestation: All medical record entries made by the Scribe were at my direction and personally dictated by me. I have reviewed the chart and agree that the record accurately reflects my personal performance of the history, physical exam, medical decision making, and the department course for this patient. I have also personally directed, reviewed, and agree with the discharge instructions and disposition. Disposition/Present on Arrival - Present on Arrival Any Indicators Present on Arrival: Yes History of DVT/PE: No History of Uncontrolled Diabetes: Yes Urinary Catheter: No History Surgical Site Infection Following: None - Disposition Have Diagnosis and Disposition been Completed?: Yes Diagnosis: Hypoglycemia Disposition: AGAINST MEDICAL ADVICE Disposition Time: 14:00 Patient Plan: Other (AMA) Condition: STABLE Discharge Instructions (ExitCare): Diabetic Hypoglycemia (ED) Additional Instructions: You are leaving against medical advice. You may return to the emergency department at any time. If you choose not to do so, then follow up as soon as possible with your primary care doctor and piece worker.
[2017-07-02 13:37] VITALS: TEMP 97.6; O2SAT 100
[2017-07-02 14:14] VITALS: BP 161/65; PULSE 67; RESP 19
== END 2017-07-02 14:32 | disposition left against medical advice (07) ==
LOC: ED 13:10
DX: E10.649 Type 1 diabetes mellitus with hypoglycemia without coma (principal); E78.5 Hyperlipidemia, unspecified; F17.200 Nicotine dependence, unspecified, uncomplicated; I10 Essential (primary) hypertension; I25.10 Atherosclerotic heart disease of native coronary artery without angina pectoris

== ENCOUNTER 2017-08-16 13:07 | Emergency (ER) | payer MEDICARE, MEDICAID ==
[2017-08-16] MEDS: Dextrose 50% SYRINGE Inj (50 ml) IVP STA ×2 (13:10→13:35)
[2017-08-16 13:46] VITALS: BMI 18.8
[2017-08-16 14:13] LABS: CALCIUM 8.3 mg/dL (8.4-10.5); POTASSIUM 4.4 mmol/L (3.6-5.0)
--- NOTE | 2017-08-16 14:13 | ED PDOC ---
Arrival/HPI - General Chief Complaint: Altered Mental Status Time Seen by Provider: 08/16/17 13:21 Historian: Patient - History of Present Illness Narrative History of Present Illness (Text): 08/16/17 13:44 A 67 year old female well-known in the ER, whose past medical history includes hypoglycemia, presents to the emergency department complaining of hypoglycemia. Patient was found by son at home to be unresponsive. After administering Stat IV and d50, patient's mental status approved. Patient reports she forgot to eat today. Patient appears diaphoretic. No PMD Past Medical History - Provider Review Nursing Documentation Reviewed: Yes - Infectious Disease Hx of Infectious Diseases: None - Tetanus Immunization Tetanus Immunization: Unknown - Reproductive Menopause: Yes - Cardiac Hx Cardiac Disorders: Yes (CAD) Hx Hypertension: Yes Hx Peripheral Vascular Disease: Yes (DVT) - Pulmonary Hx Respiratory Disorders: Yes (SMOKES CIGARETTES. PK LASTS A WEEK.) - Neurological Hx Neurological Disorder: No - HEENT Hx HEENT Disorder: No - Renal Hx Renal Disorder: No - Endocrine/Metabolic Hx Endocrine Disorders: Yes Hx Diabetes Mellitus Type 1: Yes - Hematological/Oncological Hx Blood Disorders: No - Integumentary Hx Dermatological Disorder: No - Musculoskeletal/Rheumatological Hx Musculoskeletal Disorders: No Hx Falls: Yes - Gastrointestinal Hx Gastrointestinal Disorders: No - Genitourinary/Gynecological Hx Genitourinary Disorders: Yes (C/S X 3) - Psychiatric Hx Psychophysiologic Disorder: No Hx Substance Use: No - Past Surgical History Past Surgical History: Unable to Obtain - Surgical History Hx Cardiac Catheterization: Yes Hx Coronary Stent: Yes - Anesthesia Hx Anesthesia: Yes Hx Anesthesia Reactions: No Hx Malignant Hyperthermia: No - Suicidal Assessment Feels Threatened In Home Enviroment: No Family/Social History - Physician Review Nursing Documentation Reviewed: Yes Family/Social History: No Known Family HX Smoking Status: Current Some Days Smoker Hx Alcohol Use: No Hx Substance Use: No Hx Substance Use Treatment: No Allergies/Home Meds Allergies/Adverse Reactions: Allergies No Known Allergies Allergy (Verified 07/02/17 13:24) Home Medications: Home Meds Medication Instructions Recorded Confirmed Aspirin [Ecotrin] 81 mg PO DAILY 06/04/17 07/02/17 Atorvastatin [Lipitor] 40 mg PO DAILY 06/04/17 07/02/17 Enalapril Maleate [Vasotec] 10 mg PO DAILY 06/04/17 07/02/17 Glucagon [Glucagen Diagnostic Kit] 1 mg IM PRN PRN 06/04/17 07/02/17 Hydrochlorothiazide [Microzide] 12.5 mg PO DAILY 06/04/17 07/02/17 Insulin Aspart, Recombinant 4 unit SQ TID 06/04/17 07/02/17 [Novolog] Insulin Glargine,Hum.rec.anlog 8 unit SQ DAILY 06/04/17 07/02/17 [Basaglar Kwikpen U-100] Metoprolol Tartrate [Lopressor] 25 mg PO BID 06/04/17 07/02/17 Review of Systems - Physician Review All systems were reviewed & negative as marked: Yes - Review of Systems Constitutional: Other (diaphoretic) Respiratory: absent: SOB Physical Exam Vital Signs Reviewed: Yes Vital Signs Temp Pulse Resp BP Pulse Ox 08/16/17 14:36 73 16 163/70 H 99 08/16/17 14:00 97.2 F L 80 16 160/80 H 100 08/16/17 13:10 96 F L 80 20 170/71 H 100 Temperature: Afebrile Blood Pressure: Hypertensive Pulse: Regular Respiratory Rate: Normal Appearance: Positive for: Well-Appearing Pain Distress: None Mental Status: Positive for: Alert and Oriented X 3 Finger Stick Blood Glucose: 172 - Systems Exam Head: Present: Atraumatic, Normocephalic Pupils: Present: PERRL Extroacular Muscles: Present: EOMI Conjunctiva: Present: Normal Mouth: Present: Moist Mucous Membranes Neck: Present: Normal Range of Motion Respiratory/Chest: Present: Clear to Auscultation, Good Air Exchange. No: Respiratory Distress, Accessory Muscle Use Cardiovascular: Present: Regular Rate and Rhythm, Normal S1, S2. No: Murmurs Abdomen: Present: Normal Bowel Sounds. No: Tenderness, Distention, Peritoneal Signs Back: Present: Normal Inspection Upper Extremity: Present: Normal Inspection. No: Cyanosis, Edema Lower Extremity: Present: Normal Inspection. No: Edema Neurological: Present: GCS=15, CN II-XII Intact, Speech Normal Skin: Present: Diaphoretic (diffused diaphoresis) Psychiatric: Present: Alert, Oriented x 3, Normal Insight, Normal Concentration Medical Decision Making ED Course and Treatment: 08/16/17 13:49 Impression: 67 year old female with hypoglycemia. Physical exam shows diffused diaphoresis; overall normal examination. Plan: -- Labs -- Dextrose -- Reassess and disposition Prior Visits: Notes and results from previous visits were reviewed. Patient was last seen in the emergency department on 07/02/2017 for AMS. Patient left ama. Progress Notes: pts BG improved and she was given PO intake to improve her glucose. mild dehydration and renal insufficiency. no underlying infection. pt is known to have BG management issues due to lack of intake. she was instructed to followup with her PMD regarding insulin management. 08/19/17 19:55 - Lab Interpretations Lab Results: 08/16/17 13:44 Lab Results 08/16/17 14:28: POC Glucose (mg/dL) 152 H 08/16/17 13:56: POC Glucose (mg/dL) 172 H 08/16/17 13:44: Sodium 135, Potassium 4.4, Chloride 106, Carbon Dioxide 22, Anion Gap 12, BUN 39 H, Creatinine 1.4 H, Est GFR ( Amer) 46, Est GFR ( Non-Af Amer) 38, Random Glucose 335 H* D, Calcium 8.3 L 08/16/17 13:17: POC Glucose (mg/dL) 355 H I have reviewed the lab results: Yes - Medication Orders Current Medication Orders: Discontinued Medications Dextrose (Dextrose 50% Inj) 50 ml IVP STAT STA Stop: 08/16/17 13:50 Last Admin: 08/16/17 13:10 Dose: 50 ml IVP Administration Document 08/16/17 13:10 TAHIRA (Rec: 08/16/17 14:00 TAHIRA [id number]) Charges for Administration # of IVP Administrations 1 - Scribe Statement The provider has reviewed the documentation as recorded by the Malka Pulido Provider Scribe Attestation: All medical record entries made by the Scribteresa were at my direction and personally dictated by me. I have reviewed the chart and agree that the record accurately reflects my personal performance of the history, physical exam, medical decision making, and the department course for this patient. I have also personally directed, reviewed, and agree with the discharge instructions and disposition. Disposition/Present on Arrival - Present on Arrival Any Indicators Present on Arrival: Yes History of DVT/PE: No History of Uncontrolled Diabetes: Yes Urinary Catheter: No History of Decub. Ulcer: No History Surgical Site Infection Following: None - Disposition Have Diagnosis and Disposition been Completed?: Yes Diagnosis: Hypoglycemia, Dehydration Disposition: HOME/ ROUTINE Disposition Time: 14:30 Patient Plan: Discharge Condition: IMPROVED Discharge Instructions (ExitCare): Diabetic Hypoglycemia (ED) Referrals: Jamie Stephens, [Non-Staff] - Follow up with primary Forms: [employer] (Tongan)
[2017-08-16 14:37] VITALS: BP 163/70; PULSE 73; RESP 16; O2SAT 99
[2017-08-16 14:42] VITALS: TEMP 97.2
== END 2017-08-16 14:40 | disposition home or self-care (01) ==
LOC: ED 13:07
DX: E86.0 Dehydration (principal); E10.649 Type 1 diabetes mellitus with hypoglycemia without coma; I10 Essential (primary) hypertension; I25.10 Atherosclerotic heart disease of native coronary artery without angina pectoris

== ENCOUNTER 2017-08-18 13:37 | Emergency (ER) | payer MEDICAID, MEDICARE ==
[2017-08-18] MEDS ORDERED: Dextrose 50% SYRINGE Inj (50 ml) IVP STA ×2 (13:41)
[2017-08-18] MEDS ORDERED: Dextrose 50% SYRINGE Inj (50 ml) ONE (13:41)
--- NOTE | 2017-08-18 13:42 | ED PDOC ---
Arrival/HPI - General Time Seen by Provider: 08/18/17 13:38 Historian: EMS - History of Present Illness Narrative History of Present Illness (Text): 08/18/17 13:42 Charlette Ramirez is a 67 year old female, well-known to the Emergency department , whose past medical history includes hypoglycemia, presents to the Emergency department via EMS complaining of hypoglycemia. Patient was found by relative at home unresponsive. Upon arrival to the Emergency department patient's blood glucose was measured to be less than 20 mg/dl. After administering Stat IV and d50, patient's mental status improved and returned to baseline. Time/Duration: Prior to Arrival Symptom Onset: Gradual Symptom Course: Improving Activities at Onset: Light Context: Home Past Medical History - Provider Review Nursing Documentation Reviewed: Yes - Infectious Disease Hx of Infectious Diseases: None - Tetanus Immunization Tetanus Immunization: Unknown - Cardiac Hx Cardiac Disorders: Yes (CAD) Hx Hypertension: Yes Hx Peripheral Vascular Disease: Yes (DVT) - Pulmonary Hx Respiratory Disorders: Yes (SMOKES CIGARETTES. PK LASTS A WEEK.) - Neurological Hx Neurological Disorder: No - HEENT Hx HEENT Disorder: No - Renal Hx Renal Disorder: No - Endocrine/Metabolic Hx Endocrine Disorders: Yes Hx Diabetes Mellitus Type 1: Yes - Hematological/Oncological Hx Blood Disorders: No - Integumentary Hx Dermatological Disorder: No - Musculoskeletal/Rheumatological Hx Musculoskeletal Disorders: No Hx Falls: Yes - Gastrointestinal Hx Gastrointestinal Disorders: No - Genitourinary/Gynecological Hx Genitourinary Disorders: Yes (C/S X 3) - Psychiatric Hx Psychophysiologic Disorder: No Hx Substance Use: No - Past Surgical History Past Surgical History: Unable to Obtain - Surgical History Hx Cardiac Catheterization: Yes Hx Coronary Stent: Yes - Anesthesia Hx Anesthesia: Yes Hx Anesthesia Reactions: No Hx Malignant Hyperthermia: No - Suicidal Assessment Feels Threatened In Home Enviroment: No Family/Social History - Physician Review Nursing Documentation Reviewed: Yes Family/Social History: Unknown Family HX Smoking Status: Current Some Days Smoker Hx Alcohol Use: No Hx Substance Use: No Hx Substance Use Treatment: No Allergies/Home Meds Allergies/Adverse Reactions: Allergies No Known Allergies Allergy (Verified 07/02/17 13:24) Home Medications: Home Meds Medication Instructions Recorded Confirmed Aspirin [Ecotrin] 81 mg PO DAILY 06/04/17 07/02/17 Atorvastatin [Lipitor] 40 mg PO DAILY 06/04/17 07/02/17 Enalapril Maleate [Vasotec] 10 mg PO DAILY 06/04/17 07/02/17 Glucagon [Glucagen Diagnostic Kit] 1 mg IM PRN PRN 06/04/17 07/02/17 Hydrochlorothiazide [Microzide] 12.5 mg PO DAILY 06/04/17 07/02/17 Insulin Aspart, Recombinant 4 unit SQ TID 06/04/17 07/02/17 [Novolog] Insulin Glargine,Hum.rec.anlog 8 unit SQ DAILY 06/04/17 07/02/17 [Basaglar Kwikpen U-100] Metoprolol Tartrate [Lopressor] 25 mg PO BID 06/04/17 07/02/17 Review of Systems - Physician Review All systems were reviewed & negative as marked: Yes - Review of Systems Systems not reviewed;Unavailable: Altered Mental Status (hypoglycemic) Constitutional: Fatigue Eyes: Normal ENT: Normal Respiratory: Normal Cardiovascular: Normal Skin: Normal Neurological: Other (AMS-hypoglycemic ) Endocrine: Diaphoresis Psychiatric: Other (Lethargic) Physical Exam Vital Signs Reviewed: Yes Vital Signs Temp Pulse Resp BP Pulse Ox 08/18/17 13:40 93.6 F L 75 16 158/69 H 100 Temperature: Hypothermic Blood Pressure: Normal Pulse: Regular Respiratory Rate: Normal Appearance: Positive for: Well-Appearing Pain Distress: None Mental Status: Positive for: Lethargic - Systems Exam Head: Present: Atraumatic, Normocephalic Pupils: Present: PERRL Extroacular Muscles: Present: EOMI Conjunctiva: Present: Normal Mouth: Present: Moist Mucous Membranes Neck: Present: Normal Range of Motion Respiratory/Chest: Present: Clear to Auscultation, Good Air Exchange. No: Respiratory Distress, Accessory Muscle Use Cardiovascular: Present: Regular Rate and Rhythm, Normal S1, S2. No: Murmurs Abdomen: Present: Normal Bowel Sounds. No: Tenderness, Distention, Peritoneal Signs Back: Present: Normal Inspection Upper Extremity: Present: Normal Inspection. No: Cyanosis, Edema Lower Extremity: Present: Normal Inspection. No: Edema Neurological: Present: GCS=15, CN II-XII Intact, Speech Normal Skin: Present: Normal Color, Diaphoretic. No: Rashes Psychiatric: Present: Alert, Other (AMS ) Medical Decision Making ED Course and Treatment: 08/18/17 13:42 Impression: 67 year old female presents to the Emergency department for hypoglycemia. Plan: -- Dextrose -- Reassess and disposition Progress Notes: 08/18/17 13:40 Present was administered d50 for hypoglycemia with blood glucose level of less than 20 mg/dl. 08/18/17 14:51 pt signs ama. does not wish to wait for labs. reassesment admission. - Medication Orders Current Medication Orders: Discontinued Medications Dextrose (Dextrose 50% Inj) 50 ml IVP STAT STA Stop: 08/18/17 13:42 Last Admin: 08/18/17 13:41 Dose: 50 ml IVP Administration Document 08/18/17 13:41 CNR (Rec: 08/18/17 13:59 CNR [id number]) Charges for Administration # of IVP Administrations 1 Dextrose (Dextrose 50% Inj) 50 ml IVP STAT STA Stop: 08/18/17 13:42 Last Admin: 08/18/17 13:41 Dose: 50 ml IVP Administration Document 08/18/17 13:41 CNR (Rec: 08/18/17 13:59 CNR [id number]) Charges for Administration # of IVP Administrations 1 - Scribe Statement The provider has reviewed the documentation as recorded by the Scribe Agnieszka Irene. All medical record entries made by the Scribe were at my direction and personally dictated by me. I have reviewed the chart and agree that the record accurately reflects my personal performance of the history, physical exam, medical decision making, and the department course for this patient. I have also personally directed, reviewed, and agree with the discharge instructions and disposition. Disposition/Present on Arrival - Present on Arrival Any Indicators Present on Arrival: No History of DVT/PE: No History of Uncontrolled Diabetes: Yes Urinary Catheter: No History Surgical Site Infection Following: None - Disposition Have Diagnosis and Disposition been Completed?: Yes Diagnosis: Hypoglycemia Disposition: AGAINST MEDICAL ADVICE Disposition Time: 02:51 Condition: UNKNOWN Discharge Instructions (ExitCare): Diabetic Hypoglycemia (DC), Against Medical Advice (ED) Referrals: Jamie Stephens, [Primary Care Provider] - Follow up with primary Forms: [employer] (Lao)
[2017-08-18 14:06] VITALS: BP 158/69; PULSE 75; RESP 16; TEMP 93.6; O2SAT 100; BMI 17.5
== END 2017-08-18 14:29 | disposition left against medical advice (07) ==
LOC: ED 13:37
DX: E11.649 Type 2 diabetes mellitus with hypoglycemia without coma (principal)

== ENCOUNTER 2017-08-21 10:34 | Emergency (ER) | payer MEDICARE, OTHER ==
[2017-08-21 10:35] VITALS: BMI 17.5
--- NOTE | 2017-08-21 10:43 | ED PDOC ---
Arrival/HPI - General Time Seen by Provider: 08/21/17 10:36 Historian: Family, EMS - History of Present Illness Narrative History of Present Illness (Text): 08/21/17 10:41 67yo female well known to the Emergency Department with history of hypoglycemia biba for hypoglycemia. Patient was AMS at home according to his son. Her BS on the field was 23. She was given D50 on the field and her BS in ED is 210. She denies any somatic complaint. she was AAOx3 in ED. Past Medical History - Provider Review Nursing Documentation Reviewed: Yes - Infectious Disease Hx of Infectious Diseases: None - Tetanus Immunization Tetanus Immunization: Unknown - Cardiac Hx Cardiac Disorders: Yes (CAD) Hx Hypertension: Yes Hx Peripheral Vascular Disease: Yes (DVT) - Pulmonary Hx Respiratory Disorders: Yes (SMOKES CIGARETTES. PK LASTS A WEEK.) - Neurological Hx Neurological Disorder: No - HEENT Hx HEENT Disorder: No - Renal Hx Renal Disorder: No - Endocrine/Metabolic Hx Endocrine Disorders: Yes Hx Diabetes Mellitus Type 1: Yes - Hematological/Oncological Hx Blood Disorders: No - Integumentary Hx Dermatological Disorder: No - Musculoskeletal/Rheumatological Hx Musculoskeletal Disorders: No Hx Falls: Yes - Gastrointestinal Hx Gastrointestinal Disorders: No - Genitourinary/Gynecological Hx Genitourinary Disorders: Yes (C/S X 3) - Psychiatric Hx Psychophysiologic Disorder: No Hx Substance Use: No - Past Surgical History Past Surgical History: Unable to Obtain - Surgical History Hx Cardiac Catheterization: Yes Hx Coronary Stent: Yes - Anesthesia Hx Anesthesia: Yes Hx Anesthesia Reactions: No Hx Malignant Hyperthermia: No - Suicidal Assessment Feels Threatened In Home Enviroment: No Family/Social History - Physician Review Nursing Documentation Reviewed: Yes Family/Social History: Unknown Family HX Smoking Status: Current Some Days Smoker Hx Alcohol Use: No Hx Substance Use: No Hx Substance Use Treatment: No Allergies/Home Meds Allergies/Adverse Reactions: Allergies No Known Allergies Allergy (Verified 08/21/17 10:49) Home Medications: Home Meds Medication Instructions Recorded Confirmed Aspirin [Ecotrin] 81 mg PO DAILY 06/04/17 08/21/17 Atorvastatin [Lipitor] 40 mg PO DAILY 06/04/17 08/21/17 Enalapril Maleate [Vasotec] 10 mg PO DAILY 06/04/17 08/21/17 Glucagon [Glucagen Diagnostic Kit] 1 mg IM PRN PRN 06/04/17 08/21/17 Hydrochlorothiazide [Microzide] 12.5 mg PO DAILY 06/04/17 08/21/17 Insulin Aspart, Recombinant 4 unit SQ TID 06/04/17 08/21/17 [Novolog] Insulin Glargine,Hum.rec.anlog 8 unit SQ DAILY 06/04/17 08/21/17 [Basaglar Kwikpen U-100] Metoprolol Tartrate [Lopressor] 25 mg PO BID 06/04/17 08/21/17 Review of Systems - Physician Review All systems were reviewed & negative as marked: Yes - Review of Systems Constitutional: Normal Eyes: Normal ENT: Normal Respiratory: Normal Cardiovascular: Normal Gastrointestinal: Normal Genitourinary Female: Normal Musculoskeletal: Normal Skin: Normal Neurological: Normal Endocrine: Normal Hemo/Lymphatic: Normal Psychiatric: Normal Physical Exam Vital Signs Reviewed: Yes Vital Signs Temp Pulse Resp BP Pulse Ox 08/21/17 11:08 97.6 F 67 18 195/98 H 100 Temperature: Afebrile Blood Pressure: Normal Pulse: Regular Respiratory Rate: Normal Appearance: Positive for: Well-Appearing, Non-Toxic, Comfortable Pain Distress: None Mental Status: Positive for: Alert and Oriented X 3 - Systems Exam Head: Present: Atraumatic, Normocephalic Pupils: Present: PERRL Extroacular Muscles: Present: EOMI Conjunctiva: Present: Normal Mouth: Present: Moist Mucous Membranes Neck: Present: Normal Range of Motion Respiratory/Chest: Present: Clear to Auscultation, Good Air Exchange. No: Respiratory Distress, Accessory Muscle Use Cardiovascular: Present: Regular Rate and Rhythm, Normal S1, S2. No: Murmurs Abdomen: Present: Normal Bowel Sounds. No: Tenderness, Distention, Peritoneal Signs Back: Present: Normal Inspection Upper Extremity: Present: Normal Inspection. No: Cyanosis, Edema Lower Extremity: Present: Normal Inspection. No: Edema Neurological: Present: GCS=15, CN II-XII Intact, Speech Normal Skin: Present: Warm, Dry, Normal Color. No: Rashes Psychiatric: Present: Alert, Oriented x 3, Normal Insight, Normal Concentration Medical Decision Making ED Course and Treatment: 08/21/17 11:19 Pt in ED for stated history. She was AAO x3 in ED. He declined any work up in ED. She signed out AMA. She was ambulatory with steady gait. Expressed understanding of the risk even from leaving AMA. she have medication at home and not complaint with her medication. Advised to take her medication. she understood she can return to ED at anytime she change her mind. Disposition/Present on Arrival - Present on Arrival Any Indicators Present on Arrival: No History of DVT/PE: No History of Uncontrolled Diabetes: Yes Urinary Catheter: No History Surgical Site Infection Following: None - Disposition Have Diagnosis and Disposition been Completed?: Yes Diagnosis: Hyponatremia Disposition: AGAINST MEDICAL ADVICE Disposition Time: 10:50 Condition: STABLE Referrals: PCP,NO [Primary Care Provider] - Follow up with primary
[2017-08-21 11:08] VITALS: BP 195/98; PULSE 67; RESP 18; TEMP 97.6; O2SAT 100
== END 2017-08-21 11:22 | disposition left against medical advice (07) ==
LOC: ED 10:34
DX: E87.1 Hypo-osmolality and hyponatremia (principal)

== ENCOUNTER 2017-08-27 17:20 | Emergency (ER) | payer MEDICARE ==
[2017-08-27] MEDS ORDERED: Dextrose 50% SYRINGE Inj (50 ml) ONE (17:25)
[2017-08-27] MEDS ORDERED: Dextrose 50% SYRINGE Inj (50 ml) IVP STA (17:39)
[2017-08-27 17:47] LABS: BASO # 0.08 K/mm3 (0.0-2.0); BASO % 0.7 % (0.0-3.0); EOS % 8.3 % (1.5-5.0); GRAN # 5.17 (1.4-6.5); HEMOGLOBIN 10.6 g/dL (12.0-16.0); LYMPH # 4.7 (1.2-3.4); LYMPH % 39.6 % (22.0-35.0); MEAN CELL VOLUME 88.6 fl (80.0-105.0); MEAN CORPUSCULAR HEMOGLOBIN 28.7 pg (25.0-35.0); MEAN CORPUSCULAR HGB CONC 32.4 g/dl (31.0-37.0); MEAN PLATELET VOLUME 9.4 fl (7.0-11.0); MONO # 0.9 (0.1-0.6); MONO % 7.4 % (1.0-6.0); RBC 3.69 10^6/uL (3.5-6.1); RED CELL DISTRIBUTION WIDTH 13.6 % (11.5-14.5); WHITE BLOOD COUNT 11.8 10^3/ul (4.5-11.0)
[2017-08-27 17:58] LABS: ALB/GLOB RATIO 1.5 (1.1-1.8); ALBUMIN 4.4 g/dL (3.0-4.8); ALT/SGPT 44 U/L (7-56); AST/SGOT 46 U/L (14-36); BLOOD UREA NITROGEN 25 mg/dL (7-21); CALCIUM 9.1 mg/dL (8.4-10.5); GFR AFRICAN-AMERICAN > 60; GFR NON-AFRICAN AMERICAN 50
[2017-08-27 18:01] VITALS: BP 137/82; PULSE 85; RESP 19; TEMP 98.9; O2SAT 99
[2017-08-27 18:08] LABS: TROPONIN I < 0.01 ng/mL
[2017-08-27 18:30] LABS: PROTHROMBIN TIME 10.4 SECONDS (9.4-12.5)
[2017-08-27 18:31] LABS: INR 0.91 (0.93-1.08); PARTIAL THROMBOPLASTIN TIME 31.6 Seconds (25.1-36.5)
--- NOTE | 2017-08-28 12:08 | CARD ---
APPROVED REPORT EKG Measurement Heart [id number] MD [id number] <Conclusion> Normal sinus rhythm Rightward axis Low voltage QRS Nonspecific ST abnormality Abnormal ECG
--- NOTE | 2017-09-06 23:53 | ED PDOC ---
Arrival/HPI - General Chief Complaint: Altered Mental Status Time Seen by Provider: 08/27/17 17:25 Historian: Patient, Family - History of Present Illness Narrative History of Present Illness (Text): 67 Y/O woman w/ pmhx of iddm among other comorbidities , frequent ED visits for similar complaints presents bibems after her son found her altered, cold , clammy in the assistant professor of dietetics . Pt normally takes 10 units of lantus in the am and then 4 units of short acting insulin with meals. She deosn't recall if she ate breakfast , and also doesn't recall when she last dosed her insulin although it may have been in the am. She denies any pmd reports of worsening kidney function/ nor recent changes in her medication. She also deneis any recent n/v/d/abdominal pain / nor changes in her appetite nor alimentatation. Pt was found by ems w/ fsg < 40. 09/06/17 23:48 Time/Duration: Prior to Arrival Symptom Course: Improving Past Medical History - Provider Review Nursing Documentation Reviewed: Yes - Infectious Disease Hx of Infectious Diseases: None - Tetanus Immunization Tetanus Immunization: Unknown - Reproductive Menopause: Yes - Cardiac Hx Cardiac Disorders: Yes (CAD) Hx Hypertension: Yes Hx Peripheral Vascular Disease: Yes (DVT) - Pulmonary Hx Respiratory Disorders: Yes (SMOKES CIGARETTES. PK LASTS A WEEK.) - Neurological Hx Neurological Disorder: No - HEENT Hx HEENT Disorder: No - Renal Hx Renal Disorder: No - Endocrine/Metabolic Hx Endocrine Disorders: Yes Hx Diabetes Mellitus Type 1: Yes - Hematological/Oncological Hx Blood Disorders: No - Integumentary Hx Dermatological Disorder: No - Musculoskeletal/Rheumatological Hx Musculoskeletal Disorders: No Hx Falls: Yes - Gastrointestinal Hx Gastrointestinal Disorders: No - Genitourinary/Gynecological Hx Genitourinary Disorders: Yes (C/S X 3) - Psychiatric Hx Psychophysiologic Disorder: No Hx Substance Use: No - Past Surgical History Past Surgical History: Unable to Obtain - Surgical History Hx Cardiac Catheterization: Yes Hx Coronary Stent: Yes - Anesthesia Hx Anesthesia: Yes Hx Anesthesia Reactions: No Hx Malignant Hyperthermia: No - Suicidal Assessment Feels Threatened In Home Enviroment: No Family/Social History - Physician Review Nursing Documentation Reviewed: Yes Family/Social History: Diabetes Smoking Status: Current Some Days Smoker Hx Alcohol Use: No Hx Substance Use: No Hx Substance Use Treatment: No Allergies/Home Meds Allergies/Adverse Reactions: Allergies No Known Allergies Allergy (Verified 09/01/17 07:02) Home Medications: Home Meds Medication Instructions Recorded Confirmed Aspirin [Ecotrin] 81 mg PO DAILY 06/04/17 09/05/17 Atorvastatin [Lipitor] 40 mg PO DAILY 06/04/17 09/05/17 Enalapril Maleate [Vasotec] 10 mg PO DAILY 06/04/17 09/05/17 Glucagon [Glucagen Diagnostic Kit] 1 mg IM PRN PRN 06/04/17 09/05/17 Hydrochlorothiazide [Microzide] 12.5 mg PO DAILY 06/04/17 09/05/17 Insulin Aspart, Recombinant 4 unit SQ TID 06/04/17 09/05/17 [Novolog] Insulin Glargine,Hum.rec.anlog 8 unit SQ DAILY 06/04/17 09/05/17 [Basaglar Kwikpen U-100] Metoprolol Tartrate [Lopressor] 25 mg PO BID 06/04/17 09/05/17 Review of Systems - Physician Review All systems were reviewed & negative as marked: Yes - Review of Systems Constitutional: Normal Eyes: Normal ENT: Normal Respiratory: Normal Cardiovascular: Normal Gastrointestinal: Normal Genitourinary Female: Normal Musculoskeletal: Normal Skin: Normal Neurological: Normal Endocrine: Normal Hemo/Lymphatic: Normal Psychiatric: Normal Physical Exam Vital Signs Reviewed: Yes Vital Signs Temp Pulse Resp BP Pulse Ox 08/27/17 17:27 98.9 F 85 19 137/82 99 Temperature: Afebrile Blood Pressure: Normal Pulse: Regular Respiratory Rate: Normal Appearance: Positive for: Well-Appearing, Non-Toxic, Comfortable Pain Distress: None Mental Status: Positive for: Alert and Oriented X 3 Finger Stick Blood Glucose: 152 - Systems Exam Head: Present: Atraumatic, Normocephalic Pupils: Present: PERRL Extroacular Muscles: Present: EOMI Conjunctiva: Present: Normal Ears: Present: Normal, NORMAL TM Mouth: Present: Moist Mucous Membranes Nose (External): Present: Atraumatic Nose (Internal): Present: Normal Inspection Neck: Present: Normal Range of Motion Respiratory/Chest: Present: Clear to Auscultation, Good Air Exchange. No: Respiratory Distress, Accessory Muscle Use Cardiovascular: Present: Regular Rate and Rhythm, Normal S1, S2. No: Murmurs Abdomen: Present: Normal Bowel Sounds. No: Tenderness, Distention, Peritoneal Signs Back: Present: Normal Inspection Upper Extremity: Present: Normal Inspection. No: Cyanosis, Edema Lower Extremity: Present: Normal Inspection. No: Edema Neurological: Present: GCS=15, CN II-XII Intact, Speech Normal, Motor Func Grossly Intact, Normal Sensory Function, Normal Cerebellar Funct, Norm Deep Tendon Reflexes, Gait Normal, Memory Normal, Normal 2Pt Descrimination Skin: Present: Warm, Dry, Normal Color. No: Rashes Psychiatric: Present: Alert, Oriented x 3, Normal Insight, Normal Concentration Medical Decision Making ED Course and Treatment: 67 y/o woman w/ iddm found unresponsive at home with hypoglycemic FSG readings. s/p d50 admin and return to baseline mental status unwilling to stay for workup and refusing all blood tests , although willing to receive food. will be advised to decrement her long acting insulin from 10 units endorsed by patient to 8 units and to f/u w/ her pmd to assess possible decrementation of her hypoglycemic episodes. 09/06/17 23:56 - Lab Interpretations Lab Results: 08/27/17 17:40 08/27/17 17:40 Lab Results 08/27/17 18:02: POC Glucose (mg/dL) 152 H 08/27/17 17:40: Sodium 140, Potassium 4.3, Chloride 109 H, Carbon Dioxide 20 L, Anion Gap 15, BUN 25 H, Creatinine 1.1, Est GFR ( Amer) > 60, Est GFR ( Non-Af Amer) 50, Random Glucose 20 L* D, Calcium 9.1, Total Bilirubin 0.3, AST 46 H, ALT 44, Alkaline Phosphatase 87, Troponin I < 0.01, Total Protein 7.5, Albumin 4.4, Globulin 3.0, Albumin/Globulin Ratio 1.5 08/27/17 17:40: PT 10.4, INR 0.91 L, APTT 31.6 08/27/17 17:40: WBC 11.8 H, RBC 3.69, Hgb 10.6 L, Hct 32.7 L, MCV 88.6, MCH 28.7 , MCHC 32.4, RDW 13.6, Plt Count 368, MPV 9.4, Gran % 44.0 L, Lymph % (Auto) 39.6 H, [place] % (Auto) 7.4 H, Eos % (Auto) 8.3 H, Baso % (Auto) 0.7, Gran # 5.17 , Lymph # 4.7 H, [place] # 0.9 H, Eos # 1.0 H, Baso # 0.08 - Medication Orders Current Medication Orders: Discontinued Medications Dextrose (Dextrose 50% Inj) 50 ml IVP STAT STA Stop: 08/27/17 17:40 Last Admin: 08/27/17 18:04 Dose: Disposition/Present on Arrival - Present on Arrival Any Indicators Present on Arrival: Yes History of DVT/PE: No History of Uncontrolled Diabetes: Yes Urinary Catheter: No History of Decub. Ulcer: No History Surgical Site Infection Following: None - Disposition Have Diagnosis and Disposition been Completed?: Yes Diagnosis: Hypoglycemia Disposition: AGAINST MEDICAL ADVICE Disposition Time: 11:25 Patient Plan: Discharge Condition: IMPROVED Forms: [employer] (Turkmen)
== END 2017-08-27 18:56 | disposition left against medical advice (07) ==
LOC: ED 17:20
DX: E11.649 Type 2 diabetes mellitus with hypoglycemia without coma (principal); Z79.4 Long term (current) use of insulin; I10 Essential (primary) hypertension; Z86.718 Personal history of other venous thrombosis and embolism; F17.210 Nicotine dependence, cigarettes, uncomplicated

== ENCOUNTER 2017-09-01 06:49 | Emergency (ER) | payer MEDICARE ==
[2017-09-01] MEDS ORDERED: Dextrose 50% SYRINGE Inj (50 ml) ONE (06:54)
[2017-09-01 07:02] VITALS: PULSE 99; RESP 18; O2SAT 98
[2017-09-01 07:05] VITALS: TEMP 98
[2017-09-01 07:10] VITALS: BP 159/99
[2017-09-01] MEDS ORDERED: Dextrose 50% SYRINGE Inj (50 ml) IVP STA (07:15)
--- NOTE | 2017-09-01 07:17 | ED PDOC ---
Arrival/HPI - General Chief Complaint: Medical Clearance Time Seen by Provider: 09/01/17 07:14 Historian: Family (Son), EMS EM Caveat: Altered Mental Status, Other (Confused) - History of Present Illness Narrative History of Present Illness (Text): 09/01/17 07:15 A 67 year old female, well-known to the Emergency department, whose past medical history includes hypoglycemia, presents to the emergency department in an altered mental state. The patient's son states that he found her at home in this condition and called EMS. On arrival to the emergency department, the patient's blood sugar was 20. The patient is currently confused. HPI/ ROS limited due to acuity of patient's condition. PMD:None Time/Duration: 1-3 hours Symptom Onset: Sudden Symptom Course: Improving Activities at Onset: Rest, Light Context: Home Past Medical History - Provider Review Nursing Documentation Reviewed: Yes - Infectious Disease Hx of Infectious Diseases: None - Tetanus Immunization Tetanus Immunization: Unknown - Reproductive Menopause: Yes - Cardiac Hx Cardiac Disorders: Yes (CAD) Hx Hypertension: Yes Hx Peripheral Vascular Disease: Yes (DVT) Other/Comment: heart attack 2011 - Pulmonary Hx Respiratory Disorders: Yes (SMOKES CIGARETTES. PK LASTS A WEEK.) - Neurological Hx Neurological Disorder: No - HEENT Hx HEENT Disorder: No - Renal Hx Renal Disorder: No - Endocrine/Metabolic Hx Endocrine Disorders: Yes Hx Diabetes Mellitus Type 1: Yes - Hematological/Oncological Hx Blood Disorders: No - Integumentary Hx Dermatological Disorder: No - Musculoskeletal/Rheumatological Hx Musculoskeletal Disorders: No Hx Falls: Yes - Gastrointestinal Hx Gastrointestinal Disorders: No - Genitourinary/Gynecological Hx Genitourinary Disorders: Yes (C/S X 3) - Psychiatric Hx Psychophysiologic Disorder: No Hx Substance Use: No - Past Surgical History Past Surgical History: Unable to Obtain - Surgical History Hx Cardiac Catheterization: Yes Hx Coronary Stent: Yes - Anesthesia Hx Anesthesia: Yes Hx Anesthesia Reactions: No Hx Malignant Hyperthermia: No - Suicidal Assessment Feels Threatened In Home Enviroment: No Family/Social History - Physician Review Nursing Documentation Reviewed: Yes Family/Social History: No Known Family HX Smoking Status: Current Some Days Smoker Hx Alcohol Use: No Hx Substance Use: No Hx Substance Use Treatment: No Allergies/Home Meds Allergies/Adverse Reactions: Allergies No Known Allergies Allergy (Verified 09/01/17 07:02) Home Medications: Home Meds Medication Instructions Recorded Confirmed Aspirin [Ecotrin] 81 mg PO DAILY 06/04/17 08/27/17 Atorvastatin [Lipitor] 40 mg PO DAILY 06/04/17 08/27/17 Enalapril Maleate [Vasotec] 10 mg PO DAILY 06/04/17 08/27/17 Glucagon [Glucagen Diagnostic Kit] 1 mg IM PRN PRN 06/04/17 08/27/17 Hydrochlorothiazide [Microzide] 12.5 mg PO DAILY 06/04/17 08/27/17 Insulin Aspart, Recombinant 4 unit SQ TID 06/04/17 08/27/17 [Novolog] Insulin Glargine,Hum.rec.anlog 8 unit SQ DAILY 06/04/17 08/27/17 [Basaglar Kwikpen U-100] Metoprolol Tartrate [Lopressor] 25 mg PO BID 06/04/17 08/27/17 Review of Systems - Physician Review All systems were reviewed & negative as marked: Yes - Review of Systems Systems not reviewed;Unavailable: Altered Mental Status (Confused) Physical Exam - Physical Exam Physical Exam Limitations: Altered Mental Status Vital Signs Reviewed: Yes Vital Signs Temp Pulse Resp BP Pulse Ox 09/01/17 07:02 98.0 F 99 H 18 159/99 H 98 Temperature: Afebrile Blood Pressure: Hypertensive Pulse: Tachycardic Respiratory Rate: Normal Appearance: Positive for: Non-Toxic Pain Distress: None Mental Status: Positive for: Confused Finger Stick Blood Glucose: 20 - Systems Exam Head: Present: Atraumatic, Normocephalic Pupils: Present: PERRL Extroacular Muscles: Present: EOMI Conjunctiva: Present: Normal Mouth: Present: Moist Mucous Membranes Neck: Present: Normal Range of Motion Respiratory/Chest: Present: Clear to Auscultation, Good Air Exchange. No: Respiratory Distress, Accessory Muscle Use Cardiovascular: Present: Regular Rate and Rhythm, Normal S1, S2. No: Murmurs Abdomen: Present: Normal Bowel Sounds. No: Tenderness, Distention, Peritoneal Signs Back: Present: Normal Inspection Upper Extremity: Present: Normal Inspection. No: Cyanosis, Edema Lower Extremity: Present: Normal Inspection. No: Edema Neurological: Present: GCS=15, CN II-XII Intact, Speech Normal Skin: Present: Warm, Dry, Normal Color. No: Rashes Psychiatric: Present: Alert, Oriented x 3, Normal Insight, Normal Concentration Medical Decision Making ED Course and Treatment: 09/01/17 07:17 Impression: A 67 year old female presents to the emergency department via EMS after being found in an altered mental state by her son. Plan: -- EKG -- Chest X-ray -- Labs -- Dextrose -- Urinalysis -- Reassess and disposition Prior Visits: Notes and results from previous visits were reviewed. Patient was last seen in the emergency department on 08/21/17. The patient was seen in the emergency department for a complaint of hypoglycemia. The pateint signed out against medical advice. Progress Notes: EKG: Ordered, reviewed, and independently interpreted the EKG. Rate : 78 BPM Rhythm : NSR Interpretation : Low voltage QRS. Normal axis. Normal intervals. Chest X-ray: Read and interpreted by me shows no active disease. 09/01/17 08:36: Leaving Against Medical Advice (AMA): The patient is choosing to leave against medical advice. I have personally explained to the patient that choosing to do so may result in permanent bodily harm or . I have discussed at great length that without further evaluation and monitoring there may be unforeseen circumstances and/or deterioration causing permanent bodily harm or as a result of their choice. The patient is alert, oriented, and shows the mental capacity to make clear decisions regarding the patients health care at this time. The patient continues to wish to leave against medical advice. In light of the patients decision to leave against medical advice, follow-up has been arranged and the patient is aware of the importance to following up as instructed. The patient has been advised that they should return to the emergency room immediately if they change their mind at any time, or if their condition begins to change or worsen in any way. - Lab Interpretations Lab Results: 09/01/17 07:40 09/01/17 07:40 Lab Results 09/01/17 07:40: Sodium 135, Potassium 4.9, Chloride 100, Carbon Dioxide 25, Anion Gap 14, BUN 28 H, Creatinine 1.2, Est GFR ( Amer) 55, Est GFR (Non- Af Amer) 45, Random Glucose 395 H* D, Calcium 8.9, Total Bilirubin 0.5, AST 47 H , ALT 33, Alkaline Phosphatase 80, Lactate Dehydrogenase 959 H, Total Creatine Kinase 236 H, CK-MB (CK-2) 2.1, CK-MB (CK-2) % Cancelled, Troponin I 0.01, Total Protein 7.3, Albumin 4.4, Globulin 2.9, Albumin/Globulin Ratio 1.5, Lipase 168 09/01/17 07:40: Urine Color Yellow, Urine Appearance Sl cloudy, Urine pH 6.5, Ur Specific [place] 1.015, Urine Protein 30 H, Urine Glucose (UA) 500 H, Urine Ketones Negative, Urine Blood Trace-intact H, Urine Nitrate Negative, Urine Bilirubin Negative, Urine Urobilinogen 0.2, Ur Leukocyte Esterase Negative, Urine RBC 0 - 2, Urine WBC Negative, Ur Epithelial Cells 0 - 2 09/01/17 07:40: WBC 9.1 D, RBC 3.63, Hgb 10.4 L, Hct 31.9 L, MCV 87.9, MCH 28.7 , MCHC 32.6, RDW 13.6, Plt Count 342, MPV 9.4, Gran % 67.7, Lymph % (Auto) 19.9 L, [place] % (Auto) 7.2 H, Eos % (Auto) 4.6, Baso % (Auto) 0.6, Gran # 6.16, Lymph # 1.8, [place] # 0.7 H, Eos # 0.4, Baso # 0.05 I have reviewed the lab results: Yes - RAD Interpretation Radiology Orders: 09/01/17 07:15 CXR [CHEST PORTABLE] [RAD] Stat - EKG Interpretation Interpreted by ED Physician: Yes - Medication Orders Current Medication Orders: Discontinued Medications Dextrose (Dextrose 50% Inj) 100 ml IVP STAT STA Stop: 09/01/17 07:16 Last Admin: 09/01/17 07:17 Dose: 100 ml IVP Administration Document 09/01/17 07:17 SS (Rec: 09/01/17 07:18 SS [id number]) Charges for Administration # of IVP Administrations 1 - Scribe Statement The provider has reviewed the documentation as recorded by the Alineibteresa Chau Provider Scribe Attestation: All medical record entries made by the Scribe were at my direction and personally dictated by me. I have reviewed the chart and agree that the record accurately reflects my personal performance of the history, physical exam, medical decision making, and the department course for this patient. I have also personally directed, reviewed, and agree with the discharge instructions and disposition. Disposition/Present on Arrival - Present on Arrival Any Indicators Present on Arrival: No History of DVT/PE: No History of Uncontrolled Diabetes: Yes Urinary Catheter: No History of Decub. Ulcer: No History Surgical Site Infection Following: None - Disposition Have Diagnosis and Disposition been Completed?: Yes Diagnosis: Hypoglycemia Disposition: AGAINST MEDICAL ADVICE Disposition Time: 08:26 Patient Plan: Discharge Condition: IMPROVED Discharge Instructions (ExitCare): Diabetic Hypoglycemia (ED) Additional Instructions: Chastity Foss this happened to you. Please take better care of your self and make sure you eat, especially if you have taken your insulin. Return to us if problems. Follow up with your doctor. [facility]- Dr. Venkat Gabriel Referrals: PCP,NO [Primary Care Provider] - Follow up with primary Forms: [employer] (Mongolian)
[2017-09-01 07:53] LABS: BASO # 0.05 K/mm3 (0.0-2.0); BASO % 0.6 % (0.0-3.0); EOS # 0.4 (0.0-0.7); EOS % 4.6 % (1.5-5.0); GRAN # 6.16 (1.4-6.5); GRAN % 67.7 % (50.0-68.0); HEMOGLOBIN 10.4 g/dL (12.0-16.0); LYMPH # 1.8 (1.2-3.4); LYMPH % 19.9 % (22.0-35.0); MEAN CELL VOLUME 87.9 fl (80.0-105.0); MEAN CORPUSCULAR HEMOGLOBIN 28.7 pg (25.0-35.0); MEAN CORPUSCULAR HGB CONC 32.6 g/dl (31.0-37.0); MEAN PLATELET VOLUME 9.4 fl (7.0-11.0); MONO # 0.7 (0.1-0.6); MONO % 7.2 % (1.0-6.0); PH,URINE 6.5 (4.7-8.0); RBC 3.63 10^6/uL (3.5-6.1); RED CELL DISTRIBUTION WIDTH 13.6 % (11.5-14.5); URINE BILIRUBIN NEGATIVE (NEGATIVE); URINE BLOOD TRACE-INTACT (NEGATIVE); URINE GLUCOSE (UA) 500 mg/dL (NEGATIVE); URINE LEUKOCYTE ESTERASE NEGATIVE Leu/uL (NEGATIVE); URINE NITRATE NEGATIVE (NEGATIVE); URINE PROTEIN 30 mg/dL (<30 mg/dL); URINE UROBILINOGEN 0.2 E.U./dL (<1 E.U./dL); WHITE BLOOD COUNT 9.1 10^3/ul (4.5-11.0)
[2017-09-01 08:00] LABS: URINE APPEARANCE SL CLOUDY (CLEAR); URINE COLOR YELLOW (YELLOW)
[2017-09-01 08:02] LABS: URINE EPITHELIAL CELLS 0 - 2 /hpf (0-5); URINE RBC 0 - 2 /hpf (0-2); URINE WBC NEGATIVE /hpf (0-6)
[2017-09-01 08:12] LABS: ALB/GLOB RATIO 1.5 (1.1-1.8); ALBUMIN 4.4 g/dL (3.0-4.8); CALCIUM 8.9 mg/dL (8.4-10.5)
[2017-09-01 08:18] LABS: TROPONIN I 0.01 ng/mL
--- NOTE | 2017-09-01 08:38 | RAD ---
HISTORY: Hypoglycemia COMPARISON: 06/11/2017 FINDINGS: LUNGS: No active pulmonary disease. PLEURA: No significant pleural effusion identified, no pneumothorax apparent. CARDIOVASCULAR: Normal. OSSEOUS STRUCTURES: No significant abnormalities. VISUALIZED UPPER ABDOMEN: Normal. OTHER FINDINGS: None. IMPRESSION: No active disease.
[2017-09-01 09:02] LABS: CK-MB 2.1 ng/mL (0.0-3.6)
--- NOTE | 2017-09-01 17:54 | CARD ---
APPROVED REPORT EKG Measurement Heart [id number] <Conclusion> Poor data quality, interpretation may be adversely affected Sinus rhythm with 1st degree AV block Low voltage QRS Borderline ECG
== END 2017-09-01 08:30 | disposition left against medical advice (07) ==
LOC: ED 06:49
DX: E10.649 Type 1 diabetes mellitus with hypoglycemia without coma (principal); Z79.4 Long term (current) use of insulin; I10 Essential (primary) hypertension; I25.10 Atherosclerotic heart disease of native coronary artery without angina pectoris

== ENCOUNTER 2017-09-05 07:56 | Emergency (ER) | payer MEDICARE ==
[2017-09-05 08:26] VITALS: TEMP 97.7; O2SAT 100
--- NOTE | 2017-09-05 08:37 | ED PDOC ---
Arrival/HPI - General Historian: Patient, Other (son at bedside) EM Caveat: Acuity of Condition - Critical Care Critical Care Minutes: 30 minutes - History of Present Illness Symptom Onset: Sudden Symptom Course: Resolved Severity Level: 8 <Jodee Shaikh - Last Filed: 09/05/17 09:03> <Wolf Ariza - Last Filed: 09/05/17 09:43> - General Chief Complaint: Altered Mental Status Time Seen by Provider: 09/05/17 07:57 - Critical Care Narrative Critical Care (Text): 09/05/17 08:34 glucose level <20, 1 amp of D50 given (Jodee Shaikh) - History of Present Illness Narrative History of Present Illness (Text): 09/05/17 08:34 09/05/17 08:34 67F with a past medical history of hypoglycemic episodes of glucose <20mg/dl, HLD, HTN, IA. Patient arrived by EMS with glucose level <20. Son at bedside.Patient was given one amp of dextrose at bedside in ED. Patient states she doesn't know if she has breakfast this morning. Patient states she was recently started on humalog before meals (4units) and hasn't been back to the primary care doctor at [place] to readjust her new medications. It was explained that patient needs to keep a glucose diary detailing premeal, before bed, and AM glucose levels for her primary care doctor to adjust medications better. Patient states her meals are as follows: Breakfast: an egg Lunch: vegetables, or a fruit Dinner: soup Patient admits to chills and states she feels cold when her sugar level is low. denies fevers, chest pain, shortness of breath, leg edema, abdominal pain, diarrhea, constipation PMH: Social history 47 pack year history, and red wine bottle on weekends. Patient denies illicit drug use PSH: Csection, PCI 4 CHYNA () 09/05/17 08:34 (Jodee Shaikh) Associated Symptoms (Text): 09/05/17 08:35 drowsy, confused (Jodee Shaikh) Past Medical History - Infectious Disease Hx of Infectious Diseases: None - Tetanus Immunization Tetanus Immunization: Unknown - Reproductive Menopause: Yes - Cardiac Hx Cardiac Disorders: Yes (CAD) Hx Hypertension: Yes Hx Peripheral Vascular Disease: Yes (DVT) Other/Comment: heart attack 2012 - Pulmonary Hx Respiratory Disorders: Yes (SMOKES CIGARETTES. PK LASTS A WEEK.) - Neurological Hx Neurological Disorder: No - HEENT Hx HEENT Disorder: No - Renal Hx Renal Disorder: No - Endocrine/Metabolic Hx Endocrine Disorders: Yes Hx Diabetes Mellitus Type 1: Yes - Hematological/Oncological Hx Blood Disorders: No - Integumentary Hx Dermatological Disorder: No - Musculoskeletal/Rheumatological Hx Musculoskeletal Disorders: No Hx Falls: Yes - Gastrointestinal Hx Gastrointestinal Disorders: No - Genitourinary/Gynecological Hx Genitourinary Disorders: Yes (C/S X 3) - Psychiatric Hx Psychophysiologic Disorder: No Hx Substance Use: No - Past Surgical History Past Surgical History: Unable to Obtain - Surgical History Hx Cardiac Catheterization: Yes Hx Coronary Stent: Yes - Anesthesia Hx Anesthesia: Yes Hx Anesthesia Reactions: No Hx Malignant Hyperthermia: No - Suicidal Assessment Feels Threatened In Home Enviroment: No <Jodee Shaikh - Last Filed: 09/05/17 09:03> Family/Social History Family/Social History: No Known Family HX Smoking Status: Current Some Days Smoker Hx Alcohol Use: No Hx Substance Use: No Hx Substance Use Treatment: No <Jodee Shaikh - Last Filed: 09/05/17 09:03> Allergies/Home Meds <Jodee Shaikh - Last Filed: 09/05/17 09:03> <Wolf Ariza - Last Filed: 09/05/17 09:43> Allergies/Adverse Reactions: Allergies No Known Allergies Allergy (Verified 09/01/17 07:02) Home Medications: Home Meds Medication Instructions Recorded Confirmed Aspirin [Ecotrin] 81 mg PO DAILY 06/04/17 09/05/17 Atorvastatin [Lipitor] 40 mg PO DAILY 06/04/17 09/05/17 Enalapril Maleate [Vasotec] 10 mg PO DAILY 06/04/17 09/05/17 Glucagon [Glucagen Diagnostic Kit] 1 mg IM PRN PRN 06/04/17 09/05/17 Hydrochlorothiazide [Microzide] 12.5 mg PO DAILY 06/04/17 09/05/17 Insulin Aspart, Recombinant 4 unit SQ TID 06/04/17 09/05/17 [Novolog] Insulin Glargine,Hum.rec.anlog 8 unit SQ DAILY 06/04/17 09/05/17 [Basaglar Kwikpen U-100] Metoprolol Tartrate [Lopressor] 25 mg PO BID 06/04/17 09/05/17 Review of Systems - Review of Systems Eyes: absent: Vision Changes ENT: absent: Hearing Changes Respiratory: absent: SOB, Cough Cardiovascular: absent: Chest Pain Gastrointestinal: absent: Abdominal Pain, Constipation, Diarrhea Genitourinary Female: absent: Dysuria, Hematuria Skin: absent: Rash, Pruritis Neurological: Other (overall fatigue). absent: Headache, Focal Weakness Endocrine: Other (hypoglycemia) Hemo/Lymphatic: Easy Bruising. absent: Easy Bleeding Psychiatric: Normal. absent: Anxiety, Depression <Jodee Shaikh - Last Filed: 09/05/17 09:03> Physical Exam Temperature: Afebrile Blood Pressure: Hypertensive Pulse: Tachycardic Mental Status: Positive for: Lethargic Finger Stick Blood Glucose: 20 - Systems Exam Head: Present: Atraumatic, Normocephalic Pupils: Present: PERRL Extroacular Muscles: Present: EOMI Conjunctiva: Present: Normal Ears: Present: Normal, NORMAL TM Mouth: Present: Moist Mucous Membranes Nose (External): Present: Atraumatic Nose (Internal): Present: Normal Inspection Neck: Present: Normal Range of Motion. No: Lymphadenopathy, Trachea Midline Cardiovascular: Present: Regular Rate and Rhythm, Normal S1, S2, Tachycardic Abdomen: Present: Normal Bowel Sounds. No: Tenderness, Rebound Upper Extremity: Present: Normal Inspection, Capillary Refill < 2s. No: Edema Lower Extremity: Present: Normal Inspection, Capillary Refill < 2 s. No: Edema Neurological: Present: GCS=15 (After administering D50), Speech Normal (after administering D50) Skin: Present: Warm, Dry, Pale <Jodee Shaikh - Last Filed: 09/05/17 09:03> Vital Signs Temp Pulse Resp BP Pulse Ox 09/05/17 09:10 93 H 18 165/86 H 100 09/05/17 08:15 97.7 F 98 H 16 174/99 H 100 Medical Decision Making Re-evaluation Time: 08:45 Reassessment Condition: Improved <Jodee Shaikh - Last Filed: 09/05/17 09:03> <Wolf Ariza - Last Filed: 09/05/17 09:43> ED Course and Treatment: 09/05/17 08:54 AMS, likely secondary to hypoglycemia 1 D50 IVP given at bedside. f/u CBC f/u CMP ACS r/o f/u EKG T1DM, controlled f/u A1c (Jodee Shaikh) 09/05/17 08:56 Seen and examined with the resident. Our history and physical exam reveals a woman who was found hypoglycemic by her son. She takes insulin and not oral hypoglycemics. She is well known to the emergency Department staff. She is unclear if she ate or not. Her blood sugar was less than 20. She was treated with IV D50 and responded well. She ate a sandwich and had some juice. She is now awake alert cooperative and is signing out AMA. (Wolf Ariza) - Lab Interpretations Lab Results: 09/05/17 08:15 09/05/17 08:15 Lab Results 09/05/17 08:24: POC Glucose (mg/dL) 187 H 09/05/17 08:15: Sodium 136, Potassium 4.4, Chloride 104, Carbon Dioxide 23, Anion Gap 13, BUN 25 H, Creatinine 1.4 H, Est GFR ( Amer) 46, Est GFR ( Non-Af Amer) 38, Random Glucose 212 H, Calcium 8.7, Total Bilirubin 0.3, AST 39 H, ALT 31, Alkaline Phosphatase 85, Troponin I 0.06 D, Total Protein 6.5, Albumin 3.9, Globulin 2.6, Albumin/Globulin Ratio 1.5 09/05/17 08:15: WBC 10.2, RBC 3.45 L, Hgb 9.9 L, Hct 30.9 L, MCV 89.6, MCH 28.7 , MCHC 32.0, RDW 13.9, Plt Count 387, MPV 10.1, Gran % 49.7 L, Lymph % (Auto) 33.7, [place] % (Auto) 8.9 H, Eos % (Auto) 7.4 H, Baso % (Auto) 0.3, Gran # 5.08, Lymph # 3.5 H, [place] # 0.9 H, Eos # 0.8 H, Baso # 0.03 Disposition/Present on Arrival - Present on Arrival Any Indicators Present on Arrival: Yes History of DVT/PE: No History of Uncontrolled Diabetes: Yes Urinary Catheter: No History of Decub. Ulcer: No History Surgical Site Infection Following: None - Disposition Have Diagnosis and Disposition been Completed?: No <Jodee Shaikh - Last Filed: 09/05/17 09:03> - Present on Arrival Any Indicators Present on Arrival: No History of DVT/PE: No History of Uncontrolled Diabetes: Yes Urinary Catheter: No History of Decub. Ulcer: No - Disposition Have Diagnosis and Disposition been Completed?: Yes Disposition Time: 08:57 Patient Plan: Discharge <Wolf Ariza - Last Filed: 09/05/17 09:43> - Disposition Diagnosis: Hypoglycemia Disposition: AGAINST MEDICAL ADVICE Condition: IMPROVED Discharge Instructions (ExitCare): Diabetic Hypoglycemia (ED), Hypertension (ED ) Referrals: PCP,NO [Primary Care Provider] - Follow up with primary Forms: [employer] (Burkinan)
[2017-09-05 09:04] LABS: ALB/GLOB RATIO 1.5 (1.1-1.8); ALBUMIN 3.9 g/dL (3.0-4.8); CALCIUM 8.7 mg/dL (8.4-10.5)
[2017-09-05 09:10] LABS: BASO # 0.03 K/mm3 (0.0-2.0); BASO % 0.3 % (0.0-3.0); EOS # 0.8 (0.0-0.7); EOS % 7.4 % (1.5-5.0); GRAN # 5.08 (1.4-6.5); GRAN % 49.7 % (50.0-68.0); HEMOGLOBIN 9.9 g/dL (12.0-16.0); LYMPH # 3.5 (1.2-3.4); LYMPH % 33.7 % (22.0-35.0); MEAN CELL VOLUME 89.6 fl (80.0-105.0); MEAN CORPUSCULAR HEMOGLOBIN 28.7 pg (25.0-35.0); MEAN PLATELET VOLUME 10.1 fl (7.0-11.0); MONO # 0.9 (0.1-0.6); MONO % 8.9 % (1.0-6.0); RBC 3.45 10^6/uL (3.5-6.1); RED CELL DISTRIBUTION WIDTH 13.9 % (11.5-14.5); WHITE BLOOD COUNT 10.2 10^3/ul (4.5-11.0)
[2017-09-05 09:11] VITALS: BP 165/86; PULSE 93; RESP 18
[2017-09-05 09:14] LABS: TROPONIN I 0.06 ng/mL
== END 2017-09-05 09:11 | disposition left against medical advice (07) ==
LOC: ED 07:56
DX: E11.649 Type 2 diabetes mellitus with hypoglycemia without coma (principal); I10 Essential (primary) hypertension; Z86.718 Personal history of other venous thrombosis and embolism; F17.210 Nicotine dependence, cigarettes, uncomplicated

== ENCOUNTER 2017-09-06 07:35 | Emergency (ER) | payer MEDICARE ==
[2017-09-06] MEDS ORDERED: Dextrose 50% SYRINGE Inj (50 ml) ONE (07:40)
[2017-09-06 07:54] VITALS: BMI 17.6
[2017-09-06 07:59] VITALS: BP 172/96; PULSE 114; RESP 18; TEMP 97; O2SAT 100
--- NOTE | 2017-09-06 08:24 | ED PDOC ---
Arrival/HPI - General Historian: Patient, Family (son) <Jodee Shaikh - Last Filed: 09/06/17 08:38> <JuliánKsenia - Last Filed: 09/06/17 22:09> - General Chief Complaint: Altered Mental Status Time Seen by Provider: 09/06/17 08:07 - History of Present Illness Narrative History of Present Illness (Text): 09/06/17 08:21 09/05/17 08:34 67F with a past medical history of hypoglycemic episodes of glucose <20mg/dl, HLD, HTN, [place]. Patient arrived by EMS with glucose level <20. Son at bedside.Patient was given one amp of dextrose at bedside in ED. Patient states she doesn't know if she has breakfast this morning. Patient's son did not see her eat breakfast because she wakes up too early for him to eat with her. Patient states she didn't take humalog today. Patient refused food at bedside and wanted to sign against medical advice. Patient was told to follow up with PMD as soon as possible to adjust her medications. Patient came yesterday 09/05 and stated she was recently started on humalog before meals (4units) and hasn't been back to the primary care doctor at [facility] to readjust her new medications. It was explained that patient needs to keep a glucose diary detailing premeal, before bed, and AM glucose levels for her primary care doctor to adjust medications better. 09/04 Patient stated her meals are as follows: Breakfast: an egg Lunch: vegetables, or a fruit Dinner: soup PMH: Social history 47 pack year history, and red wine bottle on weekends. Patient denies illicit drug use PSH: , PCI 4 CHYNA () 09/06/17 08:39 Repeat Glucose 150s Patient states she takes a long acting insulin 6units at morning. Patient takes 4 units short acting before each meal. Patient was advised to take long acting at night time. Patient does not always check blood sugar before every meal. Patient goes to the [facility], but hasn't been able to make an appointment. Patient states her [facility] insurance reinstates September 22 and will be able to see an associate professor of violin and a nurse practioner for further management. Son was instructed to wake up early to watch his mom eat. Patient signed AMA after drinking apple juice. (Jodee Shaikh) Past Medical History - Infectious Disease Hx of Infectious Diseases: None - Tetanus Immunization Tetanus Immunization: Unknown - Reproductive Menopause: Yes - Cardiac Hx Cardiac Disorders: Yes (CAD) Hx Hypertension: Yes Hx Peripheral Vascular Disease: Yes (DVT) Other/Comment: heart attack 2011 - Pulmonary Hx Respiratory Disorders: Yes (SMOKES CIGARETTES. PK LASTS A WEEK.) - Neurological Hx Neurological Disorder: No - HEENT Hx HEENT Disorder: No - Renal Hx Renal Disorder: No - Endocrine/Metabolic Hx Endocrine Disorders: Yes Hx Diabetes Mellitus Type 1: Yes - Hematological/Oncological Hx Blood Disorders: No - Integumentary Hx Dermatological Disorder: No - Musculoskeletal/Rheumatological Hx Musculoskeletal Disorders: No Hx Falls: Yes - Gastrointestinal Hx Gastrointestinal Disorders: No - Genitourinary/Gynecological Hx Genitourinary Disorders: Yes (C/S X 3) - Psychiatric Hx Psychophysiologic Disorder: No Hx Substance Use: No - Past Surgical History Past Surgical History: Unable to Obtain - Surgical History Hx Cardiac Catheterization: Yes Hx Coronary Stent: Yes - Anesthesia Hx Anesthesia: Yes Hx Anesthesia Reactions: No Hx Malignant Hyperthermia: No - Suicidal Assessment Feels Threatened In Home Enviroment: No <Jodee Shaikh - Last Filed: 09/06/17 08:38> Family/Social History Family/Social History: Unknown Family HX Smoking Status: Current Some Days Smoker Hx Alcohol Use: No Hx Substance Use: No Hx Substance Use Treatment: No <Jodee Shaikh - Last Filed: 09/06/17 08:38> Allergies/Home Meds <Jodee Shaikh - Last Filed: 09/06/17 08:38> <Ksenia Gallego - Last Filed: 09/06/17 22:09> Allergies/Adverse Reactions: Allergies No Known Allergies Allergy (Verified 09/01/17 07:02) Home Medications: Home Meds Medication Instructions Recorded Confirmed Aspirin [Ecotrin] 81 mg PO DAILY 06/04/17 09/05/17 Atorvastatin [Lipitor] 40 mg PO DAILY 06/04/17 09/05/17 Enalapril Maleate [Vasotec] 10 mg PO DAILY 06/04/17 09/05/17 Glucagon [Glucagen Diagnostic Kit] 1 mg IM PRN PRN 06/04/17 09/05/17 Hydrochlorothiazide [Microzide] 12.5 mg PO DAILY 06/04/17 09/05/17 Insulin Aspart, Recombinant 4 unit SQ TID 06/04/17 09/05/17 [Novolog] Insulin Glargine,Hum.rec.anlog 8 unit SQ DAILY 06/04/17 09/05/17 [Basaglar Kwikpen U-100] Metoprolol Tartrate [Lopressor] 25 mg PO BID 06/04/17 09/05/17 Review of Systems - Physician Review All systems were reviewed & negative as marked: Yes - Review of Systems Systems not reviewed;Unavailable: Uncooperative (patient wanted to sign AMA) Constitutional: Fatigue Eyes: absent: Vision Changes, Photophobia, Eye Pain ENT: absent: Hearing Changes, Tinnitus, TMJ Pain Respiratory: absent: SOB, Cough, Wheezing Cardiovascular: absent: Chest Pain, Palpitations, Edema Gastrointestinal: absent: Abdominal Pain, Constipation, Diarrhea Genitourinary Female: absent: Dysuria, Frequency, Hematuria Musculoskeletal: absent: Arthralgias, Back Pain, Neck Pain Skin: absent: Rash, Pruritis, Skin Lesions Neurological: absent: Headache, Dizziness, Focal Weakness Psychiatric: absent: Anxiety, Depression, Suicidal Ideation <Eng,Jodee - Last Filed: 09/06/17 08:38> Physical Exam Temperature: Hypothermic Blood Pressure: Hypertensive Pulse: Tachycardic Respiratory Rate: Normal Appearance: Positive for: Uncomfortable Mental Status: Positive for: Alert and Oriented X 3. No: Confused, Agitated, Lethargic - Systems Exam Head: Present: Atraumatic, Normocephalic Pupils: No: PERRL, Sluggish Extroacular Muscles: Present: EOMI. No: Gaze Palsy, Entrapment Conjunctiva: Present: Normal. No: Injected, Icteric Ears: Present: Normal. No: NORMAL TM, Erythema Mouth: Present: Moist Mucous Membranes. No: Dry, Drooling Pharnyx: Present: Normal. No: ERYTHEMA, EXUDATE Nose (External): Present: Atraumatic. No: Abrasion, Contusion, Laceration Nose (Internal): Present: Normal Inspection, Moist. No: No Active Bleeding Respiratory/Chest: Present: Clear to Auscultation. No: Accessory Muscle Use, Decreased Breath Sounds Cardiovascular: Present: Regular Rate and Rhythm, Normal S1, S2 Abdomen: Present: Normal Bowel Sounds. No: Tenderness, Distention Upper Extremity: Present: Normal Inspection, Normal ROM, Capillary Refill < 2s. No: Edema Lower Extremity: Present: Normal Inspection, Capillary Refill < 2 s. No: Edema Skin: Present: Warm, Dry, Pale Psychiatric: Present: Alert, Oriented x 3, Normal Insight <Jodee Shaikh - Last Filed: 09/06/17 08:38> Vital Signs Temp Pulse Resp BP Pulse Ox 09/06/17 07:36 97 F L 114 H 18 172/96 H 100 Medical Decision Making Reassessment Condition: Improved <Jodee Shaikh - Last Filed: 09/06/17 08:38> <Ksenia Gallego - Last Filed: 09/06/17 22:09> ED Course and Treatment: 09/06/17 09:30 Charlette Ramirez is a 67year old female well known to [facility] for hypoglycemic episodes. Presents to the emergency department via EMS s/p hypoglycemic episode. In agreement with resident note, which includes further HPI details. Patient was seen and evaluated with resident, came up with plan and treatment together. Patient signed out AMA. (Ksenia Gallego) - Lab Interpretations Lab Results: 09/06/17 07:45 09/06/17 07:45 Lab Results 09/06/17 08:21: POC Glucose (mg/dL) 159 H 09/06/17 07:45: Sodium 140, Potassium 4.3, Chloride 108 H, Carbon Dioxide 21, Anion Gap 15, BUN 27 H, Creatinine 1.2, Est GFR ( Amer) 55, Est GFR (Non- Af Amer) 45, Random Glucose < 20 L* D, Calcium 9.3, Magnesium 2.5 H, Total Bilirubin 0.4, AST 39 H, ALT 29, Alkaline Phosphatase 85, Troponin I 0.04 D, Total Protein 7.5, Albumin 4.5, Globulin 3.0, Albumin/Globulin Ratio 1.5 09/06/17 07:45: WBC 11.4 H, RBC 3.64, Hgb 10.4 L, Hct 32.2 L, MCV 88.5, MCH 28.6 , MCHC 32.3, RDW 14.1, Plt Count 383, MPV 10.0, Gran % 41.6 L, Lymph % (Auto) 42.0 H, [place] % (Auto) 10.2 H, Eos % (Auto) 5.8 H, Baso % (Auto) 0.4, Gran # 4.75 , Lymph # 4.8 H, [place] # 1.2 H, Eos # 0.7, Baso # 0.05 - PA / COIL BINDER / Resident Statement MD/DO has reviewed & agrees with the documentation as recorded. <Ksenia Gallego - Last Filed: 09/06/17 22:09> Disposition/Present on Arrival - Present on Arrival Any Indicators Present on Arrival: Yes History of DVT/PE: No History of Uncontrolled Diabetes: Yes Urinary Catheter: No History of Decub. Ulcer: No History Surgical Site Infection Following: None - Disposition Have Diagnosis and Disposition been Completed?: Yes Disposition Time: 08:47 <Jodee Shaikh - Last Filed: 09/06/17 08:38> <Ksenia Gallego - Last Filed: 09/06/17 22:09> - Disposition Diagnosis: Hypoglycemia Disposition: AGAINST MEDICAL ADVICE Condition: GUARDED Referrals: Sun Miranda MD [Primary Care Provider] - Follow up with primary Forms: [employer] (Occitan)
[2017-09-06 08:37] LABS: BASO # 0.05 K/mm3 (0.0-2.0); BASO % 0.4 % (0.0-3.0); EOS # 0.7 (0.0-0.7); EOS % 5.8 % (1.5-5.0); GRAN # 4.75 (1.4-6.5); GRAN % 41.6 % (50.0-68.0); HEMOGLOBIN 10.4 g/dL (12.0-16.0); LYMPH # 4.8 (1.2-3.4); MEAN CELL VOLUME 88.5 fl (80.0-105.0); MEAN CORPUSCULAR HEMOGLOBIN 28.6 pg (25.0-35.0); MEAN CORPUSCULAR HGB CONC 32.3 g/dl (31.0-37.0); MONO # 1.2 (0.1-0.6); MONO % 10.2 % (1.0-6.0); RBC 3.64 10^6/uL (3.5-6.1); RED CELL DISTRIBUTION WIDTH 14.1 % (11.5-14.5); WHITE BLOOD COUNT 11.4 10^3/ul (4.5-11.0)
[2017-09-06 09:00] LABS: TROPONIN I 0.04 ng/mL
[2017-09-06 09:15] LABS: ALB/GLOB RATIO 1.5 (1.1-1.8); ALBUMIN 4.5 g/dL (3.0-4.8); ALT/SGPT 29 U/L (7-56); AST/SGOT 39 U/L (14-36); BLOOD UREA NITROGEN 27 mg/dL (7-21); CALCIUM 9.3 mg/dL (8.4-10.5); GFR AFRICAN-AMERICAN 55; GFR NON-AFRICAN AMERICAN 45; MAGNESIUM 2.5 mg/dL (1.7-2.2)
== END 2017-09-06 08:47 | disposition left against medical advice (07) ==
LOC: ED 07:35
DX: E11.649 Type 2 diabetes mellitus with hypoglycemia without coma (principal); Z79.4 Long term (current) use of insulin; I10 Essential (primary) hypertension; F17.210 Nicotine dependence, cigarettes, uncomplicated

== ENCOUNTER 2017-09-26 12:30 | Emergency (ER) | payer MEDICARE ==
[2017-09-26 12:30] VITALS: BMI 17.6
[2017-09-26 12:59] VITALS: BP 140/72; PULSE 83; RESP 14; O2SAT 100
--- NOTE | 2017-09-26 13:27 | ED PDOC ---
Arrival/HPI - General Chief Complaint: Altered Mental Status Time Seen by Provider: 09/26/17 13:01 Historian: Patient - History of Present Illness Narrative History of Present Illness (Text): 09/26/17 13:05 Charlette Ramirez is a 67 year old female brought in by EMS, whose past medical history includes diabetes on insulin and hypoglycemia, who presents to the emergency department complaining of hypoglycemia prior to arrival. Patient is well known to the emergency department staff. Patient's son found patient unresponsive and called 911. En route to emergency department, patient was given 1 amp of D50 with an excellent response. No other complaints offered at this time. Time/Duration: Prior to Arrival Symptom Onset: Sudden Symptom Course: Improving Activities at Onset: Rest Context: Home Associated Symptoms (Text): 09/26/17 13:30 Well-known to the emergency department staff. He found this morning by her son unresponsive. He called 911 and medics responded. She was brought to the emergency department and treated with IV D50 with excellent response. She does not remember if she ate this morning or if she took her insulin. She is signing out AMA. Past Medical History - Provider Review Nursing Documentation Reviewed: Yes - Infectious Disease Hx of Infectious Diseases: None - Tetanus Immunization Tetanus Immunization: Unknown - Cardiac Hx Cardiac Disorders: Yes (CAD) Hx Hypertension: Yes Hx Peripheral Vascular Disease: Yes (DVT) - Pulmonary Hx Respiratory Disorders: Yes (SMOKES CIGARETTES. PK LASTS A WEEK.) - Neurological Hx Neurological Disorder: No - HEENT Hx HEENT Disorder: No - Renal Hx Renal Disorder: No - Endocrine/Metabolic Hx Endocrine Disorders: Yes Hx Diabetes Mellitus Type 1: Yes - Hematological/Oncological Hx Blood Disorders: No - Integumentary Hx Dermatological Disorder: No - Musculoskeletal/Rheumatological Hx Musculoskeletal Disorders: No Hx Falls: Yes - Gastrointestinal Hx Gastrointestinal Disorders: No - Genitourinary/Gynecological Hx Genitourinary Disorders: Yes (C/S X 3) - Psychiatric Hx Psychophysiologic Disorder: No Hx Substance Use: No - Past Surgical History Past Surgical History: Unable to Obtain - Surgical History Hx Cardiac Catheterization: Yes Hx Coronary Stent: Yes - Anesthesia Hx Anesthesia: Yes Hx Anesthesia Reactions: No Hx Malignant Hyperthermia: No - Suicidal Assessment Feels Threatened In Home Enviroment: No Family/Social History - Physician Review Nursing Documentation Reviewed: Yes Family/Social History: No Known Family HX Smoking Status: Current Some Days Smoker Hx Alcohol Use: No Hx Substance Use: No Hx Substance Use Treatment: No Allergies/Home Meds Allergies/Adverse Reactions: Allergies No Known Allergies Allergy (Verified 09/26/17 12:48) Home Medications: Home Meds Medication Instructions Recorded Confirmed Unobtainable 09/26/17 09/26/17 Review of Systems - Physician Review All systems were reviewed & negative as marked: Yes - Review of Systems Constitutional: Fatigue, Other (hypoglycemia) Eyes: absent: Vision Changes ENT: absent: Hearing Changes Respiratory: absent: SOB, Cough Cardiovascular: absent: Chest Pain Gastrointestinal: absent: Abdominal Pain Genitourinary Female: absent: Dysuria, Frequency Musculoskeletal: absent: Arthralgias, Back Pain Skin: absent: Rash, Pruritis Neurological: absent: Headache Endocrine: absent: Diaphoresis Hemo/Lymphatic: absent: Adenopathy Psychiatric: absent: Anxiety, Depression Physical Exam Vital Signs Reviewed: Yes Vital Signs Pulse Resp BP Pulse Ox 09/26/17 12:30 83 14 140/72 100 Blood Pressure: Normal Pulse: Regular Respiratory Rate: Normal Appearance: Positive for: Cachectic, Other (Pale) Pain Distress: None Mental Status: Positive for: Alert and Oriented X 3 Finger Stick Blood Glucose: 20 - Systems Exam Head: Present: Atraumatic, Normocephalic Pupils: Present: PERRL Extroacular Muscles: Present: EOMI Conjunctiva: Present: Normal Mouth: Present: Moist Mucous Membranes Neck: Present: Normal Range of Motion Respiratory/Chest: Present: Clear to Auscultation, Good Air Exchange. No: Respiratory Distress, Accessory Muscle Use Cardiovascular: Present: Regular Rate and Rhythm, Normal S1, S2. No: Murmurs Abdomen: Present: Normal Bowel Sounds. No: Tenderness, Distention, Peritoneal Signs Back: Present: Normal Inspection Upper Extremity: Present: Normal Inspection. No: Cyanosis, Edema Lower Extremity: Present: Normal Inspection. No: Edema Skin: Present: Pale Psychiatric: Present: Alert, Oriented x 3, Normal Insight, Normal Concentration Medical Decision Making ED Course and Treatment: 09/26/17 13:28 Impression: 67 year old female brought in by EMS complaining of hypoglycemia after being found unresponsive prior to arrival. Plan: -- EKG -- Labs -- Dextrose -- Reassess and disposition Prior Visits: Notes and results from previous visits were reviewed. Patient was last seen in the emergency department on 1/15/18 arrived by EMS with glucose level <20. Patient left against medical advice. Progress Notes: 09/26/17 13:32 Patient refused x-ray and EKG. She refused blood work and is signing out AMA. She is currently awake alert and oriented and able to make such a decision. - Lab Interpretations Lab Results: 09/26/17 13:20 09/26/17 13:20 Lab Results 09/26/17 13:20: Sodium 141, Potassium 5.0, Chloride 107, Carbon Dioxide 22, Anion Gap 16, BUN 39 H, Creatinine 1.5 H, Est GFR ( Amer) 42, Est GFR ( Non-Af Amer) 35, Random Glucose < 20 L*, Calcium 9.9, Total Bilirubin 0.3, AST 43 H, ALT 29, Alkaline Phosphatase 88, Lactate Dehydrogenase 906 H, Total Creatine Kinase 122, Troponin I < 0.01 D, Total Protein 7.5, Albumin 4.8, Globulin 2.7, Albumin/Globulin Ratio 1.8 09/26/17 13:20: WBC 10.1, RBC 3.84, Hgb 11.0 L, Hct 34.0 L, MCV 88.5, MCH 28.6, MCHC 32.4, RDW 13.8, Plt Count 414, MPV 9.9, Gran % 37.3 L, Lymph % (Auto) 44.8 H, [place] % (Auto) 8.7 H, Eos % (Auto) 8.4 H, Baso % (Auto) 0.8, Gran # 3.75, Lymph # (Auto) 4.5 H, [place] # (Auto) 0.9 H, Eos # (Auto) 0.9 H, Baso # (Auto) 0.08 - Medication Orders Current Medication Orders: Discontinued Medications Dextrose (Dextrose 50% Inj) 50 ml IVP STAT STA Stop: 09/26/17 13:47 Last Admin: 09/26/17 13:46 Dose: 50 ml IVP Administration Document 09/26/17 13:46 RG (Rec: 09/26/17 13:55 RG [id number]) Charges for Administration # of IVP Administrations 1 Disposition/Present on Arrival - Present on Arrival Any Indicators Present on Arrival: No History of DVT/PE: No History of Uncontrolled Diabetes: Yes Urinary Catheter: No History of Decub. Ulcer: No History Surgical Site Infection Following: None - Disposition Have Diagnosis and Disposition been Completed?: Yes Diagnosis: Hypoglycemia Disposition: AGAINST MEDICAL ADVICE Disposition Time: 13:32 Patient Plan: Discharge Condition: IMPROVED Discharge Instructions (ExitCare): Diabetic Hypoglycemia (ED) Referrals: Sun Miranda MD [Primary Care Provider] - Follow up with primary Forms: [employer] ([place])
[2017-09-26 13:37] LABS: BASO # 0.08 K/mm3 (0.0-2.0); BASO % 0.8 % (0.0-3.0); EOS # 0.9 (0.0-0.7); EOS % 8.4 % (1.5-5.0); GRAN # 3.75 (1.4-6.5); GRAN % 37.3 % (50.0-68.0); LYMPH # 4.5 (1.2-3.4); LYMPH % 44.8 % (22.0-35.0); MEAN CELL VOLUME 88.5 fl (80.0-105.0); MEAN CORPUSCULAR HEMOGLOBIN 28.6 pg (25.0-35.0); MEAN CORPUSCULAR HGB CONC 32.4 g/dl (31.0-37.0); MEAN PLATELET VOLUME 9.9 fl (7.0-11.0); MONO # 0.9 (0.1-0.6); MONO % 8.7 % (1.0-6.0); RBC 3.84 10^6/uL (3.5-6.1); RED CELL DISTRIBUTION WIDTH 13.8 % (11.5-14.5); WHITE BLOOD COUNT 10.1 10^3/ul (4.5-11.0)
[2017-09-26] MEDS ORDERED: Dextrose 50% SYRINGE Inj (50 ml) IVP STA (13:46)
[2017-09-26 13:56] LABS: TROPONIN I < 0.01 ng/mL
[2017-09-26 14:03] LABS: ALB/GLOB RATIO 1.8 (1.1-1.8); ALBUMIN 4.8 g/dL (3.0-4.8); ALT/SGPT 29 U/L (7-56); AST/SGOT 43 U/L (14-36); BLOOD UREA NITROGEN 39 mg/dL (7-21); CALCIUM 9.9 mg/dL (8.4-10.5); GFR AFRICAN-AMERICAN 42; GFR NON-AFRICAN AMERICAN 35
== END 2017-09-26 14:10 | disposition left against medical advice (07) ==
LOC: ED 12:30
DX: E10.649 Type 1 diabetes mellitus with hypoglycemia without coma (principal); Z79.4 Long term (current) use of insulin; I10 Essential (primary) hypertension; I25.10 Atherosclerotic heart disease of native coronary artery without angina pectoris

== ENCOUNTER 2017-10-08 17:27 | Emergency (ER) | payer MEDICARE ==
[2017-10-08] MEDS ORDERED: Dextrose 50% SYRINGE Inj (50 ml) ONE (17:32)
[2017-10-08 17:35] VITALS: BP 158/76; PULSE 73; RESP 18; O2SAT 95; BMI 22.6
[2017-10-08] MEDS ORDERED: Dextrose 50% SYRINGE Inj (50 ml) IVP ONE (17:40)
[2017-10-08 17:44] VITALS: TEMP 96.4
--- NOTE | 2017-10-08 17:56 | ED PDOC ---
Arrival/HPI - General Chief Complaint: Altered Mental Status Time Seen by Provider: 10/08/17 17:50 Historian: Patient, EMS - History of Present Illness Narrative History of Present Illness (Text): 10/08/17 17:52 Patient is a 67 yo female, past medical history of diabetes and frequent episodes of hypoglycemia, presents to the Emergency Department after being found unresponsive reportedly by family. Patient reportedly found to be hypoglycemic. Time/Duration: Prior to Arrival Past Medical History - Infectious Disease Hx of Infectious Diseases: None - Tetanus Immunization Tetanus Immunization: Unknown - Cardiac Hx Cardiac Disorders: Yes (CAD) Hx Hypertension: Yes Hx Peripheral Vascular Disease: Yes (DVT) - Pulmonary Hx Respiratory Disorders: Yes - Neurological Hx Neurological Disorder: No - HEENT Hx HEENT Disorder: No - Renal Hx Renal Disorder: No - Endocrine/Metabolic Hx Endocrine Disorders: Yes Hx Diabetes Mellitus Type 1: Yes - Hematological/Oncological Hx Blood Disorders: No - Integumentary Hx Dermatological Disorder: No - Musculoskeletal/Rheumatological Hx Musculoskeletal Disorders: Yes Hx Falls: Yes - Gastrointestinal Hx Gastrointestinal Disorders: No - Genitourinary/Gynecological Hx Genitourinary Disorders: Yes (C/S X 3) - Psychiatric Hx Psychophysiologic Disorder: No Hx Substance Use: No - Past Surgical History Past Surgical History: Unable to Obtain - Surgical History Hx Cardiac Catheterization: Yes Hx Coronary Stent: Yes - Anesthesia Hx Anesthesia: Yes Hx Anesthesia Reactions: No Hx Malignant Hyperthermia: No - Suicidal Assessment Feels Threatened In Home Enviroment: No Family/Social History Family/Social History: Unknown Family HX Smoking Status: Current Some Days Smoker Hx Alcohol Use: No Hx Substance Use: No Hx Substance Use Treatment: No Allergies/Home Meds Allergies/Adverse Reactions: Allergies No Known Allergies Allergy (Verified 10/08/17 17:40) Home Medications: Home Meds Medication Instructions Recorded Confirmed Unobtainable 09/26/17 10/08/17 Review of Systems - Review of Systems Systems not reviewed;Unavailable: Acuity of Condition Constitutional: Fatigue. absent: Fevers Eyes: absent: Vision Changes ENT: absent: Hearing Changes Respiratory: absent: SOB Cardiovascular: absent: Chest Pain Gastrointestinal: absent: Abdominal Pain, Nausea, Vomiting Musculoskeletal: absent: Back Pain Skin: absent: Rash Neurological: absent: Headache, Dizziness, Focal Weakness Endocrine: absent: Polyuria Psychiatric: absent: Depression, Suicidal Ideation Physical Exam Vital Signs Reviewed: Yes Vital Signs Temp Pulse Resp BP Pulse Ox 10/08/17 17:44 96.4 F L 10/08/17 17:43 96.6 F L 10/08/17 17:33 98.1 F 73 18 158/76 H 95 Temperature: Afebrile Finger Stick Blood Glucose: 20 - Systems Exam Head: Present: Atraumatic Pupils: Present: PERRL Extroacular Muscles: Present: EOMI Mouth: Present: Moist Mucous Membranes Pharnyx: No: ERYTHEMA Nose (Internal): Present: Normal Inspection Neck: Present: Normal Range of Motion. No: Meningeal Signs Respiratory/Chest: Present: Clear to Auscultation. No: Respiratory Distress Cardiovascular: Present: Regular Rate and Rhythm, Murmurs Abdomen: Present: Normal Bowel Sounds. No: Tenderness Rectal: No: Gross Blood Back: No: CVA Tenderness Upper Extremity: No: Cyanosis Lower Extremity: Present: NORMAL PULSES, Neurovascularly Intact. No: Edema, CALF TENDERNESS Neurological: Present: CN II-XII Intact, Speech Normal, Motor Func Grossly Intact, Normal Sensory Function, Normal Cerebellar Funct. No: Memory Normal Skin: Present: Pale Psychiatric: Present: Alert, Oriented x 3, Normal Insight, Normal Concentration. No: Depressed Mood, Suicidal Ideation, Homicidal Ideation, Hallucinations Medical Decision Making ED Course and Treatment: 10/08/17 18:05 Patient presents unresponsive. On arrival reportedly patient found to have low blood sugar. Amp D50 given by staff prior to my evaluation and she is alert and awake with no respiratory distress on my initial evaluation. Patient states that "I think I didn't eat again but I'm not sure". She says that she took insulin today but is not sure when or if she ate. She denies recent illnessess. Denies depression or suicidal ideation. Son is present and denies history of suicidal ideation. Patient denies chest pain or shortness of breath. No abdominal pain. Denies urinary symptoms. She will have serial exams in ED, have recommended period of observation and possible admission given frequency of episodes. 10/08/17 18:59 Patient awake, resting. No respiratory distress. Neuro intact. Will endorse patient to Dr. Ferrell pending labs, EKG, repeat blood sugar and temp, serial exams. - Medication Orders Current Medication Orders: Discontinued Medications Dextrose (Dextrose 50% Inj) 50 ml IVP ONCE ONE Stop: 10/08/17 17:41 Disposition/Present on Arrival - Present on Arrival Any Indicators Present on Arrival: Yes History of DVT/PE: No History of Uncontrolled Diabetes: Yes Urinary Catheter: No History of Decub. Ulcer: No History Surgical Site Infection Following: None - Disposition Have Diagnosis and Disposition been Completed?: No Diagnosis: Hypoglycemia Disposition Time: 19:00 Patient Problems: Current Active Problems Problem Status Onset Hypoglycemia Acute Condition: FAIR Referrals: PCP,NO [Primary Care Provider] - Follow up with primary Forms: [employer] (Amharic)
[2017-10-08 19:14] LABS: BASO # 0.1 K/mm3 (0.0-2.0); BASO % 0.7 % (0.0-3.0); EOS # 0.7 (0.0-0.7); EOS % 5.3 % (1.5-5.0); GRAN # 7.99 (1.4-6.5); GRAN % 58.7 % (50.0-68.0); HEMOGLOBIN 9.7 g/dL (12.0-16.0); LYMPH # 3.7 (1.2-3.4); LYMPH % 27.3 % (22.0-35.0); MEAN CELL VOLUME 86.3 fl (80.0-105.0); MEAN CORPUSCULAR HEMOGLOBIN 28.4 pg (25.0-35.0); MEAN CORPUSCULAR HGB CONC 32.9 g/dl (31.0-37.0); MEAN PLATELET VOLUME 9.9 fl (7.0-11.0); MONO # 1.1 (0.1-0.6); RBC 3.42 10^6/uL (3.5-6.1); RED CELL DISTRIBUTION WIDTH 13.9 % (11.5-14.5); WHITE BLOOD COUNT 13.6 10^3/ul (4.5-11.0)
[2017-10-08 19:20] LABS: TROPONIN I < 0.01 ng/mL
[2017-10-08 19:34] LABS: ALB/GLOB RATIO 1.5 (1.1-1.8); ALBUMIN 4.2 g/dL (3.0-4.8); ALT/SGPT 27 U/L (7-56); AST/SGOT 46 U/L (14-36); BLOOD UREA NITROGEN 31 mg/dL (7-21); CALCIUM 9.4 mg/dL (8.4-10.5); GFR AFRICAN-AMERICAN 50; GFR NON-AFRICAN AMERICAN 41
--- NOTE | 2017-10-08 19:48 | ED PDOC ---
Physical Exam - Physical Exam Narrative Physical Exam (Text): 10/08/17 19:43 Case was endorsed to me from .Pt. with past med.hx. recurrent episodes hypoglycemia presented with apparent hypoglycemic episode responsive to treatment.Pt. is refusing to remain in the hospital for completion of her evaluation.Insists on wanting to leave.Son is present with her.She is fully dressed and insists she is fine.FS BS have been normal.Pt. will sign out against medical advice.Understands risk in leaving including possible . Vital Signs Temp Pulse Resp BP Pulse Ox 10/08/17 17:44 96.4 F L 10/08/17 17:43 96.6 F L 10/08/17 17:33 98.1 F 73 18 158/76 H 95 Finger Stick Blood Glucose: 114 Medical Decision Making - Lab Interpretations Lab Results: 10/08/17 18:35 10/08/17 18:35 Lab Results 10/08/17 19:09: POC Glucose (mg/dL) 114 H 10/08/17 18:35: Sodium 141, Potassium 3.9, Chloride 107, Carbon Dioxide 22, Anion Gap 16, BUN 31 H, Creatinine 1.3 H, Est GFR ( Amer) 50, Est GFR ( Non-Af Amer) 41, Random Glucose 22 L*, Calcium 9.4, Total Bilirubin 0.2, AST 46 H, ALT 27, Alkaline Phosphatase 68, Lactate Dehydrogenase 801 H, Total Creatine Kinase 113, Troponin I < 0.01, Total Protein 7.0, Albumin 4.2, Globulin 2.8, Albumin/Globulin Ratio 1.5 10/08/17 18:35: WBC 13.6 H D, RBC 3.42 L, Hgb 9.7 L, Hct 29.5 L, MCV 86.3, MCH 28.4, MCHC 32.9, RDW 13.9, Plt Count 371, MPV 9.9, Gran % 58.7, Lymph % (Auto) 27.3, [place] % (Auto) 8.0 H, Eos % (Auto) 5.3 H, Baso % (Auto) 0.7, Gran # 7.99 H , Lymph # (Auto) 3.7 H, [place] # (Auto) 1.1 H, Eos # (Auto) 0.7, Baso # (Auto) 0.10 - Medication Orders Current Medication Orders: Discontinued Medications Dextrose (Dextrose 50% Inj) 50 ml IVP ONCE ONE Stop: 10/08/17 17:41 Last Admin: 10/08/17 17:55 Dose: 50 ml IVP Administration Document 10/08/17 17:55 ABE (Rec: 10/08/17 19:08 ABE [facility] [place] [facility] [place]-[id number][place] Charges for Administration # of IVP Administrations 1 Disposition/Present on Arrival - Present on Arrival Any Indicators Present on Arrival: No History of DVT/PE: No History of Uncontrolled Diabetes: Yes Urinary Catheter: No History of Decub. Ulcer: No History Surgical Site Infection Following: None - Disposition Have Diagnosis and Disposition been Completed?: Yes Diagnosis: Hypoglycemia Disposition: AGAINST MEDICAL ADVICE Disposition Time: 19:48 Patient Problems: Current Active Problems Problem Status Onset Hypoglycemia Acute Condition: STABLE Referrals: PCP,NO [Primary Care Provider] - Follow up with primary Forms: [employer] (Telugu)
== END 2017-10-08 19:45 | disposition left against medical advice (07) ==
LOC: ED 17:27
DX: E10.649 Type 1 diabetes mellitus with hypoglycemia without coma (principal); I10 Essential (primary) hypertension; F17.210 Nicotine dependence, cigarettes, uncomplicated

== ENCOUNTER 2017-11-10 08:19 | Emergency (ER) | payer MEDICARE ==
[2017-11-10 08:25] VITALS: BMI 19.8
[2017-11-10 08:33] VITALS: BP 147/83; RESP 18; O2SAT 100
[2017-11-10 08:43] VITALS: PULSE 66; TEMP 97.4
--- NOTE | 2017-11-10 09:10 | ED PDOC ---
Arrival/HPI - General Chief Complaint: Altered Mental Status Time Seen by Provider: 11/10/17 08:31 Historian: Patient, Family (son is present at bedside), EMS - History of Present Illness Narrative History of Present Illness (Text): 11/10/17 09:22 A 67 year old female, whose past medical history includes Type I diabetes (on Insulin), was brought in by EMS to the emergency department for evaluation of low blood sugar levels. Patient's son found patient this morning to be "really tired so I knew it was her sugar" approximately two hours prior to arrival. Upon arrival of medics she reportedly had blood sugar "in the twenties". Patient states she did not eat today and she believes she took her insulin. She states she ate last night but has "a poor appetite". SHE DENIES SUICIDAL OR HOMICIDAL IDEATION. States she has been "feeling fine" and denies any recent fevers, chest pain or shortness of breath. Denies any headaches. Denies any trauma. No trauma reported by son. Patient denies any pain or discomfort, continually states "just get me out of here I want to go home I know what happened I didn't eat" and "I don't want to have anything done". Symptom Onset: Sudden Symptom Course: Improving Activities at Onset: Rest Context: Home Past Medical History - Provider Review Nursing Documentation Reviewed: Yes - Infectious Disease Hx of Infectious Diseases: None - Tetanus Immunization Tetanus Immunization: Unknown - Reproductive Menopause: Yes - Cardiac Hx Cardiac Disorders: Yes (CAD) Hx Hypertension: Yes Hx Peripheral Vascular Disease: Yes (DVT) - Pulmonary Hx Respiratory Disorders: Yes - Neurological Hx Neurological Disorder: No - HEENT Hx HEENT Disorder: No - Renal Hx Renal Disorder: No - Endocrine/Metabolic Hx Endocrine Disorders: Yes Hx Diabetes Mellitus Type 1: Yes - Hematological/Oncological Hx Blood Disorders: No - Integumentary Hx Dermatological Disorder: No - Musculoskeletal/Rheumatological Hx Musculoskeletal Disorders: Yes Hx Falls: Yes - Gastrointestinal Hx Gastrointestinal Disorders: No - Genitourinary/Gynecological Hx Genitourinary Disorders: Yes (C/S X 3) - Psychiatric Hx Psychophysiologic Disorder: No Hx Substance Use: No - Past Surgical History Past Surgical History: Unable to Obtain - Surgical History Hx Cardiac Catheterization: Yes Hx Coronary Stent: Yes - Anesthesia Hx Anesthesia: Yes Hx Anesthesia Reactions: No Hx Malignant Hyperthermia: No - Suicidal Assessment Feels Threatened In Home Enviroment: No Family/Social History - Physician Review Nursing Documentation Reviewed: Yes Family/Social History: No Known Family HX Smoking Status: Current Some Days Smoker Hx Alcohol Use: No Hx Substance Use: No Hx Substance Use Treatment: No Allergies/Home Meds Allergies/Adverse Reactions: Allergies No Known Allergies Allergy (Verified 11/10/17 08:32) Home Medications: Home Meds Medication Instructions Recorded Confirmed Unobtainable 09/26/17 10/08/17 Review of Systems - Review of Systems Constitutional: absent: Weight Change, Fevers, Night Sweats Eyes: absent: Vision Changes Respiratory: absent: SOB Cardiovascular: absent: Chest Pain Gastrointestinal: Appetite Changes. absent: Abdominal Pain, Diarrhea, Nausea, Vomiting, Hematochezia, Hematemesis Genitourinary Female: absent: Dysuria, Frequency, Hematuria Musculoskeletal: absent: Back Pain Skin: absent: Rash Neurological: absent: Headache, Dizziness, Focal Weakness Endocrine: absent: Diaphoresis, Polyuria, Polydipsia Psychiatric: absent: Depression, Suicidal Ideation Physical Exam - Physical Exam Narrative Physical Exam (Text): 11/10/17 09:10 Head: Atraumatic. Normocephalic. Eyes: PERRL. EOMI. Conjunctivae are not pale. ENT: Mucous membranes are moist and intact. Oropharynx is clear and symmetric. Neck: Supple. Full ROM. No JVD. No lymphadenopathy. Cardiovascular: Regular rate. Regular rhythm. Distal pulses are 2+ and symmetric. Pulmonary/Chest: No evidence of respiratory distress. Clear to auscultation bilaterally. No wheezing, rales or rhonchi. Abdominal: Soft and non-distended. There is no tenderness. No rebound, guarding, or rigidity. No organomegaly. Good bowel sounds. Back: No CVA tenderness. Extremities: No edema. No cyanosis. No clubbing. Full range of motion in all extremities. No calf tenderness. Skin: Skin is warm and dry. No petechiae. No purpura. Neurological: Alert, awake, and oriented to person, place, time. No slurred speech. Steady gait. No facial droop. Motor and sensory exam intact. Reflexes symmetric and intact. No saddle anesthesia. Normal finger to nose. Psychiatric: Good eye contact. Normal interaction, affect, and behavior. Denies depression or suicidal ideation. Vital Signs Reviewed: Yes Vital Signs Temp Pulse Resp BP Pulse Ox 11/10/17 08:43 97.4 F L 66 18 100 11/10/17 08:19 97.9 F 68 18 147/83 100 Temperature: Afebrile Blood Pressure: Normal Pulse: Regular Respiratory Rate: Normal Appearance: Positive for: Well-Appearing, Non-Toxic, Comfortable Pain Distress: None Mental Status: Positive for: Alert and Oriented X 3 Finger Stick Blood Glucose: 220 Medical Decision Making ED Course and Treatment: 11/10/17 09:07 Impression: A 67 year old female with low blood sugar levels. Plan: exam, monitor symptoms, observed in ED Progress Notes: Patient upon arrival to Emergency department was found to have low blood sugar. She was given amp of D50 with immediate response and was found to be awake, alert, conversive, and subsequently walking around Emergency Department with no complaints, refusing further examination and stating that she just wanted to be sent home. I have reviewed her past visits for hypoglycemia, and I have recommended blood tests, monitoring of symptoms, and diabetic counseling on inpatient basis due to her repeated episdoes of hypoglycemia. Patient is aware she needs to adjust her Insulin intake. Strongly advised patient to be admitted due to repeated episodes. She denies depression or suicidal ideation. Patient was able to repeat back risks to me, family present at bedside. Patient has an understanding of proposed treatment plan, expressed risks and declines treatment , wants to leave against medical advice. She is able to repeat back recommended treatment plan. She is alert and oriented, denies pain or discomfort. No respiratory distress noted. Leaving Against Medical Advice (AMA): The patient is choosing to leave against medical advice. I have personally explained to the patient that choosing to do so may result in permanent bodily harm or . I have discussed at great length that without further evaluation and monitoring there may be unforeseen circumstances and/or deterioration causing permanent bodily harm or as a result of their choice. The patient is alert, oriented, and shows the mental capacity to make clear decisions regarding the patients health care at this time. The patient continues to wish to leave against medical advice. The patient has been advised that they should return to the emergency room immediately if they change their mind at any time, or if their condition begins to change or worsen in any way. I have advised her of risks included but not limited to trauma, injury, collapse , coma, undiagnosed malignancy, cardiac arrest, disability. - Lab Interpretations Lab Results: Lab Results 11/10/17 08:24: POC Glucose (mg/dL) 220 H - Scribe Statement The provider has reviewed the documentation as recorded by the Malka Ortiz Provider Scribe Attestation: All medical record entries made by the Scribe were at my direction and personally dictated by me. I have reviewed the chart and agree that the record accurately reflects my personal performance of the history, physical exam, medical decision making, and the department course for this patient. I have also personally directed, reviewed, and agree with the discharge instructions and disposition. Disposition/Present on Arrival - Present on Arrival Any Indicators Present on Arrival: Yes History of DVT/PE: No History of Uncontrolled Diabetes: Yes Urinary Catheter: No History of Decub. Ulcer: No History Surgical Site Infection Following: None - Disposition Have Diagnosis and Disposition been Completed?: Yes Diagnosis: Hypoglycemia Disposition: AGAINST MEDICAL ADVICE Disposition Time: 09:00 Patient Plan: Discharge Condition: GOOD Referrals: Sun Miranda MD [Primary Care Provider] - Follow up with primary Forms: [employer] (Romanian)
== END 2017-11-10 09:15 | disposition left against medical advice (07) ==
LOC: ED 08:19
DX: E11.649 Type 2 diabetes mellitus with hypoglycemia without coma (principal); Z79.4 Long term (current) use of insulin

== ENCOUNTER 2017-11-17 18:27 | Emergency (ER) | payer MEDICARE ==
[2017-11-17] MEDS ORDERED: Dextrose 50% SYRINGE Inj (50 ml) ONE (18:35)
[2017-11-17 21:54] VITALS: BMI 23.0
[2017-11-17 21:55] VITALS: BP 131/80; PULSE 67; RESP 19; TEMP 98.1; O2SAT 94
== END 2017-11-17 19:00 | disposition left against medical advice (07) ==
LOC: ED 18:27
DX: Z02.89 Encounter for other administrative examinations (principal); Z00.00 Encounter for general adult medical examination without abnormal findings

== ENCOUNTER 2017-11-23 05:27 | Emergency (ER) | payer MEDICARE ==
[2017-11-23 05:29] VITALS: BMI 19.5
--- NOTE | 2017-11-23 05:38 | ED PDOC ---
Arrival/HPI - General Chief Complaint: Medical Clearance Time Seen by Provider: 11/23/17 05:28 - History of Present Illness Narrative History of Present Illness (Text): 11/23/17 05:36 67 yo female, hx of dm, presents with low bloodsugar. pt was transported by s with bgm 35. upon arrival to er, dextrose given. pt well known to er for similar presentation. Past Medical History - Infectious Disease Hx of Infectious Diseases: None - Tetanus Immunization Tetanus Immunization: Unknown - Reproductive Menopause: Yes - Cardiac Hx Cardiac Disorders: Yes (CAD) Hx [place]: Yes Hx Hypertension: Yes Hx Peripheral Vascular Disease: Yes (DVT) - Pulmonary Hx Respiratory Disorders: Yes - Neurological Hx Neurological Disorder: No - HEENT Hx HEENT Disorder: No - Renal Hx Renal Disorder: No - Endocrine/Metabolic Hx Endocrine Disorders: Yes Hx Diabetes Mellitus Type 2: Yes - Hematological/Oncological Hx Blood Disorders: No - Integumentary Hx Dermatological Disorder: No - Musculoskeletal/Rheumatological Hx Musculoskeletal Disorders: Yes Hx Falls: Yes - Gastrointestinal Hx Gastrointestinal Disorders: No - Genitourinary/Gynecological Hx Genitourinary Disorders: Yes - Psychiatric Hx Psychophysiologic Disorder: No Hx Substance Use: No - Past Surgical History Past Surgical History: Unable to Obtain - Surgical History Hx Cardiac Catheterization: Yes Hx Coronary Stent: Yes - Anesthesia Hx Anesthesia: Yes Hx Anesthesia Reactions: No Hx Malignant Hyperthermia: No - Suicidal Assessment Feels Threatened In Home Enviroment: No Family/Social History - Physician Review Nursing Documentation Reviewed: Yes Family/Social History: Unknown Family HX Smoking Status: Current Some Days Smoker Hx Alcohol Use: No Hx Substance Use: No Hx Substance Use Treatment: No Allergies/Home Meds Allergies/Adverse Reactions: Allergies No Known Allergies Allergy (Verified 11/23/17 05:28) Home Medications: Home Meds Medication Instructions Recorded Confirmed Unobtainable 09/26/17 10/08/17 Review of Systems - Review of Systems Constitutional: Normal Eyes: Normal ENT: Normal Respiratory: Normal Cardiovascular: Normal Gastrointestinal: Normal Genitourinary Female: Normal Musculoskeletal: Normal Skin: Normal Neurological: Normal Endocrine: Normal Hemo/Lymphatic: Normal Psychiatric: Normal Physical Exam Vital Signs Temp Pulse Resp BP Pulse Ox 11/23/17 05:42 96.4 F L 11/23/17 05:34 87 18 155/78 H 100 Temperature: Hypothermic Blood Pressure: Normal Pulse: Regular Respiratory Rate: Normal Appearance: Positive for: Well-Appearing, Non-Toxic, Comfortable Pain Distress: None Mental Status: Positive for: Alert and Oriented X 3 - Systems Exam Head: Present: Atraumatic, Normocephalic Pupils: Present: PERRL Extroacular Muscles: Present: EOMI Conjunctiva: Present: Normal Mouth: Present: Moist Mucous Membranes Neck: Present: Normal Range of Motion Respiratory/Chest: Present: Clear to Auscultation, Good Air Exchange. No: Respiratory Distress, Accessory Muscle Use Cardiovascular: Present: Regular Rate and Rhythm, Normal S1, S2. No: Murmurs Abdomen: No: Tenderness, Distention, Peritoneal Signs, Rebound, Guarding Back: Present: Normal Inspection Upper Extremity: Present: Normal Inspection. No: Cyanosis, Edema Lower Extremity: Present: Normal Inspection. No: Edema Neurological: Present: GCS=15, CN II-XII Intact, Speech Normal Skin: Present: Warm, Dry, Normal Color. No: Rashes Psychiatric: Present: Alert, Oriented x 3, Normal Insight, Normal Concentration Medical Decision Making ED Course and Treatment: 11/23/17 05:44 pt well known to er, refusing work up in er. immeidatly asking for dc. numerous presentations for similar. Disposition/Present on Arrival - Present on Arrival Any Indicators Present on Arrival: No History of DVT/PE: No History of Uncontrolled Diabetes: Yes Urinary Catheter: No History of Decub. Ulcer: No History Surgical Site Infection Following: None - Disposition Have Diagnosis and Disposition been Completed?: Yes Diagnosis: Hypoglycemia, Left against medical advice Disposition: AGAINST MEDICAL ADVICE Disposition Time: 05:45 Condition: UNKNOWN Discharge Instructions (ExitCare): Low Blood Sugar, Adult (DC), Leaving Against Medical Advice Additional Instructions: return to any er with any concern. Forms: [employer] (Polish)
[2017-11-23 05:40] VITALS: BP 155/78; PULSE 87; RESP 18; O2SAT 100
[2017-11-23 05:42] VITALS: TEMP 96.4
[2017-11-23] MEDS ORDERED: Dextrose 50% SYRINGE Inj (50 ml) IVP STA ×2 (05:46)
== END 2017-11-23 06:00 | disposition left against medical advice (07) ==
LOC: ED 05:27
DX: E11.649 Type 2 diabetes mellitus with hypoglycemia without coma (principal); I10 Essential (primary) hypertension; F17.200 Nicotine dependence, unspecified, uncomplicated; I25.10 Atherosclerotic heart disease of native coronary artery without angina pectoris

== ENCOUNTER 2017-11-24 11:18 | Emergency (ER) | payer MEDICARE ==
[2017-11-24 11:18] VITALS: BMI 19.5
[2017-11-24 11:23] VITALS: RESP 18; TEMP 97.5
--- NOTE | 2017-11-24 11:56 | ED PDOC ---
Arrival/HPI - General Chief Complaint: Altered Mental Status Time Seen by Provider: 11/24/17 11:25 Historian: Patient, Spouse - History of Present Illness Narrative History of Present Illness (Text): 11/24/17 11:32 A 67 year old female well-known in the ER for similar complaint, whose past medical history includes diabetes, hypertension, hypoglycemia, and hyperlipidemia, whom is accompanied by son, presents to the emergency department complaining of hypoglycemia. Patient was given 1 amp of d50 in the field because she was found unresponsive. Patient did not eat her meal and then took her insulin. Soon after she felt lightheaded. Currently no complaints. Patient denies any SI, depression, fever, cough, rash, or any other complaints. No SI. PMD: [facility] Past Medical History - Provider Review Nursing Documentation Reviewed: Yes - Infectious Disease Hx of Infectious Diseases: None - Tetanus Immunization Tetanus Immunization: Unknown - Cardiac Hx Cardiac Disorders: Yes (CAD) Hx AR: Yes Hx Hypertension: Yes Hx Peripheral Vascular Disease: Yes (DVT) - Pulmonary Hx Respiratory Disorders: Yes - Neurological Hx Neurological Disorder: No - HEENT Hx HEENT Disorder: No - Renal Hx Renal Disorder: No - Endocrine/Metabolic Hx Endocrine Disorders: Yes Hx Diabetes Mellitus Type 2: Yes - Hematological/Oncological Hx Blood Disorders: No - Integumentary Hx Dermatological Disorder: No - Musculoskeletal/Rheumatological Hx Musculoskeletal Disorders: Yes Hx Falls: Yes - Gastrointestinal Hx Gastrointestinal Disorders: No - Genitourinary/Gynecological Hx Genitourinary Disorders: Yes - Psychiatric Hx Psychophysiologic Disorder: No Hx Substance Use: No - Past Surgical History Past Surgical History: Unable to Obtain - Surgical History Hx Cardiac Catheterization: Yes Hx Coronary Stent: Yes - Anesthesia Hx Anesthesia: Yes Hx Anesthesia Reactions: No Hx Malignant Hyperthermia: No - Suicidal Assessment Feels Threatened In Home Enviroment: No Family/Social History - Physician Review Nursing Documentation Reviewed: Yes Family/Social History: No Known Family HX Smoking Status: Current Some Days Smoker Hx Alcohol Use: No Hx Substance Use: No Hx Substance Use Treatment: No Allergies/Home Meds Allergies/Adverse Reactions: Allergies No Known Allergies Allergy (Verified 11/24/17 11:24) Home Medications: Home Meds Medication Instructions Recorded Confirmed Unobtainable 09/26/17 11/24/17 Review of Systems - Physician Review All systems were reviewed & negative as marked: Yes - Review of Systems Constitutional: absent: Fevers Eyes: Normal ENT: Normal Respiratory: absent: Cough Cardiovascular: Normal Gastrointestinal: Normal Genitourinary Female: Normal Musculoskeletal: Normal Skin: absent: Rash Neurological: Normal Endocrine: Normal Hemo/Lymphatic: Normal Psychiatric: absent: Suicidal Ideation Physical Exam Vital Signs Reviewed: Yes Vital Signs Temp Pulse Resp BP Pulse Ox 11/24/17 12:15 64 18 168/71 H 100 11/24/17 11:22 97.5 F L 62 18 185/75 H 97 Temperature: Afebrile Blood Pressure: Hypertensive Pulse: Regular Respiratory Rate: Normal Appearance: Positive for: Well-Appearing Pain Distress: None Mental Status: Positive for: Alert and Oriented X 3 Finger Stick Blood Glucose: 259 - Systems Exam Head: Present: Atraumatic, Normocephalic Pupils: Present: PERRL Extroacular Muscles: Present: EOMI Conjunctiva: Present: Normal Mouth: Present: Moist Mucous Membranes Neck: Present: Normal Range of Motion Respiratory/Chest: Present: Clear to Auscultation, Good Air Exchange. No: Respiratory Distress, Accessory Muscle Use Cardiovascular: Present: Regular Rate and Rhythm, Normal S1, S2. No: Murmurs Abdomen: No: Tenderness, Distention, Peritoneal Signs Back: Present: Normal Inspection Upper Extremity: Present: Normal Inspection. No: Cyanosis, Edema Lower Extremity: Present: Normal Inspection. No: Edema Neurological: Present: GCS=15, CN II-XII Intact, Speech Normal Skin: Present: Warm, Dry, Normal Color. No: Rashes Psychiatric: Present: Alert, Oriented x 3, Normal Insight, Normal Concentration Medical Decision Making ED Course and Treatment: 11/24/17 11:36 Impression: 67 year old female with hypoglycemia. No acute findings on physical examination. Plan: -- EKG -- Chest X-ray -- Labs -- Urinalysis -- Blood Culture -- Reassess and disposition Prior Visits: Notes and results from previous visits were reviewed. Patient was last seen in the emergency department on 11/23/2017 for hypoglycemia. Patient left ama. Progress Notes: EKG: Ordered, reviewed, and independently interpreted the EKG. Rate : 65 BPM Rhythm : NSR Interpretation : No ST-segment elevations or depressions, no T-wave inversions, normal intervals. Comparison : No previous EKG for comparison. 11/24/2017 11:58 Chest X-ray IMPRESSION: No active disease. Dictator: Tien Glasgow Patient's creatinine is at baseline. Her labs were reviewed by me. She continue to say she's fine and wants to go home. I explained to her that I wanted to observer her longer her in the ED to make sure her sugar levels were stable. She insisted on leaving. She has capacity to make decisions as evaluated by me. Leaving Against Medical Advice (AMA): The patient is choosing to leave against medical advice. I have personally explained to the patient that choosing to do so may result in permanent bodily harm or . I have discussed at great length that without further evaluation and monitoring there may be unforeseen circumstances and/or deterioration causing permanent bodily harm or as a result of their choice. The patient is alert, oriented, and shows the mental capacity to make clear decisions regarding the patients health care at this time. The patient continues to wish to leave against medical advice. In light of the patients decision to leave against medical advice, follow-up has been arranged and the patient is aware of the importance to following up as instructed. The patient has been advised that they should return to the emergency room immediately if they change their mind at any time, or if their condition begins to change or worsen in any way. - Lab Interpretations Lab Results: 11/24/17 12:00 11/24/17 12:00 Lab Results 11/24/17 12:00: Sodium 139, Potassium 4.9, Chloride 105, Carbon Dioxide 24, Anion Gap 15, BUN 34 H, Creatinine 1.5 H, Est GFR ( Amer) 42, Est GFR ( Non-Af Amer) 35, Random Glucose 183 H, Calcium 9.6, Magnesium 2.9 H, Total Bilirubin 0.2, AST 44 H, ALT 31, Alkaline Phosphatase 65, Total Protein 7.4, Albumin 4.5, Globulin 3.0, Albumin/Globulin Ratio 1.5 11/24/17 12:00: WBC 9.1 D, RBC 3.73, Hgb 10.4 L, Hct 32.0 L, MCV 85.8, MCH 27.9 , MCHC 32.5, RDW 13.9, Plt Count 381, MPV 9.4, Gran % 57.5, Lymph % (Auto) 28.2 , Hays % (Auto) 5.8, Eos % (Auto) 7.7 H, Baso % (Auto) 0.8, Gran # 5.26, Lymph # (Auto) 2.6, Hays # (Auto) 0.5, Eos # (Auto) 0.7, Baso # (Auto) 0.07 I have reviewed the lab results: Yes - RAD Interpretation Radiology Orders: 11/24/17 11:36 CHEST PORTABLE [RAD] Stat - Scribe Statement The provider has reviewed the documentation as recorded by the Malka Pulido Provider Scribe Attestation: All medical record entries made by the Scribe were at my direction and personally dictated by me. I have reviewed the chart and agree that the record accurately reflects my personal performance of the history, physical exam, medical decision making, and the department course for this patient. I have also personally directed, reviewed, and agree with the discharge instructions and disposition. Disposition/Present on Arrival - Present on Arrival Any Indicators Present on Arrival: Yes History of DVT/PE: No History of Uncontrolled Diabetes: Yes Urinary Catheter: No History of Decub. Ulcer: No History Surgical Site Infection Following: None - Disposition Have Diagnosis and Disposition been Completed?: Yes Diagnosis: Hypoglycemia Disposition: AGAINST MEDICAL ADVICE Disposition Time: 12:34 Condition: FAIR Referrals: PCP,NO [Primary Care Provider] - Follow up with primary Forms: [employer] (Togolese)
--- NOTE | 2017-11-24 12:00 | RAD ---
HISTORY: Sepsis Patient COMPARISON: 09/01/2017 FINDINGS: LUNGS: No active pulmonary disease. PLEURA: No significant pleural effusion identified, no pneumothorax apparent. CARDIOVASCULAR: Normal. OSSEOUS STRUCTURES: No significant abnormalities. VISUALIZED UPPER ABDOMEN: Normal. OTHER FINDINGS: None. IMPRESSION: No active disease.
[2017-11-24 12:11] LABS: BASO # 0.07 K/mm3 (0.0-2.0); BASO % 0.8 % (0.0-3.0); EOS # 0.7 (0.0-0.7); EOS % 7.7 % (1.5-5.0); GRAN # 5.26 (1.4-6.5); GRAN % 57.5 % (50.0-68.0); HEMOGLOBIN 10.4 g/dL (12.0-16.0); LYMPH # 2.6 (1.2-3.4); LYMPH % 28.2 % (22.0-35.0); MEAN CELL VOLUME 85.8 fl (80.0-105.0); MEAN CORPUSCULAR HEMOGLOBIN 27.9 pg (25.0-35.0); MEAN CORPUSCULAR HGB CONC 32.5 g/dl (31.0-37.0); MEAN PLATELET VOLUME 9.4 fl (7.0-11.0); MONO # 0.5 (0.1-0.6); MONO % 5.8 % (1.0-6.0); RBC 3.73 10^6/uL (3.5-6.1); RED CELL DISTRIBUTION WIDTH 13.9 % (11.5-14.5); WHITE BLOOD COUNT 9.1 10^3/ul (4.5-11.0)
[2017-11-24 12:22] LABS: ALB/GLOB RATIO 1.5 (1.1-1.8); ALBUMIN 4.5 g/dL (3.0-4.8); CALCIUM 9.6 mg/dL (8.4-10.5)
[2017-11-24 12:31] VITALS: BP 168/71; PULSE 64; O2SAT 100
--- NOTE | 2017-11-24 19:12 | CARD ---
APPROVED REPORT EKG Measurement Heart [id number] <Conclusion> Normal sinus rhythm Rightward axis Borderline ECG
== END 2017-11-24 12:34 | disposition left against medical advice (07) ==
LOC: ED 11:18
DX: E11.649 Type 2 diabetes mellitus with hypoglycemia without coma (principal); Z79.4 Long term (current) use of insulin; I25.2 Old myocardial infarction; I10 Essential (primary) hypertension; E78.5 Hyperlipidemia, unspecified; Z95.5 Presence of coronary angioplasty implant and graft; F17.210 Nicotine dependence, cigarettes, uncomplicated

== ENCOUNTER 2017-11-26 13:12 | Emergency (ER) | payer MEDICARE ==
[2017-11-26 13:21] VITALS: BP 186/90; PULSE 89; RESP 16; TEMP 97.6; O2SAT 99
[2017-11-26 13:23] VITALS: BMI 19.3
--- NOTE | 2017-11-26 13:24 | ED PDOC ---
Arrival/HPI - General Chief Complaint: High Blood Sugar Time Seen by Provider: 11/26/17 13:16 Historian: Patient, Family (Son), EMS - History of Present Illness Time/Duration: Prior to Arrival Symptom Onset: Sudden Symptom Course: Improving Severity Level: Severe Activities at Onset: Rest Associated Symptoms (Text): 11/26/17 13:21 Well-known to the emergency Department staff. Patient has a history of insulin- dependent diabetes and multiple episodes of hypoglycemia. She was found by her son unresponsive and called 911. EMS responded and found the patient lethargic diaphoretic and vomiting. She was given oral glucose and transported to the hospital. Her blood sugar on arrival is 256. She is now awake alert and wants to leave the hospital. This is what usually happens with the patient. She is awake and alert and able to make such a decision. She will sign out AMA accompanied by her son. Past Medical History - Infectious Disease Hx of Infectious Diseases: None - Tetanus Immunization Tetanus Immunization: Unknown - Cardiac Hx Cardiac Disorders: Yes (CAD) Hx AR: Yes Hx Hypertension: Yes Hx Peripheral Vascular Disease: Yes (DVT) - Pulmonary Hx Respiratory Disorders: Yes - Neurological Hx Neurological Disorder: No - HEENT Hx HEENT Disorder: No - Renal Hx Renal Disorder: No - Endocrine/Metabolic Hx Endocrine Disorders: Yes Hx Diabetes Mellitus Type 2: Yes - Hematological/Oncological Hx Blood Disorders: No - Integumentary Hx Dermatological Disorder: No - Musculoskeletal/Rheumatological Hx Musculoskeletal Disorders: Yes Hx Falls: Yes - Gastrointestinal Hx Gastrointestinal Disorders: No - Genitourinary/Gynecological Hx Genitourinary Disorders: Yes - Psychiatric Hx Psychophysiologic Disorder: No Hx Substance Use: No - Past Surgical History Past Surgical History: Unable to Obtain - Surgical History Hx Cardiac Catheterization: Yes Hx Coronary Stent: Yes - Anesthesia Hx Anesthesia: Yes Hx Anesthesia Reactions: No Hx Malignant Hyperthermia: No - Suicidal Assessment Feels Threatened In Home Enviroment: No Family/Social History - Physician Review Nursing Documentation Reviewed: Yes Family/Social History: Unknown Family HX Smoking Status: Current Some Days Smoker Hx Alcohol Use: No Hx Substance Use: No Hx Substance Use Treatment: No Allergies/Home Meds Allergies/Adverse Reactions: Allergies No Known Allergies Allergy (Verified 11/24/17 11:24) Home Medications: Home Meds Medication Instructions Recorded Confirmed Unobtainable 02/05/18 04/05/18 Review of Systems - Physician Review All systems were reviewed & negative as marked: Yes - Review of Systems Respiratory: Normal Cardiovascular: Normal Gastrointestinal: Normal Physical Exam Temperature: Afebrile Blood Pressure: Hypertensive Pulse: Regular Respiratory Rate: Normal Appearance: Positive for: Well-Appearing, Non-Toxic, Comfortable Pain Distress: None Mental Status: Positive for: Alert and Oriented X 3 - Systems Exam Head: Present: Atraumatic, Normocephalic Mouth: Present: Moist Mucous Membranes Pharnyx: No: ERYTHEMA, EXUDATE, TONSILS ENLARGED Respiratory/Chest: Present: Clear to Auscultation, Good Air Exchange. No: Respiratory Distress, Accessory Muscle Use Cardiovascular: Present: Regular Rate and Rhythm, Normal S1, S2. No: Murmurs Abdomen: No: Tenderness, Distention, Peritoneal Signs Upper Extremity: Present: Normal Inspection. No: Cyanosis, Edema Lower Extremity: Present: Normal Inspection. No: Edema Neurological: Present: GCS=15, CN II-XII Intact, Speech Normal, Motor Func Grossly Intact Skin: Present: Warm, Dry, Normal Color. No: Rashes Medical Decision Making - Lab Interpretations Lab Results: Lab Results 11/26/17 13:15: POC Glucose (mg/dL) 256 H Disposition/Present on Arrival - Present on Arrival Any Indicators Present on Arrival: No History of DVT/PE: No History of Uncontrolled Diabetes: Yes Urinary Catheter: No History of Decub. Ulcer: No History Surgical Site Infection Following: None - Disposition Have Diagnosis and Disposition been Completed?: Yes Diagnosis: Hypoglycemia Disposition: AGAINST MEDICAL ADVICE Disposition Time: 13:24 Patient Plan: Other Condition: IMPROVED Discharge Instructions (ExitCare): Low Blood Sugar in People With Diabetes Forms: [employer] (Ghanaian)
== END 2017-11-26 13:33 | disposition left against medical advice (07) ==
LOC: ED 13:12
DX: E11.649 Type 2 diabetes mellitus with hypoglycemia without coma (principal); Z79.4 Long term (current) use of insulin

== ENCOUNTER 2017-12-21 12:08 | Emergency (ER) | payer MEDICARE ==
[2017-12-21 12:16] VITALS: BP 148/68; PULSE 98; RESP 18; TEMP 97.8; O2SAT 100
[2017-12-21 12:31] VITALS: BMI 17.4
[2017-12-21] MEDS ORDERED: Dextrose 50% SYRINGE Inj (50 ml) ONE (12:32)
--- NOTE | 2017-12-21 12:33 | ED PDOC ---
Arrival/HPI - General Time Seen by Provider: 12/21/17 12:12 Historian: EMS - History of Present Illness Narrative History of Present Illness (Text): 12/21/17 12:30 A 65 year old female, whose past medical history includes type I diabetes, is brought to the emergency room by BLS status post being found with AMS. Patient notes multiple calls for the same thing and usually ALS comes give Dextrose then the patient RMA's. Today only BLS ambulance was available. HPI and ROS limited due to patient condition. Time/Duration: Prior to Arrival Symptom Onset: Sudden Symptom Course: Unchanged Activities at Onset: Rest Context: Home Past Medical History - Provider Review Nursing Documentation Reviewed: Yes - Infectious Disease Hx of Infectious Diseases: None - Tetanus Immunization Tetanus Immunization: Unknown - Cardiac Hx Cardiac Disorders: Yes (CAD) Hx [place]: Yes Hx Hypertension: Yes Hx Peripheral Vascular Disease: Yes (DVT) - Pulmonary Hx Respiratory Disorders: Yes - Neurological Hx Neurological Disorder: No - HEENT Hx HEENT Disorder: No - Renal Hx Renal Disorder: No - Endocrine/Metabolic Hx Endocrine Disorders: Yes Hx Diabetes Mellitus Type 2: Yes - Hematological/Oncological Hx Blood Disorders: No - Integumentary Hx Dermatological Disorder: No - Musculoskeletal/Rheumatological Hx Musculoskeletal Disorders: Yes Hx Falls: Yes - Gastrointestinal Hx Gastrointestinal Disorders: No - Genitourinary/Gynecological Hx Genitourinary Disorders: Yes - Psychiatric Hx Psychophysiologic Disorder: No Hx Substance Use: No - Past Surgical History Past Surgical History: Unable to Obtain - Surgical History Hx Cardiac Catheterization: Yes Hx Coronary Stent: Yes - Anesthesia Hx Anesthesia: Yes Hx Anesthesia Reactions: No Hx Malignant Hyperthermia: No - Suicidal Assessment Feels Threatened In Home Enviroment: No Family/Social History - Physician Review Nursing Documentation Reviewed: Yes Family/Social History: No Known Family HX Smoking Status: Current Some Days Smoker Hx Alcohol Use: No Hx Substance Use: No Hx Substance Use Treatment: No Allergies/Home Meds Allergies/Adverse Reactions: Allergies No Known Allergies Allergy (Verified 11/24/17 11:24) Home Medications: Home Meds Medication Instructions Recorded Confirmed Unobtainable 09/26/17 11/24/17 Review of Systems - Review of Systems Systems not reviewed;Unavailable: Altered Mental Status Physical Exam - Physical Exam Narrative Physical Exam (Text): 12/21/17 12:30 Constitutional: Drowsy. Head: Normocephalic. Atraumatic. Eyes: PERRL. ENT: Moist mucous membranes. Neck: Supple. Cardiovascular: Regular rate. Chest: No tenderness. Respiratory: Breathing spontaneously GI: Soft. Nontender. Nondistended. Musculoskeletal: No tenderness or swelling of extremities. Skin: No rash. Neurologic: Responsive to noxious stimuli. Vital Signs Reviewed: Yes Vital Signs Temp Pulse Resp BP Pulse Ox 12/21/17 12:16 97.8 F 98 H 18 148/68 100 Temperature: Afebrile Blood Pressure: Normal Pulse: Regular Respiratory Rate: Normal Appearance: Positive for: Non-Toxic, Comfortable Pain Distress: None Mental Status: No: Alert and Oriented X 3 Finger Stick Blood Glucose: 20 Medical Decision Making ED Course and Treatment: 12/21/17 12:30 Impression: A 65 year old female with a history of diabetes who is altered. Patient become responsive after dextrose, returning to baseline and wished to leave AMA, which is the typical course for this patient. She is awake and has capacity to make this decision and is leaving with son. Differential Diagnosis included but are not limited to: hypoglycemia Plan: -- Reassess and disposition Prior Visits: Notes and results from previous visits were reviewed. Progress Notes: 12/21/17 12:33 Leaving Against Medical Advice (AMA): The patient is choosing to leave against medical advice. I have personally explained to the patient that choosing to do so may result in permanent bodily harm or . I have discussed at great length that without further evaluation and monitoring there may be unforeseen circumstances and/or deterioration causing permanent bodily harm or as a result of their choice. The patient is alert, oriented, and shows the mental capacity to make clear decisions regarding the patients health care at this time. The patient continues to wish to leave against medical advice. The patient has been advised that they should return to the emergency room immediately if they change their mind at any time, or if their condition begins to change or worsen in any way. - Scribe Statement The provider has reviewed the documentation as recorded by the Scribe Jerrell Quintanilla Provider Scribe Attestation: All medical record entries made by the Scribe were at my direction and personally dictated by me. I have reviewed the chart and agree that the record accurately reflects my personal performance of the history, physical exam, medical decision making, and the department course for this patient. I have also personally directed, reviewed, and agree with the discharge instructions and disposition. Disposition/Present on Arrival - Present on Arrival Any Indicators Present on Arrival: Yes History of DVT/PE: No History of Uncontrolled Diabetes: Yes Urinary Catheter: No History Surgical Site Infection Following: None - Disposition Have Diagnosis and Disposition been Completed?: Yes Diagnosis: Hypoglycemia Disposition: AGAINST MEDICAL ADVICE Disposition Time: 12:33 Patient Plan: Discharge Condition: STABLE Discharge Instructions (ExitCare): Low Blood Sugar, Adult (DC) Referrals: Jamie Stephens, [Primary Care Provider] - Follow up with primary Forms: [employer] (Persian)
== END 2017-12-21 12:35 | disposition left against medical advice (07) ==
LOC: ED 12:08
DX: E10.649 Type 1 diabetes mellitus with hypoglycemia without coma (principal); F17.200 Nicotine dependence, unspecified, uncomplicated; I10 Essential (primary) hypertension; I25.10 Atherosclerotic heart disease of native coronary artery without angina pectoris; Z79.4 Long term (current) use of insulin

== ENCOUNTER 2017-12-24 16:23 | Emergency (ER) | payer MEDICARE ==
[2017-12-24 16:24] VITALS: BMI 17.4
[2017-12-24 16:36] VITALS: BP 142/90; PULSE 89; RESP 18; TEMP 97.9; O2SAT 100
--- NOTE | 2017-12-24 16:42 | ED PDOC ---
Arrival/HPI - General Chief Complaint: Weakness/Neurological Deficit Time Seen by Provider: 12/24/17 16:28 Historian: Patient, EMS - History of Present Illness Narrative History of Present Illness (Text): 12/24/17 1630 pt p/w + sudden onset of dizziness/lightheadedness, nearly passing out, symptoms consistent with low BS; pt was noted by EMS to have a FS value in the mid 30s; pt was provided 1 amp of D50 and pt quickly regained her mental status ; this has happened to patient on numerous occasions; pt states she either does not eat when she provides herself with insulin prior to her daily meals, or pt possibly could have given herself inappropriate dose of the insulin; pt states she usually receives 8U of NPH insulin in the morning, and sliding scale insulin /with 4U of insulin during every meal; pt states no fever/chills/sweats, no cp/ sob/palpitations, no abd pain, no n/v, no numbness/tingling, no urinary/bowel changes, no incontinence pt denied other complaints pt states since her lose of her ~ 4 years ago, she has been having a hard time with managing her diabetes pt states she is depressed and has not spoken to any health care professions regarding these feelings pt denied SI/HI, pt denied hallucinations - visual/tactile/auditory pt is here for further eval. PCP: [facility] pt lives at home with her son pt walks without any assistance pt is right hand dominate son is currently at bedside with her mother Time/Duration: Prior to Arrival Symptom Onset: Sudden Symptom Course: Improving Activities at Onset: Rest Context: Home Past Medical History - Provider Review Nursing Documentation Reviewed: Yes - Travel History Have you recently traveled outside [place] w/in the past 3 mons?: No - Past History Past History: No Previous - Infectious Disease Hx of Infectious Diseases: None - Tetanus Immunization Tetanus Immunization: Unknown - Reproductive Menopause: Yes Currently : No - Cardiac Hx Cardiac Disorders: Yes (CAD) Hx [place]: Yes Hx Hypertension: Yes Hx Peripheral Vascular Disease: Yes (DVT) - Pulmonary Hx Respiratory Disorders: Yes - Neurological Hx Neurological Disorder: No - HEENT Hx HEENT Disorder: No - Renal Hx Renal Disorder: No - Endocrine/Metabolic Hx Endocrine Disorders: Yes Hx Diabetes Mellitus Type 2: Yes - Hematological/Oncological Hx Blood Disorders: No - Integumentary Hx Dermatological Disorder: No - Musculoskeletal/Rheumatological Hx Musculoskeletal Disorders: Yes Hx Falls: Yes - Gastrointestinal Hx Gastrointestinal Disorders: No - Genitourinary/Gynecological Hx Genitourinary Disorders: Yes - Psychiatric Hx Psychophysiologic Disorder: No Hx Substance Use: No - Past Surgical History Past Surgical History: Unable to Obtain - Surgical History Hx Cardiac Catheterization: Yes Hx Coronary Stent: Yes - Anesthesia Hx Anesthesia: Yes Hx Anesthesia Reactions: No Hx Malignant Hyperthermia: No - Suicidal Assessment Feels Threatened In Home Enviroment: No Family/Social History - Physician Review Nursing Documentation Reviewed: Yes Family/Social History: No Known Family HX Smoking Status: Current Some Days Smoker Hx Alcohol Use: No Hx Substance Use: No Hx Substance Use Treatment: No Allergies/Home Meds Allergies/Adverse Reactions: Allergies No Known Allergies Allergy (Verified 11/24/17 11:24) Home Medications: Home Meds Medication Instructions Recorded Confirmed Unobtainable 09/26/17 11/24/17 Review of Systems - Review of Systems Constitutional: Normal, Fatigue, Weight Change (5lbs over many months) Eyes: Normal ENT: Normal Respiratory: Normal. absent: SOB Cardiovascular: Normal. absent: Chest Pain Gastrointestinal: Normal. absent: Abdominal Pain, Nausea, Vomiting Genitourinary Female: Normal. absent: Dysuria Musculoskeletal: Normal. absent: Arthralgias Skin: Normal. absent: Rash Neurological: Dizziness, Other (nearly passed out) Endocrine: Normal Hemo/Lymphatic: Normal Psychiatric: Normal Physical Exam Vital Signs Reviewed: Yes Vital Signs Temp Pulse Resp BP Pulse Ox 12/24/17 16:24 97.9 F 89 18 142/90 100 Temperature: Afebrile Blood Pressure: Hypertensive Pulse: Regular Respiratory Rate: Normal Appearance: Positive for: Well-Appearing, Non-Toxic, Comfortable, Other (alert/ awake, NAD, resting in bed, GCS = 15, oriented x 3, cooperative, follows command with ease; slight cachectic build is noted) Pain Distress: None Mental Status: Positive for: Alert and Oriented X 3 - Systems Exam Head: Present: Atraumatic, Normocephalic, Other (bi-temporal wasting noted) Pupils: Present: PERRL, Other (no nystagmus, no photophobia, sclera anicteric, visual field intact b/l) Extroacular Muscles: Present: EOMI Conjunctiva: Present: Normal Ears: Present: Normal Mouth: Present: Other (fair dentitions/mild dry oral mucosa, no drooling/stridor , no dysphonia, no exudate/lesions, uvula/tongue are midline, no tongue trauma noted) Pharnyx: Present: Normal Nose (External): Present: Atraumatic Nose (Internal): Present: Normal Inspection Neck: Present: Normal Range of Motion, Trachea Midline, Other (no nuchal rigidity, no meningeal signs, no midline tenderness, no step off, intact ROM). No: Meningeal Signs, MIDLINE TENDERNESS Respiratory/Chest: Present: Clear to Auscultation, Decreased Breath Sounds, Other (no w/r/r, no accessory muscle use noted, no tachypenia). No: Respiratory Distress, Accessory Muscle Use Cardiovascular: Present: Regular Rate and Rhythm, Normal S1, S2 Abdomen: Present: Normal Bowel Sounds, Other (well nourished female, no focal tenderness, no seals's sign, no mcburney's point tenderness, no masses/rebound/ guarding/rigidity) Back: Present: Normal Inspection. No: CVA Tenderness, Midline Tenderness, Paraspinal Tenderness Upper Extremity: Present: Normal Inspection, Normal ROM, NORMAL PULSES, Neurovascularly Intact, Capillary Refill < 2s. No: Deformity Lower Extremity: Present: Normal Inspection, NORMAL PULSES, Normal ROM, Neurovascularly Intact, Capillary Refill < 2 s, Other (strength 5/5 grossly intact b/l). No: Deformity Neurological: Present: GCS=15, CN II-XII Intact, Speech Normal, Other (NIH stroke scale ~ 0, no facial asymmetries, no slurr speech) Skin: Present: Warm, Normal Color, Other (cap refill < 1sec, no ulcerations, no petechiae, no rashes, no lesions/pallor) Psychiatric: Present: Alert, Oriented x 3 Medical Decision Making ED Course and Treatment: 12/24/17 1630 Impression: insulin induced hypoglycemia, medical eval i have consider all the differential diagnosis regarding pt's chief medical complaints/clinical findings, including but are not limited to: insulin induced hypoglycemia, medical eval A/P: insulin induced hypoglycemia, medical eval - FS - supportive care - observe/reevaluation 1640 pt does not want any labs pt is feeling well pt states she wants to go home now repeate FS indicates > 100 vital signs stable pt is awake/alert and at her mental status baseline son accompanies patient at bedside pt is made aware of her medical results pt is encouraged eating/and maintain a vigilant watch over her medications especially when administering pt is encouraged outpt f/u pt will be discharged home Re-evaluation Time: 16:40 Reassessment Condition: Improved - Lab Interpretations Lab Results: Lab Results 12/24/17 16:43: POC Glucose (mg/dL) 181 H 12/24/17 16:29: POC Glucose (mg/dL) 195 H I have reviewed the lab results: Yes Interpretation: Abnormal lab values (elevated but improved compare with prior) Disposition/Present on Arrival - Present on Arrival Any Indicators Present on Arrival: No History of DVT/PE: No History of Uncontrolled Diabetes: Yes Urinary Catheter: No History of Decub. Ulcer: No History Surgical Site Infection Following: None - Disposition Have Diagnosis and Disposition been Completed?: Yes Diagnosis: Hypoglycemia due to insulin, General medical exam Disposition: HOME/ ROUTINE Disposition Time: 16:43 Patient Plan: Discharge Condition: STABLE Discharge Instructions (ExitCare): Low Blood Sugar, Adult (DC) Print Language: TELUGU Additional Instructions: Make sure to see your doctor in 1-2 days DRINK PLENTY OF FLUIDS take your medications as prescribed PLEASE EAT YOUR MEALS if you are giving yourself insulin RETURN TO ED IF worse pain, cant breath, persistent vomiting, high fever >101- 102 for hours, altered behavior, slurr speech, facial changes, focal weakness ( arm/leg or both), unable to urinate, heavy/persistent bleeding, passing out, chest pain, or other medical emergencies Referrals: [facility] [place] [Outside] - Follow up with primary [facility] [Outside] - Follow up with primary [facility] [Outside] - Follow up with [facility] [Outside] - Follow up with primary Forms: [employer] (Maltese)
== END 2017-12-24 16:50 | disposition home or self-care (01) ==
LOC: ED 16:23
DX: E11.649 Type 2 diabetes mellitus with hypoglycemia without coma (principal); Z79.4 Long term (current) use of insulin

== ENCOUNTER 2017-12-25 09:25 | Emergency (ER) | payer MEDICARE ==
[2017-12-25 09:26] VITALS: BMI 17.4
[2017-12-25 09:38] VITALS: BP 179/83; PULSE 90; RESP 18; TEMP 98.2; O2SAT 98
--- NOTE | 2017-12-25 10:08 | ED PDOC ---
Arrival/HPI - General Chief Complaint: Abnormal Labs Time Seen by Provider: 12/25/17 10:01 Historian: Patient, Family, EMS - History of Present Illness Narrative History of Present Illness (Text): 12/25/17 10:02 67 year old female, whose medical history includes diabetes and multiple visits for hypoglycemia, presents to the Emergency department due to low blood sugar levels. Patient was found to be sleepy by son prior to arrival so emergency services were called. Patient was found with blood sugar levels in the 20s and was given D50 with immediate improvement. Patient states she did not eat this morning, however, she did take her diabetes medication. Patient denies depression, suicidal ideation, fever, headache, chest pain, shortness of breath , or any other complaints. Time/Duration: Prior to Arrival Symptom Onset: Sudden Symptom Course: Improving Context: Home Past Medical History - Provider Review Nursing Documentation Reviewed: Yes - Past History Past History: No Previous - Infectious Disease Hx of Infectious Diseases: None - Tetanus Immunization Tetanus Immunization: Unknown - Cardiac Hx Cardiac Disorders: Yes (CAD) Hx [place]: Yes Hx Hypertension: Yes Hx Peripheral Vascular Disease: Yes (DVT) - Pulmonary Hx Respiratory Disorders: Yes - Neurological Hx Neurological Disorder: No - HEENT Hx HEENT Disorder: No - Renal Hx Renal Disorder: No - Endocrine/Metabolic Hx Endocrine Disorders: Yes Hx Diabetes Mellitus Type 2: Yes - Hematological/Oncological Hx Blood Disorders: No - Integumentary Hx Dermatological Disorder: No - Musculoskeletal/Rheumatological Hx Musculoskeletal Disorders: Yes Hx Falls: Yes - Gastrointestinal Hx Gastrointestinal Disorders: No - Genitourinary/Gynecological Hx Genitourinary Disorders: Yes - Psychiatric Hx Psychophysiologic Disorder: No Hx Substance Use: No - Past Surgical History Past Surgical History: Unable to Obtain - Surgical History Hx Cardiac Catheterization: Yes Hx Coronary Stent: Yes - Anesthesia Hx Anesthesia: Yes Hx Anesthesia Reactions: No Hx Malignant Hyperthermia: No - Suicidal Assessment Feels Threatened In Home Enviroment: No Family/Social History - Physician Review Nursing Documentation Reviewed: Yes Family/Social History: Unknown Family HX Smoking Status: Current Some Days Smoker Hx Alcohol Use: No Hx Substance Use: No Hx Substance Use Treatment: No Allergies/Home Meds Allergies/Adverse Reactions: Allergies No Known Allergies Allergy (Verified 11/24/17 11:24) Home Medications: Home Meds Medication Instructions Recorded Confirmed Unobtainable 09/26/17 11/24/17 Review of Systems - Physician Review All systems were reviewed & negative as marked: Yes - Review of Systems Constitutional: absent: Fevers Respiratory: absent: SOB Cardiovascular: absent: Chest Pain Gastrointestinal: Appetite Changes. absent: Abdominal Pain, Nausea Genitourinary Female: absent: Dysuria Musculoskeletal: absent: Back Pain, Neck Pain Skin: absent: Rash Neurological: absent: Headache, Dizziness Psychiatric: absent: Depression, Suicidal Ideation Physical Exam - Physical Exam Narrative Physical Exam (Text): 12/25/17 10:09 Head: Atraumatic. Normocephalic. Eyes: PERRL. EOMI. Conjunctivae are not pale. ENT: Mucous membranes are moist and intact. Neck: Supple. Full ROM. Cardiovascular: Regular rate. Regular rhythm. Pulmonary/Chest: No evidence of respiratory distress. Clear to auscultation bilaterally. Abdominal: Soft and non-distended. There is no tenderness. No rebound, guarding, or rigidity. Back: No CVA tenderness. No deformities. Extremities: No edema. Nontender. No deformities. Skin: Skin is warm and dry. No petechiae. No purpura. Neurological: Alert, awake, and oriented to person, place, time, and situation. No slurred speech. No facial droop. Motor and sensory exam intact. Psychiatric: Good eye contact. Normal interaction, affect, and behavior. Denies suicidal or homicidal ideation. Expresses insight into her disease and current condition as well as able to repeat back recommended treatment plan and risks of noncompliance. Vital Signs Reviewed: Yes Vital Signs Temp Pulse Resp BP Pulse Ox 12/25/17 09:26 98.2 F 90 18 179/83 H 98 Temperature: Afebrile Blood Pressure: Hypertensive Pulse: Regular Respiratory Rate: Normal Appearance: Positive for: Well-Appearing, Non-Toxic, Comfortable Pain Distress: None Mental Status: Positive for: Alert and Oriented X 3 Finger Stick Blood Glucose: 218 Medical Decision Making ED Course and Treatment: 12/25/17 10:00 Impression: 67 year old female presents to the Emergency department with low blood sugar levels that were remedied with D50 in the field. Differential Diagnosis included but are not limited to: hypoglycemia Plan: -- Reassess and disposition Prior Visits: Notes and results from previous visits were reviewed. Patient was last seen in the emergency department for hypoglycemia on 12/24/17 and was discharged home, as well as 12/21/17 when she left against medical advice. Progress Notes: Patient's history supplemented by ambulance and son. Patient states she didn't eat this morning. Son found her "sleepy" and she was found to be hypoglycemic. She was given D50 prior to my evaluation, reportedly she had immediate response to this and on presentation to the ED she is awake, alert and without complaints. She is requested to leave the ER immediately. I have advised that her frequent episdoes of hypoglycemia require inpatient management as her blood sugars are not being managed properly. She expresses understanding of risks and son is present. She has normal speech, denies pain or depression, and is no distress on re-evaluation. She is refusing any blood work or further evaluation. 12/25/17 10:00 Leaving Against Medical Advice (AMA): The patient is choosing to leave against medical advice. I have personally explained to the patient that choosing to do so may result in permanent bodily harm or . I have discussed at great length that without further evaluation and monitoring there may be unforeseen circumstances and/or deterioration causing permanent bodily harm or as a result of their choice. The patient is alert, oriented, and shows the mental capacity to make clear decisions regarding the patients health care at this time. The patient continues to wish to leave against medical advice. In light of the patients decision to leave against medical advice, follow-up has been arranged and the patient is aware of the importance to following up as instructed. The patient has been advised that they should return to the emergency room immediately if they change their mind at any time, or if their condition begins to change or worsen in any way. - Lab Interpretations Lab Results: Lab Results 12/25/17 09:30: POC Glucose (mg/dL) 218 H - Scribe Statement The provider has reviewed the documentation as recorded by the Malka Hart Provider Scribe Attestation: All medical record entries made by the Malka were at my direction and personally dictated by me. I have reviewed the chart and agree that the record accurately reflects my personal performance of the history, physical exam, medical decision making, and the department course for this patient. I have also personally directed, reviewed, and agree with the discharge instructions and disposition. Disposition/Present on Arrival - Present on Arrival Any Indicators Present on Arrival: Yes History of DVT/PE: No History of Uncontrolled Diabetes: Yes Urinary Catheter: No History of Decub. Ulcer: No History Surgical Site Infection Following: None - Disposition Have Diagnosis and Disposition been Completed?: Yes Diagnosis: Hypoglycemia Disposition: AGAINST MEDICAL ADVICE Disposition Time: 10:00 Patient Plan: Discharge Condition: GOOD Forms: [employer] (German)
== END 2017-12-25 10:10 | disposition left against medical advice (07) ==
LOC: ED 09:25
DX: E11.649 Type 2 diabetes mellitus with hypoglycemia without coma (principal); Z79.84 Long term (current) use of oral hypoglycemic drugs

== ENCOUNTER 2017-12-28 17:33 | Emergency (ER) | payer MEDICARE ==
[2017-12-28 17:33] VITALS: BMI 17.4
[2017-12-28] MEDS ORDERED: Dextrose 50% SYRINGE Inj (50 ml) ONE (17:35)
--- NOTE | 2017-12-28 17:56 | ED PDOC ---
Arrival/HPI - General Chief Complaint: Altered Mental Status Time Seen by Provider: 12/28/17 17:45 Historian: Patient - History of Present Illness Narrative History of Present Illness (Text): 12/28/17 17:55 A 67 year old female, whose past medical history includes diabetes and multiple ER visits for hypoglycemia, was brought in by EMS to the emergency department for hypoglycemia. Patient was altered with 22 finger stick, given amp D50 prior to my arrival to the emergency room. On my evaluation, patient was alert and oriented X3. Repeat finger stick 219. Patient requesting to leave emergency department. Patient denies any complaints. Patient is refusing physical exam. Patient's family member at bedside. 12/28/17 20:42 Symptom Onset: Sudden Symptom Course: Unchanged Activities at Onset: Rest Context: Home Past Medical History - Provider Review Nursing Documentation Reviewed: Yes - Past History Past History: No Previous - Infectious Disease Hx of Infectious Diseases: None - Tetanus Immunization Tetanus Immunization: Unknown - Cardiac Hx Cardiac Disorders: Yes (CAD) Hx [place]: Yes Hx Hypertension: Yes Hx Peripheral Vascular Disease: Yes (DVT) - Pulmonary Hx Respiratory Disorders: Yes - Neurological Hx Neurological Disorder: No - HEENT Hx HEENT Disorder: No - Renal Hx Renal Disorder: No - Endocrine/Metabolic Hx Endocrine Disorders: Yes Hx Diabetes Mellitus Type 2: Yes - Hematological/Oncological Hx Blood Disorders: No - Integumentary Hx Dermatological Disorder: No - Musculoskeletal/Rheumatological Hx Musculoskeletal Disorders: Yes Hx Falls: Yes - Gastrointestinal Hx Gastrointestinal Disorders: No - Genitourinary/Gynecological Hx Genitourinary Disorders: Yes - Psychiatric Hx Psychophysiologic Disorder: No Hx Substance Use: No - Past Surgical History Past Surgical History: Unable to Obtain - Surgical History Hx Cardiac Catheterization: Yes Hx Coronary Stent: Yes - Anesthesia Hx Anesthesia: Yes Hx Anesthesia Reactions: No Hx Malignant Hyperthermia: No - Suicidal Assessment Feels Threatened In Home Enviroment: No Family/Social History - Physician Review Nursing Documentation Reviewed: Yes Family/Social History: No Known Family HX Smoking Status: Current Some Days Smoker Hx Alcohol Use: No Hx Substance Use: No Hx Substance Use Treatment: No Allergies/Home Meds Allergies/Adverse Reactions: Allergies No Known Allergies Allergy (Verified 12/28/17 17:44) Home Medications: Home Meds Medication Instructions Recorded Confirmed Unobtainable 09/26/17 11/24/17 Review of Systems - Review of Systems Systems not reviewed;Unavailable: Uncooperative Physical Exam - Physical Exam Physical Exam Limitations: Uncooperative Vital Signs Reviewed: Yes Vital Signs Temp Pulse Resp BP Pulse Ox 12/28/17 18:16 97.9 F 100 H 20 179/70 H 99 12/28/17 17:45 98.1 F 103 H 17 187/71 H 96 Temperature: Afebrile Blood Pressure: Hypertensive Pulse: Tachycardic Respiratory Rate: Normal Appearance: Positive for: Well-Appearing, Non-Toxic, Comfortable Pain Distress: None Mental Status: Positive for: Alert and Oriented X 3 Finger Stick Blood Glucose: 219 - Systems Exam Head: Present: Atraumatic, Normocephalic Pupils: Present: PERRL Extroacular Muscles: Present: EOMI Mouth: Present: Moist Mucous Membranes Upper Extremity: Present: Other (moving extremities) Lower Extremity: Present: Other (moving extremities) Neurological: Present: Speech Normal, Gait Normal, Memory Normal Skin: Present: Warm, Dry, Normal Color. No: Rashes Psychiatric: Present: Alert, Oriented x 3, Normal Insight, Normal Concentration Medical Decision Making ED Course and Treatment: 12/28/17 17:55 Impression: A 67 year old female with hypoglycemia. Now AAOX3 and euglycemic. Patient refusing exam or further treatment and is requesting to leave the ED Plan: -- Reassess and disposition Prior Visits: Notes and results from previous visits were reviewed. Patient was last seen in the emergency department on 12/25/17 for low blood sugar levels. Progress Notes: Blood sugar 219. 12/28/17 17:56 Leaving Against Medical Advice (AMA): The patient is choosing to leave against medical advice. I have personally explained to the patient that choosing to do so may result in permanent bodily harm or . I have discussed at great length that without further evaluation and monitoring there may be unforeseen circumstances and/or deterioration causing permanent bodily harm or as a result of their choice. The patient is alert, oriented, and shows the mental capacity to make clear decisions regarding the patients health care at this time. The patient continues to wish to leave against medical advice. The patient has been advised that they should return to the emergency room immediately if they change their mind at any time, or if their condition begins to change or worsen in any way. - Medication Orders Current Medication Orders: Discontinued Medications Dextrose (Dextrose 50% Inj) 50 ml IVP STAT STA Stop: 12/28/17 18:16 Last Admin: 12/28/17 17:35 Dose: 50 ml IVP Administration Document 12/28/17 17:35 [email or web address] (Rec: 12/28/17 18:16 [email or web address] [id number]) Charges for Administration # of IVP Administrations 1 - Scribe Statement The provider has reviewed the documentation as recorded by the Scribe Ruddy Ortiz Provider Scribe Attestation: All medical record entries made by the Scribe were at my direction and personally dictated by me. I have reviewed the chart and agree that the record accurately reflects my personal performance of the history, physical exam, medical decision making, and the department course for this patient. I have also personally directed, reviewed, and agree with the discharge instructions and disposition. Disposition/Present on Arrival - Present on Arrival Any Indicators Present on Arrival: Yes History of DVT/PE: No History of Uncontrolled Diabetes: Yes Urinary Catheter: No History of Decub. Ulcer: No History Surgical Site Infection Following: None - Disposition Have Diagnosis and Disposition been Completed?: Yes Diagnosis: Hypoglycemia Disposition: AGAINST MEDICAL ADVICE Disposition Time: 17:56 Condition: UNKNOWN Additional Instructions: Return immediately if you want treatment. Follow-up with your PMD within 2 days. Monitor blood sugar more closely Forms: [employer] (Bengali)
[2017-12-28] MEDS ORDERED: Dextrose 50% SYRINGE Inj (50 ml) IVP STA (18:15)
[2017-12-28 18:19] VITALS: BP 179/70; PULSE 100; RESP 20; TEMP 97.9; O2SAT 99
== END 2017-12-28 17:56 | disposition left against medical advice (07) ==
LOC: ED 17:33
DX: E11.649 Type 2 diabetes mellitus with hypoglycemia without coma (principal)

== ENCOUNTER 2017-12-30 12:30 | Emergency (ER) | payer MEDICARE ==
[2017-12-30 12:37] VITALS: O2SAT 100
[2017-12-30 12:38] VITALS: BMI 16.8
[2017-12-30] MEDS ORDERED: Dextrose 50% SYRINGE Inj (50 ml) ONE (12:42)
--- NOTE | 2017-12-30 12:45 | ED PDOC ---
Arrival/HPI - General Chief Complaint: Altered Mental Status Time Seen by Provider: 12/30/17 12:42 Historian: EMS - History of Present Illness Time/Duration: Prior to Arrival Symptom Onset: Sudden Symptom Course: Unchanged Severity Level: Severe Activities at Onset: Rest Associated Symptoms (Text): 12/30/17 12:42 Well-known to the emergency Department staff. Frequently seen for episodes of hypoglycemia. Son called EMS as the patient was unresponsive and diaphoretic. Blood sugar was low and she responded to D50 IV. She is currently eating a regular diet. Past Medical History - Past History Past History: No Previous - Infectious Disease Hx of Infectious Diseases: None - Tetanus Immunization Tetanus Immunization: Unknown - Cardiac Hx Cardiac Disorders: Yes (CAD) Hx AR: Yes Hx Hypertension: Yes Hx Peripheral Vascular Disease: Yes (DVT) - Pulmonary Hx Respiratory Disorders: Yes - Neurological Hx Neurological Disorder: No - HEENT Hx HEENT Disorder: No - Renal Hx Renal Disorder: No - Endocrine/Metabolic Hx Endocrine Disorders: Yes Hx Diabetes Mellitus Type 2: Yes - Hematological/Oncological Hx Blood Disorders: No - Integumentary Hx Dermatological Disorder: No - Musculoskeletal/Rheumatological Hx Musculoskeletal Disorders: Yes Hx Falls: Yes - Gastrointestinal Hx Gastrointestinal Disorders: No - Genitourinary/Gynecological Hx Genitourinary Disorders: Yes - Psychiatric Hx Psychophysiologic Disorder: No Hx Substance Use: No - Past Surgical History Past Surgical History: Unable to Obtain - Surgical History Hx Cardiac Catheterization: Yes Hx Coronary Stent: Yes - Anesthesia Hx Anesthesia: Yes Hx Anesthesia Reactions: No Hx Malignant Hyperthermia: No - Suicidal Assessment Feels Threatened In Home Enviroment: No Family/Social History - Physician Review Nursing Documentation Reviewed: Yes Family/Social History: Unknown Family HX Smoking Status: Current Some Days Smoker Hx Alcohol Use: No Hx Substance Use: No Hx Substance Use Treatment: No Allergies/Home Meds Allergies/Adverse Reactions: Allergies No Known Allergies Allergy (Verified 12/28/17 17:44) Home Medications: Home Meds Medication Instructions Recorded Confirmed Unobtainable 09/26/17 11/24/17 Review of Systems - Physician Review All systems were reviewed & negative as marked: Yes - Review of Systems Constitutional: absent: Fatigue, Fevers Respiratory: absent: SOB, Cough Cardiovascular: absent: Chest Pain, Palpitations, Syncope Gastrointestinal: absent: Abdominal Pain, Nausea, Vomiting Genitourinary Female: absent: Dysuria, Frequency Neurological: absent: Headache, Dizziness, Focal Weakness Physical Exam Vital Signs Temp Pulse Resp BP Pulse Ox 12/30/17 12:36 97.5 F L 67 16 141/55 L 100 Temperature: Afebrile Blood Pressure: Hypertensive Pulse: Regular Respiratory Rate: Normal Appearance: Positive for: Well-Appearing, Non-Toxic, Comfortable, Other ( Diaphoretic) Pain Distress: None Mental Status: Positive for: Confused - Systems Exam Head: Present: Atraumatic, Normocephalic Pupils: Present: PERRL Extroacular Muscles: Present: EOMI Conjunctiva: Present: Normal Mouth: Present: Moist Mucous Membranes Pharnyx: No: ERYTHEMA, EXUDATE, TONSILS ENLARGED Neck: Present: Normal Range of Motion Respiratory/Chest: Present: Clear to Auscultation, Good Air Exchange, Decreased Breath Sounds. No: Respiratory Distress, Accessory Muscle Use Cardiovascular: Present: Regular Rate and Rhythm, Normal S1, S2. No: Murmurs Abdomen: No: Tenderness, Distention, Peritoneal Signs, Rebound, Guarding Upper Extremity: Present: Normal Inspection. No: Cyanosis, Edema Lower Extremity: Present: Normal Inspection. No: Edema Neurological: Present: GCS=15, CN II-XII Intact, Speech Normal, Motor Func Grossly Intact, Normal Cerebellar Funct Skin: Present: Warm, Normal Color, Diaphoretic. No: Dry, Rashes Medical Decision Making ED Course and Treatment: 12/30/17 13:24 Patient tolerated a regular diet in the emergency department. She refused all testing. She will sign out AGAINST MEDICAL ADVICE. She is currently awake alert and able to make such a decision. She is discharged home accompanied by her son. Disposition/Present on Arrival - Present on Arrival Any Indicators Present on Arrival: No History of DVT/PE: No History of Uncontrolled Diabetes: Yes Urinary Catheter: No History of Decub. Ulcer: No History Surgical Site Infection Following: None - Disposition Have Diagnosis and Disposition been Completed?: Yes Diagnosis: Hypoglycemia Disposition: AGAINST MEDICAL ADVICE Disposition Time: 13:25 Patient Plan: Discharge Condition: IMPROVED Discharge Instructions (ExitCare): Low Blood Sugar in People With Diabetes Forms: [employer] (South Korean)
[2017-12-30 15:06] VITALS: BP 130/60; PULSE 68; RESP 18; TEMP 97.3
== END 2017-12-30 13:30 | disposition left against medical advice (07) ==
LOC: ED 12:30
DX: E11.649 Type 2 diabetes mellitus with hypoglycemia without coma (principal); I10 Essential (primary) hypertension; F17.200 Nicotine dependence, unspecified, uncomplicated

== ENCOUNTER 2018-01-04 10:49 | Emergency (ER) | payer MEDICARE ==
[2018-01-04 10:57] VITALS: BMI 19.5
[2018-01-04] MEDS ORDERED: Dextrose 50% SYRINGE Inj (50 ml) IVP STA (10:57)
--- NOTE | 2018-01-04 11:21 | ED PDOC ---
Arrival/HPI - General Time Seen by Provider: 01/04/18 10:56 Historian: Family, EMS - History of Present Illness Narrative History of Present Illness (Text): 01/04/18 11:18 67yo female diabetic, well known to Emergency department for multiple episodes of hypoglycemia bib EMS for hypoglycemia. The son called EMS, because mother was unresponsive. EMS states patient was diaphoretic and unresponsive on they arrival. The son states patient took her insulin this morning without eating. Her BS was less than 20 in Emergency department. She became AAO x3 in Emergency department after Amp of Dextrose. She denies any somatic complaint. Past Medical History - Provider Review Nursing Documentation Reviewed: Yes - Travel History Have you recently traveled outside [place] w/in the past 3 mons?: Yes - Past History Past History: No Previous - Infectious Disease Hx of Infectious Diseases: None - Tetanus Immunization Tetanus Immunization: Unknown - Reproductive Menopause: Yes - Cardiac Hx Cardiac Disorders: Yes (CAD) Hx MD: Yes Hx Hypertension: Yes Hx Peripheral Vascular Disease: Yes (DVT) - Pulmonary Hx Respiratory Disorders: Yes - Neurological Hx Neurological Disorder: No - HEENT Hx HEENT Disorder: No - Renal Hx Renal Disorder: No - Endocrine/Metabolic Hx Endocrine Disorders: Yes Hx Diabetes Mellitus Type 2: Yes - Hematological/Oncological Hx Blood Disorders: No - Integumentary Hx Dermatological Disorder: No - Musculoskeletal/Rheumatological Hx Musculoskeletal Disorders: Yes Hx Falls: Yes - Gastrointestinal Hx Gastrointestinal Disorders: No - Genitourinary/Gynecological Hx Genitourinary Disorders: Yes - Psychiatric Hx Psychophysiologic Disorder: No Hx Substance Use: No - Past Surgical History Past Surgical History: Unable to Obtain - Surgical History Hx Cardiac Catheterization: Yes Hx Coronary Stent: Yes - Anesthesia Hx Anesthesia: Yes Hx Anesthesia Reactions: No Hx Malignant Hyperthermia: No - Suicidal Assessment Feels Threatened In Home Enviroment: No Family/Social History - Physician Review Nursing Documentation Reviewed: Yes Family/Social History: Unknown Family HX Smoking Status: Current Some Days Smoker Hx Alcohol Use: No Hx Substance Use: No Hx Substance Use Treatment: No Allergies/Home Meds Allergies/Adverse Reactions: Allergies No Known Allergies Allergy (Verified 12/28/17 17:44) Home Medications: Home Meds Medication Instructions Recorded Confirmed Unobtainable 09/26/17 11/24/17 Review of Systems - Physician Review All systems were reviewed & negative as marked: Yes - Review of Systems Systems not reviewed;Unavailable: Altered Mental Status Constitutional: Normal Eyes: Normal ENT: Normal Respiratory: Normal Cardiovascular: Normal Gastrointestinal: Normal Genitourinary Female: Normal Musculoskeletal: Normal Skin: Normal Neurological: Normal Endocrine: Other (Hypoglycemia) Hemo/Lymphatic: Normal Psychiatric: Normal Physical Exam Vital Signs Reviewed: Yes Vital Signs Temp Pulse Resp BP Pulse Ox 01/04/18 11:50 98.2 F 72 18 132/78 96 01/04/18 11:05 97.9 F 85 18 124/68 98 Temperature: Afebrile Blood Pressure: Normal Pulse: Regular Respiratory Rate: Normal Appearance: Positive for: Well-Appearing, Non-Toxic, Comfortable Pain Distress: None Mental Status: Positive for: Alert and Oriented X 3 - Systems Exam Head: Present: Atraumatic, Normocephalic Pupils: Present: PERRL Extroacular Muscles: Present: EOMI Conjunctiva: Present: Normal Mouth: Present: Moist Mucous Membranes Neck: Present: Normal Range of Motion Respiratory/Chest: Present: Clear to Auscultation, Good Air Exchange. No: Respiratory Distress, Accessory Muscle Use Cardiovascular: Present: Regular Rate and Rhythm, Normal S1, S2. No: Murmurs Abdomen: No: Tenderness, Distention, Peritoneal Signs Back: Present: Normal Inspection Upper Extremity: Present: Normal Inspection. No: Cyanosis, Edema Lower Extremity: Present: Normal Inspection. No: Edema Neurological: Present: GCS=15, CN II-XII Intact, Speech Normal Skin: Present: Warm, Dry, Normal Color. No: Rashes Psychiatric: Present: Alert, Oriented x 3, Normal Insight, Normal Concentration Medical Decision Making ED Course and Treatment: 01/04/18 11:23 Pt in Emergency department for stated history. She became AAO x3 in Emergency department s/p Dextrose 50mg was given. Lab was ordered and sent. Pt however states she wants to leave Leaving Against Medical Advice (AMA): The patient is choosing to leave against medical advice. I have personally explained to the patient that choosing to do so may result in permanent bodily harm or . I have discussed at great length that without further evaluation and monitoring there may be unforeseen circumstances and/or deterioration causing permanent bodily harm or as a result of their choice. The patient is alert, oriented, and shows the mental capacity to make clear decisions regarding the patients health care at this time. The patient continues to wish to leave against medical advice. In light of the patients decision to leave against medical advice, follow-up has been arranged and the patient is aware of the importance to following up as instructed. The patient has been advised that they should return to the emergency room immediately if they change their mind at any time, or if their condition begins to change or worsen in any way. - Lab Interpretations Lab Results: 01/04/18 11:13 Lab Results 01/04/18 11:27: POC Glucose (mg/dL) 127 H 01/04/18 11:13: PT 10.1, INR 0.88 L, APTT 31.0 01/04/18 11:13: WBC 10.0, RBC 3.72, Hgb 10.2 L, Hct 31.3 L, MCV 84.1, MCH 27.4, MCHC 32.6, RDW 14.4, Plt Count 429, MPV 8.8, Gran % 40.9 L, Lymph % (Auto) 43.2 H, Barnes % (Auto) 8.0 H, Eos % (Auto) 7.2 H, Baso % (Auto) 0.7, Gran # 4.11, Lymph # (Auto) 4.3 H, Barnes # (Auto) 0.8 H, Eos # (Auto) 0.7, Baso # (Auto) 0.07 - Medication Orders Current Medication Orders: Discontinued Medications Dextrose (Dextrose 50% Inj) 50 ml IVP STAT STA Stop: 01/04/18 10:58 Last Admin: 01/04/18 10:58 Dose: 50 ml IVP Administration Document 01/04/18 10:58 [facility] (Rec: 01/04/18 11:13 [facility]-[id number]) Charges for Administration # of IVP Administrations 1 Disposition/Present on Arrival - Present on Arrival Any Indicators Present on Arrival: No History of DVT/PE: No History of Uncontrolled Diabetes: Yes Urinary Catheter: No History of Decub. Ulcer: No History Surgical Site Infection Following: None - Disposition Have Diagnosis and Disposition been Completed?: Yes Diagnosis: Hypoglycemia Disposition: AGAINST MEDICAL ADVICE Disposition Time: 11:30 Condition: STABLE
[2018-01-04 11:23] LABS: BASO # 0.07 K/mm3 (0.0-2.0); BASO % 0.7 % (0.0-3.0); EOS # 0.7 (0.0-0.7); EOS % 7.2 % (1.5-5.0); GRAN # 4.11 (1.4-6.5); GRAN % 40.9 % (50.0-68.0); HEMOGLOBIN 10.2 g/dL (12.0-16.0); LYMPH # 4.3 (1.2-3.4); LYMPH % 43.2 % (22.0-35.0); MEAN CELL VOLUME 84.1 fl (80.0-105.0); MEAN CORPUSCULAR HEMOGLOBIN 27.4 pg (25.0-35.0); MEAN CORPUSCULAR HGB CONC 32.6 g/dl (31.0-37.0); MEAN PLATELET VOLUME 8.8 fl (7.0-11.0); MONO # 0.8 (0.1-0.6); RBC 3.72 10^6/uL (3.5-6.1); RED CELL DISTRIBUTION WIDTH 14.4 % (11.5-14.5)
[2018-01-04 11:25] VITALS: RESP 18
[2018-01-04 11:32] LABS: PROTHROMBIN TIME 10.1 SECONDS (9.4-12.5)
[2018-01-04 11:33] LABS: INR 0.88 (0.93-1.08)
[2018-01-04 11:51] VITALS: BP 132/78; PULSE 72; TEMP 98.2; O2SAT 96
== END 2018-01-04 11:50 | disposition left against medical advice (07) ==
LOC: ED 10:49
DX: E11.649 Type 2 diabetes mellitus with hypoglycemia without coma (principal); I10 Essential (primary) hypertension; I25.10 Atherosclerotic heart disease of native coronary artery without angina pectoris; F17.200 Nicotine dependence, unspecified, uncomplicated

== ENCOUNTER 2018-01-09 06:50 | Emergency (ER) | payer MEDICARE ==
[2018-01-09 06:51] VITALS: BMI 19.5
[2018-01-09 07:00] VITALS: O2SAT 97
[2018-01-09] MEDS ORDERED: Dextrose 50% SYRINGE Inj (50 ml) IVP STA ×2 (07:18→07:24)
--- NOTE | 2018-01-09 07:19 | ED PDOC ---
Arrival/HPI - General Chief Complaint: Altered Mental Status Time Seen by Provider: 01/09/18 07:06 Historian: Patient, Family (son) - History of Present Illness Narrative History of Present Illness (Text): 01/09/18 07:10 67 year old female, whose PMH includes hypertension, diabetes, [place], coronary stents, and DVT, who presents to the emergency department accompanied by son, s/ p being found unconscious by son, prior to arrival. Patient reports she had elevated high sugar levels and decided to take 2 units more than usual. She then became hypoglycemic and was found unconscious by her son. Patient notes she has not taken her hypertension medication since 4 days ago due to financial issues. Patient denies any chest pain, shortness of breath, headache, nausea, vomiting, diarrhea, head trauma, or other complaints. Time/Duration: Prior to Arrival Symptom Onset: Sudden Symptom Course: Unchanged Context: Home Past Medical History - Provider Review Nursing Documentation Reviewed: Yes - Past History Past History: No Previous - Infectious Disease Hx of Infectious Diseases: None - Tetanus Immunization Tetanus Immunization: Unknown - Reproductive Menopause: Yes - Cardiac Hx Cardiac Disorders: Yes (CAD) Hx WI: Yes Hx Hypertension: Yes Hx Peripheral Vascular Disease: Yes (DVT) - Pulmonary Hx Respiratory Disorders: Yes - Neurological Hx Neurological Disorder: No - HEENT Hx HEENT Disorder: No - Renal Hx Renal Disorder: No - Endocrine/Metabolic Hx Endocrine Disorders: Yes Hx Diabetes Mellitus Type 2: Yes - Hematological/Oncological Hx Blood Disorders: No - Integumentary Hx Dermatological Disorder: No - Musculoskeletal/Rheumatological Hx Musculoskeletal Disorders: Yes Hx Falls: Yes - Gastrointestinal Hx Gastrointestinal Disorders: No - Genitourinary/Gynecological Hx Genitourinary Disorders: Yes - Psychiatric Hx Psychophysiologic Disorder: No Hx Substance Use: No - Past Surgical History Past Surgical History: Unable to Obtain - Surgical History Hx Cardiac Catheterization: Yes Hx Coronary Stent: Yes - Anesthesia Hx Anesthesia: Yes Hx Anesthesia Reactions: No Hx Malignant Hyperthermia: No - Suicidal Assessment Feels Threatened In Home Enviroment: No Family/Social History - Physician Review Nursing Documentation Reviewed: Yes Family/Social History: Unknown Family HX Smoking Status: Current Some Days Smoker Hx Alcohol Use: No Hx Substance Use: No Hx Substance Use Treatment: No Allergies/Home Meds Allergies/Adverse Reactions: Allergies No Known Allergies Allergy (Verified 12/28/17 17:44) Home Medications: Home Meds Medication Instructions Recorded Confirmed RX: Unobtainable 09/26/17 11/24/17 Review of Systems - Review of Systems Constitutional: absent: Fevers Eyes: absent: Vision Changes Respiratory: absent: SOB Cardiovascular: absent: Chest Pain Gastrointestinal: absent: Abdominal Pain, Vomiting Genitourinary Female: absent: Dysuria Musculoskeletal: absent: Back Pain Neurological: absent: Headache Hemo/Lymphatic: Other (hypoglycemic ) Physical Exam Vital Signs Reviewed: Yes Vital Signs Temp Pulse Resp BP Pulse Ox 01/09/18 07:46 97.5 F L 87 18 158/95 H 97 01/09/18 07:37 97.5 F L 87 18 158/95 H 97 01/09/18 06:57 97.0 F L 102 H 20 178/78 H 97 Temperature: Afebrile Blood Pressure: Hypertensive Pulse: Tachycardic Respiratory Rate: Normal Appearance: Positive for: Well-Appearing, Non-Toxic, Comfortable Pain Distress: None Mental Status: Positive for: Alert and Oriented X 3 Finger Stick Blood Glucose: 445 - Systems Exam Head: Present: Atraumatic, Normocephalic Pupils: Present: PERRL Extroacular Muscles: Present: EOMI Conjunctiva: Present: Normal Nose (External): Present: Atraumatic Neck: Present: Normal Range of Motion Respiratory/Chest: Present: Clear to Auscultation, Good Air Exchange. No: Respiratory Distress, Accessory Muscle Use, Wheezes, Rales, Retracting, Rhonchi Cardiovascular: Present: Regular Rate and Rhythm, Normal S1, S2. No: Murmurs Abdomen: Present: Normal Bowel Sounds. No: Tenderness, Distention, Peritoneal Signs, Rebound, Guarding Upper Extremity: Present: Normal ROM, NORMAL PULSES, Neurovascularly Intact, Capillary Refill < 2s, Other (ecchymosis on bilateral arms ). No: Cyanosis, Edema, Tenderness, Deformity Neurological: Present: GCS=15, CN II-XII Intact, Speech Normal Skin: Present: Warm, Dry, Normal Color. No: Rashes Psychiatric: Present: Alert, Oriented x 3, Normal Insight, Normal Concentration Medical Decision Making ED Course and Treatment: 01/09/18 Impression: 67 year old female with ecchymosis on bilateral arms, complaining of hypoglycemia and being found unresponsive. Plan: -- Dextrose -- Reassess and disposition Progress Notes: - Medication Orders Current Medication Orders: Discontinued Medications Dextrose (Dextrose 50% Inj) 50 ml IVP STAT STA Stop: 01/09/18 07:19 Last Admin: 01/09/18 06:58 Dose: 50 ml IVP Administration Document 01/09/18 06:58 IT (Rec: 01/09/18 07:25 IT [facility] [id number]) Charges for Administration # of IVP Administrations 1 Dextrose (Dextrose 50% Inj) 50 ml IVP STAT STA Stop: 01/09/18 07:25 Last Admin: 01/09/18 06:58 Dose: 50 ml IVP Administration Document 01/09/18 06:58 IT (Rec: 01/09/18 07:26 IT [id number] Charges for Administration # of IVP Administrations 1 - Scribe Statement The provider has reviewed the documentation as recorded by the Alineibe Kendra Carter Provider Scribe Attestation: All medical record entries made by the Scribe were at my direction and personally dictated by me. I have reviewed the chart and agree that the record accurately reflects my personal performance of the history, physical exam, medical decision making, and the department course for this patient. I have also personally directed, reviewed, and agree with the discharge instructions and disposition. Disposition/Present on Arrival - Present on Arrival Any Indicators Present on Arrival: Yes History of DVT/PE: No History of Uncontrolled Diabetes: Yes Urinary Catheter: No History of Decub. Ulcer: No History Surgical Site Infection Following: None - Disposition Have Diagnosis and Disposition been Completed?: Yes Diagnosis: Hypoglycemia Disposition: AGAINST MEDICAL ADVICE Disposition Time: 07:46 Condition: UNKNOWN Forms: [employer] (Romansh)
[2018-01-09 07:37] VITALS: BP 158/95; PULSE 87; RESP 18; TEMP 97.5
== END 2018-01-09 07:47 | disposition left against medical advice (07) ==
LOC: ED 06:50
DX: E11.649 Type 2 diabetes mellitus with hypoglycemia without coma (principal)

== ENCOUNTER 2018-01-10 18:51 | Emergency (ER) | payer MEDICARE ==
[2018-01-10 18:51] VITALS: BMI 19.5
[2018-01-10 19:06] VITALS: BP 108/76; RESP 16; TEMP 98.3; O2SAT 98
[2018-01-10 19:27] VITALS: PULSE 89
--- NOTE | 2018-01-10 19:28 | ED PDOC ---
Arrival/HPI - General Chief Complaint: Altered Mental Status Time Seen by Provider: 01/10/18 19:25 Historian: Patient - History of Present Illness Narrative History of Present Illness (Text): 01/10/18 19:25 A 67 year old female, well known to Emergency department for multiple episodes of hypoglycemia, whose past medical history includes hypertension, diabetes, [place] , coronary stents, and DVT, is brought into the emergency department via EMS s/ p a hypoglycemic episode this evening. The patient was brought into the emergency department for further evaluation. The patient denies fevers, chills, headache, dizziness, chest pain, shortness of breath, dyspnea on exertion, cough , abdominal pain, nausea, vomiting, diarrhea, back pain, neck pain, urinary/ bowel changes, or any other complaint. Time/Duration: Prior to Arrival Symptom Onset: Sudden Symptom Course: Improving Activities at Onset: Rest, Light Context: Home Past Medical History - Provider Review Nursing Documentation Reviewed: Yes - Past History Past History: No Previous - Infectious Disease Hx of Infectious Diseases: None - Tetanus Immunization Tetanus Immunization: Unknown - Reproductive Menopause: Yes - Cardiac Hx Cardiac Disorders: Yes (CAD) Hx NC: Yes Hx Hypertension: Yes Hx Peripheral Vascular Disease: Yes (DVT) - Pulmonary Hx Respiratory Disorders: Yes - Neurological Hx Neurological Disorder: No - HEENT Hx HEENT Disorder: No - Renal Hx Renal Disorder: No - Endocrine/Metabolic Hx Endocrine Disorders: Yes Hx Diabetes Mellitus Type 2: Yes - Hematological/Oncological Hx Blood Disorders: No - Integumentary Hx Dermatological Disorder: No - Musculoskeletal/Rheumatological Hx Musculoskeletal Disorders: Yes Hx Falls: Yes - Gastrointestinal Hx Gastrointestinal Disorders: No - Genitourinary/Gynecological Hx Genitourinary Disorders: Yes - Psychiatric Hx Psychophysiologic Disorder: No Hx Substance Use: No - Past Surgical History Past Surgical History: Unable to Obtain - Surgical History Hx Cardiac Catheterization: Yes Hx Coronary Stent: Yes - Anesthesia Hx Anesthesia: Yes Hx Anesthesia Reactions: No Hx Malignant Hyperthermia: No - Suicidal Assessment Feels Threatened In Home Enviroment: No Family/Social History - Physician Review Nursing Documentation Reviewed: Yes Family/Social History: No Known Family HX Smoking Status: Unknown If Ever Smoked Hx Alcohol Use: No Hx Substance Use: No Hx Substance Use Treatment: No Allergies/Home Meds Allergies/Adverse Reactions: Allergies No Known Allergies Allergy (Verified 12/28/17 17:44) Home Medications: Home Meds Medication Instructions Recorded Confirmed Unobtainable 09/26/17 11/24/17 Review of Systems - Physician Review All systems were reviewed & negative as marked: Yes - Review of Systems Respiratory: absent: SOB Cardiovascular: absent: Chest Pain Physical Exam - Physical Exam Narrative Physical Exam (Text): 01/10/18 19:28 Constitutional: No acute distress. Head: Normocephalic. Atraumatic. Eyes: PERRL. ENT: Moist mucous membranes. Neck: Supple. Cardiovascular: Regular rate. Chest: No tenderness. Respiratory: Clear to auscultation bilaterally. GI: Soft. Nontender. Nondistended. Back: No CVA tenderness. Musculoskeletal: No tenderness or swelling of extremities. Skin: No rash. Neurologic: Alert, no focal deficit. Vital Signs Reviewed: Yes Vital Signs Temp Pulse Resp BP Pulse Ox 01/10/18 19:26 89 01/10/18 19:05 98.3 F 104 H 16 108/76 98 Temperature: Afebrile Blood Pressure: Normal Pulse: Tachycardic Respiratory Rate: Normal Appearance: Positive for: Well-Appearing, Non-Toxic, Comfortable Pain Distress: None Mental Status: Positive for: Alert and Oriented X 3 Finger Stick Blood Glucose: 217 Medical Decision Making ED Course and Treatment: 01/10/18 19:28 Impression: A 67 year old female is brought into the emergency department via EMS s/p hypoglycemic episode. Plan: -- Reassess and disposition Progress Notes: 01/10/18 19:28 Leaving Against Medical Advice (AMA): The patient is choosing to leave against medical advice. I have personally explained to the patient that choosing to do so may result in permanent bodily harm or . I have discussed at great length that without further evaluation and monitoring there may be unforeseen circumstances and/or deterioration causing permanent bodily harm or as a result of their choice. The patient is alert, oriented, and shows the mental capacity to make clear decisions regarding the patients health care at this time. The patient continues to wish to leave against medical advice. In light of the patients decision to leave against medical advice, the patient is aware of the importance to following up as instructed. The patient has been advised that they should return to the emergency room immediately if they change their mind at any time, or if their condition begins to change or worsen in any way. - Scribe Statement The provider has reviewed the documentation as recorded by the Scribe Shantell Chau Provider Scribe Attestation: All medical record entries made by the Scribe were at my direction and personally dictated by me. I have reviewed the chart and agree that the record accurately reflects my personal performance of the history, physical exam, medical decision making, and the department course for this patient. I have also personally directed, reviewed, and agree with the discharge instructions and disposition. Disposition/Present on Arrival - Present on Arrival Any Indicators Present on Arrival: Yes History of DVT/PE: No History of Uncontrolled Diabetes: Yes Urinary Catheter: No History of Decub. Ulcer: No History Surgical Site Infection Following: None - Disposition Have Diagnosis and Disposition been Completed?: Yes Diagnosis: Hypoglycemia Disposition: AGAINST MEDICAL ADVICE Disposition Time: 19:20 Condition: UNKNOWN Forms: [employer] ([place])
== END 2018-01-10 19:26 | disposition left against medical advice (07) ==
LOC: ED 18:51
DX: E11.649 Type 2 diabetes mellitus with hypoglycemia without coma (principal)

== ENCOUNTER 2018-01-12 16:31 | Emergency (ER) | payer MEDICARE ==
[2018-01-12 16:31] VITALS: BMI 19.5
[2018-01-12 16:39] VITALS: RESP 18; TEMP 97.9
--- NOTE | 2018-01-12 16:59 | ED PDOC ---
Arrival/HPI - General Chief Complaint: Altered Mental Status Time Seen by Provider: 01/12/18 16:39 Historian: Patient - History of Present Illness Narrative History of Present Illness (Text): 01/12/18 16:49 67yo female with PMhx of IDDM bib EMS for hypoglycemia. PT is well known to this ED for hypoglycemia. Per EMS pt's son called when he found the mother unconscious. Per EMS pt's BS on the field was 28,and it increased to 322 after one amp of dextrose was given. PT was AAO x3 on arrival in ED. she denies any somatic complaint. Past Medical History - Provider Review Nursing Documentation Reviewed: Yes - Past History Past History: No Previous - Infectious Disease Hx of Infectious Diseases: None - Tetanus Immunization Tetanus Immunization: Unknown - Cardiac Hx Cardiac Disorders: Yes (CAD) Hx [place]: Yes Hx Hypertension: Yes Hx Peripheral Vascular Disease: Yes (DVT) - Pulmonary Hx Respiratory Disorders: Yes - Neurological Hx Neurological Disorder: No - HEENT Hx HEENT Disorder: No - Renal Hx Renal Disorder: No - Endocrine/Metabolic Hx Endocrine Disorders: Yes Hx Diabetes Mellitus Type 2: Yes - Hematological/Oncological Hx Blood Disorders: No - Integumentary Hx Dermatological Disorder: No - Musculoskeletal/Rheumatological Hx Musculoskeletal Disorders: Yes Hx Falls: Yes - Gastrointestinal Hx Gastrointestinal Disorders: No - Genitourinary/Gynecological Hx Genitourinary Disorders: Yes - Psychiatric Hx Psychophysiologic Disorder: No Hx Substance Use: No - Past Surgical History Past Surgical History: Unable to Obtain - Surgical History Hx Cardiac Catheterization: Yes Hx Coronary Stent: Yes - Anesthesia Hx Anesthesia: Yes Hx Anesthesia Reactions: No Hx Malignant Hyperthermia: No - Suicidal Assessment Feels Threatened In Home Enviroment: No Family/Social History - Physician Review Nursing Documentation Reviewed: Yes Family/Social History: Unknown Family HX Smoking Status: Unknown If Ever Smoked Hx Alcohol Use: No Hx Substance Use: No Hx Substance Use Treatment: No Allergies/Home Meds Allergies/Adverse Reactions: Allergies No Known Allergies Allergy (Verified 01/12/18 16:37) Home Medications: Home Meds Medication Instructions Recorded Confirmed Unobtainable 09/26/17 01/12/18 Review of Systems - Physician Review All systems were reviewed & negative as marked: Yes - Review of Systems Systems not reviewed;Unavailable: Altered Mental Status Constitutional: Normal Eyes: Normal ENT: Normal Respiratory: Normal Cardiovascular: Normal Gastrointestinal: Normal Genitourinary Female: Normal Musculoskeletal: Normal Skin: Normal Neurological: Normal Endocrine: Other (Hypoglycemia) Hemo/Lymphatic: Normal Psychiatric: Normal Physical Exam Vital Signs Reviewed: Yes Vital Signs Temp Pulse Resp BP Pulse Ox 01/12/18 16:37 97.9 F 94 H 18 180/90 H 100 Temperature: Afebrile Blood Pressure: Normal Pulse: Regular Respiratory Rate: Normal Appearance: Positive for: Well-Appearing, Non-Toxic, Comfortable Pain Distress: None Mental Status: Positive for: Alert and Oriented X 3 - Systems Exam Head: Present: Atraumatic, Normocephalic Pupils: Present: PERRL Extroacular Muscles: Present: EOMI Conjunctiva: Present: Normal Mouth: Present: Moist Mucous Membranes Neck: Present: Normal Range of Motion Respiratory/Chest: Present: Clear to Auscultation, Good Air Exchange. No: Respiratory Distress, Accessory Muscle Use Cardiovascular: Present: Regular Rate and Rhythm, Normal S1, S2. No: Murmurs Abdomen: No: Tenderness, Distention, Peritoneal Signs Back: Present: Normal Inspection Upper Extremity: Present: Normal Inspection. No: Cyanosis, Edema Lower Extremity: Present: Normal Inspection. No: Edema Neurological: Present: GCS=15, CN II-XII Intact, Speech Normal Skin: Present: Warm, Dry, Normal Color. No: Rashes Psychiatric: Present: Alert, Oriented x 3, Normal Insight, Normal Concentration Medical Decision Making ED Course and Treatment: 01/12/18 17:14 PT was AAO x3 and ambulatory in ED with steady normal gait. BS was 161 in ED. Lab was ordered, pt however declined any work up, requesting to go home. She was aware of the risk of repeat episode, , disability that can occur from leaving the ED without proper evaluation, but she still insist on signing out AMA. She have a full mentation and capacity of making this decision. she signed out AMA. Disposition/Present on Arrival - Present on Arrival Any Indicators Present on Arrival: No History of DVT/PE: No History of Uncontrolled Diabetes: Yes Urinary Catheter: No History of Decub. Ulcer: No History Surgical Site Infection Following: None - Disposition Have Diagnosis and Disposition been Completed?: Yes Diagnosis: Hypoglycemia Disposition: AGAINST MEDICAL ADVICE Disposition Time: 17:15 Condition: STABLE Referrals: [facility] Stephens, [Primary Care Provider] - Follow up with primary Forms: [employer] ([place]ayan)
[2018-01-12 17:24] VITALS: BP 166/91; PULSE 90; O2SAT 99
== END 2018-01-12 17:24 | disposition left against medical advice (07) ==
LOC: ED 16:31
DX: E11.649 Type 2 diabetes mellitus with hypoglycemia without coma (principal); I10 Essential (primary) hypertension; I25.10 Atherosclerotic heart disease of native coronary artery without angina pectoris; Z79.4 Long term (current) use of insulin

== ENCOUNTER 2018-01-15 12:50 | Emergency (ER) | payer MEDICARE ==
[2018-01-15 13:17] VITALS: BMI 18.7
--- NOTE | 2018-01-15 13:17 | ED PDOC ---
Arrival/HPI - General Chief Complaint: Altered Mental Status Time Seen by Provider: 01/15/18 13:01 Historian: Patient - History of Present Illness Narrative History of Present Illness (Text): 01/15/18 13:12 You were treated in the ED today, with history of diabetes, for hypoglycemia ( 29 mg/dL) as determined by EMS and given D50 prior to arrival. You expressed unwillingness to live anymore after of your and you have not been complaint with good diet but denied any homicidal ideation. You mentioned injury , bruising and swelling to left ankle few days ago otherwise without any head trauma, loss of consciousness, neck pain, fever, nausea/vomiting/headache/ dizziness/difficulty breathing/chest pain/abdomen pain/numbness/tingling/loss of limb function/pain with urination or any other complaints. Time/Duration: Prior to Arrival Symptom Onset: Gradual Symptom Course: Improving Activities at Onset: Light Context: Home Past Medical History - Provider Review Nursing Documentation Reviewed: Yes - Past History Past History: No Previous - Infectious Disease Hx of Infectious Diseases: None - Tetanus Immunization Tetanus Immunization: Unknown - Reproductive Menopause: Yes - Cardiac Hx Cardiac Disorders: Yes (CAD) Hx [place]: Yes Hx Hypertension: Yes Hx Peripheral Vascular Disease: Yes (DVT) - Pulmonary Hx Respiratory Disorders: Yes - Neurological Hx Neurological Disorder: No - HEENT Hx HEENT Disorder: No - Renal Hx Renal Disorder: No - Endocrine/Metabolic Hx Endocrine Disorders: Yes Hx Diabetes Mellitus Type 2: Yes - Hematological/Oncological Hx Blood Disorders: No - Integumentary Hx Dermatological Disorder: No - Musculoskeletal/Rheumatological Hx Musculoskeletal Disorders: Yes Hx Falls: Yes - Gastrointestinal Hx Gastrointestinal Disorders: No - Genitourinary/Gynecological Hx Genitourinary Disorders: Yes - Psychiatric Hx Psychophysiologic Disorder: No Hx Substance Use: No - Past Surgical History Past Surgical History: Unable to Obtain - Surgical History Hx Cardiac Catheterization: Yes Hx Coronary Stent: Yes - Anesthesia Hx Anesthesia: Yes Hx Anesthesia Reactions: No Hx Malignant Hyperthermia: No - Suicidal Assessment Feels Threatened In Home Enviroment: No Family/Social History - Physician Review Nursing Documentation Reviewed: Yes Family/Social History: No Known Family HX Smoking Status: Unknown If Ever Smoked Hx Alcohol Use: No Hx Substance Use: No Hx Substance Use Treatment: No Allergies/Home Meds Allergies/Adverse Reactions: Allergies No Known Allergies Allergy (Verified 01/12/18 16:37) Home Medications: Home Meds Medication Instructions Recorded Confirmed Unobtainable 09/26/17 01/15/18 Review of Systems - Physician Review All systems were reviewed & negative as marked: Yes - Review of Systems Constitutional: Normal. absent: Fevers Eyes: Normal ENT: Normal Respiratory: Normal. absent: SOB Cardiovascular: Normal. absent: Chest Pain Gastrointestinal: Normal. absent: Abdominal Pain, Diarrhea, Nausea, Vomiting Genitourinary Female: Normal. absent: Dysuria Musculoskeletal: Joint Swelling (left ankle swellin, bruising and injury s/p fall). absent: Neck Pain Skin: Normal Neurological: Normal. absent: Headache, Dizziness Endocrine: Normal Hemo/Lymphatic: Normal Psychiatric: Other (Unwilingless to live) Physical Exam Vital Signs Reviewed: Yes Vital Signs Temp Pulse Resp BP Pulse Ox 01/15/18 15:24 97.8 F 85 18 158/70 H 100 01/15/18 13:02 97.8 F 99 H 17 190/95 H 98 Temperature: Afebrile Blood Pressure: Hypertensive Pulse: Tachycardic Respiratory Rate: Normal Appearance: Positive for: Well-Appearing, Non-Toxic Pain Distress: None Mental Status: Positive for: Alert and Oriented X 3 Finger Stick Blood Glucose: 243 - Systems Exam Head: Present: Atraumatic, Normocephalic Pupils: Present: PERRL Extroacular Muscles: Present: EOMI Conjunctiva: Present: Normal Mouth: Present: Moist Mucous Membranes Neck: Present: Normal Range of Motion Respiratory/Chest: Present: Clear to Auscultation, Good Air Exchange. No: Respiratory Distress, Accessory Muscle Use Cardiovascular: Present: Regular Rate and Rhythm, Normal S1, S2. No: Murmurs Abdomen: No: Tenderness, Distention, Peritoneal Signs Back: Present: Normal Inspection Upper Extremity: Present: Normal Inspection. No: Cyanosis, Edema Lower Extremity: Present: NORMAL PULSES, Tenderness, Swelling (Left ankle lateral aspect, swelling and discomfort.), Capillary Refill < 2 s, Other (warm and pink extremity with good distal pulses.) Neurological: Present: GCS=15, CN II-XII Intact, Speech Normal Skin: Present: Warm, Dry, Normal Color. No: Rashes Psychiatric: Present: Alert, Oriented x 3. No: Homicidal Ideation Medical Decision Making ED Course and Treatment: 01/15/18 13:05 Impression: You were treated in the ED today, with history of diabetes, for hypoglycemia ( 29 mg/dL) as determined by EMS and given D50 prior to arrival. You expressed unwillingness to live anymore after of your about 4 years ago as you were remembering him at this time and you have not been complaint with good diet which you state is also a general problem as well but denied any homicidal ideation/hallucinations. You mentioned injury, bruising and swelling to left ankle few days ago but otherwise without any head trauma, loss of consciousness , neck pain, fever, nausea/vomiting/headache/dizziness/difficulty breathing/ chest pain/abdomen pain/numbness/tingling/loss of limb function/pain with urination or any other complaints. You were otherwise breathing easily, good strength/sensation, walking easily, clear lungs, no abdomen tenderness, left ankle with mild bruising and no tenderness and otherwise warm/sensation/pink/ good cap refill/good distal pulses, no spinal tenderness, no fever temp 97.8, tachycardia at 99, stable breathing rate 17, excellent oxygen level 98% room air , elevated blood pressure 190/95 which we recommend repeat in 2-3 days primary care office to determine further treatment, you have blood tests no infection count 11, stable blood level hemoglobin 11/platelets 409, stable chemistry, heart blood test negative less than 0.01, urine test no acute sign of infection ; with protein, urine drug screen negative, alcohol/tylenol/aspirin levels negative, radiology hyperinflation, left ankle xray no acute findings and you were walking comfortably, ECG normal sinus rhythm, gave food, observation done in the ED with improvement, had a long discussion and you stated you have a will to live for your sons who live with you/grand children who you baby sit and you have no weapons in the home, you stated you are walking easily on the left ankle and don't want crutches or splint on the left lower leg, mental health evaluation cleared you and recommend followup [facility] for mental health care next 2-3 days, counselled to check blood sugar regularly, and discharged home with son who states he will monitor you as you live together and he feels your safe at home. 1. Recommend follow-up primary care 2- 3 days to review symptoms, referral to urology for protein in urine/creatinine 1.3 which is similar to prior to ensure no complications, referral to gastroenterology for elevated AST 39 which is similar to prior, referral to pulmonary/cardiology clinic for hyperinflation/apical thickening/calcification to ensure no complications/cancer development, referral to endocrine clinic for blood sugar control, referral to [facility] for mental health care to review your symptoms. 2. If any worsening pain, fever, chills, nausea, vomiting, difficulty breathing, numbness, loss of limb function, pain with urination or any medical condition then return to the ED. Plan: -- EKG -- Labs -- CXR -- Ativan -- Urine Culture -- X-ray of Ankle left -- Urinalysis 01/15/18 13:50 Chest X-ray reviewed by radiologist, showed hyperinflation of likely related to underlying COPD. Clinical correlation recommended. 01/15/18 18:31 01/15/18 18:41 01/15/18 18:43 Reassessment Condition: Re-examined, Improved - Lab Interpretations Lab Results: 01/15/18 13:20 01/15/18 13:20 Lab Results 01/15/18 17:33: POC Glucose (mg/dL) 228 H 01/15/18 13:45: Urine Opiates Screen Negative, Urine Methadone Screen Negative, Ur Barbiturates Screen Negative, Ur Phencyclidine Scrn Negative, Ur Amphetamines Screen Negative, U Benzodiazepines Scrn Negative, U Oth Cocaine Metabols Negative, U Cannabinoids Screen Negative 01/15/18 13:45: Urine Color Yellow, Urine Appearance Clear, Urine pH 6.0, Ur Specific [place] 1.025, Urine Protein 100 H, Urine Glucose (UA) 250 H, Urine Ketones Negative, Urine Blood Negative, Urine Nitrate Negative, Urine Bilirubin Negative, Urine Urobilinogen 0.2, Ur Leukocyte Esterase Negative, Urine RBC Negative, Urine WBC 1 - 3, Ur Epithelial Cells 0 - 2, Urine Bacteria Few 01/15/18 13:20: Alcohol, Quantitative < 10 01/15/18 13:20: Salicylates < 1 L, Acetaminophen < 10.0 L 01/15/18 13:20: Sodium 144, Potassium 4.0, Chloride 106, Carbon Dioxide 23, Anion Gap 20, BUN 24 H, Creatinine 1.3 H, Est GFR ( Amer) 50, Est GFR ( Non-Af Amer) 41, Random Glucose 217 H, Calcium 9.4, Magnesium 2.4 H, Total Bilirubin 0.3, AST 39 H, ALT 28, Alkaline Phosphatase 86, Lactate Dehydrogenase 836 H, Total Creatine Kinase 93, Troponin I < 0.01, Total Protein 7.8, Albumin 4.7, Globulin 3.2, Albumin/Globulin Ratio 1.5 01/15/18 13:20: PT 10.3, INR 0.91 L, APTT 33.2 01/15/18 13:20: WBC 11.7 H, RBC 4.01, Hgb 11.0 L, Hct 33.6 L, MCV 83.8, MCH 27.4 , MCHC 32.7, RDW 14.3, Plt Count 409, MPV 8.8, Gran % 59.5, Lymph % (Auto) 27.7 , [place] % (Auto) 5.9, Eos % (Auto) 6.2 H, Baso % (Auto) 0.7, Gran # 6.97 H, Lymph # (Auto) 3.2, [place] # (Auto) 0.7 H, Eos # (Auto) 0.7, Baso # (Auto) 0.08 01/15/18 12:59: POC Glucose (mg/dL) 243 H I have reviewed the lab results: Yes - RAD Interpretation Radiology Orders: 01/15/18 13:03 CHEST PORTABLE [RAD] Stat ANKLE LEFT 3 VIEWS ROUTINE [RAD] Stat Labor Gang Supervisor: Radiologist - Scribe Statement The provider has reviewed the documentation as recorded by the Scribe Agnieszka Irene. All medical record entries made by the Scribe were at my direction and personally dictated by me. I have reviewed the chart and agree that the record accurately reflects my personal performance of the history, physical exam, medical decision making, and the department course for this patient. I have also personally directed, reviewed, and agree with the discharge instructions and disposition. Disposition/Present on Arrival - Present on Arrival Any Indicators Present on Arrival: No History of DVT/PE: No History of Uncontrolled Diabetes: Yes Urinary Catheter: No History of Decub. Ulcer: No History Surgical Site Infection Following: None - Disposition Have Diagnosis and Disposition been Completed?: Yes Diagnosis: Hypoglycemia, Depression Disposition: HOME/ ROUTINE Disposition Time: 18:44 Patient Plan: Discharge Condition: IMPROVED Discharge Instructions (ExitCare): Depression, Adult (DC), Low Blood Sugar, Adult (DC) Additional Instructions: You were treated in the ED today, with history of diabetes, for hypoglycemia ( 29 mg/dL) as determined by EMS and given D50 prior to arrival. You expressed unwillingness to live anymore after of your about 4 years ago as you were remembering him at this time and you have not been complaint with good diet which you state is also a general problem as well but denied any homicidal ideation/hallucinations. You mentioned injury, bruising and swelling to left ankle few days ago but otherwise without any head trauma, loss of consciousness , neck pain, fever, nausea/vomiting/headache/dizziness/difficulty breathing/ chest pain/abdomen pain/numbness/tingling/loss of limb function/pain with urination or any other complaints. You were otherwise breathing easily, good strength/sensation, walking easily, clear lungs, no abdomen tenderness, left ankle with mild bruising and no tenderness and otherwise warm/sensation/pink/ good cap refill/good distal pulses, no spinal tenderness, no fever temp 97.8, tachycardia at 99, stable breathing rate 17, excellent oxygen level 98% room air , elevated blood pressure 190/95 which we recommend repeat in 2-3 days primary care office to determine further treatment, you have blood tests no infection count 11, stable blood level hemoglobin 11/platelets 409, stable chemistry, heart blood test negative less than 0.01, urine test no acute sign of infection ; with protein, urine drug screen negative, alcohol/tylenol/aspirin levels negative, radiology hyperinflation, left ankle xray no acute findings and you were walking comfortably, ECG normal sinus rhythm, gave food, observation done in the ED with improvement, had a long discussion and you stated you have a will to live for your sons who live with you/grand children who you baby sit and you have no weapons in the home, you stated you are walking easily on the left ankle and don't want crutches or splint on the left lower leg, mental health evaluation cleared you and recommend followup [facility] for mental health care next 2-3 days, counselled to check blood sugar regularly, and discharged home with son who states he will monitor you as you live together and he feels your safe at home. 1. Recommend follow-up primary care 2- 3 days to review symptoms, referral to urology for protein in urine/creatinine 1.3 which is similar to prior to ensure no complications, referral to gastroenterology for elevated AST 39 which is similar to prior, referral to pulmonary/cardiology clinic for hyperinflation/apical thickening/calcification to ensure no complications/cancer development, referral to endocrine clinic for blood sugar control, referral to [facility] for mental health care to review your symptoms. 2. If any worsening pain, fever, chills, nausea, vomiting, difficulty breathing, numbness, loss of limb function, pain with urination or any medical condition then return to the ED. Forms: [employer] (Djiboutian)
[2018-01-15 13:35] LABS: BASO # 0.08 K/mm3 (0.0-2.0); BASO % 0.7 % (0.0-3.0); EOS # 0.7 (0.0-0.7); EOS % 6.2 % (1.5-5.0); GRAN # 6.97 (1.4-6.5); GRAN % 59.5 % (50.0-68.0); LYMPH # 3.2 (1.2-3.4); LYMPH % 27.7 % (22.0-35.0); MEAN CELL VOLUME 83.8 fl (80.0-105.0); MEAN CORPUSCULAR HEMOGLOBIN 27.4 pg (25.0-35.0); MEAN CORPUSCULAR HGB CONC 32.7 g/dl (31.0-37.0); MEAN PLATELET VOLUME 8.8 fl (7.0-11.0); MONO # 0.7 (0.1-0.6); MONO % 5.9 % (1.0-6.0); RBC 4.01 10^6/uL (3.5-6.1); RED CELL DISTRIBUTION WIDTH 14.3 % (11.5-14.5); WHITE BLOOD COUNT 11.7 10^3/ul (4.5-11.0)
--- NOTE | 2018-01-15 13:43 | RAD ---
HISTORY: 67yoF, suicidal statements/med eval COMPARISON: Comparison made with prior chest radiograph 11/24/2017 FINDINGS: LUNGS: Lung pollard are hyperinflated suggesting underlying COPD. . . Mild right apical pleural thickening. PLEURA: No significant pleural effusion identified, no pneumothorax apparent. CARDIOVASCULAR: Probable endovascular coronary stent graft. OSSEOUS STRUCTURES: No significant abnormalities. VISUALIZED UPPER ABDOMEN: Normal. OTHER FINDINGS: None. IMPRESSION: Hyperinflation of likely related to underlying COPD. Clinical correlation recommended.
[2018-01-15 13:44] LABS: ALB/GLOB RATIO 1.5 (1.1-1.8); ALBUMIN 4.7 g/dL (3.0-4.8); ALT/SGPT 28 U/L (7-56); AST/SGOT 39 U/L (14-36); BLOOD UREA NITROGEN 24 mg/dL (7-21); CALCIUM 9.4 mg/dL (8.4-10.5); GFR AFRICAN-AMERICAN 50; GFR NON-AFRICAN AMERICAN 41
[2018-01-15 13:51] LABS: INR 0.91 (0.93-1.08); PARTIAL THROMBOPLASTIN TIME 33.2 Seconds (25.1-36.5); PROTHROMBIN TIME 10.3 SECONDS (9.4-12.5)
[2018-01-15 13:52] LABS: ACETAMINOPHEN < 10.0 ug/ml (10.0-20.0); SALICYLATE < 1 mg/dL (2.0-20.0)
[2018-01-15 13:55] LABS: TROPONIN I < 0.01 ng/mL
[2018-01-15 14:14] LABS: URINE BILIRUBIN NEGATIVE (NEGATIVE); URINE BLOOD NEGATIVE (NEGATIVE); URINE GLUCOSE (UA) 250 mg/dL (NEGATIVE); URINE LEUKOCYTE ESTERASE NEGATIVE Leu/uL (NEGATIVE); URINE PROTEIN 100 mg/dL (<30 mg/dL); URINE UROBILINOGEN 0.2 E.U./dL (<1 E.U./dL)
[2018-01-15 14:17] LABS: URINE APPEARANCE CLEAR (CLEAR); URINE COLOR YELLOW (YELLOW)
[2018-01-15 14:29] LABS: URINE BACTERIA FEW (NEG); URINE EPITHELIAL CELLS 0 - 2 /hpf (0-5); URINE RBC NEGATIVE /hpf (0-2)
[2018-01-15 14:49] LABS: BARBITURATES, UR NEGATIVE (NEGATIVE); OPIATES, UR NEGATIVE (NEGATIVE); PHENCYCLIDINE, UR NEGATIVE (NEGATIVE)
[2018-01-15 15:12] LABS: BENZODIAZEPINES, UR NEGATIVE (NEGATIVE)
[2018-01-15 15:25] VITALS: RESP 18; O2SAT 100
[2018-01-15 19:10] VITALS: TEMP 97.9
[2018-01-15 19:11] VITALS: BP 155/78; PULSE 83
--- NOTE | 2018-01-16 09:43 | RAD ---
PROCEDURE: Left Ankle Radiographs. HISTORY: 67y year-old female, fall, left ankle injury/bruising COMPARISON: None FINDINGS: BONES: Normal. No fracture. JOINTS: Normal. No osteoarthritis. Ankle mortise maintained. Talar dome intact SOFT TISSUES: Minor soft tissue swelling overlying the lateral malleolus. Vascular calcifications are present OTHER FINDINGS: None. IMPRESSION: No evidence of acute displaced FX nor dislocation minor soft tissue swelling overlying the lateral malleolus. .
--- NOTE | 2018-01-16 09:45 | CARD ---
APPROVED REPORT EKG Measurement Heart [id number] PA [id number] <Conclusion> Normal sinus rhythm Rightward axis Borderline ECG
== END 2018-01-15 19:09 | disposition home or self-care (01) ==
LOC: ED 12:50
DX: E11.649 Type 2 diabetes mellitus with hypoglycemia without coma (principal); F32.9 Major depressive disorder, single episode, unspecified; I10 Essential (primary) hypertension; I25.10 Atherosclerotic heart disease of native coronary artery without angina pectoris

== ENCOUNTER 2018-01-17 16:53 | Emergency (ER) | payer MEDICARE ==
[2018-01-17 16:53] VITALS: BMI 18.7
[2018-01-17] MEDS ORDERED: Dextrose 50% SYRINGE Inj (50 ml) ONE (16:57)
--- NOTE | 2018-01-17 17:28 | ED PDOC ---
Arrival/HPI - General Chief Complaint: Altered Mental Status Time Seen by Provider: 01/17/18 17:00 Historian: Patient - History of Present Illness Narrative History of Present Illness (Text): 01/17/18 17:05 A 67 year old female who is very well-known here in the ER, whose past medical history includes hypoglycemia and diabetes, is brought in by son and presents to the emergency department complaining of hypoglycemia. Limited HPI and ROS due to patient being non-verbal at this time. Patient usually here in the ER for similar complaints. No PMD Past Medical History - Provider Review Nursing Documentation Reviewed: Yes - Past History Past History: No Previous - Infectious Disease Hx of Infectious Diseases: None - Tetanus Immunization Tetanus Immunization: Unknown - Reproductive Menopause: Yes - Cardiac Hx Cardiac Disorders: Yes (CAD) Hx AL: Yes Hx Hypertension: Yes Hx Peripheral Vascular Disease: Yes (DVT) - Pulmonary Hx Respiratory Disorders: Yes - Neurological Hx Neurological Disorder: No - HEENT Hx HEENT Disorder: No - Renal Hx Renal Disorder: No - Endocrine/Metabolic Hx Endocrine Disorders: Yes Hx Diabetes Mellitus Type 2: Yes - Hematological/Oncological Hx Blood Disorders: No - Integumentary Hx Dermatological Disorder: No - Musculoskeletal/Rheumatological Hx Musculoskeletal Disorders: Yes Hx Falls: Yes - Gastrointestinal Hx Gastrointestinal Disorders: No - Genitourinary/Gynecological Hx Genitourinary Disorders: Yes - Psychiatric Hx Psychophysiologic Disorder: No Hx Substance Use: No - Past Surgical History Past Surgical History: Unable to Obtain - Surgical History Hx Cardiac Catheterization: Yes Hx Coronary Stent: Yes - Anesthesia Hx Anesthesia: Yes Hx Anesthesia Reactions: No Hx Malignant Hyperthermia: No - Suicidal Assessment Feels Threatened In Home Enviroment: No Family/Social History - Physician Review Nursing Documentation Reviewed: Yes Family/Social History: No Known Family HX Smoking Status: Unknown If Ever Smoked Hx Alcohol Use: No Hx Substance Use: No Hx Substance Use Treatment: No Allergies/Home Meds Allergies/Adverse Reactions: Allergies No Known Allergies Allergy (Verified 01/12/18 16:37) Home Medications: Home Meds Medication Instructions Recorded Confirmed Unobtainable 09/26/17 01/15/18 Review of Systems - Review of Systems Systems not reviewed;Unavailable: Other (non-verbal) Physical Exam Vital Signs Reviewed: Yes Vital Signs Temp Pulse Resp BP Pulse Ox 01/17/18 16:53 96.3 F L 92 H 18 193/51 H 100 Temperature: Afebrile Blood Pressure: Hypertensive Pulse: Regular Respiratory Rate: Normal Appearance: Positive for: Well-Appearing Pain Distress: None Mental Status: Positive for: Lethargic - Systems Exam Head: Present: Atraumatic, Normocephalic Pupils: Present: PERRL Mouth: Present: Moist Mucous Membranes Neck: Present: Normal Range of Motion. No: Meningeal Signs Respiratory/Chest: Present: Clear to Auscultation, Good Air Exchange. No: Respiratory Distress, Accessory Muscle Use Cardiovascular: Present: Regular Rate and Rhythm, Normal S1, S2. No: Murmurs Abdomen: Present: Tenderness Upper Extremity: Present: Normal Inspection. No: Cyanosis, Edema Lower Extremity: Present: Normal Inspection. No: Edema Skin: Present: Diaphoretic, Pale Medical Decision Making ED Course and Treatment: 01/17/18 17:10 Impression: 67 year old female with hypoglycemia. Physical exam shows patient appears pale and diaphoretic. Plan: -- Reassess and disposition Prior Visits: Notes and results from previous visits were reviewed. Patient was last seen in the emergency department on 01/15/2018 for hypoglycemia. Patient was discharged home. Progress Notes: 01/17/18 17:19 Patient's fingerstick reading <28. Patient given an amp of d50. Now awake and alert x 3. 01/17/18 17:22 Patient states she may have taken too much insulin. Patient denies any suicidal/ homicidal ideation. 01/17/18 17:55 Repeat temperature improved after patient removed wet clothes (from incontinence during episode of hypoglycemia and from diaphoresis during episode of hypoglycemia.) Patient is now eating a tray of food in the ED. She continues to deny suicidal ideation. Daughter is at bedside and reports that they will follow-up with [facility] to alter insulin dosing as daughter reports she thinks patient is taking too much. Patient again counselled on importance of taking insulin with food. She has no complaints and wants to be discharged. 01/17/18 17:57 - Lab Interpretations Lab Results: Lab Results 01/17/18 17:44: POC Glucose (mg/dL) 132 H 01/17/18 16:57: POC Glucose (mg/dL) < 20 L* - Scribe Statement The provider has reviewed the documentation as recorded by the Malka Pulido Provider Scribe Attestation: All medical record entries made by the Alineibteresa were at my direction and personally dictated by me. I have reviewed the chart and agree that the record accurately reflects my personal performance of the history, physical exam, medical decision making, and the department course for this patient. I have also personally directed, reviewed, and agree with the discharge instructions and disposition. Disposition/Present on Arrival - Present on Arrival Any Indicators Present on Arrival: No History of DVT/PE: No History of Uncontrolled Diabetes: Yes Urinary Catheter: No History of Decub. Ulcer: No History Surgical Site Infection Following: None - Disposition Have Diagnosis and Disposition been Completed?: Yes Diagnosis: Hypoglycemia Disposition: HOME/ ROUTINE Disposition Time: 17:56 Patient Plan: Discharge Patient Problems: Current Active Problems Problem Status Onset Hypoglycemia Acute Condition: GOOD Discharge Instructions (ExitCare): Low Blood Sugar in People With Diabetes Additional Instructions: Follow-up with your PMD within 2 days. Return to ED if condition worsens. Eat bigger meals. Referrals: Jamie Stephens, [Primary Care Provider] - Follow up with primary Forms: [employer] ([place])
[2018-01-17 18:14] VITALS: BP 149/72; PULSE 102; RESP 16; TEMP 97.3; O2SAT 99
== END 2018-01-17 18:13 | disposition home or self-care (01) ==
LOC: ED 16:53
DX: E11.649 Type 2 diabetes mellitus with hypoglycemia without coma (principal); I10 Essential (primary) hypertension

== ENCOUNTER 2018-01-20 19:38 | Emergency (ER) | payer MEDICARE ==
[2018-01-20 19:39] VITALS: BMI 18.7
[2018-01-20] MEDS ORDERED: Dextrose 50% SYRINGE Inj (50 ml) ONE ×2 (19:44→19:45)
[2018-01-20 20:07] VITALS: PULSE 64; RESP 16; O2SAT 100
--- NOTE | 2018-01-20 20:23 | ED PDOC ---
Arrival/HPI - General Time Seen by Provider: 01/20/18 19:40 Historian: Patient - History of Present Illness Narrative History of Present Illness (Text): 01/20/18 20:19 A 67 year old female who is very well-known here in the ER for numerous visits of hypoglycemia, whose past medical history includes hypoglycemia and diabetes, was brought in by EMS for unresponsiveness prior to arrival. Upon arrival to the Emergency department patient was given dextrose with immediate improvement to symptoms. Patient denied any other complaints and further workup. Patient requests discharge After extensive explanation of the consequences, patient expresses to sign against medical advice. 01/21/18 01:31 Time/Duration: Prior to Arrival Symptom Onset: Gradual Symptom Course: Improving Activities at Onset: Light Context: Home Past Medical History - Provider Review Nursing Documentation Reviewed: Yes - Past History Past History: No Previous - Infectious Disease Hx of Infectious Diseases: None - Tetanus Immunization Tetanus Immunization: Unknown - Cardiac Hx Cardiac Disorders: Yes (CAD) Hx [place]: Yes Hx Hypertension: Yes Hx Peripheral Vascular Disease: Yes (DVT) - Pulmonary Hx Respiratory Disorders: Yes - Neurological Hx Neurological Disorder: No - HEENT Hx HEENT Disorder: No - Renal Hx Renal Disorder: No - Endocrine/Metabolic Hx Endocrine Disorders: Yes Hx Diabetes Mellitus Type 2: Yes - Hematological/Oncological Hx Blood Disorders: No - Integumentary Hx Dermatological Disorder: No - Musculoskeletal/Rheumatological Hx Musculoskeletal Disorders: Yes Hx Falls: Yes - Gastrointestinal Hx Gastrointestinal Disorders: No - Genitourinary/Gynecological Hx Genitourinary Disorders: Yes - Psychiatric Hx Psychophysiologic Disorder: No Hx Substance Use: No - Past Surgical History Past Surgical History: Unable to Obtain - Surgical History Hx Cardiac Catheterization: Yes Hx Coronary Stent: Yes - Anesthesia Hx Anesthesia: Yes Hx Anesthesia Reactions: No Hx Malignant Hyperthermia: No - Suicidal Assessment Feels Threatened In Home Enviroment: No Family/Social History - Physician Review Nursing Documentation Reviewed: Yes Family/Social History: No Known Family HX Smoking Status: Unknown If Ever Smoked Hx Alcohol Use: No Hx Substance Use: No Hx Substance Use Treatment: No Allergies/Home Meds Allergies/Adverse Reactions: Allergies No Known Allergies Allergy (Verified 01/12/18 16:37) Home Medications: Home Meds Medication Instructions Recorded Confirmed Unobtainable 09/26/17 01/15/18 Review of Systems - Physician Review All systems were reviewed & negative as marked: Yes - Review of Systems Constitutional: Normal Eyes: Normal ENT: Normal Respiratory: Normal Cardiovascular: Normal Gastrointestinal: Normal Genitourinary Female: Normal Musculoskeletal: Normal Skin: Normal Neurological: Normal Endocrine: Other (hypoglycemia) Hemo/Lymphatic: Normal Psychiatric: Normal Physical Exam Vital Signs Reviewed: Yes Vital Signs Temp Pulse Resp BP Pulse Ox 01/20/18 20:43 98.6 F 64 16 119/76 100 01/20/18 20:40 98.6 F 64 16 119/76 100 01/20/18 20:06 98.7 F 64 16 128/78 100 Temperature: Afebrile Blood Pressure: Normal Pulse: Regular Respiratory Rate: Normal Appearance: Positive for: Well-Appearing, Non-Toxic, Comfortable Pain Distress: None Mental Status: Positive for: Alert and Oriented X 3 Medical Decision Making ED Course and Treatment: 01/20/18 20:24 Impression: 67 year old female presents to the Emergency department for hypoglycemia. Differential Diagnosis included but are not limited to: hypoglycemia Plan: -- Dextrose -- Reassess and disposition Progress Notes: 01/20/18 20:28 The patient declines to have further medical evaluation and treatment and wishes to leave the Emergency Department. This action is against my medical advice to the patient, and with informed refusal. The patient was told that evaluation and treatment are necessary and a full explanation of the rationale was given. The risks of leaving were explained to the patient and include, but are not limited to, worsening of known or currently unknown conditions, permanent disability and from undiagnosed or untreated conditions The patient has the capacity to make this informed decision and understands the clinical situation and my explanation of the risks of leaving. The patient voluntarily accepts these risks, and a signed AMA form documenting our conversation was obtained. The patient was given the opportunity to ask questions and reconsider. The patient was encouraged to return to the Emergency Department at any time for further care. - Lab Interpretations Lab Results: Lab Results 01/20/18 20:20: POC Glucose (mg/dL) 351 H - Scribe Statement The provider has reviewed the documentation as recorded by the Scribe Agnieszka Irene. All medical record entries made by the Scribe were at my direction and personally dictated by me. I have reviewed the chart and agree that the record accurately reflects my personal performance of the history, physical exam, medical decision making, and the department course for this patient. I have also personally directed, reviewed, and agree with the discharge instructions and disposition. Disposition/Present on Arrival - Present on Arrival Any Indicators Present on Arrival: No History of DVT/PE: No History of Uncontrolled Diabetes: Yes Urinary Catheter: No History Surgical Site Infection Following: None - Disposition Have Diagnosis and Disposition been Completed?: Yes Diagnosis: Hypoglycemia Disposition: AGAINST MEDICAL ADVICE Disposition Time: 08:00 Condition: UNKNOWN Discharge Instructions (ExitCare): Low Blood Sugar, Adult (DC), Leaving Against Medical Advice Additional Instructions: return to er with worsening symptoms or concerns. Referrals: Kimberly Echavarria MD [Primary Care Provider] - Follow up with primary Forms: [employer] ([place])
[2018-01-20 20:41] VITALS: BP 119/76; TEMP 98.6
== END 2018-01-20 20:30 | disposition left against medical advice (07) ==
LOC: ED 19:38
DX: E11.649 Type 2 diabetes mellitus with hypoglycemia without coma (principal)

== ENCOUNTER 2018-05-10 13:33 | Emergency (ER) | payer MEDICARE ==
[2018-05-10 13:33] VITALS: BMI 18.7
[2018-05-10 13:51] VITALS: RESP 18; O2SAT 97
--- NOTE | 2018-05-10 14:05 | ED PDOC ---
Arrival/HPI - General Chief Complaint: Altered Mental Status Time Seen by Provider: 05/10/18 13:58 Historian: Patient - History of Present Illness Narrative History of Present Illness (Text): 05/10/18 14:01 67yo female with pmhx of IDDM who was bib EMS for hypoglycemia. Patient states she didn't eat and took her insulin today. She was found unconscious by her son who called the EMS. States she was hypoglycemic on the field and was given amp of Dextrose. Her FS in ED was 300. she was fully AAO x3 on arrival s/p the dextrose. She denies any somatic complaint and requested to go home. Past Medical History - Provider Review Nursing Documentation Reviewed: Yes - Past History Past History: No Previous - Infectious Disease Hx of Infectious Diseases: None - Tetanus Immunization Tetanus Immunization: Unknown - Reproductive Menopause: Yes - Cardiac Hx Cardiac Disorders: Yes (CAD) Hx [place]: Yes Hx Hypertension: Yes Hx Peripheral Vascular Disease: Yes (DVT) - Pulmonary Hx Respiratory Disorders: Yes - Neurological Hx Neurological Disorder: No - HEENT Hx HEENT Disorder: No - Renal Hx Renal Disorder: No - Endocrine/Metabolic Hx Endocrine Disorders: Yes Hx Diabetes Mellitus Type 2: Yes - Hematological/Oncological Hx Blood Disorders: No - Integumentary Hx Dermatological Disorder: No - Musculoskeletal/Rheumatological Hx Musculoskeletal Disorders: Yes Hx Falls: Yes - Gastrointestinal Hx Gastrointestinal Disorders: No - Genitourinary/Gynecological Hx Genitourinary Disorders: Yes - Psychiatric Hx Psychophysiologic Disorder: No Hx Substance Use: No - Past Surgical History Past Surgical History: Unable to Obtain - Surgical History Hx Cardiac Catheterization: Yes Hx Coronary Stent: Yes - Anesthesia Hx Anesthesia: Yes Hx Anesthesia Reactions: No Hx Malignant Hyperthermia: No - Suicidal Assessment Feels Threatened In Home Enviroment: No Family/Social History - Physician Review Nursing Documentation Reviewed: Yes Family/Social History: Unknown Family HX Smoking Status: Unknown If Ever Smoked Hx Alcohol Use: No Hx Substance Use: No Hx Substance Use Treatment: No Allergies/Home Meds Allergies/Adverse Reactions: Allergies No Known Allergies Allergy (Verified 01/12/18 16:37) Home Medications: Home Meds Medication Instructions Recorded Confirmed Unobtainable 09/26/17 01/15/18 Review of Systems - Physician Review All systems were reviewed & negative as marked: Yes - Review of Systems Constitutional: Normal, Other (AMS) Eyes: Normal ENT: Normal Respiratory: Normal Cardiovascular: Normal Gastrointestinal: Normal Genitourinary Female: Normal Musculoskeletal: Normal Skin: Normal Neurological: Normal Endocrine: Other (Hypoglycemic) Hemo/Lymphatic: Normal Psychiatric: Normal Physical Exam Vital Signs Reviewed: Yes Vital Signs Temp Pulse Resp BP Pulse Ox 05/10/18 13:49 97 F L 80 18 183/88 H 97 Temperature: Afebrile Blood Pressure: Normal Pulse: Regular Respiratory Rate: Normal Appearance: Positive for: Well-Appearing, Non-Toxic, Comfortable Pain Distress: None Mental Status: Positive for: Alert and Oriented X 3 - Systems Exam Head: Present: Atraumatic, Normocephalic Pupils: Present: PERRL Extroacular Muscles: Present: EOMI Conjunctiva: Present: Normal Mouth: Present: Moist Mucous Membranes Neck: Present: Normal Range of Motion Respiratory/Chest: Present: Clear to Auscultation, Good Air Exchange. No: Respiratory Distress, Accessory Muscle Use Cardiovascular: Present: Regular Rate and Rhythm, Normal S1, S2. No: Murmurs Abdomen: No: Tenderness, Distention, Peritoneal Signs Back: Present: Normal Inspection Upper Extremity: Present: Normal Inspection. No: Cyanosis, Edema Lower Extremity: Present: Normal Inspection. No: Edema Neurological: Present: GCS=15, CN II-XII Intact, Speech Normal Skin: Present: Warm, Dry, Normal Color. No: Rashes Psychiatric: Present: Alert, Oriented x 3, Normal Insight, Normal Concentration Medical Decision Making ED Course and Treatment: 05/10/18 14:06 67yo female with history of IDDM who was bib EMS for AMS. she was found unconscious and hypoglycemic on the filed. She became AAO x3 s/p amp of Dextrose was given. She has been seen in this ED many times for same thing and is well known to this ED. Her FS was 300 in ED. She demanded to be DC home. She was advised of the risk of permanent disability, worsening symptom and even in her refusal to stay in ED for further evaluation and treatment. She however still refused to stay. She ate a sandwich in ED and signed out AMA. - Lab Interpretations Lab Results: Lab Results 05/10/18 13:55: POC Glucose (mg/dL) 300 H Disposition/Present on Arrival - Present on Arrival Any Indicators Present on Arrival: No History of DVT/PE: No History of Uncontrolled Diabetes: Yes Urinary Catheter: No History of Decub. Ulcer: No History Surgical Site Infection Following: None - Disposition Have Diagnosis and Disposition been Completed?: Yes Diagnosis: Hypoglycemia Disposition: AGAINST MEDICAL ADVICE Disposition Time: 14:00 Condition: STABLE
[2018-05-10 14:21] VITALS: BP 148/76; PULSE 76; TEMP 96.9
== END 2018-05-10 14:21 | disposition left against medical advice (07) ==
LOC: ED 13:33
DX: E11.649 Type 2 diabetes mellitus with hypoglycemia without coma (principal); Z79.4 Long term (current) use of insulin

== ENCOUNTER 2018-06-29 11:42 | Inpatient (IN) | payer MEDICARE ==
[2018-06-29 12:21] VITALS: BMI 21.5
[2018-06-29] MEDS ORDERED: Lidocaine 2% Inj (20ml) ONE (12:27)
[2018-06-29] MEDS ORDERED: Iodixanol 320 MG/ML 100 ML BOTTLE IV ONE (12:28)
[2018-06-29] MEDS ORDERED: Iohexol 350mgl/ml 50 ML ONE (12:28)
[2018-06-29] MEDS ORDERED: Iodixanol 320 MG/ML 200 ML BOTTLE IV ONE (12:28)
[2018-06-29] MEDS ORDERED: Phenylephrine 10 mg/ml Inj ONE (12:28)
[2018-06-29 12:38] LABS: ARTERIAL BLOOD GAS O2 SAT 100.7 % (95-98); ARTERIAL BLOOD GAS PCO2 24 mm/Hg (35-45)
[2018-06-29 12:44] LABS: ARTERIAL BLOOD GAS PH < 6.80 (7.35-7.45)
[2018-06-29 12:51] LABS: BASO # 0.03 K/mm3 (0.0-2.0); BASO % 0.3 % (0.0-3.0); EOS # 0.1 (0.0-0.7); EOS % 0.6 % (1.5-5.0); GRAN # 7.9 (1.4-6.5); GRAN % 66.8 % (50.0-68.0); HEMOGLOBIN 7.6 g/dL (12.0-16.0); LYMPH # 3.4 (1.2-3.4); LYMPH % 29.1 % (22.0-35.0); MEAN CELL VOLUME 108.1 fl (80.0-105.0); MEAN CORPUSCULAR HEMOGLOBIN 29.2 pg (25.0-35.0); MEAN PLATELET VOLUME 10.7 fl (7.0-11.0); MONO # 0.4 (0.1-0.6); MONO % 3.2 % (1.0-6.0); RBC 2.6 10^6/uL (3.5-6.1); RED CELL DISTRIBUTION WIDTH 14.3 % (11.5-14.5); WHITE BLOOD COUNT 11.8 10^3/uL (4.5-11.0)
[2018-06-29] MEDS ORDERED: Sodium Chloride 0.9% 1,000 ML IV STA ×3 (12:51→12:52)
[2018-06-29] MEDS ORDERED: Piperacillin/Tazobact 3.375 gm 100 ML IVPB STA (12:54)
--- NOTE | 2018-06-29 12:54 | ED PDOC ---
Arrival/HPI - History of Present Illness Narrative History of Present Illness (Text): This is a 68 year old female with PMH of uncontrolled DM, HTN, HLD and CAD s/p 4 stents who is BIBA after being found unresponsive in her home. History obtained by EMS/ALS staff. As per EMS, 911 was called by daughter, who found pt covered in vomitus and unresponsive. When EMS arrived, pt was only responsive to painful stimuli, BP was 60/30mmHg. Pt's heart rate dropped and pulse was lost. Pt was noted to be in asystole. CPR was started soon after pt's pulse was lost. She was intubated in the field, and received multiple rounds of epi in the field. Pt presented to the ED in asystole and without a pulse. CPR was started as soon as the the kirstin machine was taken off. Pmhx: DM, HTN, HLD, CAD s/p 4 stents Pshx: , Stent placement Time/Duration: Prior to Arrival <Abdoulaye Gomez - Last Filed: 06/29/18 16:45> - Critical Care Critical Care Minutes: Other (35 minutes) <Dirk Campos - Last Filed: 06/29/18 19:46> - General Chief Complaint: Cardiac Arrest Time Seen by Provider: 06/29/18 12:17 Past Medical History - Provider Review Nursing Documentation Reviewed: Yes - Past History Past History: No Previous - Infectious Disease Hx of Infectious Diseases: None - Tetanus Immunization Tetanus Immunization: Unknown - Cardiac Hx Cardiac Disorders: Yes Hx UT: Yes Hx Hypertension: Yes Hx Peripheral Vascular Disease: Yes (DVT) - Pulmonary Hx Respiratory Disorders: Yes - Neurological Hx Neurological Disorder: No - HEENT Hx HEENT Disorder: No - Renal Hx Renal Disorder: No - Endocrine/Metabolic Hx Endocrine Disorders: Yes Hx Diabetes Mellitus Type 2: Yes - Hematological/Oncological Hx Blood Disorders: No - Integumentary Hx Dermatological Disorder: No - Musculoskeletal/Rheumatological Hx Musculoskeletal Disorders: Yes Hx Falls: Yes - Gastrointestinal Hx Gastrointestinal Disorders: No - Genitourinary/Gynecological Hx Genitourinary Disorders: Yes - Psychiatric Hx Psychophysiologic Disorder: No Hx Substance Use: No - Past Surgical History Past Surgical History: Unable to Obtain - Surgical History Hx Cardiac Catheterization: Yes Hx Coronary Stent: Yes - Anesthesia Hx Anesthesia: Yes Hx Anesthesia Reactions: No Hx Malignant Hyperthermia: No - Suicidal Assessment Feels Threatened In Home Enviroment: No <Abdoulaye Gomez - Last Filed: 06/29/18 16:45> Family/Social History - Physician Review Nursing Documentation Reviewed: Yes Family/Social History: Unknown Family HX Smoking Status: Unknown If Ever Smoked Hx Alcohol Use: No Hx Substance Use: No Hx Substance Use Treatment: No <Abdoulaye Gomez - Last Filed: 06/29/18 16:45> Allergies/Home Meds <Abdoulaye Gomez - Last Filed: 06/29/18 16:45> <Dirk Campos - Last Filed: 06/29/18 19:46> Allergies/Adverse Reactions: Allergies No Known Allergies Allergy (Verified 06/29/18 11:48) Home Medications: Home Meds Medication Instructions Recorded Confirmed RX: Unobtainable 09/26/17 06/29/18 Physical Exam - Physical Exam Physical Exam Limitations: Other (unresponsive) Vital Signs Reviewed: Yes Vital Signs Pulse 06/29/18 11:44 0 L Temperature: Hypothermic Blood Pressure: Other (unable to be obtained) Pulse: Pulseless Respiratory Rate: Other (bag ventilation) Appearance: Positive for: Other (unresponsive) Pain Distress: Other (unresponsive) Mental Status: Positive for: other (unresponsive) Finger Stick Blood Glucose: 500 - Systems Exam Head: Present: Atraumatic, Normocephalic Pupils: Present: Other (dilated and fixed) Mouth: Present: Dry Neurological: No: GCS=15 Skin: Present: Dry. No: Normal Color (pallor) Psychiatric: Present: Other (unresponsive) <Abdoulaye Gomez - Last Filed: 06/29/18 16:45> - Physical Exam Narrative Physical Exam (Text): 06/29/18 19:44 correction to documented physical exam: Gen: CPR in progress upon initial arrival to ED with external CPR device ENT: ET tube in place with remnants of vomit in mouth Eye: dialted and unresponsive to light bilaterally Neck: no JVD CV: tachycardic Pulm: coarse breath sounds at the lung bases Abd: soft, nondistended Ext: no edema Skin: pale Psych: unresponsive Neuro: unresponsive Vital Signs Reviewed: Yes Vital Signs Pulse 06/29/18 11:44 0 L <Dirk Campos - Last Filed: 06/29/18 19:46> Medical Decision Making ED Course and Treatment: 06/29/18 12:58 Attending discussed the case in detail with cardiology, Dr. Strong. Who evaluated the pt. Pt's Hgb noted to be 7.6. Dr. Strong, notes that pt should be managed medically: Heparin bolus 3000 units followed by heparin gtt. Pt will receive 2 units pRBCs. Attending discussed the case with ICU attending, Dr. Leroy Osborne who accepts the pt. - Lab Interpretations Lab Results: 06/29/18 12:30 Lab Results 06/29/18 12:30: pCO2 24 L, pO2 502.0 H, ABG pH < 6.80 L*, ABG O2 Saturation 100.7 H, ABG Potassium 7.2 H*, Sodium 127.0 L, Chloride 94.0 L, Glucose > 750 H* D, Lactate 10.3 H*, Mechanical Rate 16, FiO2 100.0, Tidal Volume 400, PEEP 5, Arterial Blood Potassium 7.2 H* 06/29/18 12:30: WBC 11.8 H, RBC 2.60 L, Hgb 7.6 L D, Hct 28.1 L, MCV 108.1 H D, MCH 29.2, MCHC 27.0 L, RDW 14.3, Plt Count 207, MPV 10.7, Gran % 66.8, Lymph % (Auto) 29.1, [place] % (Auto) 3.2, Eos % (Auto) 0.6 L, Baso % (Auto) 0.3, Gran # 7.90 H, Lymph # (Auto) 3.4, [place] # (Auto) 0.4, Eos # (Auto) 0.1, Baso # (Auto) 0.03 Interpretation: Abnormal lab values (hyperglycemia >1250, AG of 34, pH<6.8, b icarb <5, potassium 7.7, Hgb 7.6) - RAD Interpretation Radiology Orders: 06/29/18 12:19 CHEST PORTABLE [RAD] Stat <Abdoulaye Gomez - Last Filed: 06/29/18 16:45> ED Course and Treatment: Progress Notes: 06/29/18 12:18 Spoke to from interventional cardiology, reviewed the case and will come to bed side for emergent evaluation, 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 06/29/18 12:[address] Strong after extensive consideration, Pt is not an ideal candidate for mason tender restoration labor, for now we will treat medically. Will get CT of head and treat with heparin. 06/29/18 13:00 Spoke to [employer], Dr. Osborne, for ICU admission. 06/29/18 14:[address] Strong again after repeat EKG. He will review EKG for further discussion. 06/29/18 14:[address] Strong, confirmed to continue with medical management. Patient is not a candidate for mason tender restoration labor at this time. 06/29/18 15:12 patient was seen for cardiac arrest, cpr and intubation prior to arrival, rosc obtained in the ED. history and lab data consistent with severe dka. shock states presumably from dka. empiric antibiotics were initiated for concern of aspiration pneumonia, patient was empirically tx for severe hyperkalemia. 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 right IJ central venous access was placed by cook helper meat dr. osborne. patient dispositioned to the ICU with CT of the head en route to ICU. medical management for suspected UT to be aspirin and heparin once ICH has been rule out. all course of actions and plan were discussed in detail with daughter at bedside. 06/29/18 16:07 Impression: 68 year old female who presents to the emergency department s/p cardiac arrest. Patient Seen with Resident: In agreement with resident note which contains more details about the patient. Patient seen and evaluated with resident. Came up with plan and treatment together. - Lab Interpretations Lab Results: 06/29/18 12:30 Lab Results 06/29/18 12:30: pCO2 24 L, pO2 502.0 H, ABG pH < 6.80 L*, ABG O2 Saturation 100.7 H, ABG Potassium 7.2 H*, Sodium 127.0 L, Chloride 94.0 L, Glucose > 750 H* D, Lactate 10.3 H*, Mechanical Rate 16, FiO2 100.0, Tidal Volume 400, PEEP 5, Arterial Blood Potassium 7.2 H* 06/29/18 12:30: WBC 11.8 H, RBC 2.60 L, Hgb 7.6 L D, Hct 28.1 L, MCV 108.1 H D, MCH 29.2, MCHC 27.0 L, RDW 14.3, Plt Count 207, MPV 10.7, Gran % 66.8, Lymph % (Auto) 29.1, [place] % (Auto) 3.2, Eos % (Auto) 0.6 L, Baso % (Auto) 0.3, Gran # 7.90 H, Lymph # (Auto) 3.4, [place] # (Auto) 0.4, Eos # (Auto) 0.1, Baso # (Auto) 0.03 - RAD Interpretation Radiology Orders: 06/29/18 12:19 CHEST PORTABLE [RAD] Stat - EKG Interpretation EKG Interpretation (Text): 06/29/18 14:31 12:14: atrial fibrilaltion at 90 bpm, nonspecific intraventricular conduction delay, low voltage, inferior st elevations in II/III/AVF, lateral st depression 06/29/18 15:11 14:44: sinus rhythm at 60 bpm, 1st degree av block, inferior st elevations with lateral reciprocal changes, findings more pronounced than prior ekg Interpreted by ED Physician: Yes <Dirk Campos - Last Filed: 06/29/18 19:46> - Scribe Statement The provider has reviewed the documentation as recorded by the Malka Hamm Provider Scribe Attestation: All medical record entries made by the Scribe were at my direction and personally dictated by me. I have reviewed the chart and agree that the record accurately reflects my personal performance of the history, physical exam, medical decision making, and the department course for this patient. I have also personally directed, reviewed, and agree with the discharge instructions and disposition. <Dirk Campos - Last Filed: 06/29/18 19:46> Disposition/Present on Arrival - Present on Arrival History of DVT/PE: No History of Uncontrolled Diabetes: Yes Urinary Catheter: No History of Decub. Ulcer: No History Surgical Site Infection Following: None <Abdoulaye Gomez - Last Filed: 06/29/18 16:45> - Present on Arrival Any Indicators Present on Arrival: No - Disposition Have Diagnosis and Disposition been Completed?: Yes Disposition Time: 12:59 Patient Plan: ICU <Dirk Campos - Last Filed: 06/29/18 19:46> - Disposition Diagnosis: Diabetic keto-acidosis, Cardiac arrest, Acute UT Disposition: HOSPITALIZED Patient Problems: Current Active Problems Problem Status Onset Acute UT Acute Cardiac arrest Acute Diabetic ketoacidosis Acute Condition: CRITICAL
[2018-06-29] MEDS ORDERED: Insulin Regular 1 UNITS/0.01 ML ML IVP STA (12:55)
[2018-06-29] MEDS ORDERED: Sodium Bicarbonate (8.4%) 50 Meq Syringe IVP ONE ×3 (12:55→16:25)
[2018-06-29] MEDS ORDERED: Vancomycin 500 mg Inj IVPB STA (12:57)
[2018-06-29] MEDS ORDERED: Vancomycin 1gm in NS 250ml 1 GM/250 ML BAG IVPB STA (12:59)
[2018-06-29 13:06] LABS: INR 1.27; PROTHROMBIN TIME 14.7 SECONDS (9.4-12.5)
[2018-06-29 13:09] LABS: ALB/GLOB RATIO 1.2 (1.1-1.8); ALBUMIN 2.2 g/dL (3.0-4.8); ALT/SGPT 150 U/L (7-56); AST/SGOT 257 U/L (14-36); BLOOD UREA NITROGEN 67 mg/dL (7-21); CALCIUM 7.4 mg/dL (8.4-10.5); GFR NON-AFRICAN AMERICAN 18
--- NOTE | 2018-06-29 13:13 | RAD ---
Date of service: 06/29/2018 HISTORY: Chest pain COMPARISON: 01/15/2018 FINDINGS: The endotracheal tube terminates in the right mainstem bronchus. LUNGS: There is pulmonary hyperinflation. There is confluent multifocal airspace disease in the right lung, worse in the lower lobe. The left lung is clear. PLEURA: No pleural effusions or pneumothorax. CARDIOVASCULAR: The heart is normal in size. No aortic atherosclerotic calcification present. OSSEOUS STRUCTURES: Within normal limits for the patient's age. VISUALIZED UPPER ABDOMEN: Normal. OTHER FINDINGS: None. IMPRESSION: Endotracheal tube terminates in the right mainstem bronchus. Repositioning is recommended. Multifocal pneumonia in the right lung, worse in the right lower lobe.
[2018-06-29 13:14] LABS: PARTIAL THROMBOPLASTIN TIME 169.6 Seconds (25.1-36.5)
[2018-06-29] MEDS ORDERED: Lactated Ringer's 1,000 ML IV SCH ×2 (13:15)
[2018-06-29] MEDS ORDERED: Insulin Regular 100 UNITS in Sodium Chloride 0.9% 99 ML IV PRN (13:17)
[2018-06-29 13:23] LABS: TROPONIN I 0.38 ng/mL
[2018-06-29] MEDS ORDERED: Midazolam 2 MG/2 ML VIAL ONE (13:47)
[2018-06-29] MEDS ORDERED: NOREPINEPHRINE BIT/0.9 % NACL 4 MG/250 ML BAG IV PRN (13:57)
--- NOTE | 2018-06-29 14:38 | CP.PCM.CON ---
<Tomasz Corrales - Last Filed: 06/29/18 19:41> History of Present Illness - History of Present Illness History of Present Illness: CRITICAL CARE CONSULT NOTE FOR DR. MARISA Corrales PGY-1 68 y/o F with PMHx of T1DM, HTN, HLD, CAD s/p CHYNA x 4 presented to ED brought in by EMS. Per EMS note, pt was unresponsive with a BS of >500, hypotensive with BP of 60s/30s , bradycardic with HR in 60s that deteriorated to asystole. ACLS protocol was initiated in the field. She was intubated in the field, EMS began to do CPR immediately. I/O was placed in L humerus. 4x1mg epinephrine and 1 amp of NaHCO3 were administered in the field. The pt was also given 2 rounds of epi while enroute to the hospital. Upon arrival to ED, code blue was continued. In the ED the pt recieved 4 more rounds of epi before she ultimately achieved ROSC. Upon achieving ROSC, EKG was performed and ST elevations were noted in leads 2,3 and AVF with lateral ST depressions. Repeat EKG showed sinus HR at 60, and still showed inferior ST elevation in the same leads. Code heart was called upon the initial EKG finding, where the auto technician Dr. Strong saw the pt and noted that the pt was too unstable for the corn lab technician due to pt having Hgb in the 7's and pt being severely acidotic at the time. She was given 6L of fluids in ED,, levophed @8mcg, insulin drip 5u/hr. R IJ central line placed in ED and pt transferred to ICU. Upon interview: Pt is somnolent and lethargic. She was responsive to commands, however was not AxO. She was not able to provide ROS. Pmhx: DM, HTN, HLD, CAD s/p 4 stents Pshx: , Stent placement All: NKDA Social Hx: Pt is daily 1ppd smoker, pt is a social drinker, family is unaware of any illicit drug use Family Hx: Non-contributory PMD: [facility] Review of Systems - Review of Systems Review of Systems: per HPI Past Patient History - Infectious Disease Hx of Infectious Diseases: None - Tetanus Immunizations Tetanus Immunization: Unknown - Past Social History Smoking Status: Unknown If Ever Smoked - CARDIAC Hx Cardiac Disorders: Yes Hx Heart Attack: Yes Hx Hypertension: Yes Hx Peripheral Vascular Disease: Yes (DVT) - PULMONARY Hx Respiratory Disorders: Yes - NEUROLOGICAL Hx Neurological Disorder: No - HEENT Hx HEENT Problems: No - RENAL Hx Chronic Kidney Disease: No - ENDOCRINE/METABOLIC Hx Endocrine Disorders: Yes Hx Diabetes Mellitus Type 2: Yes - HEMATOLOGICAL/ONCOLOGICAL Hx Blood Disorders: No - INTEGUMENTARY Hx Dermatological Problems: No - MUSCULOSKELETAL/RHEUMATOLOGICAL Hx Musculoskeletal Disorders: Yes Hx Falls: Yes - GASTROINTESTINAL Hx Gastrointestinal Disorders: No - GENITOURINARY/GYNECOLOGICAL Hx Genitourinary Disorders: Yes - PSYCHIATRIC Hx Psychophysiologic Disorder: No Hx Substance Use: No - SURGICAL HISTORY Hx Cardiac Catheterization: Yes Hx Coronary Stent: Yes - ANESTHESIA Hx Anesthesia: Yes Hx Anesthesia Reactions: No Hx Malignant Hyperthermia: No Meds Allergies/Adverse Reactions: Allergies Allergy/AdvReac Type Severity Reaction Status Date / Time No Known Allergies Allergy Verified 06/29/18 11:48 - Medications Medications: Current Medications Lactated Ringer's (Lactated Ringer's) 1,000 mls @ 999 mls/hr IV .Q1H1M MOSES Lactated Ringer's (Lactated Ringer's) 1,000 mls @ 999 mls/hr IV .Q1H1M MOSES Insulin Human Regular 100 (units/ Sodium Chloride) 100 mls @ 5 mls/hr IV .Q20H PRN; Protocol PRN Reason: TITRATE PER MD ORDER Last Admin: 06/29/18 14:16 Dose: 5 units/hr, 5 mls/hr NOREPINEPHRINE BIT/0.9 % NACL (Levophed 4 Mg/ 250 Ml Ns Premixed) 4 mg in 250 mls @ 15 mls/hr IV .[id number] PRN; Protocol PRN Reason: TITRATE PER MD ORDER Last Admin: 06/29/18 14:17 Dose: 4 mcg/min, 15 mls/hr Physical Exam - Constitutional Appears: Toxic, Chronically Ill - Head Exam Head Exam: ATRAUMATIC, NORMOCEPHALIC - Eye Exam Eye Exam: Normal appearance - ENT Exam ENT Exam: Normal Exam - Respiratory Exam Additional comments: On ventilator - Cardiovascular Exam Cardiovascular Exam: REGULAR RHYTHM, +S1, +S2 - GI/Abdominal Exam GI & Abdominal Exam: Soft. absent: Distended - Extremities Exam Extremities exam: Positive for: normal inspection - Back Exam Back exam: NORMAL INSPECTION - Neurological Exam Neurological exam: Altered - Skin Skin Exam: Dry, Intact, Pallor Results - Vital Signs Recent Vital Signs: Last Vital Signs Temp Pulse 0 L 06/29/18 11:44 Resp BP Pulse Ox - Labs Result Diagrams: 06/29/18 12:30 06/29/18 14:40 Labs: Laboratory Results - last 24 hr 06/29/18 06/29/18 06/29/18 12:30 12:30 12:30 WBC 11.8 H RBC 2.60 L Hgb 7.6 L D Hct 28.1 L MCV 108.1 H D MCH 29.2 MCHC 27.0 L RDW 14.3 Plt Count 207 MPV 10.7 Gran % 66.8 Lymph % (Auto) 29.1 [place] % (Auto) 3.2 Eos % (Auto) 0.6 L Baso % (Auto) 0.3 Gran # 7.90 H Lymph # (Auto) 3.4 [place] # (Auto) 0.4 Eos # (Auto) 0.1 Baso # (Auto) 0.03 PT INR APTT pCO2 pO2 ABG pH ABG O2 Saturation ABG Potassium Sodium 127 L Chloride 96 L Glucose Lactate Mechanical Rate FiO2 Tidal Volume PEEP Potassium 7.7 H* D Carbon Dioxide < 5 L D Anion Gap 34 H BUN 67 H Creatinine 2.6 H Est GFR ( Amer) 22 Est GFR (Non-Af Amer) 18 POC Glucose (mg/dL) Random Glucose 1465 H* D Calcium 7.4 L Phosphorus 14.1 H Magnesium 2.9 H Total Bilirubin 0.2 AST 257 H D ALT 150 H Alkaline Phosphatase 164 H D Troponin I 0.38 H* D Total Protein 4.0 L Albumin 2.2 L Globulin 1.8 Albumin/Globulin Ratio 1.2 Arterial Blood Potassium Blood Type O POSITIVE Antibody Screen Negative Crossmatch See Detail BBK History Checked Patient has bt 06/29/18 06/29/18 06/29/18 12:30 12:30 12:52 WBC RBC Hgb Hct MCV MCH MCHC RDW Plt Count MPV Gran % Lymph % (Auto) [place] % (Auto) Eos % (Auto) Baso % (Auto) Gran # Lymph # (Auto) [place] # (Auto) Eos # (Auto) Baso # (Auto) PT 14.7 H INR 1.27 APTT 169.6 H* pCO2 24 L pO2 502.0 H ABG pH < 6.80 L* ABG O2 Saturation 100.7 H ABG Potassium 7.2 H* Sodium 127.0 L Chloride 94.0 L Glucose > 750 H* D Lactate 10.3 H* Mechanical Rate 16 FiO2 100.0 Tidal Volume 400 PEEP 5 Potassium Carbon Dioxide Anion Gap BUN Creatinine Est GFR ( Amer) Est GFR (Non-Af Amer) POC Glucose (mg/dL) > 500 H* Random Glucose Calcium Phosphorus Magnesium Total Bilirubin AST ALT Alkaline Phosphatase Troponin I Total Protein Albumin Globulin Albumin/Globulin Ratio Arterial Blood Potassium 7.2 H* Blood Type Antibody Screen Crossmatch BBK History Checked Assessment & Plan - Assessment and Plan (Free Text) Assessment: 68 y/o F with PMHx of T1DM, HTN, HLD, CAD s/p CHYNA x 4 admitted to ICU s/p cardiac arrest with ROSC, severe lactic acidosis likely 2/2 DKA, hyperkalemia, STEMI, acute respiratory failure, hypotension, pneumonia and multiorgan failure Plan: Neuro: AxO x 0 CT Head: no acute intracranial abnormality. Mild chronic microangiopathic changes and mild age-related global parenchymal volume loss Mental status likely 2/2 to severe lactic acidosis Cardio: -hypotension R IJ tlc placed in ED start levophed/vasopressin fluid resuscitation administer pRBC -sinus bradycardia administer atropine transcutaneous pacing if no response to atropine administer dopamine maintain map >65 -Hyperkalemia likely contributing to STEMI calcium gluconate for cardioprotection insulin drip bmp q4h -STEMI unstable candidate for cardiac cath aspirin 300mg TX troponin 0.38 start heparin when active bleed ruled out Pulmonary: -Acute respiratory distress 2/2 underlying metabolic acidosis intubated in field pt unable to protect airway continue on PRVC ventilator support -pneumonia chest xray: multifocal pneumonia R lung, worse in RLL empiric antibiotics per ID recs GI: -coffee ground emesis OG tube in place CT abd/pelvis: mildly dilated fluid filled loops of small bowel are seen in the abdomen. this is a non-specific pattern. this could represent ileus. mild mural thickening in the colon. -Transaminitis AST/ALT/AlkPhos 418/191/131 Likely secondary to shock liver, hypoperfusion 2/2 STEMI /Renal: -metabolic acidosis likely 2/2 DKA 6.80/24/502/<5 lactate 10.3-->12.8 start bicarb drip fluid resuscitation with LR, then switch to 1/2NS BENNIE, likely prerenal, 2/2 hypoperfusion from NSTEMI treat with aggressive fluid resuscitation Heme: Baseline 12, h/h 7.4/28.1 transfuse pRBC unstable candidate for cardiac cath heparin drip, after CT head/ct abdomen pelvis r/o bleed ID: -Lactic acidosis lactate 10.3-->12.8 empiric vanc/zosyn given in ed aggressive fluid resuscitation -RLL pneumonia continue antibiotics per ID recs f/u blood, urine, sputum cultures Endo: -Severe lactic acidosis 2/2 DKA. glucose >750s. 6.80/24/502/7. Lactate 10.3-->12.8 Anion gap: 24 Aggressive fluid resuscitation Insulin drip BMP q4h, monitor hyperkalemia Fingerstick glucose q1h Bicarbonate drip trend ABGs a1c TSH Code Status: Full code Dispo: Pt in multiorgan failure. Hemodynamically unstable, unable to protect airway. Multiple lab abnormalities. Pt requires closely monitored ICU care. Case seen, examined and discussed with attending physician, Dr. Davis <Mohan Davis - Last Filed: 06/30/18 10:06> Results - Vital Signs Recent Vital Signs: Last Vital Signs Temp 91 F L 06/29/18 15:59 Pulse 60 06/29/18 15:59 Resp 18 06/29/18 15:59 BP 85/41 L 06/29/18 15:59 Pulse Ox 100 06/29/18 15:59 - Labs Result Diagrams: 06/29/18 12:30 06/29/18 14:40 Labs: Laboratory Results - last 24 hr 06/29/18 06/29/18 06/29/18 12:30 12:30 12:30 WBC 11.8 H RBC 2.60 L Hgb 7.6 L D Hct 28.1 L MCV 108.1 H D MCH 29.2 MCHC 27.0 L RDW 14.3 Plt Count 207 MPV 10.7 Gran % 66.8 Lymph % (Auto) 29.1 [place] % (Auto) 3.2 Eos % (Auto) 0.6 L Baso % (Auto) 0.3 Gran # 7.90 H Lymph # (Auto) 3.4 [place] # (Auto) 0.4 Eos # (Auto) 0.1 Baso # (Auto) 0.03 PT INR APTT pCO2 pO2 ABG pH ABG O2 Saturation ABG Potassium VBG pH VBG pCO2 VBG O2 Sat (Calc) VBG Potassium Sodium 127 L Chloride 96 L Glucose Lactate Mechanical Rate FiO2 Tidal Volume PEEP Potassium 7.7 H* D Carbon Dioxide < 5 L D Anion Gap 34 H BUN 67 H Creatinine 2.6 H Est GFR ( Amer) 22 Est GFR (Non-Af Amer) 18 POC Glucose (mg/dL) Random Glucose 1465 H* D Calcium 7.4 L Phosphorus 14.1 H Magnesium 2.9 H Total Bilirubin 0.2 AST 257 H D ALT 150 H Alkaline Phosphatase 164 H D Troponin I 0.38 H* D Total Protein 4.0 L Albumin 2.2 L Globulin 1.8 Albumin/Globulin Ratio 1.2 Arterial Blood Potassium Venous Blood Potassium Blood Type O POSITIVE Antibody Screen Negative Crossmatch See Detail BBK History Checked Patient has bt 06/29/18 06/29/18 06/29/18 12:30 12:30 12:52 WBC RBC Hgb Hct MCV MCH MCHC RDW Plt Count MPV Gran % Lymph % (Auto) [place] % (Auto) Eos % (Auto) Baso % (Auto) Gran # Lymph # (Auto) [place] # (Auto) Eos # (Auto) Baso # (Auto) PT 14.7 H INR 1.27 APTT 169.6 H* pCO2 24 L pO2 502.0 H ABG pH < 6.80 L* ABG O2 Saturation 100.7 H ABG Potassium 7.2 H* VBG pH VBG pCO2 VBG O2 Sat (Calc) VBG Potassium Sodium 127.0 L Chloride 94.0 L Glucose > 750 H* D Lactate 10.3 H* Mechanical Rate 16 FiO2 100.0 Tidal Volume 400 PEEP 5 Potassium Carbon Dioxide Anion Gap BUN Creatinine Est GFR ( Amer) Est GFR (Non-Af Amer) POC Glucose (mg/dL) > 500 H* Random Glucose Calcium Phosphorus Magnesium Total Bilirubin AST ALT Alkaline Phosphatase Troponin I Total Protein Albumin Globulin Albumin/Globulin Ratio Arterial Blood Potassium 7.2 H* Venous Blood Potassium Blood Type Antibody Screen Crossmatch BBK History Checked 06/29/18 06/29/18 06/29/18 14:40 14:40 14:49 WBC RBC Hgb Hct MCV MCH MCHC RDW Plt Count MPV Gran % Lymph % (Auto) [place] % (Auto) Eos % (Auto) Baso % (Auto) Gran # Lymph # (Auto) [place] # (Auto) Eos # (Auto) Baso # (Auto) PT INR APTT pCO2 pO2 151 H ABG pH ABG O2 Saturation ABG Potassium VBG pH < 6.80 L* VBG pCO2 38.0 L VBG O2 Sat (Calc) 100.5 H VBG Potassium 6.0 H Sodium 137.0 136 Chloride 99.0 105 Glucose > 750 H* Lactate 12.8 H* Mechanical Rate FiO2 21.0 Tidal Volume PEEP Potassium 5.9 H* D Carbon Dioxide 7 L D Anion Gap 31 H BUN 60 H Creatinine 2.2 H Est GFR ( Amer) 27 Est GFR (Non-Af Amer) 22 POC Glucose (mg/dL) > 500 H* Random Glucose 1181 H* Calcium 7.1 L Phosphorus Magnesium Total Bilirubin 0.2 AST 418 H D ALT 191 H Alkaline Phosphatase 131 H D Troponin I Total Protein 2.9 L Albumin 1.5 L Globulin 1.4 Albumin/Globulin Ratio 1.1 Arterial Blood Potassium Venous Blood Potassium 6.0 H Blood Type Antibody Screen Crossmatch BBK History Checked 06/29/18 15:59 WBC RBC Hgb Hct MCV MCH MCHC RDW Plt Count MPV Gran % Lymph % (Auto) [place] % (Auto) Eos % (Auto) Baso % (Auto) Gran # Lymph # (Auto) [place] # (Auto) Eos # (Auto) Baso # (Auto) PT INR APTT pCO2 pO2 ABG pH ABG O2 Saturation ABG Potassium VBG pH VBG pCO2 VBG O2 Sat (Calc) VBG Potassium Sodium Chloride Glucose Lactate Mechanical Rate FiO2 Tidal Volume PEEP Potassium Carbon Dioxide Anion Gap BUN Creatinine Est GFR ( Amer) Est GFR (Non-Af Amer) POC Glucose (mg/dL) > 500 H* Random Glucose Calcium Phosphorus Magnesium Total Bilirubin AST ALT Alkaline Phosphatase Troponin I Total Protein Albumin Globulin Albumin/Globulin Ratio Arterial Blood Potassium Venous Blood Potassium Blood Type Antibody Screen Crossmatch BBK History Checked Addendum Addendum: 06/29/18 19:49 Pulm CC Attending Addendum for 06/29/2018: Patient seen and examined with housestaff. Agreee with note above with following additions: 68F with T1DM, HTN, CAD s/p CHYNA x 4 presented to ED extremely sick. She called EMS not feeling well, upon their arrival she became unresponsive, CPR started and patient was intubated. In the ED ROSC was achieved. She was severely acidotic with a pH <6.8, elevated gluc >1000, hyperK, and inferior wall ischemia suggested on EKG. It is unclear which event was first however it is reasonable to suspect she developed acidosis over the past 2 days possible from DKA. The acidosis being so severe caused an extracellular shift of potassium resulting in cardiac injury from severe hyperK. In addition, her HB was 7.6 on CBC which probably was truly lower as she was hemoconcentrated. OG tube was putting out coffee ground fluid which may suggest UGIB. Her instability and possibly bleeding prevented her from getting cardiac cath. In the ED, I placed a central line to allow more aggressive fluids resuscitations. She was given IVF, insulin, bicarb prior to my arrival. Blood was ordered, as well as ABX and repeat labs. She was sent to CT Head (which was neg for bleed) after the ED then brought to the MICU. Upon arrival to the MICU her HR began to drop. It may have been from RCA ischemia and/or acidosis. Levophed, dopamine was started. Atropine given. I transcutaenously paced her at 50bpm. More bicarb was pushed. Eventually she went into cardiac arrest, PEA. Despite several round of CPR which included epi, biarb, calcium we were unable to achieve ROSC. I updated the family throughout the code and informed them when she . Answered all of their questions. They were grateful for our efforts. Dr. Soo Zamorano also at bedside during code and involved with family discussions. Mohan Davis MD MICU Attending CC Time 71minutes
[2018-06-29 15:02] LABS: VENOUS BLOOD GAS PO2 151 mm/Hg (30-55)
[2018-06-29 15:07] LABS: VENOUS BLOOD PH < 6.80 (7.32-7.43)
[2018-06-29 15:12] LABS: ALB/GLOB RATIO 1.1 (1.1-1.8); ALBUMIN 1.5 g/dL (3.0-4.8); CALCIUM 7.1 mg/dL (8.4-10.5)
--- NOTE | 2018-06-29 15:13 | CON ---
DATE: 06/29/2018 REASON FOR CONSULTATION: Cardiac arrest, rule out code STEMI for possible cardiac catheterization, emergency angioplasty. BRIEF CLINICAL HISTORY: This is a 68-year-old female with past medical history significant for hypertension, diabetes, history of coronary artery disease in the past who was not feeling good, called by the daughter and 2 sons that patient is not feeling good. When they went in, patient was vomiting and then collapsed, EMT was called. The patient was resuscitated and brought here. Initial EKG shows 0.[address] elevation in the inferior lead. They worked for 30 minutes and so I will call for possible cardiac catheterization. Patient has some element of renal insufficiency with significant downtime, so we will wait for repeat blood workup. Discussed with the daughter if the lab is okay, we will take to the cardiac cathode maker. Initial lactic level is potassium is K, rest of the lab is pending. PAST MEDICAL HISTORY: Diabetes, hypertension, hyperlipidemia, noncompliance with medications, multiple admissions with DKA. SOCIAL HISTORY: Active tobacco abuse, denies any history of alcohol abuse. CURRENT MEDICATIONS: She is taking insulin, hypertension medications, no details available. PHYSICAL EXAMINATION: VITAL SIGNS: Height of the patient is 4 feet 11 niches. Weight of the patient is 161 pounds. Body mass index is 21.5 kg/m2. Blood pressure 130/80, heart rate 60. HEENT: PERRLA. Extraocular muscles intact. NECK: Supple. LUNGS: Good air entry. DIAGNOSTICS: Initial EKG shows a normal sinus with ST elevation of 0.5 mm in the inferior lead. No reciprocal changes. Labs pending. IMPRESSION: Cardiac arrest, rule out acute anterior wall myocardial infarction, rule out cerebrovascular accident, renal insufficiency, hypoglycemia, history of diabetic ketoacidosis in the past. RECOMMENDATION: We will wait for the blood. If no evidence of acute ND, we will take the patient to cathode maker. Risks, benefits and alternatives discussed with the daughter. We will be waiting for the lab. Further recommendation will depend on the hospital. We will follow with you. Thank you Dr. Zamorano for providing us an opportunity in taking care of the patient, Charlette Ramirez. Bin Strong MD MTDDemi
[2018-06-29 15:16] VITALS: O2SAT 100
[2018-06-29] MEDS ORDERED: [UNRECOGNIZED DRUG - OTHER] IV SCH (15:45)
[2018-06-29] MEDS ORDERED: POTASSIUM CHLORIDE IV SCH ×2 (15:45)
[2018-06-29] MEDS ORDERED: SODIUM BICARBONATE IV SCH ×2 (15:45)
[2018-06-29] MEDS ORDERED: [UNRECOGNIZED DRUG - OTHER] IV SCH (15:45)
[2018-06-29] MEDS ORDERED: Cefepime 1gm in NS 100ml 1 GM/100 ML BAG IVPB SCH (16:00)
[2018-06-29] MEDS ORDERED: metroNIDAZOLE IV 500 mg/100 ml 500 MG/100 ML BAG IVPB SCH (16:00)
[2018-06-29 16:02] VITALS: BP 85/41; PULSE 60; RESP 18; TEMP 91
--- NOTE | 2018-06-29 16:02 | RAD ---
Date of service: 06/29/2018 HISTORY: post central line placement COMPARISON: 06/29/2018 at 12:21 p.m. FINDINGS: Endotracheal tube terminates 3.8 cm proximal to the bjorn. The nasogastric tube terminates in the stomach. The right central line terminates in the SVC. LUNGS: The lungs are well inflated. There is multifocal airspace disease in the right lung and left lower lobe, worse in the right lower lobe. PLEURA: No pleural effusions or pneumothorax. CARDIOVASCULAR: The heart is normal in size. Atherosclerotic aortic arch calcifications are present. OSSEOUS STRUCTURES: Within normal limits for the patient's age. VISUALIZED UPPER ABDOMEN: Normal. OTHER FINDINGS: None. IMPRESSION: Right central venous line terminates in the SVC. Endotracheal tube terminates in the mid trachea. Nasogastric tube terminates in the stomach. Multifocal pneumonia, worse in the right lower lobe. Follow-up after medical management is recommended to ensure complete resolution.
--- NOTE | 2018-06-29 16:07 | CP.PCM.HP ---
<Jesika Winters - Last Filed: 06/29/18 16:54> History of Present Illness - History of Present Illness History of Present Illness: Resident Jesika Winters DO PGY1 Hospitalist H&P Note for: Dr. Soo Zamorano: Pt is a 68yo F with pmhx of uncontrolled DM, HTN, HLD and CAD s/p 4 stents who is BIBA for being unresponsive, and asystole. Pts daughter was able to provide history for the pt. The daughter states that she spoke to her mother last night before the pt went to bed and the pt was complaining of nausea, but wanted to sleep it off. She states that the pt lives with her 2 sons. The daughter then reports that one of the pts sons called her and told them to check up on the mother, and when the daughter arrived to the house, she noticed her mother had vomited and was altered. EMS was called and when they arrived on the scene the pts BP was 60/30. The pt then become increasingly bradycardic to the point that she became asystolic. EMS began to do CPR immediately and intubated the pt in the field. The pt was also given 2 rounds of epi while enroute to the hospital. In the ED the pt recieved 4 more rounds of epi before she ultimately achieved ROSC. Upon achieving ROSC, EKG was performed and ST elevations were noted in leads 2,3 and AVF with lateral ST depressions. Repeat EKG showed sinus HR at 60, and still showed inferior ST elevation in the same leads. Code heart was called upon the initial EKG finding, where the transplant registered nurse Dr. Strong saw the pt and noted that the pt was too unstable for the photographic laboratory supervisor due to pt having Hgb in the 7's and pt being severely acidotic at the time. He elected for conservative medical management until the pt could be stabilized for the photographic laboratory supervisor. Pmhx: DM, HTN, HLD, CAD s/p 4 stents Pshx: , Stent placement All: NKDA Social Hx: Pt is daily 1ppd smoker, pt is a social drinker, family is unaware of any illicit drug use Family Hx: Non-contributory PMD: [facility] Present on Admission - Present on Admission Any Indicators Present on Admission: Yes History of Uncontrolled Diabetes: Yes Review of Systems - Review of Systems Systems not reviewed;Unavailable: Intubated, Other (sedated) Past Patient History - Infectious Disease Hx of Infectious Diseases: None - Tetanus Immunizations Tetanus Immunization: Unknown - Past Social History Smoking Status: Unknown If Ever Smoked - CARDIAC Hx Cardiac Disorders: Yes Hx Heart Attack: Yes Hx Hypertension: Yes Hx Peripheral Vascular Disease: Yes (DVT) - PULMONARY Hx Respiratory Disorders: Yes - NEUROLOGICAL Hx Neurological Disorder: No - HEENT Hx HEENT Problems: No - RENAL Hx Chronic Kidney Disease: No - ENDOCRINE/METABOLIC Hx Endocrine Disorders: Yes Hx Diabetes Mellitus Type 2: Yes - HEMATOLOGICAL/ONCOLOGICAL Hx Blood Disorders: No - INTEGUMENTARY Hx Dermatological Problems: No - MUSCULOSKELETAL/RHEUMATOLOGICAL Hx Musculoskeletal Disorders: Yes Hx Falls: Yes - GASTROINTESTINAL Hx Gastrointestinal Disorders: No - GENITOURINARY/GYNECOLOGICAL Hx Genitourinary Disorders: Yes - PSYCHIATRIC Hx Psychophysiologic Disorder: No Hx Substance Use: No - SURGICAL HISTORY Hx Cardiac Catheterization: Yes Hx Coronary Stent: Yes - ANESTHESIA Hx Anesthesia: Yes Hx Anesthesia Reactions: No Hx Malignant Hyperthermia: No Meds Allergies/Adverse Reactions: Allergies Allergy/AdvReac Type Severity Reaction Status Date / Time No Known Allergies Allergy Verified 06/29/18 11:48 Physical Exam - Constitutional Appears: Other (sedated and intubated) - Head Exam Head Exam: ATRAUMATIC, NORMAL INSPECTION, NORMOCEPHALIC - Eye Exam Eye Exam: EOMI, Normal appearance, PERRL - ENT Exam Additional comments: ETT in place - Respiratory Exam Respiratory Exam: Rales (noted in RLL pollard) Additional comments: Pt is intubated - Cardiovascular Exam Cardiovascular Exam: REGULAR RHYTHM, +S1, +S2. absent: Gallop, Rubs - GI/Abdominal Exam GI & Abdominal Exam: Hypoactive Bowel Sounds, Soft. absent: Firm - Extremities Exam Extremities exam: Positive for: pedal pulses present. Negative for: pedal edema - Neurological Exam Additional comments: sedated - Psychiatric Exam Additional comments: Sedated - Skin Skin Exam: Dry, Intact Results - Vital Signs Recent Vital Signs: Last Vital Signs Temp 91.1 F L 06/29/18 11:42 Pulse 69 06/29/18 12:19 Resp 20 06/29/18 12:19 BP 111/71 06/29/18 12:19 Pulse Ox 100 06/29/18 12:19 - Labs Result Diagrams: 06/29/18 12:30 06/29/18 14:40 Labs: Laboratory Results - last 24 hr 06/29/18 06/29/18 06/29/18 12:30 12:30 12:30 WBC 11.8 H RBC 2.60 L Hgb 7.6 L D Hct 28.1 L MCV 108.1 H D MCH 29.2 MCHC 27.0 L RDW 14.3 Plt Count 207 MPV 10.7 Gran % 66.8 Lymph % (Auto) 29.1 [place] % (Auto) 3.2 Eos % (Auto) 0.6 L Baso % (Auto) 0.3 Gran # 7.90 H Lymph # (Auto) 3.4 [place] # (Auto) 0.4 Eos # (Auto) 0.1 Baso # (Auto) 0.03 PT INR APTT pCO2 pO2 ABG pH ABG O2 Saturation ABG Potassium VBG pH VBG pCO2 VBG O2 Sat (Calc) VBG Potassium Sodium 127 L Chloride 96 L Glucose Lactate Mechanical Rate FiO2 Tidal Volume PEEP Potassium 7.7 H* D Carbon Dioxide < 5 L D Anion Gap 34 H BUN 67 H Creatinine 2.6 H Est GFR ( Amer) 22 Est GFR (Non-Af Amer) 18 POC Glucose (mg/dL) Random Glucose 1465 H* D Calcium 7.4 L Phosphorus 14.1 H Magnesium 2.9 H Total Bilirubin 0.2 AST 257 H D ALT 150 H Alkaline Phosphatase 164 H D Troponin I 0.38 H* D Total Protein 4.0 L Albumin 2.2 L Globulin 1.8 Albumin/Globulin Ratio 1.2 Arterial Blood Potassium Venous Blood Potassium Blood Type O POSITIVE Antibody Screen Negative Crossmatch See Detail BBK History Checked Patient has bt 06/29/18 06/29/18 06/29/18 12:30 12:30 12:52 WBC RBC Hgb Hct MCV MCH MCHC RDW Plt Count MPV Gran % Lymph % (Auto) [place] % (Auto) Eos % (Auto) Baso % (Auto) Gran # Lymph # (Auto) [place] # (Auto) Eos # (Auto) Baso # (Auto) PT 14.7 H INR 1.27 APTT 169.6 H* pCO2 24 L pO2 502.0 H ABG pH < 6.80 L* ABG O2 Saturation 100.7 H ABG Potassium 7.2 H* VBG pH VBG pCO2 VBG O2 Sat (Calc) VBG Potassium Sodium 127.0 L Chloride 94.0 L Glucose > 750 H* D Lactate 10.3 H* Mechanical Rate 16 FiO2 100.0 Tidal Volume 400 PEEP 5 Potassium Carbon Dioxide Anion Gap BUN Creatinine Est GFR ( Amer) Est GFR (Non-Af Amer) POC Glucose (mg/dL) > 500 H* Random Glucose Calcium Phosphorus Magnesium Total Bilirubin AST ALT Alkaline Phosphatase Troponin I Total Protein Albumin Globulin Albumin/Globulin Ratio Arterial Blood Potassium 7.2 H* Venous Blood Potassium Blood Type Antibody Screen Crossmatch BBK History Checked 06/29/18 06/29/18 14:40 14:40 WBC RBC Hgb Hct MCV MCH MCHC RDW Plt Count MPV Gran % Lymph % (Auto) [place] % (Auto) Eos % (Auto) Baso % (Auto) Gran # Lymph # (Auto) [place] # (Auto) Eos # (Auto) Baso # (Auto) PT INR APTT pCO2 pO2 151 H ABG pH ABG O2 Saturation ABG Potassium VBG pH < 6.80 L* VBG pCO2 38.0 L VBG O2 Sat (Calc) 100.5 H VBG Potassium 6.0 H Sodium 137.0 136 Chloride 99.0 105 Glucose > 750 H* Lactate 12.8 H* Mechanical Rate FiO2 21.0 Tidal Volume PEEP Potassium 5.9 H* D Carbon Dioxide 7 L D Anion Gap 31 H BUN 60 H Creatinine 2.2 H Est GFR ( Amer) 27 Est GFR (Non-Af Amer) 22 POC Glucose (mg/dL) Random Glucose 1181 H* Calcium 7.1 L Phosphorus Magnesium Total Bilirubin 0.2 AST 418 H D ALT 191 H Alkaline Phosphatase 131 H D Troponin I Total Protein 2.9 L Albumin 1.5 L Globulin 1.4 Albumin/Globulin Ratio 1.1 Arterial Blood Potassium Venous Blood Potassium 6.0 H Blood Type Antibody Screen Crossmatch BBK History Checked Assessment & Plan - Assessment and Plan (Free Text) Assessment: Pt is a 68yo F with pmhx of uncontrolled DM, HTN, HLD and CAD s/p 4 stents who is BIBA for being unresponsive, and asystole. Pt is s/p cardiac arrest with asystole rhythm ROSC complicated by cardiogenic vs septic shock with acute on chronic anemia requiring transfusion, respiratory failure requiring intubation, ischemic liver, BENNIE, AMS. Plan: 1. Cardiac arrest likely 2/2 acidosis from severe DKA, rule out other causes - ROSC obtained in the ED - Pt was given 6 rounds of epi total, 2 in the field and 4 in the ED - Pt not stable for photographic laboratory supervisor per cardio because of low hgb of 7.6 and severe acidosis pH on ABG <6.80 - Per cardiology will treat with conservative medical management - CT head - heparin drip pending read of head CT - Will hold a/c until bleed can be ruled out. - F/u trops x3 - F/u hgbA1c - TSH - Lipid panel - UA and Urine culture 2. Severe DKA with severe lactic acidosis of pH<6.8 - IVFs - Insulin drip - Serial BMP q4 - Hourly finger checks 3. Acute resp failure - Pt is intubated per ICU recs 4. Hyperkalemia - Insulin drip started - Fluids given - Ca gluconate given - Serial BMP 5. Aspiration PNA - Antibiotics started - Pending blood, urine and sputum culture 6. Anemia acute on chronic - Baseline 12, upon admission is 7.6 - Transfusion to be started - Type and cross done 7. Transaminitis - Likely 2/2 to shock liver - Will give fluids and monitor 8. BENNIE on CKD - Likely 2/2 hypoperfusion 2/2 asystole 9. Hypotension - Levofed on in ICU, will follow their recs <Faye Zamorano - Last Filed: 07/01/18 07:54> Results - Vital Signs Recent Vital Signs: Last Vital Signs Temp 91 F L 06/29/18 15:59 Pulse 60 06/29/18 15:59 Resp 18 06/29/18 15:59 BP 85/41 L 06/29/18 15:59 Pulse Ox 100 06/29/18 15:59 - Labs Result Diagrams: 06/29/18 12:30 06/29/18 14:40 Labs: Laboratory Results - last 24 hr 06/29/18 12:30 Crossmatch See Detail Attending/Attestation - Attestation I have personally seen and examined this patient.: Yes I have fully participated in the care of the patient.: Yes I have reviewed all pertinent clinical information: Yes Notes (Text): Patient seen and examined by me with resident at 12:20PM with resident 06/29/18. Case including HPI, physical exam, and assessment and plan discussed with resident. Agree with above with following additions/corrections. Patient is a 68-year-old female past medical history significant for uncontrolled diabetes, hypertension, hyperlipidemia, and coronary artery disease status post stents that presented to the emergency room after being unresponsive, being intubated and having CPR in the field. Patient intubated and critical. Unable to obtain history from patient. History taken from patient's daughter Lisa and son Joaquin. Daughter states that her brother called her and stated that patient was not feeling well. Daughter went to check on patient. Patient was not saying. Patient was responding to all questions with "yes." Per daughter, patient was also covered in vomitus. Patient then stopped talking and daughter called 911. EMS and ALS arrived and patient's blood pressure was found to be 60/30. Patient was responsive to sternal rub. Then patient started to elisha down. CPR was initiated. Patient was intubated and brought to the emergency room. Patient received 4 rounds of Epi before reaching ROSC. Patient's daughter stated patient has not been feeling well the past couple of days. Patient's son was giving patient juice thinking patient may be hypoglycemic. It is unclear if patient's blood sugars were being checked. Per daughter, patient does not follow with her primary care doctor regularly. Family history: Mother is alive and has DM2 and lung problem. Father of unknown causes Medications at home: HCTZ 12.5 mg Po daily, ASA 81 mg PO daily, Metoprolol 25mg PO BID, Enalapril 10mg PO daily, Atorvastatin Physical exam: General: Intubated. Does open eyes. HEENT: Normocephalic, atraumatic. Extraocular muscles intact, pupils equal and reactive, no scleral icterus. Neck is supple. ET tube in place Cardiovascular: Normal rhythm. Normal S1, S2. No murmurs, rubs, or gallops appreciated Pulmonary: Positive vent sounds. Positive coarse breath sounds. No wheezing appreciated. Gastrointestinal: Soft, Nondistended. Positive bowel sounds all 4 quadrants. Musculoskeletal: Intubate. No edema appreciated. Central nervous system: Intubated. Opens eyes. Dermatologic: Skin warm and dry. Assessment and Plan: Patient is a 68-year-old female past medical history significant for uncontrolled diabetes, hypertension, hyperlipidemia, and coronary artery disease status post stents that presented to the emergency room after being unresponsive, being intubated and having CPR in the field. 1. Cardiac arrest. STEMI. On vent. Intubated. Acute respiratory failure. Likely from severe acidosis and hyperkalemia. Hgb low. Patient very acidotic. Seen by cardiology, not a canidate for photographic laboratory supervisor right now. Transfuse 2 units PRBCs. Following up head CT prior to starting heparin drip to rule out bleed per cardiology. Follow up serial troponins, TSH, and lipid panel. Cardiology yakelin levine, recommendations appreciated. 2. Severe DKA and Severe lactic acidosis. Patient given bicarb in ED. Start bicarb drip. start insulin drip. PH < 6.80. BS 1425. Consult endocrinology. IV fluids. Monitor accuchecks q1hr. Monitor BMP q4hrs. Lactate 10.3. 3. Severe hyperkalemia. Patient given calcium gluconate and insulin. Potassium imroved to 5.9. 4. Aspiration pneumonia. Started on Flagyl and Cefepime. Chest xray per radiologist shows right central venous line terminates in the SVC, and tracheal tube terminates in the mid trachea, nasogastric tube terminates in the stomach, multifocal pneumonia worse in the right lower lobe. ID consulted, follow up recommendations. 5. Acute on chronic anemia. Follow up stool for occult blood. Transfuse 2 units PRBCs. ?GI bleed. Follow up CT abd/pelvis. 6. Transaminitis. Follow up CT abd/pelvis. May be injury from poor perfusion. Continue to monitor 7. Acute renal failure. Likey secondary to dehydration. Continue with IV fluids. Monitor urine output. Follow up repeat labs. 8. Advanced directive. Discussed with patient's daughter Lias and son Joaquin. Patient is a full code for now. Poor prognosis. Case was discussed at length with patient's daughter Lisa, son Joaquin, transplant registered nurse Dr. Strong, and log haul chain feeder Dr. Davis regarding current diagnosis and treatment plan.
--- NOTE | 2018-06-29 16:10 | CT ---
Date of service: 06/29/2018 PROCEDURE: CT HEAD WITHOUT CONTRAST. HISTORY: ?ICH COMPARISON: 02/12/2017. TECHNIQUE: Axial computed tomography images were obtained through the head/brain without intravenous contrast. Radiation dose: Total exam DLP = 914.17 mGy-cm. This CT exam was performed using one or more of the following dose reduction techniques: Automated exposure control, adjustment of the mA and/or kV according to patient size, and/or use of iterative reconstruction technique. FINDINGS: HEMORRHAGE: No intracranial hemorrhage. BRAIN: There are mild chronic microangiopathic changes. There is no mass, mass effect or abnormal extra-axial fluid collection. There is no territorial infarction. The midline sagittal structures are normal. VENTRICLES: There is mild age-related global parenchymal volume loss and proportionate enlargement of the ventricles and cortical sulci. CALVARIUM: There is no calvarial fracture or extracranial soft tissue swelling. PARANASAL SINUSES: There fluid in the paranasal sinuses, expected in an intubated patient. MASTOID AIR CELLS: Predominantly clear. OTHER FINDINGS: None. IMPRESSION: No acute intracranial abnormality. Mild chronic microangiopathic changes and mild age-related global parenchymal volume loss.
[2018-06-29] MEDS ORDERED: Sodium Chloride 0.45% 1,000 ML IV SCH (16:30)
--- NOTE | 2018-06-29 16:35 | CT ---
Date of service: 06/29/2018 PROCEDURE: CT Abdomen and Pelvis without intravenous contrast HISTORY: coffee ground emesis COMPARISON: Portable chest x-rays recent TECHNIQUE: Without contrast.. Contrast dose: Radiation dose: Total exam DLP = 245.71 mGy-cm. This CT exam was performed using one or more of the following dose reduction techniques: Automated exposure control, adjustment of the mA and/or kV according to patient size, and/or use of iterative reconstruction technique. FINDINGS: LOWER THORAX: Alveolar infiltrates are seen bilaterally. Findings consistent with pulmonary edema LIVER: Unremarkable. No gross lesion or ductal dilatation. GALLBLADDER AND BILE DUCTS: Unremarkable. PANCREAS: Unremarkable. No gross lesion or ductal dilatation. SPLEEN: Unremarkable. ADRENALS: Unremarkable. No mass. KIDNEYS AND URETERS: Unremarkable. No hydronephrosis. No solid mass. VASCULATURE: Unremarkable. No aortic aneurysm. Aortic calcifications BOWEL: Mildly dilated fluid-filled loops of small bowel are seen throughout the abdomen. This is a non-specific pattern. There is a nasogastric tube is seen in the stomach. There is mild mural thickening in the descending and sigmoid colon APPENDIX: The appendix is mildly dilated measuring 8 mm. There are no surrounding inflammatory changes. PERITONEUM: Unremarkable. No free fluid. No free air. LYMPH NODES: Unremarkable. No enlarged lymph nodes. BLADDER: Unremarkable. REPRODUCTIVE: Unremarkable. BONES: No acute fracture. OTHER FINDINGS: None. IMPRESSION: Mildly dilated fluid-filled loops of small bowel are seen throughout the abdomen. This is a non-specific pattern. This could represent ileus Mild mural thickening in the colon
[2018-06-29] MEDS ORDERED: MEROPENEM 500 MG in NS 500 MG/50 ML BAG IVPB SCH (16:45)
--- NOTE | 2018-06-29 17:23 | CP.PCM.PRO ---
Pronouncement of Note - Clinical Findings Physical Exam: No Response Verbal/Painful Stimuli, Absent Peripheral Puls es{Carotid & Femoral}, Absent Heart & Breath Sounds, No Pupillary Light Reflex, No Corneal Reflex, Pupils Fixed & Dilated, Absence of Vital Signs - Pronouncement Time Time of Pronouncement of : 16:46 - Notifications Pronouncement Notifications: Family Notified, Atending Notified Mine Technician Notified: Yes (RN instructed to call) - Autopsy Autopsy Requested: No (digital forensic examiner review pending) - [place] [id number]
--- NOTE | 2018-06-29 17:52 | CP.PCM.PN ---
Subjective - Date & Time of Evaluation Date of Evaluation: 06/29/18 Time of Evaluation: 17:45 - Subjective Subjective: House Dr Charlotte Graff, PGY - 2 Subjective Code blue was called on a 68 F with past medical history significant for DM1, not taking her insulin appropriately. Patient was in asystole before our arrival. Per daughter, patient was feeling ill earlier today and was found to not be taking her insulin; patient's daughter arrived at the patient's house, where patient was covered in vomit and "could not feel her feet." Daughter called EMS, who promptly began CPR once patient was in ambulance. Patient had Code Heart earlier in the ED, but was not taken to labor relations worker 2/ Hgb of 7.4. Objective Patient was pulseless, without vitals at the start of code. PE revealed 68 female who looked chronically ill; patient unresponsive and without breath sounds or pulse. Assessment/Plan 68 F Asystole Per ACLS, CPR was initiated, with no gap in compressions for more than 30s and compressions continuously with exception of q2 minute pulse check, both at femor al with Doppler and at Carotid. 8 rounds of epi were given, 8 rounds of bicarb given at [id number] intervals. Compressions were performed for 24 minutes. Total of 12 rounds of compressions. After 12th round of compression, patient's family was asked for their wishes, and they chose to end the code. Patient was pronounced at 4:46P Objective - Vital Signs/Intake and Output Vital Signs (last 24 hours): Temp Pulse Resp BP Pulse Ox 91 F L 60 18 85/41 L 100 06/29/18 15:59 06/29/18 15:59 06/29/18 15:59 06/29/18 15:59 06/29/18 15:59 - Medications Medications: Current Medications Lactated Ringer's (Lactated Ringer's) 1,000 mls @ 999 mls/hr IV .Q1H1M MOSES Insulin Human Regular 100 (units/ Sodium Chloride) 100 mls @ 5 mls/hr IV .Q20H PRN; Protocol PRN Reason: TITRATE PER MD ORDER Last Admin: 06/29/18 14:16 Dose: 5 units/hr, 5 mls/hr NOREPINEPHRINE BIT/0.9 % NACL (Levophed 4 Mg/ 250 Ml Ns Premixed) 4 mg in 250 mls @ 15 mls/hr IV .[id number] PRN; Protocol PRN Reason: TITRATE PER MD ORDER Last Admin: 06/29/18 14:17 Dose: 4 mcg/min, 15 mls/hr Sodium Bicarbonate 75 meq/Potassium Chloride 10 meq/Sodium Chloride 1,080 mls @ 200 mls/hr IV .Q5H24M MOSES Stop: 06/30/18 02:45 Meropenem/Sodium Chloride (Merrem Iv 500 Mg/Ns 50 Ml) 500 mg in 50 mls @ 100 mls/hr IVPB Q12 MOSES; Protocol Doxycycline Hyclate 100 mg/ (Sodium Chloride) 100 mls @ 100 mls/hr IVPB Q12 S CH; Protocol - Labs Labs: 06/29/18 12:30 06/29/18 14:40 PT 14.7 SECONDS (9.4-12.5) H 06/29/18 12:30 INR 1.27 06/29/18 12:30 APTT 169.6 Seconds (25.1-36.5) H* 06/29/18 12:30
--- NOTE | 2018-06-29 18:31 | PN ---
DATE: 06/29/2018 TYPE OF DICTATION: Followup progress note after initial evaluation done in the ER. SUBJECTIVE: In summary, a 68-year-old female as mentioned, diabetes, hypertension, hyperlipidemia. Admitted with cardiac arrest. I was called for evaluation of code STEMI, because of overall the patient's condition and previous history, suggested to wait for the lab. Later on, the hemoglobin turned out to be 7.6, lactate level count came to 7, potassium 7, pH 6.8. SMA-7 was pending in view of this code STEMI was canceled and wait for the SMA-7, which later potassium came out to be 7.7, sodium 127, chloride 96, carbon dioxide less than 5, anion gap of 34, BUN 64, creatinine 2.6. Blood sugar came out 1465. Troponin 0.3. In view of severe metabolic acidosis, possible diabetic ketoacidosis, severe anemia, code STEMI was canceled and decided to treat aggressively. Discussed with the ER physician. Discussed with Dr. Faye Zamorano, admitting physician. The plan is to get a CAT scan of the head to rule out any intracerebral bleed, it was negative. Need maybe low doses of heparin. Close monitor for bleeding. If any obvious bleeding or H and H drop, we will discontinue the heparin. Aggressively, treat in the ICU for diabetic ketoacidosis and the patient's condition improved. We will consider cardiac catheterization in a day or two. Previous cardiac workup the patient had as follows. The patient had an echo on 02/16/2017 that shows ejection fraction 55-60%. Moderate mitral regurgitation. Trace to mild tricuspid regurgitation. RV systolic pressure 26. The patient had a cardiac catheterization twice. First, the patient had on 07/20/2014 with the patient presented with non-STEMI. After having the V/Q, CT angio was negative. The patient was taken to the entry level lab technician and the patient underwent PTCA with stenting of RCA with drug-eluting stent in distal RCA and proximal RCA, proximal to mid with a CHYNA dated 06/19/2014. At that time, found to be triple-vessel disease, a small caliber vessel with distal target very poor for CABG. Preserved LV function and plan is for stage angioplasty of circumflex and LAD on 09/17/2013. Then, the patient was brought back again for a staged PTCA on 09/16/2014 where the patient underwent PTCA with stenting of proximal circumflex drug-eluting stent and proximal LAD on 09/16/2014. Then, probably the patient lost followup. Today, presented with a cardiac arrest as mentioned above and also the patient had last stress test on 03/24/2015. Followup 6 months post PTCA that shows essentially normal myocardial perfusion study. No residual ischemia dated 03/24/2015. So at this point, as mentioned above, we will continue aggressive medical treatment for diabetic ketoacidosis, low dose of heparin as tolerated. Monitor closely for stool guaiac. Monitor closely for rectal bleeding. Further recommendations depending upon the hospital course. We will get echo to assess LV function. We will get repeat troponin, serial troponin and repeat blood workup at 5 p.m. tomorrow morning. We will do also the stool guaiac before we start heparin. Thank you, Dr. Zamorano, for providing us the opportunity in taking care of the patient, Charlette Ramirez. Bin Strong MD cc: Faye Zamorano DO.
--- NOTE | 2018-06-30 01:20 | CON ---
DATE: 06/29/2018 ENDOCRINOLOGY CONSULT LOCATION: ICU 128, room one. HISTORY OF PRESENT ILLNESS: This is a 68-year-old female with known history of type 2 insulin-requiring diabetes, who was apparently found unresponsive at home and developed sudden asystole with marked hypotension and was resuscitated, and subsequently intubated in the field and is now being referred for diabetic evaluation of marked hyperglycemic accelerations as noted thereof. The chart has been reviewed, and the details of the history has also been reviewed as noted thereof. PAST MEDICAL HISTORY: History of type 2 insulin-requiring diabetes, the exact names of the insulin regimen is not known at this time, and will be clarified with family, history of hypertension and dyslipidemia, history of coronary artery disease with previous coronary stent placements, history of peripheral arterial disease and vasculopathy, history of DVT and also with a previous [place] in the past. FAMILY HISTORY: Positive for hypertension and diabetes. SOCIAL HISTORY: Patient is a current smoker, consuming a pack a day for many years now. She has a very supportive family and lives with her two sons. REVIEW OF SYSTEMS: At this time, review of systems not possible, but the chart has been reviewed in detail for the aforementioned details of the history. PHYSICAL EXAMINATION: GENERAL: This is an average built female, who is currently intubated and sedated. VITAL SIGNS: Blood pressure of 80/60, pulse of 100 beats per minute and regular, temperature 98, respirations 20, height is 4 feet 11 inches, weight is 106 pounds. HEENT: Head normocephalic. Eyes anicteric with pink conjunctivae. Funduscopy not possible at this time. Ears, nose, and throat, otherwise, normal. NECK: Supple. Thyroid gland is normal in size. No carotid bruits or any cervical adenopathy. CARDIOPULMONARY: Some adynamic precordium. S1, S2 rapid and regular. LUNGS: Show scattered rhonchi. ABDOMEN: Flat, soft with positive bowel sounds. EXTREMITIES: No peripheral edema. Pulses are +2 bilaterally. LABORATORY DATA: WBC is 11.8, hemoglobin is 7.6, hematocrit of 28, MCV 108.1, platelets 207. The initial chemistry showed a BUN of 67, sodium 127, potassium 7.7, chloride 96, CO2 is less than 5, glucose is 1465, and creatinine 2.6. Her troponin is 0.38. The repeat CO2 done 2 hours later showed a CO2 of 7 and glucose of 1181 and creatinine of 2.2 with elevated liver transaminases. ASSESSMENT: This is a 68-year-old female with uncontrolled and decompensated type 2 insulin-requiring diabetes presenting here with marked hyperglycemic accelerations and supervening diabetic ketoacidosis and dehydration and is now being referred for diabetic evaluation and management. She also has significant coronary artery disease and peripheral arterial disease and vasculopathy as noted with an acute myocardial infarction at this time. PLAN OF MANAGEMENT: We will continue with the intensive insulin therapy with an insulin drip infusion as given and started, and we will obtain hourly fingerstick glucose testing and titrate her dose regimen accordingly. We will also continue the vigorous IV hydration at this time to replenish the lost fluids and electrolytes from the increased osmotic diuresis thereof. We will obtain serial chemistries and supplement accordingly as needed and also adjust IV fluid hydration accordingly. We will initiate basal and bolus insulin regimen once she has improved clinically and metabolically thereof. We will follow. Hemoglobin A1c has been sent out, and we will confirm her prior glycemic control. Jessica Torres MD
--- NOTE | 2018-06-30 10:17 | CARD ---
APPROVED REPORT Date of service: 06/29/2018 EKG Measurement Heart [id number] <Conclusion> Sinus rhythm with 1st degree AV block Low voltage QRS Inferior injury pattern ACUTE [place] Consider right ventricular involvement in acute inferior infarct Abnormal ECG
--- NOTE | 2018-06-30 18:15 | CP.PCM.DIS ---
Provider - Provider Date of Admission: 06/29/18 12:57 Attending physician: Faye Zamorano DO Time Spent in preparation of Discharge (in minutes): 45 Diagnosis - Discharge Diagnosis (1) Acute SC Status: Acute (2) Cardiac arrest Status: Acute (3) Diabetic ketoacidosis Status: Acute (4) Hyperkalemia Status: Acute (5) Transaminitis Status: Acute Hospital Course - Lab Results Lab Results: Micro Results 06/29/18 13:00 Blood-Venous Blood Culture - Preliminary NO GROWTH AFTER 24 HOURS 06/29/18 13:30 Blood-Venous Blood Culture - Preliminary NO GROWTH AFTER 24 HOURS Most Recent Lab Values WBC 11.8 10^3/uL (4.5-11.0) H 06/29/18 12:30 RBC 2.60 10^6/uL (3.5-6.1) L 06/29/18 12:30 Hgb 7.6 g/dL (12.0-16.0) L D 06/29/18 12:30 Hct 28.1 % (36.0-48.0) L 06/29/18 12:30 MCV 108.1 fl (80.0-105.0) H D 06/29/18 12:30 MCH 29.2 pg (25.0-35.0) 06/29/18 12:30 MCHC 27.0 g/dl (31.0-37.0) L 06/29/18 12:30 RDW 14.3 % (11.5-14.5) 06/29/18 12:30 Plt Count 207 10^3/uL (120.0-450.0) 06/29/18 12:30 MPV 10.7 fl (7.0-11.0) 06/29/18 12:30 Gran % 66.8 % (50.0-68.0) 06/29/18 12:30 Lymph % (Auto) 29.1 % (22.0-35.0) 06/29/18 12:30 [place] % (Auto) 3.2 % (1.0-6.0) 06/29/18 12:30 Eos % (Auto) 0.6 % (1.5-5.0) L 06/29/18 12:30 Baso % (Auto) 0.3 % (0.0-3.0) 06/29/18 12:30 Gran # 7.90 (1.4-6.5) H 06/29/18 12:30 Lymph # (Auto) 3.4 (1.2-3.4) 06/29/18 12:30 [place] # (Auto) 0.4 (0.1-0.6) 06/29/18 12:30 Eos # (Auto) 0.1 (0.0-0.7) 06/29/18 12:30 Baso # (Auto) 0.03 K/mm3 (0.0-2.0) 06/29/18 12:30 PT 14.7 SECONDS (9.4-12.5) H 06/29/18 12:30 INR 1.27 06/29/18 12:30 APTT 169.6 Seconds (25.1-36.5) H* 06/29/18 12:30 pCO2 24 mm/Hg (35-45) L 06/29/18 12:30 pO2 151 mm/Hg (30-55) H 06/29/18 14:40 ABG pH < 6.80 (7.35-7.45) L* 06/29/18 12:30 ABG O2 Saturation 100.7 % (95-98) H 06/29/18 12:30 ABG Potassium 7.2 mmol/L (3.6-5.2) H* 06/29/18 12:30 VBG pH < 6.80 (7.32-7.43) L* 06/29/18 14:40 VBG pCO2 38.0 (40-60) L 06/29/18 14:40 VBG O2 Sat (Calc) 100.5 % (40-65) H 06/29/18 14:40 VBG Potassium 6.0 mmol/L (3.6-5.2) H 06/29/18 14:40 Sodium 137.0 mmol/L (132-148) 06/29/18 14:40 Chloride 99.0 mmol/L (98-107) 06/29/18 14:40 Glucose > 750 mg/dl (65-105) H* 06/29/18 14:40 Lactate 12.8 mmol/L (0.7-2.1) H* 06/29/18 14:40 Mechanical Rate 16 06/29/18 12:30 FiO2 21.0 % 06/29/18 14:40 Tidal Volume 400 06/29/18 12:30 PEEP 5 06/29/18 12:30 Sodium 136 mmol/L (132-148) 06/29/18 14:40 Potassium 5.9 mmol/L (3.6-5.0) H* D 06/29/18 14:40 Chloride 105 mmol/L (98-107) 06/29/18 14:40 Carbon Dioxide 7 mmol/L (21-33) L D 06/29/18 14:40 Anion Gap 31 (10-20) H 06/29/18 14:40 BUN 60 mg/dL (7-21) H 06/29/18 14:40 Creatinine 2.2 mg/dl (0.7-1.2) H 06/29/18 14:40 Est GFR ( Amer) 27 06/29/18 14:40 Est GFR (Non-Af Amer) 22 06/29/18 14:40 POC Glucose (mg/dL) > 500 mg/dL (65-110) H* 06/29/18 15:59 Random Glucose 1181 mg/dL (70-110) H* 06/29/18 14:40 Calcium 7.1 mg/dL (8.4-10.5) L 06/29/18 14:40 Phosphorus 14.1 mg/dL (2.5-4.5) H 06/29/18 12:30 Magnesium 2.9 mg/dL (1.7-2.2) H 06/29/18 12:30 Total Bilirubin 0.2 mg/dL (0.2-1.3) 06/29/18 14:40 AST 418 U/L (14-36) H D 06/29/18 14:40 ALT 191 U/L (7-56) H 06/29/18 14:40 Alkaline Phosphatase 131 U/L (38-126) H D 06/29/18 14:40 Troponin I 0.38 ng/mL H* D 06/29/18 12:30 Total Protein 2.9 g/dL (5.8-8.3) L 06/29/18 14:40 Albumin 1.5 g/dL (3.0-4.8) L 06/29/18 14:40 Globulin 1.4 gm/dL 06/29/18 14:40 Albumin/Globulin Ratio 1.1 (1.1-1.8) 06/29/18 14:40 Arterial Blood Potassium 7.2 mmol/L (3.6-5.2) H* 06/29/18 12:30 Venous Blood Potassium 6.0 mmol/L (3.6-5.2) H 06/29/18 14:40 Blood Type O POSITIVE 06/29/18 12:30 Antibody Screen Negative 06/29/18 12:30 Crossmatch See Detail 06/29/18 12:30 BBK History Checked Patient has bt 06/29/18 12:30 - Hospital Course Hospital Course: Upon Admission: Pt is a 68yo F with pmhx of uncontrolled DM, HTN, HLD and CAD s/p 4 stents who is BIBA for being unresponsive, and asystole. Pts daughter was able to provide history for the pt. The daughter states that she spoke to her mother last night before the pt went to bed and the pt was complaining of nausea, but wanted to sleep it off. She states that the pt lives with her 2 sons. The daughter then reports that one of the pts sons called her and told them to check up on the mother, and when the daughter arrived to the house, she noticed her mother had vomited and was altered. EMS was called and when they arrived on the scene the pts BP was 60/30. The pt then become increasingly bradycardic to the point that she became asystolic. EMS began to do CPR immediately and intubated the pt in the field. The pt was also given 2 rounds of epi while enroute to the hospital. In the ED the pt recieved 4 more rounds of epi before she ultimately achieved ROSC. Upon achieving ROSC, EKG was performed and ST elevations were noted in leads 2,3 and [address]F with lateral ST depressions. Repeat EKG showed sinus HR at 60, and still showed inferior ST elevation in the same leads. Code heart was called upon the initial EKG finding, where the recreation counselor Dr. Strong saw the pt and noted that the pt was too unstable for the labor and delivery nurse due to pt having Hgb in the 7's and pt being severely acidotic at the time. He elected for conservative medical management until the pt could be stabilized for the labor and delivery nurse. Hospital course: Pt was stabilized in the ER, and then transferred to the ICU. In the ICU a code blue was called. Patient was in asystole before our arrival. Per ACLS, CPR was initiated, with no gap in compressions for more than 30s and compressions continuously with exception of q2 minute pulse check, both at femoral with Doppler and at Carotid. 8 rounds of epi were given, 8 rounds of bicarb given at [id number] intervals. Compressions were performed for 24 minutes. Total of 12 rounds of compressions. After 12th round of compression, patient's family was asked for their wishes, and they chose to end the code. Patient was pronounced at 4:46P. Discharge Exam - Head Exam Head Exam: ATRAUMATIC, NORMOCEPHALIC - Eye Exam Eye Exam: absent: EOMI, PERRL Pupil Exam: absent: NORMAL ACCOMODATION - Respiratory Exam Respiratory Exam: absent: Clear to PA & Lateral, NORMAL BREATHING PATTERN - Cardiovascular Exam Cardiovascular Exam: absent: RRR, +S1, +S2 - GI/Abdominal Exam GI & Abdominal Exam: absent: Normal Bowel Sounds - Neurological Exam Additional comments: Pt had no response to any stimuli - Additional Findings Additional findings: Please reference to the pronouncement of note for further physical exam findings Discharge Plan - Follow Up Plan Condition: CRITICAL Disposition: WITH WITHOUT AUTOPSY
== END 2018-06-29 16:48 ==
LOC: ED 11:42 → ERH 12:57 → ICU 15:46
PROVIDERS: ADMIT Hospitalist; ATTEND Hospitalist
PROC: 5A1935Z Respiratory Ventilation, Less than 24 Consecutive Hours (ICD-10-PCS; principal; 2018-06-29)
PROC: 5A12012 Performance of Cardiac Output, Single, Manual (ICD-10-PCS; 2018-06-29)
PROC: 30233N1 Transfusion of Nonautologous Red Blood Cells into Peripheral Vein, Percutaneous Approach (ICD-10-PCS; 2018-06-29)
DX: I21.3 ST elevation (STEMI) myocardial infarction of unspecified site (principal); E11.10 Type 2 diabetes mellitus with ketoacidosis without coma; J69.0 Pneumonitis due to inhalation of food and vomit; J96.00 Acute respiratory failure, unspecified whether with hypoxia or hypercapnia; K72.00 Acute and subacute hepatic failure without coma; N17.9 Acute kidney failure, unspecified; E11.51 Type 2 diabetes mellitus with diabetic peripheral angiopathy without gangrene; I25.10 Atherosclerotic heart disease of native coronary artery without angina pectoris; D64.9 Anemia, unspecified; E87.5 Hyperkalemia; I08.1 Rheumatic disorders of both mitral and tricuspid valves; E78.5 Hyperlipidemia, unspecified; E86.0 Dehydration; I10 Essential (primary) hypertension; F17.210 Nicotine dependence, cigarettes, uncomplicated; Z79.82 Long term (current) use of aspirin; Z95.5 Presence of coronary angioplasty implant and graft; Z91.14 Patient's other noncompliance with medication regimen